=== PATIENT | female | born 1985 | race Two or more races ===

== ENCOUNTER 2020-07-23 14:40 | Outpatient (REF) | payer OTHER, SELFPAY ==
[2020-07-23 15:43] LABS: MANUAL DIFF FLAG NO
[2020-07-23 15:49] LABS: Basophils Percent Auto 0.5 % (0-2); Eosinophils Absolute Auto 0.2 X10*3/uL (0.0-0.4); Eosinophils Percent Auto 2.1 % (0-4); Hematocrit 41.9 % (37-47); Hemoglobin 13.3 g/dl (12.0-16.0); Imm Gran Abs Auto 0.04 X10*3/uL (0.00-0.03); Imm Gran Pct Auto 0.5 % (0.0-0.4); Lymphocytes Absolute Auto 2.3 X10*3/uL (1.2-4.9); Lymphocytes Percent Auto 30.3 % (20-40); Mean Corpuscular HGB Conc 31.7 g/dl (31.0-35.0); Mean Corpuscular Hemoglobin 27.3 pg (27.0-33.0); Mean Corpuscular Volume 85.9 fL (80-98); Mean Platelet Volume 11.5 fL (9.4-12.3); Monocytes Absolute Auto 0.5 X10*3/uL (0.1-1.2); Monocytes Percent Auto 6.8 % (2-11); Neutrophils Absolute Auto 4.5 X10*3/uL (2.0-8.3); Neutrophils Percent Auto 59.8 % (45-73); Platelet Count 270 X10*3/uL (160-400); Red Blood Count 4.88 X10*6/uL (4.20-5.50); Red Cell Distribution Width 12.9 % (11.0-16.0); White Blood Count 7.5 X10*3/uL (4.8-10.8)
[2020-07-23 16:12] LABS: Anion Gap 11 (12-20); Blood Urea Nitrogen 10 mg/dL (9-16); Calcium 9.2 mg/dL (8.4-10.2); Carbon Dioxide 26 mmol/L (22-29); Chloride 106 mmol/L (96-108); Estimated Glomerular Filt Rate > 60; Glucose Random 110 mg/dL (60-115); Potassium 4.1 mmol/l (3.3-5.1); Rheumatoid Factor < 15.0 IU/mL (<15.0); Sodium 139 mmol/L (135-145)
[2020-07-23 16:33] LABS: Vitamin D 25-OH Total 19.6 ng/mL (>30)
[2020-07-23 16:38] LABS: Vitamin B12 237 pg/mL (200-900)
[2020-07-23 17:34] LABS: Erythrocyte Sedimentation Rate 4 MM/HR (0-20)
[2020-07-24 15:41] LABS: Anti Nuclear Antibody Screen NEGATIVE (NEGATIVE)
== END 2020-07-23 14:41 | disposition home or self-care (01) ==
LOC: HO.LAB 14:40
PROVIDERS: PCP Internal Medicine; Visit Provider Internal Medicine
DX: K21.9 Gastro-esophageal reflux disease without esophagitis (principal); M25.519 Pain in unspecified shoulder; E28.2 Polycystic ovarian syndrome; E55.9 Vitamin D deficiency, unspecified
CPT/HCPCS: 36415; 80048; 82306; 82607; 85025; 85652; 86038; 86039; 86431

== ENCOUNTER → 2020-08-18 14:51 | Outpatient (BNVA) | payer OTHER, SELFPAY | PROVIDERS: PCP Internal Medicine; Visit Provider Obstetrics & Gynecology | DX: Z76.89 Persons encountering health services in other specified circumstances (principal) ==

== ENCOUNTER 2020-08-24 18:03 | Emergency (ER) | payer OTHER, SELFPAY ==
[2020-08-24 19:00] VITALS: BP 115/69; PULSE 70; RESP 16; TEMP 36.7; O2SAT 99; BMI 27.1
--- NOTE | 2020-08-24 19:50 | CT_ITS ---
EXAMINATION: CT ABDOMEN AND PELVIS WITH CONTRAST CLINICAL INFORMATION: Epigastric pain in right lower quadrant pain. Right flank pain. COMPARISON: CT abdomen pelvis 03/06/2018, 09/03/2017. TECHNIQUE: Multidetector volumetric images were obtained from the superior aspect of the liver through the pubic symphysis following administration 85 mL of Omnipaque 350 intravenous contrast. Sagittal and coronal reformatted images were obtained on the technologist's workstation. Oral contrast: No This CT examination was performed using dose optimization techniques as appropriate, variously including the following: *Automated exposure control *Adjustment of mA and/or kV according to patient size (this includes techniques or standardized protocols for targeted exams where dose is matched to indication/reason for exam; i.e. extremities or head) *Use of iterative reconstruction technique DLP: 589 mGy-cm FINDINGS: LUNG BASES: The visualized lung bases are unremarkable. LIVER, GALLBLADDER, AND BILIARY TREE: The liver is normal in size, shape, and attenuation. No focal hepatic lesion or biliary ductal dilatation is present. Status post cholecystectomy PANCREAS: Unremarkable. SPLEEN: Unremarkable. ADRENAL GLANDS: Unremarkable. KIDNEYS AND URETERS: The kidneys are normal in size, shape, and attenuation. No hydronephrosis, hydroureter, or calculi seen. No perinephric stranding. BLADDER: Unremarkable. GASTROINTESTINAL TRACT: Status post gastric surgery. No acute abnormality of the bowel. No bowel obstruction. No bowel wall thickening or edema. Small volume of scattered stool in the colon. The appendix is normal. ABDOMINAL WALL: No significant hernia is appreciated. LYMPH NODES: Normal. VASCULAR: There are varices at the right and left side of the pelvic sidewall with prominence of the right and left gonadal veins. There is otherwise normal enhancement of the abdominal and pelvic vasculature. PELVIC VISCERA: Unremarkable. OSSEOUS STRUCTURES: Unremarkable. CT/CT abdomen pelvis w con IMPRESSION: 1. No acute abnormality. 2. 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 This is chronic unchanged since CAT scan 09/03/2017.
--- NOTE | 2020-08-24 19:52 | ED_ITS ---
HPI - Nausea/Vomiting/Diarrhea General Chief complaint: Nausea/Vomiting/Diarrhea Stated complaint: flank pain Time Seen by Provider: 08/24/20 19:29 Source: patient Mode of arrival: ambulatory Limitations: no limitations History of Present Illness HPI Narrative: patient comes to the emergency room complaining diarrhea for 2 days. Patient states 3 days ago she ate at [employer], that same night she ate dinner at her vovzph-in-ajd's house, the next day in the afternoon, patient had 2 sips of coffee and immediately started having diarrhea. Patient reports 1 episode of vomiting. Patient states anything that she will make her go immediately to the bathroom. Patient states she has had copious diarrhea all day today, patient complaining of back pain bilaterally, no abdominal pain MD elicited complaint: nausea, vomiting and diarrhea Related Data Home Medications Medication Instructions Recorded Confirmed estazolam 2 mg PO BEDTIME 07/23/20 08/18/20 gabapentin 100 mg PO TID 07/23/20 08/18/20 indomethacin 50 mg PO TID PRN 07/23/20 08/18/20 lithium carbonate 450 mg PO DAILY 07/23/20 08/18/20 Previous Rx's Medication Instructions Recorded loperamide 2 mg PO Q6H PRN #10 cap 08/24/20 ondansetron HCl [Zofran] 4 mg PO Q8H PRN #10 tab 08/24/20 Allergies Allergy/AdvReac Type Severity Reaction Status Date / Time No Known Allergies Allergy Verified 08/18/20 15:01 Review of Systems Review of Systems: Constitutional : No Weight loss, No Fever, No Chills, No Night Sweats, No Fatigue, No Malaise ENT/Mouth : No Hearing loss, No Ear Pain, No Nasal Congestion, No Sinus Pain, No Hoarseness, No sore throat, No Rhinorrhea, No Swallowing Difficulty Eyes: No Eye Pain, No Swelling, No Redness, No Foreign Body, No Discharge, No Vision Changes Cardiovascular : No Chest Pain, No SOB, No Dyspnea on Exertion, No Orthopnea, No Edema, No Palpitations Respiratory : No Cough, No Sputum, No Wheezing, No Smoke Exposure, No Dyspnea Gastrointestinal : patient complaining of nausea, 1 episode of vomiting, cough his diarrhea, No abdominal Pain, No Hematochezia, No Melena Genitourinary : no irregular bleeding, No Dysuria, No Urinary Frequency, No Hematuria, No Urinary Incontinence, No Urgency, No Flank Pain, No Urinary Flow Changes, No Hesitancy Musculoskeletal : No joint pain, No Myalgias, No Joint Swelling Skin : No Skin Lesions, No rash Neuro : No Weakness, No Numbness, No Paresthesias, No Loss of Consciousness, No Dizziness, No Headache Psych : No Anxiety/Panic, No Depression, No SI/HI/AH/VH, No Social Issues, Heme/Lymph: No Bruising, No Bleeding,No Lymphadenopathy Endocrine : No Polyuria, No Polydipsia, No Temperature Intolerance [facility] Past Medical History Medical History Anxiety Depression GERD (gastroesophageal reflux disease) History of kidney stones Migraines Vitamin B 12 deficiency Surgical History History of bilateral tubal ligation S/P laparoscopic sleeve gastrectomy Social History Social History Alcohol intake: never Smoking Status: Never smoker Use of substances other than those prescribed or required for medical reasons: No Advance Directives: No Advance Directives Information Provided: Yes Sexual orientation: Straight/Heterosexual Gender identity: female Physical Exam Vital Signs: Vital Signs: Last Vital Signs Temp 98.1 F 08/24/20 19:00 Pulse 65 08/24/20 20:24 Resp 14 08/24/20 20:24 BP 109/70 08/24/20 20:24 Pulse Ox 100 08/24/20 20:24 Body Mass Index 27.1 Appearance: Alert. Oriented X3. No acute distress. Eyes: Pupils equal, round and reactive to light. ENT: Pharynx normal. Neck: Normal inspection. Neck supple. No lymph nodes noted. No crepitus CVS: Normal heart rate and rhythm. Pulses normal. Normal S1 and S2 Respiratory: No respiratory distress. Breath sounds normal. No Wheezing. No rales Abdomen: Soft and nontender. No rigidity. No distention. good BS x4 back: Exaggerated response to very mild touch to the back bilaterally Skin: Skin warm and dry. Normal skin color. Normal skin turgor. Extremities: No lower extremity edema. No lower extremity edema. No Lacerations. No Rash Neuro: Oriented X 3. No motor deficit. No sensory deficit. Moving all extermities. No slurred speech. Course Course Course Narrative: patient has not had any episodes of vomiting or diarrhea after she received Zofran and loperamide. I also discussed the patient with nurse practitioner on-call for bariatric surgery. Patient will be discharged home and instructed to call bariatric surgery office on Tuesday to schedule follow-up of appointments For this coming week MDM - Nausea/Vomiting/Diarrhea Lab Data Result diagrams: 08/24/20 20:18 08/24/20 20:18 Labs: Lab Results 08/24/20 08/24/20 08/24/20 Range/Units 20:18 20:18 22:40 WBC 6.8 (4.8-10.8) X10*3/uL RBC 4.67 (4.20-5.50) X10*6/uL Hgb 13.1 (12.0-16.0) g/dl Hct 40.7 (37-47) % MCV 87.2 (80-98) fL MCH 28.1 (27.0-33.0) pg MCHC 32.2 (31.0-35.0) g/dl RDW 13.0 (11.0-16.0) % Plt Count 272 (160-400) X10*3/uL MPV 10.9 (9.4-12.3) fL Immature Gran % (Auto) 0.1 (0.0-0.4) % Neut % (Auto) 54.0 (45-73) % Lymph % (Auto) 36.2 (20-40) % Green % (Auto) 8.6 (2-11) % Eos % (Auto) 0.7 (0-4) % Baso % (Auto) 0.4 (0-2) % Lymph # (Auto) 2.5 (1.2-4.9) X10*3/uL Green # (Auto) 0.6 (0.1-1.2) X10*3/uL Eos # (Auto) 0.1 (0.0-0.4) X10*3/uL Baso # (Auto) 0.0 (0.0-0.2) X10*3/uL Abs Immat Gran (auto) 0.01 (0.00-0.03) X10*3/uL Absolute Neuts (auto) 3.6 (2.0-8.3) X10*3/uL Absolute Nucleated RBC 0.000 (0.0-0.012) X10*3/uL Nucleated RBC % (auto) 0.0 (0.0-0.2) /100WBC Sodium 139 (135-145) mmol/L Potassium 3.7 (3.3-5.1) mmol/l Chloride 105 (96-108) mmol/L Carbon Dioxide 26 (22-29) mmol/L Anion Gap 12 (12-20) BUN 13 (9-16) mg/dL Creatinine 0.78 (0.5-1.4) mg/dL Estim Creat Clear Calc 105.9 Estimated GFR > 60 Random Glucose 87 (60-115) mg/dL Calcium 8.6 D (8.4-10.2) mg/dL Total Bilirubin 0.7 (0.0-1.0) mg/dL Direct Bilirubin 0.3 (0.0-0.5) mg/dL AST 17 (5-31) U/L ALT 15 (0-31) U/L Alkaline Phosphatase 45 (39-117) U/L Total Protein 6.8 (6.5-8.0) g/dL Albumin 3.9 (3.5-5.0) g/dL Lipase 22 (8-78) U/L Urine Color YELLOW Urine Appearance CLEAR Urine pH 5.5 (5.0-8.0) Ur Specific Graff 1.015 (1.005-1.025) Urine Protein NEG (NEG-TRACE) MG/DL Urine Glucose (UA) NEG (NEG) MG/DL Urine Ketones NEG (NEG) MG/DL Urine Blood TRACE (NEG) Urine Nitrite NEG (NEG) Ur Leukocyte Esterase NEG (NEG) Discharge Plan Discharge Clinical Impression: Acute flank pain Vomiting Qualifiers: Vomiting type: unspecified Vomiting Intractability: unspecified Nausea presence: unspecified Qualified Code(s): R11.10 - Vomiting, unspecified Diarrhea Qualifiers: Diarrhea type: unspecified type Qualified Code(s): R19.7 - Diarrhea, unspecified Patient Disposition: Home, Self-Care Instructions: Acute Nausea and Vomiting (ED), Acute Diarrhea (ED) Additional Instructions: please call the Bariatric surgery Office tomorrow to schedule a follow-up appointment. Please follow-up with your primary care physician tomorrow. If you have any worsening or new symptoms, please return to the emergency room or call 911 Prescriptions: New ondansetron HCl [Zofran] 4 mg tablet 4 mg PO Q8H PRN (Reason: nausea and vomiting) Qty: 10 RF: 0 loperamide 2 mg capsule 2 mg PO Q6H PRN (Reason: loose stool) Qty: 10 RF: 0 No Action estazolam 2 mg tablet 2 mg PO BEDTIME RF: 0 lithium carbonate 450 mg tablet extended release 450 mg PO DAILY RF: 0 indomethacin 50 mg capsule 50 mg PO TID PRN (Reason: Pain) RF: 0 gabapentin 100 mg Capsule 100 mg PO TID RF: 0
[2020-08-24] MEDS: 0.9 % Sodium Chloride 1,000 ML 999 ML IVCONT (20:19)
[2020-08-24] MEDS: ondansetron HCL 4 MG/2 ML VIAL IVPUSH (20:20)
[2020-08-24] MEDS: Loperamide HCl 2 MG CAPSULE PO (20:20)
[2020-08-24 20:23] LABS: MANUAL DIFF FLAG NO
[2020-08-24 20:24] VITALS: BP 109/70; PULSE 65; RESP 14; O2SAT 100
[2020-08-24 20:26] LABS: Basophils Percent Auto 0.4 % (0-2); Eosinophils Absolute Auto 0.1 X10*3/uL (0.0-0.4); Eosinophils Percent Auto 0.7 % (0-4); Hematocrit 40.7 % (37-47); Hemoglobin 13.1 g/dl (12.0-16.0); Imm Gran Abs Auto 0.01 X10*3/uL (0.00-0.03); Imm Gran Pct Auto 0.1 % (0.0-0.4); Lymphocytes Absolute Auto 2.5 X10*3/uL (1.2-4.9); Lymphocytes Percent Auto 36.2 % (20-40); Mean Corpuscular HGB Conc 32.2 g/dl (31.0-35.0); Mean Corpuscular Hemoglobin 28.1 pg (27.0-33.0); Mean Corpuscular Volume 87.2 fL (80-98); Mean Platelet Volume 10.9 fL (9.4-12.3); Monocytes Absolute Auto 0.6 X10*3/uL (0.1-1.2); Monocytes Percent Auto 8.6 % (2-11); Neutrophils Absolute Auto 3.6 X10*3/uL (2.0-8.3); Platelet Count 272 X10*3/uL (160-400); Red Blood Count 4.67 X10*6/uL (4.20-5.50); White Blood Count 6.8 X10*3/uL (4.8-10.8)
[2020-08-24 20:45] LABS: Alanine Aminotransferase 15 U/L (0-31); Albumin Level 3.9 g/dL (3.5-5.0); Alkaline Phosphatase 45 U/L (39-117); Anion Gap 12 (12-20); Aspartate Amino Transferase 17 U/L (5-31); Bilirubin Direct 0.3 mg/dL (0.0-0.5); Bilirubin Total 0.7 mg/dL (0.0-1.0); Blood Urea Nitrogen 13 mg/dL (9-16); Calcium 8.6 mg/dL (8.4-10.2); Carbon Dioxide 26 mmol/L (22-29); Chloride 105 mmol/L (96-108); Creatinine Clr Calc Pharmacy 105.9; Estimated Glomerular Filt Rate > 60; Glucose Random 87 mg/dL (60-115); Lipase 22 U/L (8-78); Potassium 3.7 mmol/l (3.3-5.1); Sodium 139 mmol/L (135-145); Total Protein 6.8 g/dL (6.5-8.0)
[2020-08-24] MEDS: iohexoL 350 MG/ML 100 ML INFUS..BTL IV (21:45)
[2020-08-24 22:48] LABS: Glucose Urine UA NEG (NEG); Leukocyte Esterase Urine NEG (NEG); Nitrite Urine NEG (NEG); PH 5.5 (5.0-8.0); Specific Gravity - Urine 1.015 (1.005-1.025); Urine Blood TRACE (NEG); Urine Ketones NEG (NEG); Urine Protein NEG (NEG-TRACE)
[2020-08-24 22:49] LABS: Appearance Urine CLEAR; Color Urine YELLOW
[2020-08-24 22:50] LABS: UPreg QC Valid YES; Urine Pregnancy NEGATIVE (NEGATIVE)
[2020-08-24 22:54] LABS: Bacteria Urine 1+ /LPF; Mucus Urine 2+ /LPF; RBC Urine 0-2 /HPF (0); Squamous Epithelial Cell Urine 1+ /LPF; WBC Urine 0 /HPF (0-4)
== END 2020-08-24 23:05 | disposition home or self-care (01) ==
PROVIDERS: Emergency Provider Emergency Medicine; PCP Internal Medicine
DX: R19.7 Diarrhea, unspecified (principal); R11.10 Vomiting, unspecified; R10.9 Unspecified abdominal pain; Z79.899 Other long term (current) drug therapy
CPT/HCPCS: 36415; 74177; 80048; 80076; 81001; 81025; 83690; 85025; 96361; 96374; 99284; J2405; Q9967

== ENCOUNTER → 2020-09-30 11:51 | Outpatient (BNVA) | payer OTHER, SELFPAY | PROVIDERS: PCP Internal Medicine; Referring Provider Internal Medicine; Visit Provider Surgery | DX: Z76.89 Persons encountering health services in other specified circumstances (principal) ==

== ENCOUNTER 2020-10-05 15:35 | Emergency (ER) | payer OTHER, SELFPAY ==
[2020-10-05 15:41] VITALS: BP 104/69; PULSE 83; RESP 17; TEMP 37.9; O2SAT 97; BMI 26.8
--- NOTE | 2020-10-05 15:51 | ED_ITS ---
HPI - URI/Sore Throat General Chief Complaint: Upper Respiratory Symptoms Stated Complaint: covid symptoms Time Seen by Provider: 10/05/20 15:42 Source: patient Mode of arrival: ambulatory Limitations: no limitations History of Present Illness HPI Narrative: 35 y/o female with history of obesity s/p gastric sleeve, hx gastritis, anxiety, depression, kidney stones s/p lithotripsy in the past presents with 3 days of headache, generalized fatigue, body aches, mild ESTRADA, and intermittent nausea. She has been able to eat and drink normally but has lack of appetite. She denies cough, SOB, chest pain, abd pain, vomiting or diarrhea. No urinary symptoms. She did not get her flu shot this year. 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 Related Data Home Medications Medication Instructions Recorded Confirmed estazolam 2 mg PO BEDTIME 07/23/20 09/30/20 gabapentin 100 mg PO TID 07/23/20 09/30/20 indomethacin 50 mg PO TID PRN 07/23/20 09/30/20 lithium carbonate 450 mg PO DAILY 07/23/20 09/30/20 Previous Rx's Medication Instructions Recorded loperamide 2 mg PO Q6H PRN #10 cap 08/24/20 ondansetron HCl [Zofran] 4 mg PO Q8H PRN #10 tab 08/24/20 sucralfate 100 mg/mL oral 10 ml PO QID #420 ml 09/30/20 suspension ondansetron HCl [Zofran] 4 mg PO Q8H PRN #10 tab 10/05/20 Allergies Allergy/AdvReac Type Severity Reaction Status Date / Time No Known Allergies Allergy Verified 09/30/20 14:54 Review of Systems Review of Systems: Constitutional: No Fever, + Chills ENT/Mouth: No sore throat, No Rhinorrhea, No Swallowing Difficulty Eyes: No Eye Pain, No Swelling, No Redness Cardiovascular: No Chest Pain, No SOB, No Orthopnea, No Edema Respiratory: No Cough, No Sputum, No Wheezing, No dyspnea Gastrointestinal: + Nausea, No Vomiting, No Diarrhea, No abdominal Pain Genitourinary: No Dysuria, No Urinary Frequency, No Hematuria Musculoskeletal: + joint pain, + Myalgias Skin: No Skin Lesions, No rash Neuro: + Weakness, No Numbness, + Dizziness, + Headache Heme/Lymph: No Lymphadenopathy PMFSH Past Medical History Attestation statement: The following information was validated with the patient. Medical History Anxiety Depression History of kidney stones Migraines Panic attacks Vitamin B 12 deficiency Surgical History History of bilateral tubal ligation History of endoscopy Hx laparoscopic cholecystectomy Hx of lithotripsy S/P laparoscopic sleeve gastrectomy S/P panniculectomy Family History Family History Mother Alzheimer disease Dementia Father Diabetes mellitus Hypertension Sister Cancer Sister No problems noted. Brother No problems noted. Brother No problems noted. Son No problems noted. Daughter No problems noted. Social History Social History Alcohol intake: never Smoking Status: Never smoker Smoked in Last 30 Days: No Use of substances other than those prescribed or required for medical reasons: No Advance Directives: No Advance Directives Information Provided: Yes Sexual orientation: Straight/Heterosexual Gender identity: female Physical Exam Vital Signs: Vital Signs: Last Vital Signs Temp 100.2 F 10/05/20 15:41 Pulse 83 10/05/20 15:41 Resp 17 10/05/20 15:41 BP 104/69 10/05/20 15:41 Pulse Ox 97 10/05/20 15:41 Body Mass Index 26.8 Appearance: Alert. Oriented X3. No acute distress. HEENT: Normal inspection of external structures. Pharynx normal. Neck: Normal inspection. Neck supple. CVS: Normal heart rate and rhythm. Pulses normal. Respiratory: No respiratory distress. Breath sounds normal. Skin: Skin warm and dry. Normal skin color. Normal skin turgor. No rashes. Extremities: No lower extremity edema. Neuro: Oriented X 3. No motor deficit. No sensory deficit. Course Course Course Narrative: 35 y/o female presenting with body aches, chills, headaches, generalized weakness, nausea - concern for COVID-19 vs influenza. Low grade fe filiberto on arrival, Spo2 97% on room air and lungs are clear. She is non-toxic appearing. Will check respiratory panel. Reevaluation(s) Reevaluation #1: Resp panel negative. Stable for d/c. MDM - URI/Sore Throat Lab Data Labs: Lab Results 10/05/20 Range/Units 15:52 Coronavirus (PCR) NEGATIVE (Negative) Influenza Type A (PCR) NEGATIVE (Negative) Influenza Type B (PCR) NEGATIVE (Negative) RSV RNA Qual (PCR) NEGATIVE (Negative) Critical Care Time Critical Care Time Critical Care Time: No Discharge Plan Discharge Clinical Impression: Acute viral syndrome Patient Disposition: Home, Self-Care Additional Instructions: You were tested for COVID-19, Influenza and RSV today - ALL WERE NEGATIVE. It is likely you symptoms are from another viral illness. Rest. Stay hydrated. Do not go to work while you are feeling ill. Take over the counter cold/flu medications as needed for your symptoms. Take Tylenol as needed for fever and body aches. Do not exceed 4,000 mg in a 24 hour period. Follow up with your doctor this week. If you develop shortness of breath, difficulty breathing or chest pain call 911 or come back to the ER for further evaluation. Prescriptions: New ondansetron HCl [Zofran] 4 mg tablet 4 mg PO Q8H PRN (Reason: nausea and vomiting) Qty: 10 RF: 0 No Action estazolam 2 mg tablet 2 mg PO BEDTIME RF: 0 lithium carbonate 450 mg tablet extended release 450 mg PO DAILY RF: 0 indomethacin 50 mg capsule 50 mg PO TID PRN (Reason: Pain) RF: 0 gabapentin 100 mg Capsule 100 mg PO TID RF: 0 ondansetron HCl [Zofran] 4 mg tablet 4 mg PO Q8H PRN (Reason: nausea and vomiting) Qty: 10 RF: 0 loperamide 2 mg capsule 2 mg PO Q6H PRN (Reason: loose stool) Qty: 10 RF: 0 sucralfate [Carafate] 100 mg/mL suspension 10 ml PO QID Qty: 420 RF: 3 Stand Alone Forms: Work/School Release
[2020-10-05 16:38] LABS: Influenza A PCR NEGATIVE (Negative); Influenza B PCR NEGATIVE (Negative); Resp Syncy Virus RNA Qual PCR NEGATIVE (Negative); SARS COV2 PCR INHOUSE NEGATIVE (Negative)
== END 2020-10-05 17:17 | disposition home or self-care (01) ==
PROVIDERS: Physician Assistant; Emergency Provider Emergency Medicine; PCP Internal Medicine
DX: B34.9 Viral infection, unspecified (principal); Z20.828 Contact with and (suspected) exposure to other viral communicable diseases; R50.9 Fever, unspecified
CPT/HCPCS: 0241U; 99283

== ENCOUNTER → 2020-10-27 16:00 | Outpatient (BNV) | payer OTHER, SELFPAY | PROVIDERS: PCP Internal Medicine; Visit Provider Internal Medicine | DX: D51.9 Vitamin B12 deficiency anemia, unspecified (principal); D50.9 Iron deficiency anemia, unspecified; Z98.84 Bariatric surgery status | CPT/HCPCS: 99212; 99213; 99214 ==

== ENCOUNTER → 2020-11-11 14:35 | Outpatient (BNVA) | payer OTHER, SELFPAY | PROVIDERS: PCP Internal Medicine; Visit Provider Dietitian, Registered ==

== ENCOUNTER → 2020-11-25 07:58 | Outpatient (BNVA) | payer OTHER, SELFPAY | PROVIDERS: PCP Internal Medicine; Visit Provider Dietitian, Registered ==

== ENCOUNTER → 2021-01-06 08:18 | Outpatient (BNVA) | payer OTHER, SELFPAY | PROVIDERS: PCP Internal Medicine; Visit Provider Dietitian, Registered ==

== ENCOUNTER 2021-02-17 15:11 | Outpatient (REF) | payer OTHER, SELFPAY ==
--- NOTE | ~2021-02-17 | XR_ITS ---
EXAMINATION: KNEE X-RAY CLINICAL INFORMATION: Left knee pain COMPARISON: Previous x-ray most recent January 2020 TECHNIQUE: Standing AP view of both knees and lateral and sunrise view of the right knee FINDINGS: Right knee: Bone alignment is normal. No fracture is a accessory is seen. There is mild medial femoral tibial joint space narrowing. Joint spaces are otherwise normal. There is a small osteophyte at the quadriceps tendon insertion to the patella. There is no joint effusion. Standing AP view of the left knee demonstrates mild medial femoral tibial joint space narrowing. XR/XR knee RT 2V IMPRESSION: Mild medial femoral tibial joint space narrowing. Small right patellar osteophyte at the quadriceps tendon insertion.
--- NOTE | ~2021-02-17 | XR_ITS ---
EXAMINATION: KNEE X-RAY CLINICAL INFORMATION: Left knee pain COMPARISON: Previous x-ray most recent January 2020 TECHNIQUE: Standing AP view of both knees and lateral and sunrise view of the right knee FINDINGS: Right knee: Bone alignment is normal. No fracture is a accessory is seen. There is mild medial femoral tibial joint space narrowing. Joint spaces are otherwise normal. There is a small osteophyte at the quadriceps tendon insertion to the patella. There is no joint effusion. Standing AP view of the left knee demonstrates mild medial femoral tibial joint space narrowing. XR/XR knee standing BI IMPRESSION: Mild medial femoral tibial joint space narrowing. Small right patellar osteophyte at the quadriceps tendon insertion.
== END 2021-02-17 15:12 | disposition home or self-care (01) ==
LOC: HO.HOSX 15:11
PROVIDERS: Visit Provider Orthopaedic Surgery
DX: M25.561 Pain in right knee (principal); M25.562 Pain in left knee
CPT/HCPCS: 73560; 73565

== ENCOUNTER → 2021-02-18 08:16 | Outpatient (BNVA) | payer OTHER, SELFPAY | PROVIDERS: Visit Provider Orthopaedic Surgery | DX: M25.562 Pain in left knee (principal); M25.561 Pain in right knee | CPT/HCPCS: 99202; J1040 ==

== ENCOUNTER → 2021-03-10 08:10 | Outpatient (BNVA) | payer OTHER, SELFPAY | PROVIDERS: Visit Provider Dietitian, Registered | DX: E66.3 Overweight (principal) | CPT/HCPCS: 97803 ==

== ENCOUNTER → 2021-03-12 08:46 | Outpatient (BNVA) | payer OTHER, SELFPAY | PROVIDERS: Visit Provider Physician Assistant ==

== ENCOUNTER 2021-03-19 08:19 | Outpatient (REF) | payer OTHER, SELFPAY ==
[2021-03-19 10:12] LABS: MANUAL DIFF FLAG NO
[2021-03-19 10:23] LABS: Basophils Percent Auto 0.4 % (0-2); Eosinophils Absolute Auto 0.1 X10*3/uL (0.0-0.4); Eosinophils Percent Auto 0.7 % (0-4); Hematocrit 45.1 % (37-47); Hemoglobin 14.4 g/dl (12.0-16.0); Imm Gran Abs Auto 0.04 X10*3/uL (0.00-0.03); Imm Gran Pct Auto 0.5 % (0.0-0.4); Lymphocytes Absolute Auto 1.6 X10*3/uL (1.2-4.9); Lymphocytes Percent Auto 20.4 % (20-40); Mean Corpuscular HGB Conc 31.9 g/dl (31.0-35.0); Mean Corpuscular Hemoglobin 27.4 pg (27.0-33.0); Mean Corpuscular Volume 85.9 fL (80-98); Mean Platelet Volume 10.7 fL (9.4-12.3); Monocytes Absolute Auto 0.5 X10*3/uL (0.1-1.2); Monocytes Percent Auto 6.7 % (2-11); Neutrophils Absolute Auto 5.7 X10*3/uL (2.0-8.3); Neutrophils Percent Auto 71.3 % (45-73); Platelet Count 270 X10*3/uL (160-400); Red Blood Count 5.25 X10*6/uL (4.20-5.50); Red Cell Distribution Width 13.3 % (11.0-16.0)
[2021-03-19 10:42] LABS: Alanine Aminotransferase 20 U/L (0-31); Albumin Level 4.1 g/dL (3.5-5.0); Alkaline Phosphatase 55 U/L (39-117); Anion Gap 12 (12-20); Aspartate Amino Transferase 15 U/L (5-31); Bilirubin Total 0.5 mg/dL (0.0-1.0); Blood Urea Nitrogen 9 mg/dL (9-16); C Reactive Protein 0.05 mg/dL (< or = 0.50); Calcium 9.9 mg/dL (8.4-10.2); Carbon Dioxide 27 mmol/L (22-29); Chloride 106 mmol/L (96-108); Cholesterol 185 mg/dL; Estimated Glomerular Filt Rate > 60; Glucose Fasting 114 mg/dL (60-99); HDL Cholesterol 59 mg/dL; Iron 37 mcg/dL (30-160); LDL Cholesterol Calculated 115 mg/dl; Percent Iron Saturation 8 % (15-50); Potassium 4.9 mmol/L (3.3-5.1); Sodium 140 mmol/L (135-145); Total Iron Binding Capacity 454 mcg/dL (228-428); Total Protein 7.4 g/dL (6.5-8.0); Triglycerides 56 mg/dL; Unsaturated Iron Binding 417 ug/dL
[2021-03-19 11:03] LABS: Thyroid Stimulating Hormone 1.03 uIU/mL (0.32-4.0); Vitamin D 25-OH Total 23.8 ng/mL (>30)
[2021-03-19 11:27] LABS: Vitamin B12 262 pg/mL (200-900)
[2021-03-20 08:22] LABS: Follicle Stimulating Hormone 5.8 mIU/mL
[2021-03-22 00:17] LABS: Zinc 107 mcg/dL (60-130)
[2021-03-23 06:11] LABS: Vitamin B1 12 nmol/L (8-30)
[2021-03-24 21:36] LABS: Vitamin A 38 mcg/dL (38-98)
== END 2021-03-19 08:20 | disposition home or self-care (01) ==
LOC: HO.LAB 08:19
PROVIDERS: Absent Provider Surgery; PCP Internal Medicine; Visit Provider Advanced Practice Midwife
DX: Z01.818 Encounter for other preprocedural examination (principal); N90.89 Other specified noninflammatory disorders of vulva and perineum; R32 Unspecified urinary incontinence; N89.8 Other specified noninflammatory disorders of vagina; R23.2 Flushing; K90.9 Intestinal malabsorption, unspecified; F41.8 Other specified anxiety disorders; E53.8 Deficiency of other specified B group vitamins; Z90.3 Acquired absence of stomach [part of]; Z98.51 Tubal ligation status
CPT/HCPCS: 36415; 80053; 80061; 82306; 82607; 83001; 83540; 84425; 84443; 84590; 84630; 85025; 86140; 99212

== ENCOUNTER 2021-03-28 22:02 | Emergency (ER) | payer OTHER, SELFPAY ==
[2021-03-28 23:15] VITALS: BP 128/67; PULSE 77; RESP 18; TEMP 36.4; O2SAT 100; BMI 29.0
--- NOTE | 2021-03-29 00:46 | ED_ITS ---
HPI - Skin/Abscess/Foreign Bdy General Chief complaint: Skin/Abscess/Foreign Body Stated complaint: Breast pain Time Seen by Provider: 03/29/21 00:46 History of Present Illness HPI narrative: 35-year-old female presents today with having bilateral breast pain. Has been ongoing for the last 2 days. Patient feels like she can feel a lump there. No fever no chills. No redness. No discharge. Patient is from home. No cough no congestion upper respiratory symptoms. No chest pain. No shortness of breath. No abdominal pain. Patient from home. Does not think she is . Patient claims she had an ablation in the past. Related Data Home Medications Medication Instructions Recorded Confirmed estazolam 2 mg PO BEDTIME 07/23/20 09/30/20 gabapentin 100 mg PO TID 07/23/20 09/30/20 indomethacin 50 mg PO TID PRN 07/23/20 09/30/20 lithium carbonate 450 mg PO DAILY 07/23/20 09/30/20 Previous Rx's Medication Instructions Recorded loperamide 2 mg PO Q6H PRN #10 cap 08/24/20 ondansetron HCl [Zofran] 4 mg PO Q8H PRN #10 tab 08/24/20 sucralfate 100 mg/mL oral 10 ml PO QID #420 ml 09/30/20 suspension acetaminophen [Tylenol Arthritis 650 mg PO Q8H PRN #30 tab 10/05/20 Pain] ondansetron HCl [Zofran] 4 mg PO Q8H PRN #10 tab 10/05/20 calcium citrate 315 mg-vitamin D3 2 tab PO BID #120 tab 12/02/20 5 mcg (200 unit) tablet Allergies Allergy/AdvReac Type Severity Reaction Status Date / Time No Known Allergies Allergy Verified 03/19/21 08:23 Review of Systems Review of Systems: Constitutional: No Weight loss, No Fever, No Chills, No Night Sweats, No Fatigue, No Malaise ENT/Mouth: No Hearing loss, No Ear Pain, No Nasal Congestion, No Sinus Pain, No Hoarseness, No sore throat, No Rhinorrhea, No Swallowing Difficulty Eyes: No Eye Pain, No Swelling, No Redness, No Foreign Body, No Discharge, No Vision Changes Cardiovascular: No Chest Pain, No SOB, No Dyspnea on Exertion, No Orthopnea, No Edema, No Palpitations Respiratory: No Cough, No Sputum, No Wheezing, No Smoke Exposure, No Dyspnea Gastrointestinal: No Nausea, No Vomiting, No Diarrhea, No Constipation, No abdominal Pain, No Hematochezia, No Melena Genitourinary: no irregular bleeding, No Dysuria, No Urinary Frequency, No Hematuria, No Urinary Incontinence, No Urgency, No Flank Pain, No Urinary Flow Changes, No Hesitancy Musculoskeletal: No joint pain, No Myalgias, No Joint Swelling Skin: Positive mass palpable by patient to the breast. Positive tightness in the breast. Neuro: No Weakness, No Numbness, No Paresthesias, No Loss of Consciousness, No Dizziness, No Headache Psych: No Anxiety/Panic, No Depression, No SI/HI/AH/VH, No Social Issues, Heme/Lymph: No Bruising, No Bleeding,No Lymphadenopathy Endocrine: No Polyuria, No Polydipsia, No Temperature Intolerance PMFSH Past Medical History Medical History Anxiety Depression History of kidney stones Migraines Panic attacks Vitamin B 12 deficiency Vulvar mass Surgical History History of bilateral tubal ligation History of endoscopy Hx laparoscopic cholecystectomy Hx of lithotripsy S/P laparoscopic sleeve gastrectomy S/P panniculectomy Family History Family History Mother Alzheimer disease Dementia Father Diabetes mellitus Hypertension Sister Cancer Sister No problems noted. Brother No problems noted. Brother No problems noted. Son No problems noted. Daughter No problems noted. 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 Appearance: Alert. Oriented X3. No acute distress. Eyes: Pupils equal, round and reactive to light. ENT: Pharynx normal. Neck: Normal inspection. Neck supple. No lymph nodes noted. No crepitus CVS: Normal heart rate and rhythm. Pulses normal. Normal S1 and S2 Examination of bilateral breasts showed no redness. Normal contours. Skin intact. There is bilateral nodularity is noted. Respiratory: No respiratory distress. Breath sounds normal. No Wheezing. No rales Abdomen: Soft and nontender. No rigidity. No distention. good BS x4 Skin: Skin warm and dry. Normal skin color. Normal skin turgor. Extremities: No lower extremity edema. Neurovascular intact to all extremities. No Lacerations. No Rash Neuro: Oriented X 3. No motor deficit. No sensory deficit. Moving all extermities. No slurred speech MDM - Skin/Abscess/Foreign Bdy MDM Narrative Medical decision making narrative: Well-appearing no acute distress. No evidence for mastitis. No abscess. Positive pain to the breast with multiple nodules palpable. Will have patient follow-up on an outpatient basis with PMD. Possible ultrasound versus mammogram on an outpatient basis. Discussed with patient risk of cancer exists. Needs follow-up. In stable condition. Medical Records Attestation: I reviewed the patient's medical records. Lab Data Attestation: I reviewed the patient's lab results. Discharge Plan Discharge Clinical Impression: Acute breast pain Patient Disposition: Home, Self-Care Instructions: Breast Mass (ED) Prescriptions: No Action calcium citrate-vitamin D3 315 mg-5 mcg (200 unit) tablet 2 tab PO BID Qty: 120 RF: 0 estazolam 2 mg tablet 2 mg PO BEDTIME RF: 0 lithium carbonate 450 mg tablet extended release 450 mg PO DAILY RF: 0 indomethacin 50 mg capsule 50 mg PO TID PRN (Reason: Pain) RF: 0 gabapentin 100 mg Capsule 100 mg PO TID RF: 0 ondansetron HCl [Zofran] 4 mg tablet 4 mg PO Q8H PRN (Reason: nausea and vomiting) Qty: 10 RF: 0 loperamide 2 mg capsule 2 mg PO Q6H PRN (Reason: loose stool) Qty: 10 RF: 0 ondansetron HCl [Zofran] 4 mg tablet 4 mg PO Q8H PRN (Reason: nausea and vomiting) Qty: 10 RF: 0 acetaminophen [Tylenol Arthritis Pain] 650 mg tablet extended release 650 mg PO Q8H PRN (Reason: fever or pain) Qty: 30 RF: 0 sucralfate [Carafate] 100 mg/mL suspension 10 ml PO QID Qty: 420 RF: 3 Referrals: Hardeep Hurd MD [Primary Care Provider] - 2 days Sergio Giang MD [Physician] - 2 days
== END 2021-03-29 00:57 | disposition home or self-care (01) ==
PROVIDERS: Emergency Provider Emergency Medicine Emergency Medical Services; PCP Internal Medicine
DX: N64.4 Mastodynia (principal); N63.0 Unspecified lump in unspecified breast
CPT/HCPCS: 99284

== ENCOUNTER 2021-03-31 11:54 | Outpatient (REF) | payer OTHER, SELFPAY ==
--- NOTE | ~2021-03-31 | XR_ITS ---
EXAMINATION: XR WRIST, RIGHT CLINICAL INFORMATION: Recent injury COMPARISON: None TECHNIQUE: 3 views of the right wrist of the right wrist. FINDINGS: The bones and soft tissues are normal. No fracture. Alignment is anatomic with normal joint spaces. No erosions or abnormal soft tissue calcifications. XR/XR wrist RT min 3V IMPRESSION: Normal right wrist.
== END 2021-03-31 11:55 | disposition home or self-care (01) ==
LOC: HO.XRAY 11:54
PROVIDERS: PCP Internal Medicine; Visit Provider Internal Medicine
DX: S69.91XA Unspecified injury of right wrist, hand and finger(s), initial encounter (principal)
CPT/HCPCS: 73110

== ENCOUNTER → 2021-04-17 09:22 | Outpatient (BNVA) | payer OTHER, SELFPAY | PROVIDERS: PCP Internal Medicine; Visit Provider Obstetrics & Gynecology | DX: N64.4 Mastodynia (principal) | CPT/HCPCS: 99212 ==

== ENCOUNTER 2021-04-28 13:49 | Outpatient (REF) | payer OTHER, SELFPAY ==
--- NOTE | ~2021-04-28 | MM_ITS ---
EXAMINATION: MM DIAGNOSTIC DIGITAL BREAST TOMOSYNTHESIS, BILATERAL CLINICAL INFORMATION: 35-year-old with scattered bilateral areas of palpable concern and mastodynia. No prior breast imaging. Family history breast cancer, maternal aunt. The lifetime risk of breast cancer based on the Tyrer-Cuzick Model is 17%. COMPARISON: None (current study represents initial baseline exam). TECHNIQUE: Digital breast tomosynthesis is performed in both the craniocaudal and mediolateral oblique views along with computer-aided detection (CAD). Synthesized 2D images are generated from the tomosynthesis. Additional bilateral exaggerated CC views are provided. FINDINGS: There are scattered areas of fibroglandular density (ACR BI-RADS breast composition Category b). The right exaggerated CC view shows. Oval parenchymal asymmetry posterior outer aspect 12 cm from nipple without correlate on the standard CC or MLO views. The left breast is unremarkable. Neither breast shows architectural abnormality or abnormal calcifications. The axilla and skin contours are unremarkable. There is no skin thickening or coarsening of the Don's ligaments. Patient was unable to stay today for bilateral breast ultrasound which has been rescheduled for later this month. MM/MM tomosynthesis diagnostic BI IMPRESSION: 1. Right: Parenchymal asymmetry posterior outer breast on exaggerated CC view. 2. Left: No mammographic evidence of malignancy. ASSESSMENT: BI-RADS 0: Incomplete - Need Additional Imaging Evaluation RECOMMENDATION: Bilateral breast ultrasound (rescheduled for later this month). This patient's information was entered into a reminder system with a target due date for their next mammogram.
== END 2021-04-28 13:50 | disposition home or self-care (01) ==
LOC: HO.MAMMO 13:49
PROVIDERS: Visit Provider Internal Medicine
DX: N63.25 Unspecified lump in the left breast, overlapping quadrants (principal)
CPT/HCPCS: 77062; 77066

== ENCOUNTER → 2021-04-29 14:10 | Outpatient (BNVA) | payer OTHER, SELFPAY | PROVIDERS: PCP Internal Medicine; Referring Provider Internal Medicine; Visit Provider Surgery | DX: R19.09 Other intra-abdominal and pelvic swelling, mass and lump (principal) | CPT/HCPCS: 99202 ==

== ENCOUNTER 2021-05-04 06:59 | Outpatient (REF) | payer OTHER, SELFPAY ==
--- NOTE | ~2021-05-04 | CT_ITS ---
EXAMINATION: CT ABDOMEN AND PELVIS WITHOUT CONTRAST CLINICAL INFORMATION: Intra-abdominal pelvic swelling. COMPARISON: None TECHNIQUE: Multidetector volumetric imaging was performed from the superior aspect of the liver through the pubic symphysis. Sagittal and coronal reformatted images were obtained on the technologist's workstation. This CT examination was performed using dose optimization techniques as appropriate, variously including the following: *Automated exposure control *Adjustment of mA and/or kV according to patient size (this includes techniques or standardized protocols for targeted exams where dose is matched to indication/reason for exam; i.e. extremities or head) *Use of iterative reconstruction technique DLP: 823 mGy-cm FINDINGS: LUNG BASES: The visualized lung bases are unremarkable. The heart size is normal. LIVER, GALLBLADDER, AND BILIARY TREE: The liver is normal in size, shape, and attenuation. No focal hepatic lesion or biliary ductal dilatation is present. The gallbladder has been surgically removed.. PANCREAS: Unremarkable. SPLEEN: Unremarkable. ADRENAL GLANDS: Unremarkable. KIDNEYS AND URETERS: The kidneys are normal in size, shape, and attenuation. No hydronephrosis, hydroureter, or calculi seen. No perinephric stranding. BLADDER: Unremarkable. GASTROINTESTINAL TRACT: There is moderate scattered stool seen in the colon without any significant distention. There are a few scattered diverticuli as well. No diverticulitis. The small bowel loops are normal caliber. Appendix is normal caliber. No free fluid or inflammatory changes seen. There are gastric bypass or sleeve changes ABDOMINAL WALL: No significant hernia is appreciated. LYMPH NODES: Normal. VASCULAR: Unremarkable. PELVIC VISCERA: The uterus is anteverted and appears unremarkable. There is no free fluid or free air. OSSEOUS STRUCTURES: No lytic or sclerotic process seen. CT/CT abdomen pelvis wo con IMPRESSION: 1. No acute intra-abdominal process seen. 2. Mild constipation with evidence of previous gastric bypass/sleeve surgery. 3. Evidence of previous cholecystectomy.
== END 2021-05-04 07:00 | disposition home or self-care (01) ==
LOC: HO.CT 06:59
PROVIDERS: PCP Internal Medicine; Visit Provider Surgery
DX: R19.09 Other intra-abdominal and pelvic swelling, mass and lump (principal)
CPT/HCPCS: 74176

== ENCOUNTER 2021-05-11 15:01 | Outpatient (REF) | payer OTHER, SELFPAY ==
--- NOTE | ~2021-05-11 | US_ITS ---
EXAMINATION: US DIAGNOSTIC ULTRASOUND BREAST, RIGHT US DIAGNOSTIC ULTRASOUND BREAST, LEFT CLINICAL INFORMATION: 35-year-old with scattered bilateral areas of palpable concern and mastoid dyspnea. Probable benign parenchymal asymmetry posterior outer right breast on recent mammography. COMPARISON: Diagnostic bilateral digital breast tomosynthesis 04/28/2021. TECHNIQUE: Bilateral breast ultrasound is targeted to all 4 quadrants of each side. Additional imaging also performed and region of parenchymal asymmetry posterior outer right breast. Grayscale imaging and color Doppler are performed without and with harmonics. FINDINGS: Right: There is no focal suspicious finding. There is no cystic or solid mass, architectural abnormality, duct ectasia, or edema in the soft tissue planes. Left: There is an oval complicated cyst 5:00 position 6 cm from nipple measuring 1.1 x 0.4 cm. This has some fine branching avascular peripheral internal septations. No peripheral or internal color flow. There is increased through-transmission of sound. Small adjacent simple satellite cyst is also noted in this area just under 0.4 cm. There is no solid mass or architectural abnormality. No focal duct ectasia. No skin thickening or edema tracking in soft tissue planes. Results are discussed with the patient at time of visit. US/US breast LT limited IMPRESSION: Right: Normal ultrasound. Left: Probable benign mildly complicated cyst 1.1 cm at 5:00 position with fine internal septation. No color flow. ASSESSMENT: BI-RADS 3: Probably Benign RECOMMENDATION: 1. Patient's bilateral breast symptoms should be managed based on the clinical impression. 2. Short interval six-month follow-up left targeted breast ultrasound for the probable benign complicated cyst 5:00 position.
--- NOTE | ~2021-05-11 | US_ITS ---
EXAMINATION: US DIAGNOSTIC ULTRASOUND BREAST, RIGHT US DIAGNOSTIC ULTRASOUND BREAST, LEFT CLINICAL INFORMATION: 35-year-old with scattered bilateral areas of palpable concern and mastoid dyspnea. Probable benign parenchymal asymmetry posterior outer right breast on recent mammography. COMPARISON: Diagnostic bilateral digital breast tomosynthesis 04/28/2021. TECHNIQUE: Bilateral breast ultrasound is targeted to all 4 quadrants of each side. Additional imaging also performed and region of parenchymal asymmetry posterior outer right breast. Grayscale imaging and color Doppler are performed without and with harmonics. FINDINGS: Right: There is no focal suspicious finding. There is no cystic or solid mass, architectural abnormality, duct ectasia, or edema in the soft tissue planes. Left: There is an oval complicated cyst 5:00 position 6 cm from nipple measuring 1.1 x 0.4 cm. This has some fine branching avascular peripheral internal septations. No peripheral or internal color flow. There is increased through-transmission of sound. Small adjacent simple satellite cyst is also noted in this area just under 0.4 cm. There is no solid mass or architectural abnormality. No focal duct ectasia. No skin thickening or edema tracking in soft tissue planes. Results are discussed with the patient at time of visit. US/US breast RT limited IMPRESSION: Right: Normal ultrasound. Left: Probable benign mildly complicated cyst 1.1 cm at 5:00 position with fine internal septation. No color flow. ASSESSMENT: BI-RADS 3: Probably Benign RECOMMENDATION: 1. Patient's bilateral breast symptoms should be managed based on the clinical impression. 2. Short interval six-month follow-up left targeted breast ultrasound for the probable benign complicated cyst 5:00 position.
== END 2021-05-11 15:02 | disposition home or self-care (01) ==
LOC: HO.MAMMO 15:01
PROVIDERS: Visit Provider Internal Medicine
DX: N64.4 Mastodynia (principal)
CPT/HCPCS: 76642

== ENCOUNTER → 2021-05-14 15:21 | Outpatient (BNVA) | payer OTHER, SELFPAY | PROVIDERS: PCP Internal Medicine; Referring Provider Internal Medicine; Visit Provider Surgery | DX: R19.09 Other intra-abdominal and pelvic swelling, mass and lump (principal) | CPT/HCPCS: 99212 ==

== ENCOUNTER → 2021-05-26 09:38 | Outpatient (BNVA) | payer OTHER, SELFPAY | PROVIDERS: Visit Provider Orthopaedic Surgery | DX: M22.2X1 Patellofemoral disorders, right knee (principal); M22.2X2 Patellofemoral disorders, left knee | CPT/HCPCS: 20610; 99212; J1040 ==

== ENCOUNTER 2021-06-29 16:12 | Outpatient (REF) | payer OTHER, SELFPAY ==
[2021-06-29 17:11] LABS: Influenza A PCR NEGATIVE (Negative); Influenza B PCR NEGATIVE (Negative); Resp Syncy Virus RNA Qual PCR NEGATIVE (Negative); SARS COV2 PCR INHOUSE NEGATIVE (Negative)
== END 2021-06-29 16:13 | disposition home or self-care (01) ==
LOC: HO.LNP 16:12
PROVIDERS: Visit Provider Internal Medicine
DX: Z20.822 Contact with and (suspected) exposure to COVID-19 (principal)
CPT/HCPCS: 0241U

== ENCOUNTER 2021-07-09 16:04 | Emergency (ER) | payer OTHER, SELFPAY ==
--- NOTE | ~2021-07-09 | CT_ITS ---
EXAMINATION: CT HEAD WITHOUT CONTRAST CLINICAL INFORMATION: Dizziness. Fall. Headaches. COMPARISON: CT of the head August 29, 2018 TECHNIQUE: Contiguous axial imaging was performed from the skull base to vertex without intravenous administration of contrast. Coronal and sagittal reformatted images are performed at CT scanner This CT examination was performed using dose optimization techniques as appropriate, variously including the following: *Automated exposure control *Adjustment of mA and/or kV according to patient size (this includes techniques or standardized protocols for targeted exams where dose is matched to indication/reason for exam; i.e. extremities or head) *Use of iterative reconstruction technique DLP: 675.31+5.12 mGy-cm FINDINGS: There is no evidence of acute intracranial hemorrhage or territorial infarction. No abnormal mass effect or midline shift is seen. Hickman to white matter differentiation is well preserved. No extra-axial fluid collections are identified. The ventricles are normal in size. There is no abnormal attenuation within the brain parenchyma. The osseous structures and soft tissues are normal. The mastoid air cells and visualized portions of the paranasal sinuses are well aerated. CT/CT head/brain wo con IMPRESSION: No acute intracranial pathology.
--- NOTE | ~2021-07-09 | CT_ITS ---
EXAMINATION: CT ABDOMEN AND PELVIS WITHOUT CONTRAST CLINICAL INFORMATION: Epigastric pain COMPARISON: 05/04/2021 TECHNIQUE: Multidetector volumetric imaging was performed from the superior aspect of the liver through the pubic symphysis. Sagittal and coronal reformatted images were obtained on the technologist's workstation. This CT examination was performed using dose optimization techniques as appropriate, variously including the following: *Automated exposure control *Adjustment of mA and/or kV according to patient size (this includes techniques or standardized protocols for targeted exams where dose is matched to indication/reason for exam; i.e. extremities or head) *Use of iterative reconstruction technique DLP: 1295 mGy-cm FINDINGS: LUNG BASES: The visualized lung bases are unremarkable. LIVER, GALLBLADDER, AND BILIARY TREE: The liver is normal in size, shape, and attenuation. No focal hepatic lesion or biliary ductal dilatation is present. Patient is status post cholecystectomy. PANCREAS: Unremarkable. SPLEEN: Unremarkable. ADRENAL GLANDS: Unremarkable. KIDNEYS AND URETERS: The kidneys are normal in size, shape, and attenuation. No hydronephrosis, hydroureter, or obstructing calculi seen. No perinephric stranding. BLADDER: Nearly empty and not well evaluated. GASTROINTESTINAL TRACT: Postoperative changes along the stomach. No evidence of bowel obstruction or wall thickening. The appendix is unremarkable. No free fluid or free air is seen. ABDOMINAL WALL: No significant hernia is appreciated. LYMPH NODES: Normal. VASCULAR: Unremarkable. PELVIC VISCERA: Unremarkable. OSSEOUS STRUCTURES: Unremarkable. CT/CT abdomen pelvis wo con IMPRESSION: No acute findings identified in the abdomen/pelvis.
[2021-07-09 16:42] VITALS: BP 115/72; PULSE 81; RESP 18; TEMP 36.7; O2SAT 100; BMI 29.7
[2021-07-09 18:58] LABS: MANUAL DIFF FLAG NO
[2021-07-09 19:04] LABS: Basophils Absolute Auto 0.1 X10*3/uL (0.0-0.2); Basophils Percent Auto 0.6 % (0-2); Eosinophils Absolute Auto 0.1 X10*3/uL (0.0-0.4); Hematocrit 41.2 % (37-47); Hemoglobin 13.3 g/dl (12.0-16.0); Imm Gran Abs Auto 0.06 X10*3/uL (0.00-0.03); Imm Gran Pct Auto 0.7 % (0.0-0.4); Lymphocytes Absolute Auto 2.7 X10*3/uL (1.2-4.9); Lymphocytes Percent Auto 32.6 % (20-40); Mean Corpuscular HGB Conc 32.3 g/dl (31.0-35.0); Mean Corpuscular Hemoglobin 27.6 pg (27.0-33.0); Mean Corpuscular Volume 85.5 fL (80-98); Mean Platelet Volume 10.6 fL (9.4-12.3); Monocytes Absolute Auto 0.7 X10*3/uL (0.1-1.2); Monocytes Percent Auto 8.1 % (2-11); Neutrophils Absolute Auto 4.7 X10*3/uL (2.0-8.3); Platelet Count 268 X10*3/uL (160-400); Red Blood Count 4.82 X10*6/uL (4.20-5.50); White Blood Count 8.2 X10*3/uL (4.8-10.8)
[2021-07-09 19:13] LABS: Alanine Aminotransferase 13 U/L (0-31); Albumin Level 3.8 g/dL (3.5-5.0); Alkaline Phosphatase 53 U/L (39-117); Anion Gap 11 (12-20); Aspartate Amino Transferase 12 U/L (5-31); Bilirubin Total 0.2 mg/dL (0.0-1.0); Blood Urea Nitrogen 11 mg/dL (9-16); Calcium 9.3 mg/dL (8.4-10.2); Carbon Dioxide 27 mmol/L (22-29); Chloride 106 mmol/L (96-108); Creatinine Clr Calc Pharmacy 109.2; Estimated Glomerular Filt Rate > 60; Glucose Random 97 mg/dL (60-115); Potassium 4.5 mmol/L (3.3-5.1); Sodium 139 mmol/L (135-145)
[2021-07-09 19:18] LABS: COVID-19 Test Negative (Negative)
--- NOTE | 2021-07-09 19:44 | ED_ITS ---
HPI - URI/Sore Throat General Chief Complaint: General Medical <OBDULIO Rojo Last Filed: 07/09/21 21:13> Stated Complaint: Covid symptoms <OBDULIO Rojo Last Filed: 07/09/21 21:13> Time Seen by Provider: 07/09/21 19:44 <OBDULIO Rojo Last Filed: 07/09/21 21:13> Source: patient <OBDULIO Rojo Last Filed: 07/09/21 21:13> Mode of arrival: ambulatory <OBDULIO Rojo Last Filed: 07/09/21 21:13> Limitations: no limitations <OBDULIO Rojo Last Filed: 07/09/21 21:13> History of Present Illness HPI Narrative: This is a 35-year-old female with a past medical history of migranes,anemia, anxiety, depression, bipolar disorder presenting to the emergency department with fevers, chills, headache, vomiting and dizziness for 5 days progressively worsening. She states that she is having 10/10 headaches to the front of her head, that radiate to the back of her head to her neck, she states that this feels like a typical migraine headache. She also reports nausea and vomiting for 5 days. She states she has vomited 4 times today, and is unable to keep down food or drinks. She states she has been dizzy for the past 5 days to the point that she is falling over to the ground. She has never hit her head when she has fallen. She reports subjective fevers at home, however she does not know how high her temperature has been. She denies chest pain, abdominal pain, weakness. <OBDULIO Rojo Last Filed: 07/09/21 21:13> MD elicited complaint: fever and other (Chills, headache, vomiting, dizziness) <OBDULIO Rojo Last Filed: 07/09/21 21:13> Onset (ago): day(s) (5) <OBDULIO Rojo Last Filed: 07/09/21 21:13> Consistency: constant <OBDULIO Rojo Last Filed: 07/09/21 21:13> Severity: severe <OBDULIO Rojo Last Filed: 07/09/21 21:13> Pain scale (0-10): 10 <OBDULIO Rojo Last Filed: 07/09/21 21:13> Able to tolerate fluids by mouth: No (Patient states she vomits) <OBDULIO Rojo Last Filed: 07/09/21 21:13> Exacerbating factors: nothing <OBDULIO Rojo Last Filed: 07/09/21 21:13> Relieving factors: nothing <OBDULIO Rojo Last Filed: 07/09/21 21:13> Associated symptoms: fever (Subjective), chills, headache (Located in the front of her head, radiate to her neck), nausea and vomiting <OBDULIO Rojo Last Filed: 07/09/21 21:13> Treatments prior to arrival: none <OBDULIO Rojo Last Filed: 07/09/21 21:13> Related Data Home Medications: Home Medications Medication Instructions Recorded Confirmed estazolam 2 mg tablet 2 mg PO BEDTIME 07/23/20 05/20/21 indomethacin 50 mg capsule 50 mg PO TID PRN 07/23/20 05/20/21 lithium carbonate 450 mg 450 mg PO DAILY 07/23/20 05/20/21 tablet,extended release Previous Rx's Medication Instructions Recorded acetaminophen 650 mg 650 mg PO Q8H PRN #30 tab 10/05/20 tablet,extended release (Tylenol Arthritis Pain) acetaminophen 650 mg 650 mg PO Q8H #60 tab 04/17/21 tablet,extended release ibuprofen 800 mg tablet 800 mg PO Q8H #60 tab 04/17/21 vitamin B12 0.5 mg-folic acid 1 mg 1 tab PO DAILY #90 tab 05/20/21 tablet (Foltrate) owhcbaaepb-lyucdufenuabk-qyyyqeny 1 cap PO Q8H PRN #10 cap 07/09/21 50 mg-300 mg-40 mg capsule (Fioricet) ketorolac 10 mg tablet 10 mg PO Q8H #10 tab 07/09/21 ondansetron HCl 4 mg tablet 4 mg PO Q8H PRN #14 tab 07/09/21 (Zofran) <OBDULIO Rojo Last Filed: 07/09/21 21:13> Allergies/Adverse Reactions: Allergies Allergy/AdvReac Type Severity Reaction Status Date / Time No Known Allergies Allergy Verified 07/09/21 16:42 <OBDULIO Rojo - Last Filed: 07/09/21 21:13> Review of Systems Review of Systems: Constitutional : No Weight loss, + Fever, + Chills, No Night Sweats, No Fatigue, No Malaise Eyes: No Eye Pain, No Swelling, No Redness, No Foreign Body, No Discharge, No Vision Changes Cardiovascular : No Chest Pain, No SOB, No Dyspnea on Exertion, No Orthopnea, No Edema, No Palpitations Respiratory : No Cough, No Sputum, No Wheezing, No Smoke Exposure, No Dyspnea Gastrointestinal : Positive Nausea, Positive Vomiting, positive Diarrhea, positive abdominal Pain, No Hematochezia, No Melena Musculoskeletal : No joint pain, No Myalgias, No Joint Swelling Skin : No Skin Lesions, No rash Neuro : No Weakness, No Numbness, No Paresthesias, No Loss of Consciousness, + Dizziness, + Headache Psych : No Anxiety/Panic, No Depression, No SI/HI/AH/VH, No Social Issues, Heme/Lymph: No Bruising, No Bleeding,No Lymphadenopathy Endocrine : No Polyuria, No Polydipsia, No Temperature Intolerance <OBDULIO Rojo - Last Filed: 07/09/21 21:13> Yes all other systems are reviewed and are negative <OBDULIO Rojo - Last Filed: 07/09/21 21:13> [facility] Past Medical History Attestation statement: The following information was validated with the patient. <OBDULIO Rojo - Last Filed: 07/09/21 21:13> Source: old records reviewed <OBDULIO Rojo - Last Filed: 07/09/21 21:13> Medical History: Medical History Anxiety Depression History of kidney stones Left groin mass Migraines Panic attacks Vitamin B 12 deficiency Vulvar mass <OBDULIO Rojo - Last Filed: 07/09/21 21:13> Surgical History: Surgical History History of bilateral tubal ligation History of endoscopy Hx laparoscopic cholecystectomy Hx of lithotripsy S/P laparoscopic sleeve gastrectomy S/P panniculectomy <OBDULIO Rojo - Last Filed: 07/09/21 21:13> Family History Family History: Family History Mother Alzheimer disease Dementia Father Diabetes mellitus Hypertension Sister Cancer Sister No problems noted. Brother No problems noted. Brother No problems noted. Son No problems noted. Daughter No problems noted. <OBDULIO Rojo - Last Filed: 07/09/21 21:13> Social History Social History: Social History Alcohol intake: never Patient Tobacco Use Status: Never used Tobacco Advance Directives: No Advance Directives Information Provided: No Patient : No Current occupational status: unemployed Sexual orientation: Straight/Heterosexual Gender identity: Female <OBDULIO Rojo - Last Filed: 07/09/21 21:13> Physical Exam Vital Signs: Vital Signs: Last Vital Signs Temp 98.1 F 07/09/21 16:42 Pulse 81 07/09/21 16:42 Resp 18 07/09/21 16:42 BP 115/72 07/09/21 16:42 Pulse Ox 100 07/09/21 16:42 Body Mass Index 29.7 vital signs have been reviewed as normal and appeared to be correct. Blood pressure normal. Heart rate normal. Respiration rate normal. Temperature normal. Oxygen saturation normal. <OBDULIO Rojo - Last Filed: 07/09/21 21:13> Vital Signs: Last Vital Signs Temp 98.1 F 07/09/21 16:42 Pulse 81 07/09/21 16:42 Resp 18 07/09/21 16:42 BP 115/72 07/09/21 16:42 Pulse Ox 100 07/09/21 16:42 Body Mass Index 29.7 <Myke Jacobson MD - Last Filed: 07/10/21 00:30> Appearance: Alert. Oriented X3. No acute distress. Head: Normal external exam. Normocephalic. Atraumatic. Able to rotate head b ilaterally. Eyes: PERRLA. EOMI. No nystagmus noted. Conjunctiva and sclera normal. Eyelids normal. Corneal reflex normal. ENT: EAC normal. TM's Normal. Hearing normal. Pharynx normal. Uvula midline. tongue midline. Moist mucous membranes. No trismus noted. No drooling noted. No muffled voice noted. No nystagmus noted. Neck: Normal inspection. Neck supple. FROM. No adenopathy. Trachea midline. Thyroid Normal. No meningeal signs. No neck mass noted. CVS: Normal heart rate and rhythm. Heart sound normal. No murmurs noted. Pulses normal throughout. Respiratory: No respiratory distress. Painless inspiration. Breath sounds normal. No wheezes/rales/rhonchi noted. Chest nontender. No accessory muscle usage noted or decreased air movement noted. Abdomen: Soft and + tenderness to palpation over epigastric region . Bowel sounds normal in all 4 quadrants. No distention noted. No organomegaly noted. No visible injury noted. Back: No CVA tenderness. Full range of motion noted. Skin: Skin warm and dry. Normal skin color. Normal skin turgor. No rashes/lesions/lacerations noted. Extremities: No lower extremity edema. Extremities exhibit normal range of motion. Extremities nontender. Able to shrug shoulders bilaterally and keep up against resistance. Neuro: Oriented X 3. No motor deficit. No sensory deficit. Reflexes normal. Moving all extremities. No focal motor deficits. Cranial nerves II-XI intact bilaterally. Facial strength normal. Normal cognition. Speech normal. Gait normal. Strength 5/5 throughout. No pronator drift. No tremor noted. No fasciculations noted. No rigidity noted. Muscle tone normal throughout. No asterixis noted. Gnblhm-og-zawq test normal. Heel to duggan test normal. Tandem gait normal. Does not sway with eyes open. Romberg test negative. Rapid alternating movement upper extremity normal. Rapid alternating movement lower extremity normal. Hand drop from overhead Misses face. NIHSS score 0. Vascular: + radial pulses/+ 2 distal pedal pulses/+2 dorsalis pedis b/l. Normal cap refill. No cyanosis noted to upper extremity nails and lower extremity toes nails. <OBDULIO Rojo - Last Filed: 07/09/21 21:13> Course Course Course Narrative: 1928- - 35 old female a past medical history of anemia, migraine headaches, anxiety, depression, bipolar disorder presenting to the emergency department with 5 days of progressively worsening subjective fevers, chills, headaches, vomiting. She states that she is having 10/10 aches to the front of her head that radiate to the back of her head and her neck. She describes it as a typical migraine. She also reports that she has vomited 4 times today, and is unable to hold down any food or liquids. She reports dizziness, like the room is spinning around her, that caused her to fall. She is not hand her head when she has fallen. Labs were ordered in triage, and he showed no signs of infection. Due to the patient's symptoms of dizziness orthostatic vital signs will be ordered as well as an EKG to rule out cardiac etiology. Based off her her symptoms this is likely a migraine she will be given Fioricet, and Zofran for the nausea. She will likely be discharged home with Toradol for the headaches and Zofran for nausea. She is advised to follow-up with her PCP within the next few days. She should return to the emergency department if new or worsening symptoms <OBDULIO Rojo - Last Filed: 07/09/21 21:13> Reevaluation(s) Reevaluation #1: 2008- Upon re-evaluation she states she has abdominal pain when she vomits. But the abdominal pain is only present when she is renting, and vomiting. Given this history and physical exam findings which showed was soft nontender abdomen I do not feel it is necessary to scan her abdomen at this time. Updated patient about plan, however she states she insists her stomach be scanned because she remembers that sometimes she pukes up blood. For this reason a CT noncontrast of the abdomen and pelvis has been ordered. She also wants her head scan, a noncontrast CT has been ordered of her head. <OBDULIO Rojo - Last Filed: 07/09/21 21:13> MDM - URI/Sore Throat Medical Records Attestation: I reviewed the patient's medical records. <OBDULIO Rojo - Last Filed: 07/09/21 21:13> Lab Data Attestation: I reviewed the patient's lab results. <OBDULIO Rojo Last Filed: 07/09/21 21:13> Result diagrams: : 07/09/21 18:50 07/09/21 18:50 <OBDULIO Rojo - Last Filed: 09/23/21 21:13> Labs: Lab Results 07/09/21 07/09/21 07/09/21 Range/Units 18:46 18:50 18:50 WBC 8.2 (4.8-10.8) X10*3/uL RBC 4.82 (4.20-5.50) X10*6/uL Hgb 13.3 (12.0-16.0) g/dl Hct 41.2 (37-47) % MCV 85.5 (80-98) fL MCH 27.6 (27.0-33.0) pg MCHC 32.3 (31.0-35.0) g/dl RDW 13.0 (11.0-16.0) % Plt Count 268 (160-400) X10*3/uL MPV 10.6 (9.4-12.3) fL Immature Gran % (Auto) 0.7 H (0.0-0.4) % Neut % (Auto) 57.0 (45-73) % Lymph % (Auto) 32.6 (20-40) % Rutherford % (Auto) 8.1 (2-11) % Eos % (Auto) 1.0 (0-4) % Baso % (Auto) 0.6 (0-2) % Lymph # (Auto) 2.7 (1.2-4.9) X10*3/uL Rutherford # (Auto) 0.7 (0.1-1.2) X10*3/uL Eos # (Auto) 0.1 (0.0-0.4) X10*3/uL Baso # (Auto) 0.1 (0.0-0.2) X10*3/uL Abs Immat Gran (auto) 0.06 H (0.00-0.03) X10*3/uL Absolute Neuts (auto) 4.7 (2.0-8.3) X10*3/uL Absolute Nucleated RBC 0.000 (0.0-0.012) X10*3/uL Nucleated RBC % (auto) 0.0 (0.0-0.2) /100WBC Sodium 139 (135-145) mmol/L Potassium 4.5 (3.3-5.1) mmol/L Chloride 106 (96-108) mmol/L Carbon Dioxide 27 (22-29) mmol/L Anion Gap 11 L (12-20) BUN 11 (9-16) mg/dL Creatinine 0.79 (0.5-1.4) mg/dL Estim Creat Clear Calc 109.2 Estimated GFR > 60 Random Glucose 97 (60-115) mg/dL Calcium 9.3 D (8.4-10.2) mg/dL Total Bilirubin 0.2 (0.0-1.0) mg/dL AST 12 (5-31) U/L ALT 13 (0-31) U/L Alkaline Phosphatase 53 (39-117) U/L Total Protein 7.0 (6.5-8.0) g/dL Albumin 3.8 (3.5-5.0) g/dL COVID-19 ([facility]) Negative (Negative) COVID-19 Clin Com See Note <OBDULIO Rojo - Last Filed: 07/09/21 21:13> Lab Results 07/09/21 07/09/21 07/09/21 Range/Units 18:46 18:50 18:50 WBC 8.2 (4.8-10.8) X10*3/uL RBC 4.82 (4.20-5.50) X10*6/uL Hgb 13.3 (12.0-16.0) g/dl Hct 41.2 (37-47) % MCV 85.5 (80-98) fL MCH 27.6 (27.0-33.0) pg MCHC 32.3 (31.0-35.0) g/dl RDW 13.0 (11.0-16.0) % Plt Count 268 (160-400) X10*3/uL MPV 10.6 (9.4-12.3) fL Immature Gran % (Auto) 0.7 H (0.0-0.4) % Neut % (Auto) 57.0 (45-73) % Lymph % (Auto) 32.6 (20-40) % Rutherford % (Auto) 8.1 (2-11) % Eos % (Auto) 1.0 (0-4) % Baso % (Auto) 0.6 (0-2) % Lymph # (Auto) 2.7 (1.2-4.9) X10*3/uL Rutherford # (Auto) 0.7 (0.1-1.2) X10*3/uL Eos # (Auto) 0.1 (0.0-0.4) X10*3/uL Baso # (Auto) 0.1 (0.0-0.2) X10*3/uL Abs Immat Gran (auto) 0.06 H (0.00-0.03) X10*3/uL Absolute Neuts (auto) 4.7 (2.0-8.3) X10*3/uL Absolute Nucleated RBC 0.000 (0.0-0.012) X10*3/uL Nucleated RBC % (auto) 0.0 (0.0-0.2) /100WBC Sodium 139 (135-145) mmol/L Potassium 4.5 (3.3-5.1) mmol/L Chloride 106 (96-108) mmol/L Carbon Dioxide 27 (22-29) mmol/L Anion Gap 11 L (12-20) BUN 11 (9-16) mg/dL Creatinine 0.79 (0.5-1.4) mg/dL Estim Creat Clear Calc 109.2 Estimated GFR > 60 Random Glucose 97 (60-115) mg/dL Calcium 9.3 D (8.4-10.2) mg/dL Total Bilirubin 0.2 (0.0-1.0) mg/dL AST 12 (5-31) U/L ALT 13 (0-31) U/L Alkaline Phosphatase 53 (39-117) U/L Total Protein 7.0 (6.5-8.0) g/dL Albumin 3.8 (3.5-5.0) g/dL COVID-19 ([facility]) Negative (Negative) COVID-19 Clin Com See Note <Myke Jacobson MD - Last Filed: 07/10/21 00:30> Imaging Data CT scan - head: Radiologist's impression: IMPRESSION: No acute intracranial pathology. <Myke Jacobson MD - Last Filed: 07/10/21 00:30> CT scan - abdomen: Radiologist's impression: IMPRESSION: No acute findings identified in the abdomen/pelvis. <Myke Jacobson MD - Last Filed: 07/10/21 00:30> ECG Data Attestation: I personally reviewed and interpreted this ECG as follows: <OBDULIO Rojo Last Filed: 07/09/21 21:13> ECG interpretation date: 07/09/21 <OBDULIO Rojo - Last Filed: 07/09/21 21:13> ECG interpretation time: 20:31 <OBDULIO Rojo Last Filed: 07/09/21 21:13> Prior ECG tracings: available for review <OBDULIO Rojo Last Filed: 07/09/21 21:13> Interpretation: Ventricular rate 66 MO interval normal QRS normal QT/QTC normal normal sinus rhythm. No ST elevations, read T-wave inversions. No acute ischemia When compared to EKG from 05/12/2019 no significant changes. <OBDULIO Rojo Last Filed: 07/09/21 21:13> Critical Care Time Critical Care Time Critical Care Time: Yes <OBDULIO Rojo Last Filed: 07/09/21 21:13> Total Critical Care Time: 60 <OBDULIO Rojo - Last Filed: 07/09/21 21:13> Attestation: I personally attest to this time spent taking care of the patient <OBDULIO Rojo - Last Filed: 07/09/21 21:13> Discharge Plan Discharge Clinical Impression: Migraine Qualifiers: Migraine type: unspecified <OBDULIO Rojo Last Filed: 07/09/21 21:13> Patient Disposition: Home, Self-Care <OBDULIO Rojo - Last Filed: 07/09/21 21:13> Instructions: Migraine Headache (ED) <OBDULIO Rojo Last Filed: 07/09/21 21:13> Additional Instructions: You will be sent home on a medication called Fioricet that should help with her headaches. You will also be given Zofran to help with the nausea. Laboratory studies in the emergency department showed no signs of infection, and your COVID-19 test was negative Follow-up with your PCP within the next few days Return with new or worsening symptoms <OBDULIO Rojo Last Filed: 07/09/21 21:13> Prescriptions: New zcowaduwey-smdunwnuscwwc-ybrq [Fioricet] 50-300-40 mg capsule 1 cap PO Q8H PRN (Reason: pain) Qty: 10 RF: 0 ondansetron HCl [Zofran] 4 mg tablet 4 mg PO Q8H PRN (Reason: nausea and vomiting) Qty: 14 RF: 0 ketorolac 10 mg tablet 10 mg PO Q8H Qty: 10 RF: 0 No Action estazolam 2 mg tablet 2 mg PO BEDTIME RF: 0 lithium carbonate 450 mg tablet extended release 450 mg PO DAILY RF: 0 indomethacin 50 mg capsule 50 mg PO TID PRN (Reason: Pain) RF: 0 Foltrate 0.5-1 mg Tablet 1 tab PO DAILY Qty: 90 RF: 3 acetaminophen [Tylenol Arthritis Pain] 650 mg tablet extended release 650 mg PO Q8H PRN (Reason: fever or pain) Qty: 30 RF: 0 ibuprofen 800 mg tablet 800 mg PO Q8H Qty: 60 RF: 1 acetaminophen 650 mg tablet extended release 650 mg PO Q8H Qty: 60 RF: 1 <OBDULIO Rojo - Last Filed: 07/09/21 21:13> Referrals: Hardeep Hurd MD [Primary Care Provider] - 1 week <OBDULIO Rojo - Last Filed: 07/09/21 21:13>
--- NOTE | 2021-07-09 19:55 | ECG_ITS ---
Test Reason : DIZZINESS Blood Pressure : / mmHG Vent. Rate : 066 BPM Atrial Rate : 066 BPM P-R Int : 146 ms QRS Dur : 082 ms QT Int : 382 ms P-R-T Axes : 022 043 041 degrees QTc Int : 400 ms Normal sinus rhythm Normal ECG When compared with ECG of 12-MAY-2019 03:14, QT has shortened Referred By: Missy Burch Electronically Signed By:TREY DIEGO
[2021-07-09] MEDS: dexAMETHasone 2 MG TABLET 10 MG PO (20:38)
[2021-07-09] MEDS: diphenhydrAMINE HCL 25 MG TABLET PO (20:39)
[2021-07-09] MEDS: Ondansetron ODT 4 MG TAB.RAPDIS TRANSLINGU (20:39)
[2021-07-09] MEDS: Ketorolac Tromethamine 15 MG/ML VIAL IM (20:39)
== END 2021-07-10 01:29 | disposition home or self-care (01) ==
PROVIDERS: Emergency Provider Emergency Medicine; PCP Internal Medicine
DX: G43.909 Migraine, unspecified, not intractable, without status migrainosus (principal); R50.9 Fever, unspecified; R11.2 Nausea with vomiting, unspecified; R10.9 Unspecified abdominal pain; Z20.822 Contact with and (suspected) exposure to COVID-19; Z79.899 Other long term (current) drug therapy
CPT/HCPCS: 36415; 70450; 74176; 80053; 85025; 87635; 93005; 96372; 99283; 99284; J1885; J8540; Q0163

== ENCOUNTER 2021-08-11 10:42 | Emergency (ER) | payer OTHER, SELFPAY ==
[2021-08-11 11:57] VITALS: BP 133/67; PULSE 74; RESP 18; TEMP 37.2; O2SAT 100; BMI 29.0
--- NOTE | 2021-08-11 12:15 | ED_ITS ---
HPI - Headache General Chief Complaint: Headache Stated Complaint: migraine, nose bleed, dizziness Time Seen by Provider: 08/11/21 11:59 Source: patient Mode of arrival: ambulatory Limitations: no limitations History of Present Illness HPI Narrative: 35-year-old female with a past medical history of migranes,anemia, anxiety, depression, bipolar disorder?presents today with generalized headache, photophobia, nausea, vomiting since Tuesday. Patient has history of migraines and states this feels similar. She describes the headache as generalized and typical for her. She has tried to take home ibuprofen but vomited this up yesterday and today. No fevers, chills, neck pain or stiffness. Also complaining of a nosebleed from the right near intermittent over the last few days. Denies injury or trauma. Related Data Home Medications Medication Instructions Recorded Confirmed estazolam 2 mg tablet 2 mg PO BEDTIME 07/23/20 05/20/21 indomethacin 50 mg capsule 50 mg PO TID PRN 07/23/20 05/20/21 lithium carbonate 450 mg 450 mg PO DAILY 07/23/20 05/20/21 tablet,extended release Previous Rx's Medication Instructions Recorded acetaminophen 650 mg 650 mg PO Q8H PRN #30 tab 10/05/20 tablet,extended release (Tylenol Arthritis Pain) acetaminophen 650 mg 650 mg PO Q8H #60 tab 04/17/21 tablet,extended release ibuprofen 800 mg tablet 800 mg PO Q8H #60 tab 04/17/21 vitamin B12 0.5 mg-folic acid 1 mg 1 tab PO DAILY #90 tab 05/20/21 tablet (Foltrate) vcomgrmpue-ldfraclfuouyn-vybrjlzg 1 cap PO Q8H PRN #10 cap 07/09/21 50 mg-300 mg-40 mg capsule (Fioricet) ketorolac 10 mg tablet 10 mg PO Q8H #10 tab 07/09/21 ondansetron HCl 4 mg tablet 4 mg PO Q8H PRN #14 tab 07/09/21 (Zofran) Allergies Allergy/AdvReac Type Severity Reaction Status Date / Time No Known Allergies Allergy Verified 07/09/21 16:42 Review of Systems Review of Systems: Yes all other systems are reviewed and are negative Constitutional: Constitutional: Reports no additional constitutional complaints, Denies body ache(s), Denies chills, Denies fever(s), Reports headache(s) and Denies weakness Eyes: Eyes: Reports no additional eye complaints, Denies change in vision and Reports photophobia ENT: Reports system reviewed and no additional complaints, except as documented, Denies dizziness, Reports headache(s), Denies nasal congestion, Denies nasal discharge and Denies neck pain Cardiovascular: Cardiovascular: Reports no additional cardiovascular complaints, Denies chest pain, Denies leg edema and Denies dyspnea Respiratory: Respiratory: Reports no additional respiratory complaints, Denies cough and Denies dyspnea Gastrointestinal: Gastrointestinal: Reports no additional gastrointestinal complaints, Denies abdominal pain, Denies diarrhea, Reports nausea and Reports vomiting Genitourinary: Genitourinary: Reports no additional female genitourinary complaints and Denies urinary incontinence Musculoskeletal: Musculoskeletal: Reports no additional musculoskeletal complaints, Denies back pain, Denies arthralgias, Denies joint swelling, Denies neck pain, Denies numbness and Denies tingling Integumentary/Breasts: Skin/Breast: Reports system reviewed and no additional complaints, except as docu and Denies rash Neurologic: Reports system reviewed and no additional complaints, except as do cumented, Denies Abnormal speech present, Denies dizziness, Reports headache(s), Denies numbness, Denies tingling and Denies weakness PMFSH Past Medical History Attestation statement: The following information was validated with the patient. Source: old records reviewed and nursing notes reviewed Medical History Anxiety Depression History of kidney stones Left groin mass Migraines Panic attacks Vitamin B 12 deficiency Vulvar mass Surgical History History of bilateral tubal ligation History of endoscopy Hx laparoscopic cholecystectomy Hx of lithotripsy S/P laparoscopic sleeve gastrectomy S/P panniculectomy Family History Family History Mother Alzheimer disease Dementia Father Diabetes mellitus Hypertension Sister Cancer Sister No problems noted. Brother No problems noted. Brother No problems noted. Son No problems noted. Daughter No problems noted. Social History Social History Alcohol intake: never Patient Tobacco Use Status: Never used Tobacco Advance Directives: No Patient : No Current occupational status: unemployed Sexual orientation: Straight/Heterosexual Gender identity: Female Physical Exam Vital Signs: Vital Signs: Last Vital Signs Temp 98.6 F 08/11/21 13:52 Pulse 78 08/11/21 14:18 Resp 14 08/11/21 13:52 BP 124/78 08/11/21 14:18 Pulse Ox 100 08/11/21 13:52 Body Mass Index 29.0 Const: General: cooperative, healthy appearing, comfortable and no acute distress Orientation/consciousness: patient oriented x3 Limitations: no limitations HENMT: Head: Yes normal to inspection Ears: hearing grossly normal bilaterally and TM's normal bilaterally General nose exam: Normal external nose present and Abnormal mucous membranes and turbinates present (Dried Palmer right side. Bilateral erythema and swelling) Face and sinus: Yes normal facial exam Mouth: Normal oral and palatal mucosa present Throat: Yes posterior oropharynx normal, Yes tonsils normal and Yes uvula midline Eyes: General: appearance normal, both eyes and all related structures Pupils: Equal, round and reactive pupils present Direct Ophthalmoscopy: photophobia Neck: Neck: Yes normal visual inspection, Yes full ROM, Yes no lymphadenopathy and Yes no meningeal signs Chest: Chest palpation & inspection: normal inspection of the chest Resp: Effort & Inspection: normal respiratory effort Auscultation: clear to auscultation bilaterally Cardio: Rate: regular rate Rhythm: regular rhythm Peripheral pulses: Peripheral pulses 2+ throughout GI: Inspection: Yes normal to inspection Palpation (GI): Soft to palpation and nontender Auscultation: normal bowel sounds Back/Spine/Pelvis: Thoracic/Lumbar Spine: thoracic and lumbar spine normal to inspection Skin: General skin exam: no rashes or lesions noted Neuro: General: patient oriented x3, no meningeal signs, no focal motor deficits and normal sensation to monofilament Cranial nerves: Yes CN's II-XII intact bilaterally, Yes Equal, round and reactive pupils present, Yes Bilaterally intact EOM present, Yes Nystagmus not present, Yes Normal facial strength present and Yes Midline tongue present Cognition (Neuro): normal cognition Speech: No Abnormal speech present Gait exam (Neuro): Normal gait present Motor exam (neuro): 5/5 motor strength present throughout Sensory Exam: Normal double simultaneous stimulation for sensation Coordination: rrkdpn-xv-fdkl test normal, vosr-cu-ukrm test normal and tandem gait normal Extrem: General: Yes normal to inspection Course Course Course Narrative: 36-year-old female here with complaints of generalized headache with photophobia and nausea vomiting for 3 days despite trying to take home medications. Patient tells me this feels similar to her previous migraines. Typically IV medications help when she has a headache for this long.. Normal neuro exam. Will place IV and give IV Toradol, Reglan and Benadryl. Of note, patient was seen here July 09 for similar complaints and had a CT scan of the brain which was normal. Also complaining of intermittent right-sided nose bleeding. On exam no active nose bleed. There is bilateral mild nasal turbinate erythema and swelling. Neto check CBC. 1430-labs are unremarkable. Pain is resolved. Patient was mildly hypotensive which she tells me she has a history of and improved on discharge to 129/65. Reviewed follow-up with her primary care doctor reviewed worrisome signs and symptoms of when to return to the emergency department. Comfortable discharge home. MDM - Headache Differential Diagnosis Differential diagnosis: Likely migraine Medical Records Attestation: I reviewed the patient's medical records. Lab Data Attestation: I reviewed the patient's lab results. Result diagrams: 08/11/21 13:27 08/11/21 13:27 Labs: Lab Results 08/11/21 08/11/21 Range/Units 13:27 13:27 WBC 7.0 (4.8-10.8) X10*3/uL RBC 4.41 (4.20-5.50) X10*6/uL Hgb 11.8 L (12.0-16.0) g/dl Hct 37.7 (37-47) % MCV 85.5 (80-98) fL MCH 26.8 L (27.0-33.0) pg MCHC 31.3 (31.0-35.0) g/dl RDW 13.2 (11.0-16.0) % Plt Count 233 (160-400) X10*3/uL MPV 11.0 (9.4-12.3) fL Immature Gran % (Auto) 0.3 (0.0-0.4) % Neut % (Auto) 58.4 (45-73) % Lymph % (Auto) 34.1 (20-40) % [facility] % (Auto) 5.9 (2-11) % Eos % (Auto) 0.9 (0-4) % Baso % (Auto) 0.4 (0-2) % Lymph # (Auto) 2.4 (1.2-4.9) X10*3/uL [facility] # (Auto) 0.4 (0.1-1.2) X10*3/uL Eos # (Auto) 0.1 (0.0-0.4) X10*3/uL Baso # (Auto) 0.0 (0.0-0.2) X10*3/uL Abs Immat Gran (auto) 0.02 (0.00-0.03) X10*3/uL Absolute Neuts (auto) 4.1 (2.0-8.3) X10*3/uL Absolute Nucleated RBC 0.000 (0.0-0.012) X10*3/uL Nucleated RBC % (auto) 0.0 (0.0-0.2) /100WBC Sodium 139 (135-145) mmol/L Potassium 4.2 (3.3-5.1) mmol/L Chloride 109 H (96-108) mmol/L Carbon Dioxide 24 (22-29) mmol/L Anion Gap 10 L (12-20) BUN 8 L (9-16) mg/dL Creatinine 0.69 (0.5-1.4) mg/dL Estim Creat Clear Calc 122.6 Estimated GFR > 60 Random Glucose 90 (60-115) mg/dL Calcium 8.1 L D (8.4-10.2) mg/dL Discharge Plan Discharge Clinical Impression: Migraine, Bleeding nose Patient Disposition: Home, Self-Care Instructions: Nosebleed (ED), Migraine Headache (ED) Additional Instructions: Increase fluids, rest Motrin Tylenol as needed Avoid migraine triggers Follow-up with primary care doctor Get a humidifier for the bedroom. Vaseline to the nose as needed Prescriptions: No Action estazolam 2 mg tablet 2 mg PO BEDTIME RF: 0 lithium carbonate 450 mg tablet extended release 450 mg PO DAILY RF: 0 indomethacin 50 mg capsule 50 mg PO TID PRN (Reason: Pain) RF: 0 Foltrate 0.5-1 mg Tablet 1 tab PO DAILY Qty: 90 RF: 3 acetaminophen [Tylenol Arthritis Pain] 650 mg tablet extended release 650 mg PO Q8H PRN (Reason: fever or pain) Qty: 30 RF: 0 hqchplyalp-qvfakeyspyyjn-uktt [Fioricet] 50-300-40 mg capsule 1 cap PO Q8H PRN (Reason: pain) Qty: 10 RF: 0 ondansetron HCl [Zofran] 4 mg tablet 4 mg PO Q8H PRN (Reason: nausea and vomiting) Qty: 14 RF: 0 ketorolac 10 mg tablet 10 mg PO Q8H Qty: 10 RF: 0 ibuprofen 800 mg tablet 800 mg PO Q8H Qty: 60 RF: 1 acetaminophen 650 mg tablet extended release 650 mg PO Q8H Qty: 60 RF: 1 Interventions: ED Discharge Assessment Last Done: 08/11/21 14:18 Discharge Date/Time: 08/11/21 14:19
[2021-08-11] MEDS: Ketorolac Tromethamine 15 MG/ML VIAL 30 MG IVPUSH (12:59)
[2021-08-11] MEDS: Metoclopramide HCl 10 MG/2 ML VIAL IVPUSH (12:59)
[2021-08-11] MEDS: diphenhydrAMINE HCL 50 MG/ML VIAL 25 MG IVPUSH (12:59)
[2021-08-11] MEDS: 0.9 % Sodium Chloride 1,000 ML 999 ML IV (13:11)
[2021-08-11 13:38] LABS: Basophils Percent Auto 0.4 % (0-2); Eosinophils Absolute Auto 0.1 X10*3/uL (0.0-0.4); Eosinophils Percent Auto 0.9 % (0-4); Hematocrit 37.7 % (37-47); Hemoglobin 11.8 g/dl (12.0-16.0); Imm Gran Abs Auto 0.02 X10*3/uL (0.00-0.03); Imm Gran Pct Auto 0.3 % (0.0-0.4); Lymphocytes Absolute Auto 2.4 X10*3/uL (1.2-4.9); Lymphocytes Percent Auto 34.1 % (20-40); MANUAL DIFF FLAG NO; Mean Corpuscular HGB Conc 31.3 g/dl (31.0-35.0); Mean Corpuscular Hemoglobin 26.8 pg (27.0-33.0); Mean Corpuscular Volume 85.5 fL (80-98); Monocytes Absolute Auto 0.4 X10*3/uL (0.1-1.2); Monocytes Percent Auto 5.9 % (2-11); Neutrophils Absolute Auto 4.1 X10*3/uL (2.0-8.3); Neutrophils Percent Auto 58.4 % (45-73); Platelet Count 233 X10*3/uL (160-400); Red Blood Count 4.41 X10*6/uL (4.20-5.50); Red Cell Distribution Width 13.2 % (11.0-16.0)
[2021-08-11 13:52] VITALS: BP 79/50; PULSE 58; RESP 14; TEMP 37; O2SAT 100
[2021-08-11 13:57] LABS: Anion Gap 10 (12-20); Blood Urea Nitrogen 8 mg/dL (9-16); Calcium 8.1 mg/dL (8.4-10.2); Carbon Dioxide 24 mmol/L (22-29); Chloride 109 mmol/L (96-108); Creatinine Clr Calc Pharmacy 122.6; Estimated Glomerular Filt Rate > 60; Glucose Random 90 mg/dL (60-115); Potassium 4.2 mmol/L (3.3-5.1); Sodium 139 mmol/L (135-145)
[2021-08-11 14:18] VITALS: BP 124/78; PULSE 78
--- NOTE | 2021-08-11 14:19 | PC.NURSE ---
nad, no complaints, wanted to leave [facility] as her ride was here,
== END 2021-08-11 14:19 | disposition home or self-care (01) ==
PROVIDERS: Nurse Practitioner Family; Emergency Provider Emergency Medicine; PCP Internal Medicine
DX: G43.909 Migraine, unspecified, not intractable, without status migrainosus (principal); R04.0 Epistaxis
CPT/HCPCS: 36415; 80048; 85025; 96361; 96374; 96375; 99284; J1200; J1885; J2765

== ENCOUNTER → 2021-09-17 09:35 | Outpatient (BNVA) | payer OTHER, SELFPAY | PROVIDERS: Visit Provider Physician Assistant | DX: M22.2X1 Patellofemoral disorders, right knee (principal); M22.2X2 Patellofemoral disorders, left knee | CPT/HCPCS: 20610; 99212; J1040 ==

== ENCOUNTER 2021-09-29 11:04 | Outpatient (REF) | payer OTHER, SELFPAY ==
[2021-09-29 15:08] LABS: CT PCR NOT DETECTED (Not Detect.); NG PCR NOT DETECTED (Not Detect.)
[2021-09-30 11:17] LABS: BV Int Neg Control Negative (Negative); BV Int Pos Control Positive (Positive)
[2021-10-02 20:07] LABS: HPV mRNA E6/E7 rflx Not Detected (Not Detected)
== END 2021-09-29 11:05 | disposition home or self-care (01) ==
LOC: HO.LAB 11:04
PROVIDERS: Visit Provider Advanced Practice Midwife
DX: Z01.411 Encounter for gynecological examination (general) (routine) with abnormal findings (principal); Z11.51 Encounter for screening for human papillomavirus (HPV); N76.0 Acute vaginitis; B96.89 Other specified bacterial agents as the cause of diseases classified elsewhere; Z90.3 Acquired absence of stomach [part of]; Z98.51 Tubal ligation status; Z98.890 Other specified postprocedural states
CPT/HCPCS: 87480; 87491; 87510; 87591; 87624; 87660; 88142

== ENCOUNTER 2021-10-28 09:06 | Outpatient (REF) | payer OTHER, SELFPAY ==
[2021-10-28 10:46] LABS: Appearance Urine HAZY; Color Urine YELLOW; Glucose Urine UA NEG (NEG); Leukocyte Esterase Urine NEG (NEG); Nitrite Urine NEG (NEG); Specific Gravity - Urine 1.025 (1.005-1.025); UACC Culture Trigger NO; Urine Blood TRACE (NEG); Urine Ketones NEG (NEG); Urine Protein TRACE MG/DL (NEG-TRACE)
[2021-10-28 11:19] LABS: Bacteria Urine 1+ /LPF; Mucus Urine 1+ /LPF; RBC Urine 0-2 /HPF (0); Squamous Epithelial Cell Urine 2+ /LPF; WBC Urine 0-2 /HPF (0-4)
== END 2021-10-28 09:07 | disposition home or self-care (01) ==
LOC: HO.LAB 09:06
PROVIDERS: PCP Internal Medicine; Visit Provider Internal Medicine
DX: R31.9 Hematuria, unspecified (principal)
CPT/HCPCS: 81001; 87086

== ENCOUNTER 2021-11-11 13:12 | Outpatient (REF) | payer OTHER, SELFPAY ==
--- NOTE | ~2021-11-11 | US_ITS ---
EXAMINATION: US DIAGNOSTIC ULTRASOUND BREAST, LEFT CLINICAL INFORMATION: 36-year-old for short interval follow-up mildly complicated cyst 5:00 position. Family history breast cancer maternal aunt. TC score 17%. COMPARISON: Mammography 04/28/2021, targeted left breast ultrasound 05/11/2021. TECHNIQUE: Ultrasound left breast is targeted to the lower outer quadrant. Grayscale imaging and color Doppler are performed without and with harmonics. FINDINGS: There is a complicated cyst again noted 5:00 position 5 cm from nipple measuring approximately 1.2 x 0.6 cm. There are avascular internal septations. Margins are circumscribed. There is increased through-transmission of sound. No associated peripheral or internal color flow. No solid mass or focal duct ectasia. There are no significant changes. Finding will be reassessed again in 6 months with targeted ultrasound. Preliminary results are provided to the patient at time of visit by the technologist. US/US breast LT limited IMPRESSION: Probable benign complicated cyst with avascular internal septations. ASSESSMENT: BI-RADS 3: Probably Benign RECOMMENDATION: Targeted left breast ultrasound in 6 months. This patient's information was entered into a reminder system with a target due date for their next breast imaging.
== END 2021-11-11 13:13 | disposition home or self-care (01) ==
LOC: HO.MAMMO 13:12
PROVIDERS: Visit Provider Internal Medicine
DX: R92.1 Mammographic calcification found on diagnostic imaging of breast (principal)
CPT/HCPCS: 76642

== ENCOUNTER 2021-12-01 06:34 | Outpatient (REF) | payer OTHER, SELFPAY ==
[2021-12-01 06:48] LABS: MANUAL DIFF FLAG NO
[2021-12-01 07:30] LABS: Basophils Percent Auto 0.5 % (0-2); Eosinophils Absolute Auto 0.1 X10*3/uL (0.0-0.4); Eosinophils Percent Auto 1.3 % (0-4); Hematocrit 41.8 % (37.0-47.0); Hemoglobin 13.3 g/dl (12.0-16.0); Imm Gran Abs Auto 0.03 X10*3/uL (0.00-0.03); Imm Gran Pct Auto 0.5 % (0.0-0.4); Lymphocytes Absolute Auto 2.2 X10*3/uL (1.2-4.9); Lymphocytes Percent Auto 36.2 % (20-40); Mean Corpuscular HGB Conc 31.8 g/dl (31.0-35.0); Mean Corpuscular Hemoglobin 27.3 pg (27.0-33.0); Mean Corpuscular Volume 85.7 fL (80.0-98.0); Mean Platelet Volume 11.5 fL (9.4-12.3); Monocytes Absolute Auto 0.6 X10*3/uL (0.1-1.2); Monocytes Percent Auto 10.2 % (2-11); Neutrophils Absolute Auto 3.1 x10*3/uL (2.0-8.3); Neutrophils Percent Auto 51.3 % (45-73); Platelet Count 248 X10*3/uL (160-400); Red Blood Count 4.88 X10*6/uL (4.20-5.50); Red Cell Distribution Width 13.6 % (11.0-16.0)
[2021-12-01 08:10] LABS: Alanine Aminotransferase 12 U/L (0-31); Albumin Level 3.8 g/dL (3.5-5.0); Alkaline Phosphatase 48 U/L (39-117); Anion Gap 10 (12-20); Aspartate Amino Transferase 13 U/L (5-31); Bilirubin Total 0.5 mg/dL (0.0-1.0); Blood Urea Nitrogen 10 mg/dL (9-16); C Reactive Protein 0.11 mg/dL (< or = 0.50); Calcium 9.5 mg/dL (8.4-10.2); Carbon Dioxide 28 mmol/L (22-29); Chloride 106 mmol/L (96-108); Estimated Glomerular Filt Rate > 60; Glucose Random 87 mg/dL (60-115); Potassium 4.1 mmol/L (3.3-5.1); Sodium 140 mmol/L (135-145); Total Protein 6.9 g/dL (6.5-8.0)
== END 2021-12-01 06:35 | disposition home or self-care (01) ==
LOC: HO.LAB 06:34
PROVIDERS: PCP Internal Medicine; Visit Provider Internal Medicine
DX: R21 Rash and other nonspecific skin eruption (principal)
CPT/HCPCS: 36415; 80053; 85025; 86140

== ENCOUNTER 2021-12-09 12:09 | Emergency (ER) | payer OTHER, SELFPAY ==
--- NOTE | ~2021-12-09 | CT_ITS ---
EXAMINATION: CT ABDOMEN AND PELVIS WITH CONTRAST CLINICAL INFORMATION: History of gastric sleeve surgery. Nausea/vomiting/diarrhea with diffuse abdominal pain. COMPARISON: None TECHNIQUE: Multidetector volumetric images were obtained from the superior aspect of the liver through the pubic symphysis following administration 85 mL of Omnipaque 350 intravenous contrast. Sagittal and coronal reformatted images were obtained on the technologist's workstation. Oral contrast: No This CT examination was performed using dose optimization techniques as appropriate, variously including the following: *Automated exposure control *Adjustment of mA and/or kV according to patient size (this includes techniques or standardized protocols for targeted exams where dose is matched to indication/reason for exam; i.e. extremities or head) *Use of iterative reconstruction technique DLP: 636 mGy-cm FINDINGS: LUNG BASES: The lung bases are unremarkable. The heart size is normal. LIVER, GALLBLADDER, AND BILIARY TREE: The liver is normal in size, shape, and attenuation. No focal hepatic lesion or biliary ductal dilatation is present. The gallbladder has been surgically removed. PANCREAS: Unremarkable. SPLEEN: Unremarkable. ADRENAL GLANDS: Unremarkable. KIDNEYS AND URETERS: The kidneys are normal in size, shape, and attenuation. No hydronephrosis, hydroureter, or calculi seen. No perinephric stranding. BLADDER: Unremarkable. GASTROINTESTINAL TRACT: There is a small hiatal hernia suspected. Gastric sleeve surgical changes are noted. There is scattered stool and gas seen in colon without distention. The small bowel loops are normal caliber. Appendix is normal caliber. No free air or free fluid seen. ABDOMINAL WALL: No significant hernia is appreciated. LYMPH NODES: Normal. VASCULAR: Unremarkable. PELVIC VISCERA: There is no free air or free fluid seen. There are tubal sterilization clips noted in the adnexa. The uterus is anteverted with mild thickening of the cervix. OSSEOUS STRUCTURES: Unremarkable. CT/CT abdomen pelvis w con IMPRESSION: No acute intra-abdominal process seen. Evidence of previous gastric sleeve surgery. Suspect small hiatal hernia. Normal appendix. Mild thickening of the cervix. Uterus unremarkable. Fleischner guidelines were followed.
--- NOTE | 2021-12-09 13:38 | ED.ABDPAIN ---
HPI - Abdominal Pain General Chief Complaint: Abdominal Pain Stated Complaint: N/V/D/ back pain Time Seen by Provider: 12/09/21 13:28 Source: patient Mode of arrival: ambulatory Limitations: no limitations History of Present Illness HPI narrative: 36-year-old female with a past medical history of gastric bypass and anemia presenting to the ED with complaints of nausea/vomiting/diarrhea with diffuse abdominal pain radiating to her kidneys for the past 2 days worse today. She reports associated intermittent episodes of hematuria. She reports that the vomit has had streaks of blood in it. She is not vomiting up any clots. She reports that she had COVID October 2021. She is vaccinated to COVID with 2 vaccines. She does not have the booster for the COVID vaccine. She denies recent travel or sick contacts. She denies any fevers, chills, dizziness, headache, neck pain/stiffness, trouble swallowing or breathing, sore throat, loss of taste or smell, cough, chest pain, shortness of breath, dyspnea exertion, orthopnea, palpitations, paresthesias, black or bloody stools, dysuria, abnormal vaginal discharge, weakness, recent antibiotic usage, recent hospitalization procedure or surgery, recent bad food exposure or foreign travel or any other symptoms complaints or concerns at this time. MD elicited complaint: abdominal pain Pertinent past history: other (See above) Onset (ago): day(s) Pain Consistency: constant Location: diffuse Severity: moderate Quality: cramping Radiation: back Exacerbating factors: vomiting Relieving factors: nothing Associated symptoms: nausea, vomiting, diarrhea and hematuria Related Data Home Medications Medication Instructions Recorded Confirmed estazolam 2 mg tablet 2 mg PO BEDTIME 07/23/20 09/29/21 indomethacin 50 mg capsule 50 mg PO TID PRN 07/23/20 09/29/21 lithium carbonate 450 mg 450 mg PO DAILY 07/23/20 09/29/21 tablet,extended release lorazepam 1 mg tablet 1 mg PO BID 09/17/21 09/29/21 nortriptyline 50 mg capsule 50 mg PO BEDTIME 09/17/21 09/29/21 topiramate 50 mg tablet 50 mg PO BID 09/17/21 09/29/21 Previous Rx's Medication Instructions Recorded acetaminophen 650 mg 650 mg PO Q8H PRN #30 tab 10/05/20 tablet,extended release (Tylenol Arthritis Pain) acetaminophen 650 mg 650 mg PO Q8H #60 tab 04/17/21 tablet,extended release ibuprofen 800 mg tablet 800 mg PO Q8H #60 tab 04/17/21 vitamin B12 0.5 mg-folic acid 1 mg 1 tab PO DAILY #90 tab 05/20/21 tablet (Foltrate) [id number]-bqpzslxfqwhzn-ynbtvrcu 1 cap PO Q8H PRN #10 cap 07/09/21 50 mg-300 mg-40 mg capsule (Fioricet) ketorolac 10 mg tablet 10 mg PO Q8H #10 tab 07/09/21 ondansetron HCl 4 mg tablet 4 mg PO Q8H PRN #14 tab 07/09/21 (Zofran) metronidazole 0.75 % vaginal gel 1 appful VAGINAL BID 5 Days #70 g 09/29/21 (Metrogel Vaginal) acetaminophen 500 mg tablet 1,000 mg PO QID PRN #14 tab 12/09/21 (Tylenol Extra Strength) dicyclomine 20 mg tablet 20 mg PO BID #14 tab 12/09/21 nitrofurantoin 100 mg PO BID 7 Days #14 cap 12/09/21 monohydrate/macrocrystals 100 mg capsule (Macrobid) ondansetron 4 mg disintegrating 4 mg PO Q6H #14 tab 12/09/21 tablet Allergies Allergy/AdvReac Type Severity Reaction Status Date / Time No Known Allergies Allergy Verified 09/29/21 11:23 Review of Systems Review of Systems Constitutional : No Fever, No Chills, No Night Sweats, No Fatigue, No Malaise Cardiovascular : No Chest Pain, No SOB Respiratory : No Cough, No Sputum, No Wheezing, No Dyspnea Gastrointestinal : + Nausea, + Vomiting, + Diarrhea, + abdominal Pain, No Hematochezia, No Melena Genitourinary : + Hematuria, No irregular bleeding, No Dysuria, No Urinary Frequency, No Urinary Incontinence, No Urgency, No Flank Pain Musculoskeletal : No joint pain, No Myalgias, No Joint Swelling Skin : No Skin Lesions, No rash Neuro : No Weakness, No Numbness, No Paresthesias, No Loss of Consciousness, No Dizziness, No Headache Heme/Lymph: No Lymphadenopathy Endocrine : No Temperature Intolerance Yes all other systems are reviewed and are negative PMFSH Past Medical History Attestation statement: The following information was validated with the patient. Medical History Anxiety Depression History of kidney stones Left groin mass Migraines Panic attacks Vitamin B 12 deficiency Vulvar mass Surgical History History of bilateral tubal ligation History of endoscopy Hx laparoscopic cholecystectomy Hx of lithotripsy S/P laparoscopic sleeve gastrectomy S/P panniculectomy Family History Family History Mother Alzheimer disease Dementia Father Diabetes mellitus Hypertension Sister Cancer Sister No problems noted. Brother No problems noted. Brother No problems noted. Son No problems noted. Daughter No problems noted. Social History Social History Alcohol intake: never Patient Tobacco Use Status: Never used Tobacco Advance Directives: No Advance Directives Information Provided: No Patient : No Current occupational status: unemployed Sexual orientation: Straight/Heterosexual Gender identity: Female Physical Exam ED Vital Signs: Vital Signs - 24 hr 12/09/21 13:58 12/09/21 16:11 Temperature 98.7 F 96.8 F Pulse Rate 78 60 Respiratory Rate 16 18 Blood Pressure 112/68 115/64 Pulse Oximetry 99 100 BMI result Body Mass Index 28.5 Vital signs have been reviewed and all within normal limits Appearance: Alert. Oriented X3. No acute distress. Head: Normal external exam. Normocephalic. Eyes: PERRLA. EOMI. Conjunctiva and sclera normal. Eyelids normal. ENT: Pharynx normal. Uvula midline. Moist mucous membranes. Neck: Normal inspection. Neck supple. FROM. No adenopathy. No meningeal signs. CVS: Normal heart rate and rhythm. Heart sound normal. No murmurs noted. Pulses normal throughout. Respiratory: No respiratory distress. Painless inspiration. Breath sounds normal. No wheezes/rales/rhonchi noted. Chest nontender. No accessory muscle usage noted or decreased air movement noted. Abdomen: Soft and moderate tenderness to palpation diffusely no specific point tenderness is noted. Although patient guarding on exam. Nondistended. No rigidity. Bowel sounds normal in all 4 quadrants. No distention noted. No organomegaly noted. No visible injury noted. No rebound tenderness. Negative Rovsing sign. Negative obturator's sign. Negative psoas sign. Negative Jung sign. Back: + bilateral CVA tendernessnoted. Full range of motion noted. Skin: Skin warm and dry. Normal skin color. Normal skin turgor. No rashes/lesions/lacerations noted. Extremities: Extremities exhibit normal range of motion. Extremities nontender. Neuro: Oriented X 3. No motor deficit. No sensory deficit. Reflexes normal. Normal steady gait. CN's II-XII intact bilaterally? Course Course Course Narrative: 13:35pm - 36-year-old female with a past medical history of gastric bypass and anemia presenting to the ED with complaints of nausea/vomiting/diarrhea with diffuse abdominal pain radiating to her kidneys for the past 2 days worse today. She reports associated intermittent episodes of hematuria. She reports that the vomit has had streaks of blood in it. She is not vomiting up any clots. She reports that she had COVID October 2021. Plan: Labs, UA, UHCG, covid swab, CT scan abdomen pelvis with IV contrast. Provide a L of IV fluids with 4 mg of Zofran and 30 mg of IV Toradol then re-evaluate. Reevaluation(s) Reevaluation #1: - labs returned and all within normal limits. - UA with +1 leukocytes and 5-9 white blood cells possibly a UTI therefore was started on antibiotics. - patient negative for COVID. - CT scan abdomen pelvis with IV contrast negative for any acute processes. Therefore at this time patient is tolerating p.o. fluids will DC home with antibiotics for UTI and symptomatic treatment instructions return if any new or worsening symptoms and to follow up with primary care provider. Patient understands agrees with this plan. Time: 17:10 [facility] - Abdominal Pain Medical Records Attestation: I reviewed the patient's medical records. Lab Data Attestation: I reviewed the patient's lab results. Result diagrams: 12/09/21 14:01 12/09/21 14:01 Labs: Lab Results 12/09/21 12/09/21 12/09/21 Range/Units 14:01 14:01 14:01 WBC 5.4 (4.8-10.8) X10*3/uL RBC 4.78 (4.20-5.50) X10*6/uL Hgb 13.0 (12.0-16.0) g/dl Hct 40.7 (37.0-47.0) % MCV 85.1 (80.0-98.0) fL MCH 27.2 (27.0-33.0) pg MCHC 31.9 (31.0-35.0) g/dl RDW 13.6 (11.0-16.0) % Plt Count 266 (160-400) X10*3/uL MPV 11.1 (9.4-12.3) fL Immature Gran % (Auto) 0.4 (0.0-0.4) % Neut % (Auto) 65.9 (45-73) % Lymph % (Auto) 23.1 (20-40) % Sab[place] % (Auto) 9.1 (2-11) % Eos % (Auto) 1.1 (0-4) % Baso % (Auto) 0.4 (0-2) % Lymph # (Auto) 1.2 (1.2-4.9) X10*3/uL Sabine # (Auto) 0.5 (0.1-1.2) X10*3/uL Eos # (Auto) 0.1 (0.0-0.4) X10*3/uL Baso # (Auto) 0.0 (0.0-0.2) X10*3/uL Abs Immat Gran (auto) 0.02 (0.00-0.03) X10*3/uL Absolute Neuts (auto) 3.5 (2.0-8.3) x10*3/uL Absolute Nucleated RBC 0.000 (0.0-0.012) X10*3/uL Nucleated RBC % (auto) 0.0 (0.0-0.2) /100WBC PT 12.7 (9.9-13.0) SEC INR 1.1 (0.9-1.1) Sodium 140 (135-145) mmol/L Potassium 4.1 (3.3-5.1) mmol/L Chloride 107 (96-108) mmol/L Carbon Dioxide 27 (22-29) mmol/L Anion Gap 10 L (12-20) BUN 6 L (9-16) mg/dL Creatinine 0.73 (0.5-1.4) mg/dL Estim Creat Clear Calc 114.9 Estimated GFR > 60 Random Glucose 91 (60-115) mg/dL Calcium 9.0 (8.4-10.2) mg/dL Magnesium 2.0 (1.6-2.6) mg/dL Total Bilirubin 0.4 (0.0-1.0) mg/dL AST 19 D (5-31) U/L ALT 14 (0-31) U/L Alkaline Phosphatase 50 (39-117) U/L Total Protein 6.6 (6.5-8.0) g/dL Albumin 3.7 (3.5-5.0) g/dL Lipase 18 (8-78) U/L Urine Color Urine Appearance Urine pH (5.0-8.0) Ur Specific [place] (1.005-1.025) Urine Protein (NEG-TRACE) MG/DL Urine Glucose (UA) (NEG) MG/DL Urine Ketones (NEG) MG/DL Urine Blood (NEG) Urine Nitrite (NEG) Ur Leukocyte Esterase (NEG) Urine RBC (0) /HPF Urine WBC (0-4) /HPF Ur Squamous Epith Cells /LPF Urine Bacteria /LPF Urine Test (NEGATIVE) COVID-19 ([facility]) (Negative) COVID-19 Clin Com 12/09/21 12/09/21 12/09/21 Range/Units 14:01 14:01 14:01 WBC (4.8-10.8) X10*3/uL RBC (4.20-5.50) X10*6/uL Hgb (12.0-16.0) g/dl Hct (37.0-47.0) % MCV (80.0-98.0) fL MCH (27.0-33.0) pg MCHC (31.0-35.0) g/dl RDW (11.0-16.0) % Plt Count (160-400) X10*3/uL MPV (9.4-12.3) fL Immature Gran % (Auto) (0.0-0.4) % Neut % (Auto) (45-73) % Lymph % (Auto) (20-40) % Sabine % (Auto) (2-11) % Eos % (Auto) (0-4) % Baso % (Auto) (0-2) % Lymph # (Auto) (1.2-4.9) X10*3/uL Sabine # (Auto) (0.1-1.2) X10*3/uL Eos # (Auto) (0.0-0.4) X10*3/uL Baso # (Auto) (0.0-0.2) X10*3/uL Abs Immat Gran (auto) (0.00-0.03) X10*3/uL Absolute Neuts (auto) (2.0-8.3) x10*3/uL Absolute Nucleated RBC (0.0-0.012) X10*3/uL Nucleated RBC % (auto) (0.0-0.2) /100WBC PT (9.9-13.0) SEC INR (0.9-1.1) Sodium (135-145) mmol/L Potassium (3.3-5.1) mmol/L Chloride (96-108) mmol/L Carbon Dioxide (22-29) mmol/L Anion Gap (12-20) BUN (9-16) mg/dL Creatinine (0.5-1.4) mg/dL Estim Creat Clear Calc Estimated GFR Random Glucose (60-115) mg/dL Calcium (8.4-10.2) mg/dL Magnesium (1.6-2.6) mg/dL Total Bilirubin (0.0-1.0) mg/dL AST (5-31) U/L ALT (0-31) U/L Alkaline Phosphatase (39-117) U/L Total Protein (6.5-8.0) g/dL Albumin (3.5-5.0) g/dL Lipase (8-78) U/L Urine Color YELLOW Urine Appearance HAZY Urine pH 8.0 (5.0-8.0) Ur Specific [place] 1.010 (1.005-1.025) Urine Protein NEG (NEG-TRACE) MG/DL Urine Glucose (UA) NEG (NEG) MG/DL Urine Ketones NEG (NEG) MG/DL Urine Blood NEG (NEG) Urine Nitrite NEG (NEG) Ur Leukocyte Esterase 1+ H (NEG) Urine RBC 0 (0) /HPF Urine WBC 5-9 H (0-4) /HPF Ur Squamous Epith Cells 2+ /LPF Urine Bacteria TRACE /LPF Urine Test NEGATIVE (NEGATIVE) COVID-19 ([facility]GRITA) Negative (Negative) COVID-19 Clin Com See Note Imaging Data CT scan abdomen pelvis with IV contrast: Attestation: I personally reviewed and interpreted this imaging study as follows: Radiologist's impression: FINDINGS: LUNG BASES: The lung bases are unremarkable. The heart size is normal. LIVER, GALLBLADDER, AND BILIARY TREE: The liver is normal in size, shape, and attenuation. No focal hepatic lesion or biliary ductal dilatation is present. The gallbladder has been surgically removed.? PANCREAS: Unremarkable.? SPLEEN: Unremarkable.? ADRENAL GLANDS: Unremarkable.? KIDNEYS AND URETERS: The kidneys are normal in size, shape, and attenuation. No hydronephrosis, hydroureter, or calculi seen. No perinephric stranding. ? BLADDER: Unremarkable.? GASTROINTESTINAL TRACT: There is a small hiatal hernia suspected. Gastric sleeve surgical changes are noted. There is scattered stool and gas seen in colon without distention. The small bowel loops are normal caliber. Appendix is normal caliber. No free air or free fluid seen.? ABDOMINAL WALL: No significant hernia is appreciated.? LYMPH NODES: Normal. VASCULAR: Unremarkable. PELVIC VISCERA: There is no free air or free fluid seen. There are tubal sterilization clips noted in the adnexa. The uterus is anteverted with mild thickening of the cervix.? OSSEOUS STRUCTURES: Unremarkable.? CT/CT abdomen pelvis w con IMPRESSION: No acute intra-abdominal process seen. ? Evidence of previous gastric sleeve surgery. Suspect small hiatal hernia. ? Normal appendix. ? Mild thickening of the cervix. Uterus unremarkable.? ? Fleischner guidelines were followed. Discharge Plan Discharge Clinical Impression: Gastroenteritis, Abdominal pain, Nausea & vomiting, UTI (urinary tract infection), Diarrhea Patient Disposition: Home, Self-Care Instructions: Urinary Tract Infection in Women (DC), Acute Nausea and Vomiting (ED), Acute Diarrhea (ED), Acute Abdominal Pain (ED) Prescriptions: New ondansetron 4 mg tablet,disintegrating 4 mg PO Q6H Qty: 14 0RF dicyclomine 20 mg tablet 20 mg PO BID Qty: 14 0RF acetaminophen [Tylenol Extra Strength] 500 mg tablet 1,000 mg PO QID PRN (Reason: fever or pain) Qty: 14 0RF nitrofurantoin monohyd/m-cryst [Macrobid] 100 mg capsule 100 mg PO BID 7 Days Qty: 14 0RF Rx Instructions: must administer with a meal/food No Action estazolam 2 mg tablet 2 mg PO BEDTIME 0RF lithium carbonate 450 mg tablet extended release 450 mg PO DAILY 0RF indomethacin 50 mg capsule 50 mg PO TID PRN (Reason: Pain) 0RF Foltrate 0.5-1 mg Tablet 1 tab PO DAILY Qty: 90 3RF acetaminophen [Tylenol Arthritis Pain] 650 mg tablet extended release 650 mg PO Q8H PRN (Reason: fever or pain) Qty: 30 0RF [id number]-[id number] [Fioricet] 50-300-40 mg capsule 1 cap PO Q8H PRN (Reason: pain) Qty: 10 0RF ondansetron HCl [Zofran] 4 mg tablet 4 mg PO Q8H PRN (Reason: nausea and vomiting) Qty: 14 0RF ketorolac 10 mg tablet 10 mg PO Q8H Qty: 10 0RF Rx Instructions: Tolerated IM while in the emergency department ibuprofen 800 mg tablet 800 mg PO Q8H Qty: 60 1RF acetaminophen 650 mg tablet extended release 650 mg PO Q8H Qty: 60 1RF metronidazole [Metrogel Vaginal] 0.75 % gel 1 appful vaginal BID 5 Days Qty: 70 3RF topiramate 50 mg tablet 50 mg PO BID 0RF nortriptyline 50 mg capsule 50 mg PO BEDTIME 0RF lorazepam 1 mg tablet 1 mg PO BID 0RF Referrals: Hardeep Hurd MD [Primary Care Provider] - 2 days Stand Alone Forms: Work/School Release Print Language: Ecuadorean
[2021-12-09 13:58] VITALS: BP 112/68; PULSE 78; RESP 16; TEMP 37.1; O2SAT 99; BMI 28.5
[2021-12-09] MEDS: 0.9 % Sodium Chloride 1,000 ML 999 ML IVCONT (14:03)
[2021-12-09 14:09] LABS: MANUAL DIFF FLAG NO
[2021-12-09 14:14] LABS: Basophils Percent Auto 0.4 % (0-2); Eosinophils Absolute Auto 0.1 X10*3/uL (0.0-0.4); Eosinophils Percent Auto 1.1 % (0-4); Hematocrit 40.7 % (37.0-47.0); Imm Gran Abs Auto 0.02 X10*3/uL (0.00-0.03); Imm Gran Pct Auto 0.4 % (0.0-0.4); Lymphocytes Absolute Auto 1.2 X10*3/uL (1.2-4.9); Lymphocytes Percent Auto 23.1 % (20-40); Mean Corpuscular HGB Conc 31.9 g/dl (31.0-35.0); Mean Corpuscular Hemoglobin 27.2 pg (27.0-33.0); Mean Corpuscular Volume 85.1 fL (80.0-98.0); Mean Platelet Volume 11.1 fL (9.4-12.3); Monocytes Absolute Auto 0.5 X10*3/uL (0.1-1.2); Monocytes Percent Auto 9.1 % (2-11); Neutrophils Absolute Auto 3.5 x10*3/uL (2.0-8.3); Neutrophils Percent Auto 65.9 % (45-73); Platelet Count 266 X10*3/uL (160-400); Red Blood Count 4.78 X10*6/uL (4.20-5.50); Red Cell Distribution Width 13.6 % (11.0-16.0); White Blood Count 5.4 X10*3/uL (4.8-10.8)
[2021-12-09 14:16] LABS: INTERNATIONAL NORM RATIO 1.1 (0.9-1.1); Prothrombin Time 12.7 SEC (9.9-13.0)
[2021-12-09 14:21] LABS: Appearance Urine HAZY; Color Urine YELLOW; Glucose Urine UA NEG (NEG); Leukocyte Esterase Urine 1+ (NEG); Nitrite Urine NEG (NEG); UACC Culture Trigger YES; Urine Blood NEG (NEG); Urine Ketones NEG (NEG); Urine Protein NEG (NEG-TRACE)
[2021-12-09 14:22] LABS: UPreg QC Valid YES; Urine Pregnancy NEGATIVE (NEGATIVE)
[2021-12-09] MEDS: ondansetron HCL 4 MG/2 ML VIAL IVPUSH (14:24)
[2021-12-09] MEDS: Ketorolac Tromethamine 30 MG/ML VIAL IVPUSH (14:24)
[2021-12-09 14:29] LABS: Alanine Aminotransferase 14 U/L (0-31); Albumin Level 3.7 g/dL (3.5-5.0); Alkaline Phosphatase 50 U/L (39-117); Anion Gap 10 (12-20); Aspartate Amino Transferase 19 U/L (5-31); Bilirubin Total 0.4 mg/dL (0.0-1.0); Blood Urea Nitrogen 6 mg/dL (9-16); COVID-19 Test Negative (Negative); Carbon Dioxide 27 mmol/L (22-29); Chloride 107 mmol/L (96-108); Creatinine Clr Calc Pharmacy 114.9; Estimated Glomerular Filt Rate > 60; Glucose Random 91 mg/dL (60-115); Lipase 18 U/L (8-78); Potassium 4.1 mmol/L (3.3-5.1); Sodium 140 mmol/L (135-145); Total Protein 6.6 g/dL (6.5-8.0)
[2021-12-09 14:32] LABS: RBC Urine 0 /HPF (0); Squamous Epithelial Cell Urine 2+ /LPF
[2021-12-09 14:33] LABS: Bacteria Urine TRACE /LPF
[2021-12-09] MEDS: iohexoL 350 MG/ML 100 ML INFUS..BTL 85 ML IV (14:47)
[2021-12-09] MEDS: Morphine Sulfate 4 MG/ML CARTRIDGE IVPUSH (15:47)
[2021-12-09 16:11] VITALS: BP 115/64; PULSE 60; RESP 18; TEMP 36; O2SAT 100
== END 2021-12-09 18:03 | disposition home or self-care (01) ==
PROVIDERS: Physician Assistant Medical; Emergency Provider Emergency Medicine; PCP Internal Medicine
DX: K52.9 Noninfective gastroenteritis and colitis, unspecified (principal); N39.0 Urinary tract infection, site not specified; R10.9 Unspecified abdominal pain; R11.2 Nausea with vomiting, unspecified; Z20.822 Contact with and (suspected) exposure to COVID-19; Z87.442 Personal history of urinary calculi
CPT/HCPCS: 36415; 74177; 80053; 81001; 81025; 83690; 83735; 85025; 85610; 87086; 87635; 96361; 96374; 96375; 99284; J1885; J2270; J2405; Q9967

== ENCOUNTER 2021-12-11 15:38 | Inpatient (IN) | payer OTHER, SELFPAY ==
--- NOTE | 2021-12-11 15:44 | ED.PSYCH ---
HPI - Psych General Chief Complaint: Psychiatric Symptoms Stated Complaint: Crisis Time Seen by Provider: 12/11/21 15:44 Source: patient Mode of arrival: ambulatory Limitations: no limitations History of Present Illness HPI Narrative: Patient is a 36 year old female presenting to the emergency department today with suicidal ideation. Patient states that she is feeling much more depressed and has thoughts of hurting herself but not others. Patient denies any dizziness, lightheadedness, abdominal pain, nausea, vomiting, fever, chills, blurry vision, double vision, loss of vision, chest pain, difficulty breathing, shortness of breath, back pain, night sweats, pain with urination, increased urinary frequency, increased urinary urgency, blood in her urine or stool, syncope or a near syncopal episode, recent trauma or falls, bowel incontinence, bladder incontinence, bowel retention, bladder retention, or any other complaints at this time. MD complaint: suicidal ideation and feels depressed Related Data Home Medications Medication Instructions Recorded Confirmed estazolam 2 mg tablet 2 mg PO BEDTIME 07/23/20 12/11/21 lithium carbonate 450 mg 450 mg PO DAILY 07/23/20 12/11/21 tablet,extended release lorazepam 1 mg tablet 1 mg PO BID 09/17/21 12/11/21 nortriptyline 50 mg capsule 50 mg PO BEDTIME 09/17/21 12/11/21 Previous Rx's Medication Instructions Recorded ibuprofen 800 mg tablet 800 mg PO Q8H #60 tab 04/17/21 metronidazole 0.75 % vaginal gel 1 appful VAGINAL BID 5 Days #70 g 09/29/21 (Metrogel Vaginal) acetaminophen 500 mg tablet 1,000 mg PO QID PRN #14 tab 12/09/21 (Tylenol Extra Strength) dicyclomine 20 mg tablet 20 mg PO BID #14 tab 12/09/21 nitrofurantoin 100 mg PO BID 7 Days #14 cap 12/09/21 monohydrate/macrocrystals 100 mg capsule (Macrobid) ondansetron 4 mg disintegrating 4 mg PO Q6H #14 tab 12/09/21 tablet Allergies Allergy/AdvReac Type Severity Reaction Status Date / Time No Known Allergies Allergy Verified 12/11/21 14:29 Review of Systems Constitutional: Constitutional: Reports no additional constitutional complaints, Denies chills, Denies fever(s) and Denies night sweats Eyes: Eyes: Reports no additional eye complaints, Denies blurry vision, Denies change in vision, Denies diplopia, Denies eye discharge, Denies loss of vision and Denies eye pain ENT: Denies dizziness Cardiovascular: Cardiovascular: Reports no additional cardiovascular complaints, Denies chest pain, Denies lightheadedness, Denies Loss of Consciousness and Denies dyspnea Respiratory: Respiratory: Reports no additional respiratory complaints and Denies dyspnea Gastrointestinal: Gastrointestinal: Reports no additional gastrointestinal complaints, Denies abdominal pain, Denies melena, Denies hematochezia, Denies change in bowel habits and Denies change in stool character Genitourinary: Genitourinary: Denies hematuria, Denies urinary frequency, Denies dysuria, Denies urinary incontinence, Denies urinary hesitancy and Denies urinary urgency Musculoskeletal: Musculoskeletal: Reports no additional musculoskeletal complaints, Denies numbness and Denies tingling Neurologic: Denies dizziness, Denies loss of vision, Denies numbness and Denies tingling Psychiatric: Psychiatric: Reports depression, Denies homicidal ideation and Reports suicidal ideation Endocrine: Endocrine: Reports no additional endocrine complaints Hematologic/Lymphatic: Hematologic/Lymphatic: Reports no additional hematologic/lymphatic complaints Allergic/Immunologic: Allergic/Immunologic: Reports no additional allergic/immunologic complaints PMFSH Past Medical History Attestation statement: The following information was validated with the patient. Source: old records reviewed Medical History Anxiety Depression History of kidney stones Left groin mass Migraines Panic attacks Vitamin B 12 deficiency Vulvar mass Surgical History History of bilateral tubal ligation History of endoscopy Hx laparoscopic cholecystectomy Hx of lithotripsy S/P laparoscopic sleeve gastrectomy S/P panniculectomy Family History Family History Mother Alzheimer disease Dementia Father Diabetes mellitus Hypertension Sister Cancer Sister No problems noted. Brother No problems noted. Brother No problems noted. Son No problems noted. Daughter No problems noted. Social History Social History Alcohol intake: never Patient Tobacco Use Status: Never used Tobacco Advance Directives: No Advance Directives Information Provided: No Patient : No Current occupational status: unemployed Sexual orientation: Straight/Heterosexual Gender identity: Female Physical Exam Vital Signs: Vital Signs: Last Vital Signs Temp 99.1 F 12/11/21 15:57 Pulse 97 12/11/21 15:57 Resp 18 12/11/21 15:57 BP 131/82 12/11/21 15:57 Pulse Ox 97 12/11/21 15:57 BMI result Body Mass Index 27.7 Const: General: cooperative, no acute distress, alert and awake Nutritional Appearance: well nourished Orientation/consciousness: patient oriented x3 Limitations: no limitations HENMT: Head: Yes normal to inspection and Yes atraumatic Ears: hearing grossly normal bilaterally and external ears normal General nose exam: Normal external nose present, no nasal discharge noted and no epistaxis Face and sinus: Yes normal facial exam, No abrasion and No laceration Mouth: Normal oral and palatal mucosa present, no drooling and no muffled voice Eyes: General: appearance normal, both eyes and all related structures Periorbital: periorbital findings normal Eyelids: Yes eyelids normal Conjunctivae: conjunctivae normal Pupils: Equal, round and reactive pupils present EOM: EOMs intact bilaterally Neck: Neck: Yes normal visual inspection, Yes full ROM and Yes no lymphadenopathy Chest: Chest palpation & inspection: normal inspection of the chest Resp: Effort & Inspection: normal respiratory effort and able to speak in complete sentences Auscultation: clear to auscultation bilaterally Cardio: Rate: regular rate Rhythm: regular rhythm GI: Inspection: Yes normal to inspection Neuro: General: patient oriented x3 and moves all extremities Cranial nerves: Yes Equal, round and reactive pupils present Cognition (Neuro): normal cognition Motor exam (neuro): 5/5 motor strength present throughout Sensory Exam: Normal double simultaneous stimulation for sensation Coordination: [id number] test normal Extrem: General: Yes normal to inspection, Yes full ROM and Yes capillary refill normal Psych: Appearance: grossly normal Mental Status: mental status grossly normal Affect: normal affect Attitude: cooperative Thought process: Normal thought process present Thought content: Normal thought content present Insight: Good insight present (Psych) MDM - Psych MDM Narrative Medical decision making narrative: Patient is a 36 year old female presenting to the emergency department today with suicidal ideation and increasing depression. Patient's physical exam was unremarkable. Patient's blood work was still pending. Patient's urine showed no acute process. I explained my physical exam findings as well as all test results to the patient. I answered all questions asked by the patient. Patient is still awaiting lab work results to placed on physician observation and be assessed by N. Differential Diagnosis Differential diagnosis: Likely suicidal ideation Medical Records Attestation: I reviewed the patient's medical records. Lab Data Attestation: I reviewed the patient's lab results. Labs: Lab Results 12/11/21 12/11/21 12/11/21 Range/Units 16:44 16:49 16:50 Urine Color YELLOW Urine Appearance CLEAR Urine pH 7.5 (5.0-8.0) Ur Specific [place] 1.015 (1.005-1.025) Urine Protein TRACE (NEG-TRACE) MG/DL Urine Glucose (UA) NEG (NEG) MG/DL Urine Ketones NEG (NEG) MG/DL Urine Blood NEG (NEG) Urine Nitrite NEG (NEG) Ur Leukocyte Esterase NEG (NEG) Urine RBC 0-2 (0) /HPF Urine WBC 1-4 (0-4) /HPF Ur Squamous Epith Cells 1+ /LPF Urine Bacteria 1+ /LPF Urine Test (NEGATIVE) Urine Opiates Screen Not Detected (Not Detect) Urine Fentanyl Screen Not Detected (Not Detect) Ur Barbiturates Screen Not Detected (Not Detect) Ur Phencyclidine Scrn Not Detected (Not Detect) Ur Amphetamines Screen Not Detected (Not Detect) U Benzodiazepines Scrn POSITIVE H (Not Detect) Urine Cocaine Screen Not Detected (Not Detect) U Marijuana (THC) Screen Not Detected (Not Detect) COVID-19 ([facility]) Negative (Negative) COVID-19 Clin Com See Note 12/11/21 Range/Units 16:50 Urine Color Urine Appearance Urine pH (5.0-8.0) Ur Specific [place] (1.005-1.025) Urine Protein (NEG-TRACE) MG/DL Urine Glucose (UA) (NEG) MG/DL Urine Ketones (NEG) MG/DL Urine Blood (NEG) Urine Nitrite (NEG) Ur Leukocyte Esterase (NEG) Urine RBC (0) /HPF Urine WBC (0-4) /HPF Ur Squamous Epith Cells /LPF Urine Bacteria /LPF Urine Test NEGATIVE (NEGATIVE) Urine Opiates Screen (Not Detect) Urine Fentanyl Screen (Not Detect) Ur Barbiturates Screen (Not Detect) Ur Phencyclidine Scrn (Not Detect) Ur Amphetamines Screen (Not Detect) U Benzodiazepines Scrn (Not Detect) Urine Cocaine Screen (Not Detect) U Marijuana (THC) Screen (Not Detect) COVID-19 ([facility]) (Negative) COVID-19 Clin Com Discharge Plan Discharge Clinical Impression: Feeling suicidal Patient Disposition: Still a Patient Prescriptions: No Action estazolam 2 mg tablet 2 mg PO BEDTIME 0RF lithium carbonate 450 mg tablet extended release 450 mg PO DAILY 0RF ondansetron 4 mg tablet,disintegrating 4 mg PO Q6H Qty: 14 0RF dicyclomine 20 mg tablet 20 mg PO BID Qty: 14 0RF acetaminophen [Tylenol Extra Strength] 500 mg tablet 1,000 mg PO QID PRN (Reason: fever or pain) Qty: 14 0RF nitrofurantoin monohyd/m-cryst [Macrobid] 100 mg capsule 100 mg PO BID 7 Days Qty: 14 0RF Rx Instructions: must administer with a meal/food ibuprofen 800 mg tablet 800 mg PO Q8H Qty: 60 1RF metronidazole [Metrogel Vaginal] 0.75 % gel 1 appful vaginal BID 5 Days Qty: 70 3RF nortriptyline 50 mg capsule 50 mg PO BEDTIME 0RF lorazepam 1 mg tablet 1 mg PO BID 0RF Print Language: Cameroonian
--- NOTE | 2021-12-11 15:55 | MHC.CARE ---
Outpatient hematology called with concerns about pt who disclosed attempting suicide via overdose on her prescription medications yesterday. CARE Team met with pt to complete a risk assessment. Pt endorses suicidal ideation and reports two suicide attempts recently. Pt does have outpatient providers, however, she states I'm just so tired of this and my meds aren't working anymore. Pt reports that she contacted [facility] crisis several weeks ago and they never followed up with her. CARE Team recommends that pt come to the ED and be given a full crisis evaluation. Pt is agreeable with this.
[2021-12-11 15:57] VITALS: BP 131/82; PULSE 97; RESP 18; TEMP 37.3; O2SAT 97; BMI 27.7
[2021-12-11 16:57] LABS: Appearance Urine CLEAR; Color Urine YELLOW; Glucose Urine UA NEG (NEG); Leukocyte Esterase Urine NEG (NEG); Nitrite Urine NEG (NEG); PH 7.5 (5.0-8.0); Specific Gravity - Urine 1.015 (1.005-1.025); Urine Blood NEG (NEG); Urine Ketones NEG (NEG); Urine Protein TRACE MG/DL (NEG-TRACE)
[2021-12-11 17:04] LABS: Bacteria Urine 1+ /LPF; RBC Urine 0-2 /HPF (0); Squamous Epithelial Cell Urine 1+ /LPF
[2021-12-11 17:05] LABS: UPreg QC Valid YES; Urine Pregnancy NEGATIVE (NEGATIVE)
[2021-12-11 17:11] LABS: COVID-19 Test Negative (Negative); IDNOW Serial# 55D5AD1C
[2021-12-11 17:21] LABS: Amphetamine Screen Urine Not Detected (Not Detect); Barbiturates, Urine Not Detected (Not Detect); Benzodiazepines Screen Urine POSITIVE (Not Detect); Cannabinoid Screen Urine Not Detected (Not Detect); Cocaine Screen Urine Not Detected (Not Detect); Fentanyl, urine Not Detected (Not Detect); Opiate Screen Urine Not Detected (Not Detect); Phencyclidine Screen Urine Not Detected (Not Detect)
--- NOTE | 2021-12-11 18:06 | PC.NURSE ---
PATIENT RESTING COMFORTABLY IN BED, MEDICALLY CLEARED WAS REFERRED TO [facility].
--- NOTE | 2021-12-11 18:38 | PC.NURSE ---
pATIENT BEING SEEN BY CRISIS AT THIS TIME
[2021-12-11 19:59] LABS: Alanine Aminotransferase 17 U/L (0-31); Albumin Level 4.3 g/dL (3.5-5.0); Alkaline Phosphatase 52 U/L (39-117); Anion Gap 16 (12-20); Aspartate Amino Transferase 20 U/L (5-31); Bilirubin Total 0.5 mg/dL (0.0-1.0); Blood Urea Nitrogen 8 mg/dL (9-16); Calcium 9.9 mg/dL (8.4-10.2); Carbon Dioxide 22 mmol/L (22-29); Chloride 108 mmol/L (96-108); Creatinine Clr Calc Pharmacy 107.4; Estimated Glomerular Filt Rate > 60; Glucose Random 75 mg/dL (60-115); Potassium 4.2 mmol/L (3.3-5.1); Sodium 142 mmol/L (135-145); Total Protein 7.8 g/dL (6.5-8.0)
[2021-12-12 01:20] LABS: Basophils Percent Auto 0.4 % (0-2); Eosinophils Absolute Auto 0.1 X10*3/uL (0.0-0.4); Hematocrit 43.4 % (37.0-47.0); Hemoglobin 13.9 g/dl (12.0-16.0); Imm Gran Abs Auto 0.03 X10*3/uL (0.00-0.03); Imm Gran Pct Auto 0.4 % (0.0-0.4); Lymphocytes Absolute Auto 2.4 X10*3/uL (1.2-4.9); Lymphocytes Percent Auto 34.2 % (20-40); MANUAL DIFF FLAG SCAN; Mean Corpuscular Hemoglobin 27.1 pg (27.0-33.0); Mean Corpuscular Volume 84.6 fL (80.0-98.0); Mean Platelet Volume 11.5 fL (9.4-12.3); Monocytes Absolute Auto 0.6 X10*3/uL (0.1-1.2); Monocytes Percent Auto 8.3 % (2-11); Neutrophils Absolute Auto 3.8 x10*3/uL (2.0-8.3); Neutrophils Percent Auto 54.7 % (45-73); PLT CLUMP 1; Red Blood Count 5.13 X10*6/uL (4.20-5.50); Red Cell Distribution Width 13.6 % (11.0-16.0); SCAN SMEAR FLAG 1
[2021-12-12 01:22] LABS: White Blood Count 6.9 X10*3/uL (4.8-10.8)
[2021-12-12 01:27] LABS: Ethanol < 10 mg/dL
[2021-12-12 01:38] LABS: SLIDE REVIEW VERIFIED
[2021-12-12 02:30] LABS: Lithium 0.64 mmol/L (0.60-1.20)
--- NOTE | 2021-12-12 06:10 | PC.NURSE ---
Patient slept through the night, no distress observed/reported, behavior appropriate and cooperative, med rec completed/pending provider's approval, disposition per care team is section 12 inpatient bed search, VSS, will continue to monitor.
[2021-12-12 06:14] VITALS: BP 94/62; PULSE 84; RESP 16; TEMP 36.7; O2SAT 97
--- NOTE | 2021-12-12 07:15 | PC.NURSE ---
patient appears to remain asleep at present respirations are even and unlabored, patient appears in no distress
--- NOTE | 2021-12-12 14:19 | PC.NURSE ---
client had three visitors, last one now is a niece
[2021-12-12 15:47] VITALS: BP 117/75; PULSE 99; RESP 18; TEMP 36.1; O2SAT 97
--- NOTE | 2021-12-12 17:52 | MHC.CARE ---
Inpt psych bedsearch for pt is exhausted, CARE Team will try again tomorrow.
[2021-12-12] MEDS: busPIRone HCl 5 MG TABLET 15 MG PO (20:54)
[2021-12-12] MEDS: Temazepam 15 MG CAPSULE PO (20:55)
[2021-12-12] MEDS: Lithium Carbonate ER 450 MG TABLET.ER 900 MG PO (20:55)
[2021-12-12] MEDS: Topiramate 25 MG TABLET 50 MG PO (20:55)
[2021-12-12] MEDS: Nortriptyline HCl 25 MG CAPSULE 100 MG PO (21:19)
--- NOTE | 2021-12-13 06:30 | PC.NURSE ---
Patient slept through the night, no distress observed/reported, behavior appropriate and cooperative, medication compliant, disposition per care team is section 12 inpatient bed search, no update on bed search, VSS, will continue to monitor.
[2021-12-13 06:36] VITALS: BP 96/53; PULSE 78; RESP 16; TEMP 36.4; O2SAT 99
--- NOTE | 2021-12-13 07:22 | PC.NURSE ---
patient appears ot remain asleep at present respirations are even and unlabored, patient appears in no distress
[2021-12-13 17:03] VITALS: BP 112/71; PULSE 98; RESP 16; TEMP 36.5; O2SAT 100
[2021-12-13] MEDS: Temazepam 15 MG CAPSULE PO (20:17)
[2021-12-13] MEDS: Lithium Carbonate ER 450 MG TABLET.ER 900 MG PO (20:17)
[2021-12-13] MEDS: busPIRone HCl 5 MG TABLET 15 MG PO (20:17)
--- NOTE | 2021-12-14 | ECG_ITS ---
Test Reason : medical clearance Blood Pressure : / mmHG Vent. Rate : 079 BPM Atrial Rate : 079 BPM P-R Int : 142 ms QRS Dur : 078 ms QT Int : 374 ms P-R-T Axes : 018 032 022 degrees QTc Int : 428 ms Sinus rhythm with sinus arrhythmia Otherwise normal ECG When compared with ECG of 09-JUL-2021 20:27, No significant changes seen Referred By: Noemi Carter Electronically Signed By:Juan Manuel Santos
--- NOTE | 2021-12-14 06:16 | PC.NURSE ---
Patient slept through the night, no distress observed/reported, behavior appropriate and cooperative, medication compliant selectively refused her HS Pamelor and Topamax due to prolonged sedation,, disposition per care team is section 12 inpatient bed search, no update on bed search, VSS, will continue to monitor.
[2021-12-14 06:24] VITALS: BP 104/69; PULSE 75; RESP 16; TEMP 36.3; O2SAT 100
--- NOTE | 2021-12-14 07:09 | PC.NURSE ---
patient appears in no distress awake and using phone periodically had breakfast and spontaneously interacting with staff.
[2021-12-14 11:58] LABS: COVID-19 Test Negative (Negative)
[2021-12-14 15:57] VITALS: BP 110/72; PULSE 91; RESP 15; TEMP 36.5; O2SAT 99
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
--- NOTE | 2021-12-14 18:12 | PC.NURSE ---
nurse to nurse given to m5
--- NOTE | 2021-12-14 18:39 | PC.NURSE ---
PATIENT VERBALIZED UNDERSTANDING OF ADMISSION TO M5 ROOM 511-1 ESCORTED TO M[facility] VIA WHEELCHAIR AND STAFF WITH BELONGINGS AND PAPERWORK
[2021-12-14 19:50] VITALS: BP 121/65; PULSE 104; TEMP 36.4
[2021-12-14] MEDS: Temazepam 15 MG CAPSULE PO (22:35)
[2021-12-14] MEDS: busPIRone HCl 5 MG TABLET 15 MG PO (22:36)
[2021-12-14] MEDS: Lithium Carbonate ER 450 MG TABLET.ER PO (22:37)
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
[2021-12-15 01:51] VITALS: BMI 28.0
[2021-12-15 06:00] VITALS: BP 115/74; PULSE 94; RESP 18; TEMP 36.6; O2SAT 99
--- NOTE | 2021-12-15 10:59 | PC.NURSE ---
Pt signed 3-day notice; up Monday 12/18
[2021-12-15 16:20] VITALS: BP 114/69; PULSE 88; TEMP 36.4
[2021-12-15] MEDS: busPIRone HCl 5 MG TABLET 15 MG PO (21:38)
[2021-12-15] MEDS: Temazepam 15 MG CAPSULE PO (21:39)
[2021-12-15] MEDS: Lithium Carbonate ER 450 MG TABLET.ER PO (21:39)
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
[2021-12-16 06:00] VITALS: BP 118/76; PULSE 89; RESP 18; TEMP 36.3; O2SAT 99
--- NOTE | 2021-12-16 17:15 | PC.NURSE ---
Patient was aware and ready for discharge. Paperwork reviewed with patient . Follow up appointment and next dose medications explained to patient. Patient verbalized understanding. Patient was pleasant and cooperative with the discharge process. Patient was accompanied with belongings to the front of the building per hospital policy
--- NOTE | 2021-12-16 20:00 | P.DS_ITS ---
DS: Providers Provider Date of Service: 12/16/21 Date of admission: 12/14/21 16:19 Date of discharge: 12/16/21 Primary care physician: Hardeep Hurd MD Admitting clinician: Tami Barbour Attending physician on admission: Tami Barbour Attending physician on discharge: Dottie Vazquez Discharging clinician: Dottie Vazquez DS: Diagnosis Discharge Diagnosis (1) Bipolar II disorder: Status: Acute (2) Post traumatic stress disorder (PTSD): Status: Acute DS: Medications Discharge Medications Home Medications: Home Medications Medication Instructions Recorded Confirmed buspirone 15 mg tablet 1 tab PO BEDTIME 12/11/21 12/11/21 hydroxyzine HCl 10 mg tablet 1 tab PO BID PRN 12/11/21 12/11/21 lithium carbonate 450 mg 2 tab PO BEDTIME 12/11/21 12/11/21 tablet,extended release nortriptyline 50 mg capsule 2 cap PO BEDTIME 12/11/21 12/11/21 topiramate 50 mg tablet 50 mg PO BEDTIME 12/11/21 12/11/21 zaleplon 10 mg capsule 1 cap PO BEDTIME 12/11/21 12/11/21 Mental Status Exam Mental Status Exam Patient Appearance: Appropriate Patient Orientation: Person, Place, Time and Situation Level of Consciousness: Alert Patient Behavior: Appropriate, Talkative, Cooperative and Good Eye Contact Mood Description: Calm and Relaxed Affect Description: Calm Patient Cognition Impaired: No Ability to Follow Directions: Good Speech Pattern: Spontaneous Speech Memory Description: Intact Hallucinations: None Delusions: Not Present Thought Process: Intact and Goal Oriented Thought Content: positive for Intact and positive for Goal Oriented Depressive Symptoms: Increased Anxiety Judgement: Good Data Data Completed and Pending Completed studies during hospitalization [Text1]: 12/11/21 12/11/21 12/11/21 16:44 16:49 16:50 WBC RBC Hgb Hct MCV MCH MCHC RDW Plt Count MPV Immature Gran % (Auto) Neut % (Auto) Lymph % (Auto) [place] % (Auto) Eos % (Auto) Baso % (Auto) Lymph # (Auto) [place] # (Auto) Eos # (Auto) Baso # (Auto) Abs Immat Gran (auto) Absolute Neuts (auto) Absolute Nucleated RBC Nucleated RBC % (auto) Smear Tech's Comments Sodium Potassium Chloride Carbon Dioxide Anion Gap BUN Creatinine Estim Creat Clear Calc Estimated GFR Random Glucose Calcium Total Bilirubin AST ALT Alkaline Phosphatase Total Protein Albumin Urine Color YELLOW Urine Appearance CLEAR Urine pH 7.5 Ur Specific [place] 1.015 Urine Protein TRACE Urine Glucose (UA) NEG Urine Ketones NEG Urine Blood NEG Urine Nitrite NEG Ur Leukocyte Esterase NEG Urine RBC 0-2 Urine WBC 1-4 Ur Squamous Epith Cells 1+ Urine Bacteria 1+ Urine Test Urine Opiates Screen Not Detected Urine Fentanyl Screen Not Detected Ur Barbiturates Screen Not Detected Ur Phencyclidine Scrn Not Detected Ur Amphetamines Screen Not Detected U Benzodiazepines Scrn POSITIVE H [place] Urine Cocaine Screen Not Detected U Marijuana (THC) Screen Not Detected Ethyl Alcohol COVID-19 ([facility]) Negative COVID-19 Clin Com See Note 12/11/21 12/11/21 12/12/21 16:50 19:30 01:03 WBC 6.9 RBC 5.13 Hgb 13.9 Hct 43.4 MCV 84.6 MCH 27.1 MCHC 32.0 RDW 13.6 Plt Count TNP MPV 11.5 Immature Gran % (Auto) 0.4 Neut % (Auto) 54.7 Lymph % (Auto) 34.2 [place] % (Auto) 8.3 Eos % (Auto) 2.0 Baso % (Auto) 0.4 Lymph # (Auto) 2.4 [place] # (Auto) 0.6 Eos # (Auto) 0.1 Baso # (Auto) 0.0 Abs Immat Gran (auto) 0.03 Absolute Neuts (auto) 3.8 Absolute Nucleated RBC 0.000 Nucleated RBC % (auto) 0.0 Smear Tech's Comments VERIFIED Sodium 142 Potassium 4.2 Chloride 108 Carbon Dioxide 22 Anion Gap 16 BUN 8 L Creatinine 0.77 Estim Creat Clear Calc 107.4 Estimated GFR > 60 Random Glucose 75 Calcium 9.9 D Total Bilirubin 0.5 AST 20 ALT 17 Alkaline Phosphatase 52 Total Protein 7.8 Albumin 4.3 Urine Color Urine Appearance Urine pH Ur Specific [place] Urine Protein Urine Glucose (UA) Urine Ketones Urine Blood Urine Nitrite Ur Leukocyte Esterase Urine RBC Urine WBC Ur Squamous Epith Cells Urine Bacteria Urine Test NEGATIVE Urine Opiates Screen Urine Fentanyl Screen Ur Barbiturates Screen Ur Phencyclidine Scrn Ur Amphetamines Screen U Benzodiazepines Scrn [place] Urine Cocaine Screen U Marijuana (THC) Screen Ethyl Alcohol COVID-19 ([facility]) COVID-19 Clin Com 12/12/21 12/12/21 12/14/21 01:03 01:03 11:25 WBC RBC Hgb Hct MCV MCH MCHC RDW Plt Count MPV Immature Gran % (Auto) Neut % (Auto) Lymph % (Auto) [place] % (Auto) Eos % (Auto) Baso % (Auto) Lymph # (Auto) [place] # (Auto) Eos # (Auto) Baso # (Auto) Abs Immat Gran (auto) Absolute Neuts (auto) Absolute Nucleated RBC Nucleated RBC % (auto) Smear Tech's Comments Sodium Potassium Chloride Carbon Dioxide Anion Gap BUN Creatinine Estim Creat Clear Calc Estimated GFR Random Glucose Calcium Total Bilirubin AST ALT Alkaline Phosphatase Total Protein Albumin Urine Color Urine Appearance Urine pH Ur Specific [place] Urine Protein Urine Glucose (UA) Urine Ketones Urine Blood Urine Nitrite Ur Leukocyte Esterase Urine RBC Urine WBC Ur Squamous Epith Cells Urine Bacteria Urine Test Urine Opiates Screen Urine Fentanyl Screen Ur Barbiturates Screen Ur Phencyclidine Scrn Ur Amphetamines Screen U Benzodiazepines Scrn [place] 0.64 Urine Cocaine Screen U Marijuana (THC) Screen Ethyl Alcohol < 10 COVID-19 ([facility]) Negative COVID-19 Clin Com See Note DS: Summary Hospital Course Hospital Course: Admission to adult psychiatry to address symptoms of PTSD, Bipolar II Disorder and situational crisis. Care plan, medication regime and out patient plan of c are prior to admission were reviewed. Upon admission, Christa signed a three day notice of intent. Education was provided regarding management of symptoms, medications and side effects. Nursing and social service worked with Christa on care planning, education and discharge planning. No medication changes were made during this admission. Christa was satisfied with her out patient regime with her team, denied side effects and reported efficacy. Christa was able to sort out issues with her partner and shifted her focus to her five year old daughter who was unable to tolerate being away from her while hospitalized, with medical and behavioral regression as a result. Christa was able to contract for her safety and returned to her children with plans to move forward with co- parenting with her partner. Time spent discussing smoking cessation with patient: 3 to 10 minutes Status at Discharge Functional status at discharge: independent ambulation Overall status at discharge: patient is back to baseline Time Spent with Patient Time attestation: Total time spent providing and/or coordinating discharge services:35 Time spent: Greater than 30 minutes Discharge Plan Discharge Patient Disposition: Home, Self-Care Discharge Diagnosis: PTSD Bipolar II Disorder Referrals: [facility] [Other] - 12/16/21 5:00 pm (Outpatient Therapy appointment) [facility] [Other] - 01/07/22 (Outpatient Psychiatry Appointment) Hardeep Hurd MD [Primary Care Provider] - 12/24/21 2:30 pm (in office) Discharge Medications: Continued lithium carbonate 450 mg tablet extended release 2 tab PO BEDTIME 0RF zaleplon 10 mg capsule 1 cap PO BEDTIME 0RF hydroxyzine HCl 10 mg tablet 1 tab PO BID PRN (Reason: Anxiety) 0RF nortriptyline 50 mg capsule 2 cap PO BEDTIME 0RF topiramate 50 mg tablet 50 mg PO BEDTIME 0RF buspirone 15 mg tablet 1 tab PO BEDTIME 0RF No Action tramadol 50 mg tablet 50 mg PO Q6H PRN (Reason: pain) Qty: 20 0RF Discharge Orders: Discharge Order (Routine); Ordered 12/16/21 Ordered By: Dottie Vazquez Diet: advance to usual diet Activity on Discharge: As tolerated Stand Alone Forms: Patient Portal Discharge page, Community Support Print Language: Slovak Care Plan Goals: Mood Stabilization Health Concerns: PTSD Bipolar Disorder II Plan of Treatment: Attend scheduled appointments Take medications as directed by your out patient team Crisis Services [phone] if needed Call/Return if needed Assessment: non-psychotic, non suicidal Discharge Date/Time: 12/16/21 17:00
== END 2021-12-16 17:00 | disposition home or self-care (01) | DRG 753 ==
LOC: HO.ED 12-12 13:49 → HO.PM5 12-14 16:28
PROVIDERS: Emergency Medicine; Nurse Practitioner Family; Physician Assistant Medical; Admitting Provider Clinical Nurse Specialist Psychiatric/Mental Health, Adult; Emergency Provider Internal Medicine; PCP Internal Medicine; Visit Provider Clinical Nurse Specialist Psychiatric/Mental Health, Adult
DX: F31.81 Bipolar II disorder (principal); R45.851 Suicidal ideations; F43.10 Post-traumatic stress disorder, unspecified; Z20.822 Contact with and (suspected) exposure to COVID-19; Z23 Encounter for immunization; Z87.442 Personal history of urinary calculi; Z91.51 Personal history of suicidal behavior; Z98.84 Bariatric surgery status; Z79.899 Other long term (current) drug therapy
CPT/HCPCS: 36415; 80053; 80178; 80307; 81001; 81025; 82077; 85025; 87635; 90686; 93005; 99284; 99285

== ENCOUNTER 2021-12-29 22:40 | Emergency (ER) | payer OTHER, SELFPAY ==
[2021-12-29 22:49] VITALS: BP 113/70; PULSE 86; RESP 18; TEMP 36.8; O2SAT 98; BMI 28.5
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
[2021-12-30] MEDS: Ketorolac Tromethamine 60 MG/2 ML VIAL IM (01:25)
== END 2021-12-30 01:31 | disposition home or self-care (01) ==
PROVIDERS: Emergency Provider Internal Medicine; PCP Internal Medicine
DX: S09.90XA Unspecified injury of head, initial encounter (principal); S70.11XA Contusion of right thigh, initial encounter; W17.89XA Other fall from one level to another, initial encounter; Y93.89 Activity, other specified; Y92.014 Private driveway to single-family (private) house as the place of occurrence of the external cause; Y99.9 Unspecified external cause status
CPT/HCPCS: 96372; 99283; 99284; J1885

== ENCOUNTER 2022-02-19 07:08 | Outpatient (REF) | payer OTHER, SELFPAY ==
--- NOTE | ~2022-02-19 | XR_ITS ---
EXAMINATION: XR KNEE, RIGHT XR KNEE, LEFT XR KNEE STANDING, RIGHT AND LEFT CLINICAL INFORMATION: Pain. COMPARISON: None TECHNIQUE: AP bilateral knee standing. 2 views each knee. FINDINGS: BILATERAL KNEE: There is mild loss of medial compartment joint space both knees. No abnormal joint effusion seen. RIGHT KNEE: There is mild suprapatellar joint effusion. No bony erosive changes. There is spurring along the anterior superior patellar enthesophyte. There are no loose bodies. LEFT KNEE: There is no suprapatellar joint effusion seen. No visible acute fracture, dislocation. There is anterior superior patellar enthesophytes. XR/XR knee LT 2V IMPRESSION: Mild reduction in the medial compartment right knee. There is mild reduction in the patellofemoral compartment joint space both knees with anterior superior patellar enthesophytes. No lytic process.
--- NOTE | ~2022-02-19 | XR_ITS ---
EXAMINATION: XR KNEE, RIGHT XR KNEE, LEFT XR KNEE STANDING, RIGHT AND LEFT CLINICAL INFORMATION: Pain. COMPARISON: None TECHNIQUE: AP bilateral knee standing. 2 views each knee. FINDINGS: BILATERAL KNEE: There is mild loss of medial compartment joint space both knees. No abnormal joint effusion seen. RIGHT KNEE: There is mild suprapatellar joint effusion. No bony erosive changes. There is spurring along the anterior superior patellar enthesophyte. There are no loose bodies. LEFT KNEE: There is no suprapatellar joint effusion seen. No visible acute fracture, dislocation. There is anterior superior patellar enthesophytes. XR/XR knee RT 2V IMPRESSION: Mild reduction in the medial compartment right knee. There is mild reduction in the patellofemoral compartment joint space both knees with anterior superior patellar enthesophytes. No lytic process.
--- NOTE | ~2022-02-19 | XR_ITS ---
EXAMINATION: XR KNEE, RIGHT XR KNEE, LEFT XR KNEE STANDING, RIGHT AND LEFT CLINICAL INFORMATION: Pain. COMPARISON: None TECHNIQUE: AP bilateral knee standing. 2 views each knee. FINDINGS: BILATERAL KNEE: There is mild loss of medial compartment joint space both knees. No abnormal joint effusion seen. RIGHT KNEE: There is mild suprapatellar joint effusion. No bony erosive changes. There is spurring along the anterior superior patellar enthesophyte. There are no loose bodies. LEFT KNEE: There is no suprapatellar joint effusion seen. No visible acute fracture, dislocation. There is anterior superior patellar enthesophytes. XR/XR knee standing BI IMPRESSION: Mild reduction in the medial compartment right knee. There is mild reduction in the patellofemoral compartment joint space both knees with anterior superior patellar enthesophytes. No lytic process.
== END 2022-02-19 07:09 | disposition home or self-care (01) ==
LOC: HO.HOSX 07:08
PROVIDERS: Visit Provider Physician Assistant
DX: M22.2X1 Patellofemoral disorders, right knee (principal); M22.2X2 Patellofemoral disorders, left knee
CPT/HCPCS: 20610; 73560; 73565; 99212; J1040

== ENCOUNTER → 2022-04-07 14:05 | Outpatient (BNVA) | payer OTHER, SELFPAY | PROVIDERS: PCP Internal Medicine; Visit Provider Physician Assistant Surgical | DX: E66.3 Overweight (principal); K21.9 Gastro-esophageal reflux disease without esophagitis; Z90.3 Acquired absence of stomach [part of]; Z68.28 Body mass index [BMI] 28.0-28.9, adult | CPT/HCPCS: 99212 ==

== ENCOUNTER 2022-05-06 15:20 | Outpatient (REF) | payer OTHER, SELFPAY ==
[2022-05-06 15:51] LABS: MANUAL DIFF FLAG NO
[2022-05-06 15:59] LABS: Basophils Percent Auto 0.5 % (0-2); Eosinophils Absolute Auto 0.1 X10*3/uL (0.0-0.4); Eosinophils Percent Auto 1.5 % (0-4); Hemoglobin 13.5 g/dl (12.0-16.0); Imm Gran Abs Auto 0.02 X10*3/uL (0.00-0.03); Imm Gran Pct Auto 0.3 % (0.0-0.4); Lymphocytes Absolute Auto 2.2 X10*3/uL (1.2-4.9); Lymphocytes Percent Auto 37.9 % (20-40); Mean Corpuscular HGB Conc 32.1 g/dl (31.0-35.0); Mean Corpuscular Hemoglobin 26.9 pg (27.0-33.0); Mean Corpuscular Volume 83.8 fL (80.0-98.0); Mean Platelet Volume 10.9 fL (9.4-12.3); Monocytes Absolute Auto 0.6 X10*3/uL (0.1-1.2); Monocytes Percent Auto 9.9 % (2-11); Neutrophils Absolute Auto 2.9 x10*3/uL (2.0-8.3); Neutrophils Percent Auto 49.9 % (45-73); Platelet Count 274 X10*3/uL (160-400); Red Blood Count 5.01 X10*6/uL (4.20-5.50); Red Cell Distribution Width 13.1 % (11.0-16.0); White Blood Count 5.9 X10*3/uL (4.8-10.8)
[2022-05-06 16:18] LABS: Lithium < 0.04 mmol/L (0.60-1.20)
[2022-05-06 16:24] LABS: Lipase 19 U/L (8-78)
[2022-05-06 16:32] LABS: Alanine Aminotransferase 12 U/L (0-31); Alkaline Phosphatase 45 U/L (39-117); Anion Gap 9 (12-20); Aspartate Amino Transferase 14 U/L (5-31); Bilirubin Total 0.4 mg/dL (0.0-1.0); Blood Urea Nitrogen 10 mg/dL (9-16); C Reactive Protein 0.05 mg/dL (< or = 0.50); Calcium 9.4 mg/dL (8.4-10.2); Carbon Dioxide 30 mmol/L (22-29); Chloride 105 mmol/L (96-108); Estimated Glomerular Filt Rate > 60; Glucose Random 94 mg/dL (60-115); Iron 52 mcg/dL (30-160); Percent Iron Saturation 12 % (15-50); Potassium 4.1 mmol/L (3.3-5.1); Sodium 140 mmol/L (135-145); Total Iron Binding Capacity 428 mcg/dL (228-428); Total Protein 7.1 g/dL (6.5-8.0); Unsaturated Iron Binding 376 ug/dL
[2022-05-06 16:46] LABS: Ferritin 10 ng/mL (10-122); Insulin 12 uU/mL (2-29); TSH reflex Free T4 2.93 uIU/mL (0.32-4.0); Vitamin D 25-OH Total 22.1 ng/mL (>30)
[2022-05-06 18:06] LABS: Estimated Average Glucose 105 mg/dL; Hemoglobin A1c % 5.3 %
[2022-05-06 18:39] LABS: Vitamin B12 216 pg/mL (200-900)
[2022-05-07 10:48] LABS: Folate 3.9 ng/mL (> or = 4.0)
[2022-05-07 11:17] LABS: Calcium (PTHI) 9.4 mg/dL (8.6-10.2); PTHI 30 pg/mL (16-77)
[2022-05-11 12:36] LABS: Zinc 57 mcg/dL (60-130)
[2022-05-13 10:07] LABS: Vitamin A 36 mcg/dL (38-98)
[2022-05-14 10:46] LABS: Vitamin B1 18 nmol/L (8-30)
== END 2022-05-06 15:21 | disposition home or self-care (01) ==
LOC: HO.LAB 15:20
PROVIDERS: Absent Provider Physician Assistant Surgical; PCP Internal Medicine; Visit Provider Internal Medicine
DX: K21.9 Gastro-esophageal reflux disease without esophagitis (principal); R11.2 Nausea with vomiting, unspecified; Z90.3 Acquired absence of stomach [part of]; Z79.899 Other long term (current) drug therapy
CPT/HCPCS: 36415; 80053; 80178; 82306; 82607; 82728; 82746; 83036; 83525; 83540; 83690; 83970; 84425; 84443; 84590; 84630; 85025; 86140

== ENCOUNTER 2022-05-07 07:46 | Emergency (ER) | payer OTHER, SELFPAY ==
--- NOTE | ~2022-05-07 | CT_ITS ---
EXAMINATION: CT ABDOMEN AND PELVIS WITH CONTRAST CLINICAL INFORMATION: Pain and vomiting. History of gastric sleeve COMPARISON: 12/09/2021 TECHNIQUE: Multidetector volumetric images were obtained from the superior aspect of the liver through the pubic symphysis following administration 85 mL of Omnipaque 350 intravenous contrast. Sagittal and coronal reformatted images were obtained on the technologist's workstation. Oral contrast: No This CT examination was performed using dose optimization techniques as appropriate, variously including the following: *Automated exposure control *Adjustment of mA and/or kV according to patient size (this includes techniques or standardized protocols for targeted exams where dose is matched to indication/reason for exam; i.e. extremities or head) *Use of iterative reconstruction technique DLP: 647 mGy-cm FINDINGS: LUNG BASES: The visualized lung bases are unremarkable. LIVER, GALLBLADDER, AND BILIARY TREE: The liver is normal in size, shape, and attenuation. No focal hepatic lesion or biliary ductal dilatation is present. Status post cholecystectomy with mild biliary ductal prominence not uncommon following remote prior cholecystectomy. The appearance is similar to the prior study. PANCREAS: Unremarkable. SPLEEN: Unremarkable. ADRENAL GLANDS: Unremarkable. KIDNEYS AND URETERS: The kidneys are normal in size, shape, and attenuation. No hydronephrosis, hydroureter, or calculi seen. No perinephric stranding. BLADDER: Unremarkable. GASTROINTESTINAL TRACT: Prior gastric sleeve. Small bowel nondilated. Normal appendix. Scattered colonic diverticulosis. No evidence of colitis or diverticulitis. ABDOMINAL WALL: Healed midline laparotomy changes. Small fat-containing umbilical hernia. Likely prior Pfannenstiel incision. LYMPH NODES: Normal. VASCULAR: Normal caliber aorta. Pelvic varices with reflux of contrast into the ovarian veins bilaterally. PELVIC VISCERA: The uterus and adnexa are unremarkable. OSSEOUS STRUCTURES: Unremarkable. CT/CT abdomen pelvis w con IMPRESSION: No acute CT findings. Fleischner guidelines were followed.
--- NOTE | ~2022-05-07 | CT_ITS ---
EXAMINATION: CT LUMBAR SPINE CLINICAL INFORMATION: Rule out cauda equina COMPARISON: None TECHNIQUE: Helical axial tomographic images through the lumbar spine are obtained with coronal and sagittal reformatted images. 85 mL contrast was administered. This CT examination was performed using dose optimization techniques as appropriate, variously including the following: *Automated exposure control *Adjustment of mA and/or kV according to patient size (this includes techniques or standardized protocols for targeted exams where dose is matched to indication/reason for exam; i.e. extremities or head) *Use of iterative reconstruction technique DLP: 647 mGy-cm FINDINGS: See separately dictated CT of the abdomen and pelvis for findings in the retroperitoneum and pelvis. Normal sagittal alignment. Vertebral body and disc heights are maintained. Posterior elements intact. Mild multilevel facet arthropathy. No lumbar compression fracture. Evaluation of the central canal is limited. No gross mass seen. No osseous neuroforaminal narrowing. 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 CT/CT lumbar spine w con IMPRESSION: No acute osseous abnormality of the lumbar spine. Consider further evaluation with MRI lumbar spine which has higher higher sensitivity for evaluating for cauda equina syndrome.
--- NOTE | ~2022-05-07 | MR_ITS ---
EXAMINATION: MR LUMBAR SPINE WITHOUT CONTRAST CLINICAL INFORMATION: Incontinence. New-onset bilateral paresthesia. COMPARISON: CT lumbar spine from 05/07/2022. TECHNIQUE: MRI of the lumbar spine was obtained using routine sequences without contrast. FINDINGS: Normal anatomic alignment. Normal, homogeneous marrow signal throughout. The vertebral body heights are maintained. The intervertebral discs are of normal height and signal. The conus medullaris terminates at the level of L2. The distal spinal cord is normal in appearance. Moderate subcutaneous edema within the soft tissues of the back from T10-S2. No additional significant abnormalities of the paraspinal musculature. Limited evaluation of the intra-abdominal structures without significant abnormalities. The abdominal aorta is of normal contour and caliber. AXIAL SPINAL LEVELS: L1-L2: Normal annular contour. There is mild bilateral facet joint arthropathy. There is no neural foraminal stenosis. There is no spinal canal stenosis. L2-L3: Normal annular contour. There is mild bilateral facet joint arthropathy. There is no neural foraminal stenosis. There is no spinal canal stenosis. L3-L4: Shallow diffuse disc bulge. There is moderate left and mild right facet joint arthropathy. There is no neural foraminal stenosis. There is mild narrowing of the subarticular zones with no overt spinal canal stenosis centrally. L4-L5: Mild diffuse disc bulge with superimposed shallow central disc protrusion. There is moderate left and mild right facet joint arthropathy. There is moderate bilateral neural foraminal stenosis. There is stenosis of the subarticular zones with no overt spinal canal stenosis centrally. L5-S1: Mild diffuse disc bulge with superimposed shallow central disc protrusion. There is mild to moderate bilateral facet joint arthropathy. There is mild right worse than left neural foraminal stenosis. There is no spinal canal stenosis. MR/MR lumbar spine wo con IMPRESSION: Mild multilevel degenerative spondyloarthropathy of the lumbar spine as described in detail above. Most notably, there are moderate neural foraminal stenoses at L4-L5. Narrowing/stenoses of the subarticular zones at L3-L4 and L4-L5. No overt spinal canal stenosis centrally.
[2022-05-07 07:52] VITALS: BP 105/67; PULSE 75; RESP 20; TEMP 36.7; O2SAT 99; BMI 28.7
[2022-05-07 08:19] LABS: Appearance Urine HAZY; Color Urine YELLOW; Glucose Urine UA NEG (NEG); Leukocyte Esterase Urine NEG (NEG); Nitrite Urine NEG (NEG); Specific Gravity - Urine >= 1.030 (1.005-1.025); Urine Blood NEG (NEG); Urine Ketones NEG (NEG); Urine Protein NEG (NEG-TRACE)
[2022-05-07 11:34] LABS: MANUAL DIFF FLAG NO
[2022-05-07 11:35] LABS: Basophils Percent Auto 0.7 % (0-2); Eosinophils Absolute Auto 0.1 X10*3/uL (0.0-0.4); Eosinophils Percent Auto 1.4 % (0-4); Hematocrit 41.5 % (37.0-47.0); Hemoglobin 13.2 g/dl (12.0-16.0); Imm Gran Abs Auto 0.02 X10*3/uL (0.00-0.03); Imm Gran Pct Auto 0.4 % (0.0-0.4); Lymphocytes Absolute Auto 2.3 X10*3/uL (1.2-4.9); Lymphocytes Percent Auto 41.7 % (20-40); Mean Corpuscular HGB Conc 31.8 g/dl (31.0-35.0); Mean Platelet Volume 10.5 fL (9.4-12.3); Monocytes Absolute Auto 0.4 X10*3/uL (0.1-1.2); Monocytes Percent Auto 6.8 % (2-11); Neutrophils Absolute Auto 2.7 x10*3/uL (2.0-8.3); Platelet Count 266 X10*3/uL (160-400); Red Blood Count 4.88 X10*6/uL (4.20-5.50); Red Cell Distribution Width 13.1 % (11.0-16.0); White Blood Count 5.6 X10*3/uL (4.8-10.8)
[2022-05-07 11:48] LABS: Anion Gap 10 (12-20); Blood Urea Nitrogen 11 mg/dL (9-16); Calcium 9.3 mg/dL (8.4-10.2); Carbon Dioxide 30 mmol/L (22-29); Chloride 102 mmol/L (96-108); Creatinine Clr Calc Pharmacy 113.6; Estimated Glomerular Filt Rate > 60; Glucose Random 96 mg/dL (60-115); Potassium 4.2 mmol/L (3.3-5.1); Sodium 138 mmol/L (135-145)
[2022-05-07 11:52] LABS: COVID-19 Test Negative (Negative); IDNOW Serial# 55D5AD1C
--- NOTE | 2022-05-07 13:16 | ED.GENADULT ---
HPI - General Adult General Chief complaint: Back Pain/Injury Stated complaint: lower back pain Time Seen by Provider: 05/07/22 12:59 History of Present Illness HPI narrative: Patient with 2 complaints 1st complaint is low back pain radiating to both feet with tingling and paresthesias for 2 weeks, as well as some episodes of urinary incontinence over the last 2 weeks, but they are infrequent and not associated with any loss of sensation in perineum, no bowel incontinence, no weakness in the legs no loss of sensation She is also complaining of some abdominal pain and intermittent nausea and vomiting. She associates this with when the pain in her back is severe it seems to radiate to her stomach and the pain is severe and makes her nauseous and she has vomited several times today she is tolerating p.o. and not nauseous or vomiting now When the pain is severe she has had some episodes of feeling short of breath, but no chest pain., there were no accompany symptoms she never felt faint she never felt chest pain she never passed out or felt like she would pass out she never had palpitations Related Data Home Medications Medication Instructions Recorded Confirmed buspirone 15 mg tablet 1 tab PO BEDTIME 12/11/21 05/05/22 lithium carbonate 450 mg 2 tab PO BEDTIME 12/11/21 05/05/22 tablet,extended release zaleplon 10 mg capsule 1 cap PO BEDTIME 12/11/21 05/05/22 Previous Rx's Medication Instructions Recorded tramadol 50 mg tablet 50 mg PO Q6H PRN pain #20 tabs 12/30/21 cyanocobalamin (vitamin B-12) 1,000 mcg PO DAILY #90 tabs 05/05/22 1,000 mcg tablet (Vitamin B-12) folic acid 1 mg tablet 1 mg PO DAILY #90 tabs 05/05/22 acetaminophen 500 mg tablet 1,000 mg PO QID PRN pain #30 tabs 05/07/22 famotidine 20 mg tablet (Pepcid) 20 mg PO BID PRN acid reflux #14 05/07/22 tabs oxycodone 5 mg tablet 5 mg PO Q6H PRN pain #10 tabs 05/07/22 prednisone 20 mg tablet 40 mg PO DAILY 3 days #6 tabs 05/07/22 Allergies Allergy/AdvReac Type Severity Reaction Status Date / Time No Known Allergies Allergy Verified 04/07/22 14:43 Review of Systems Review of Systems: Positive for back pain, abdominal pain, some episodes of vomiting, some shortness of breath and some episodes of incontinence Negatives are no fever no chills no dizziness no weakness no fainting no feeling faint no headache no neck pain no chest pain no palpitations no exertional symptoms no nausea or vomiting now today, no anorexia no dysuria no frequency of urination no muscle weakness no difficulty ambulating no loss of sensation no skin rash Yes all other systems are reviewed and are negative [facility] Past Medical History Source: nursing notes reviewed Medical History Anxiety Depression History of kidney stones Migraines Panic attacks Vitamin B 12 deficiency Surgical History History of bilateral tubal ligation History of endoscopy Hx laparoscopic cholecystectomy Hx of lithotripsy S/P laparoscopic sleeve gastrectomy S/P panniculectomy Family History Family History Mother Alzheimer disease Dementia Father Diabetes mellitus Hypertension Sister Cancer Sister No problems noted. Brother No problems noted. Brother No problems noted. Son No problems noted. Daughter No problems noted. 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 Sexual orientation: Straight/Heterosexual Gender identity: Female Physical Exam ED Vital Signs: Vital Signs - 24 hr 05/07/22 07:52 05/07/22 16:00 05/07/22 18:00 Temperature 98.0 F 98.0 F 98.1 F Pulse Rate 75 66 65 Respiratory Rate 20 16 16 Blood Pressure 105/67 100/45 L 98/52 L Pulse Oximetry 99 98 98 Oxygen Delivery Method Room Air Room Air Room Air 05/07/22 20:00 Temperature 98.7 F Pulse Rate 74 Respiratory Rate 16 Blood Pressure 102/61 Pulse Oximetry 98 Oxygen Delivery Method Room Air BMI result Body Mass Index 28.7 General appearance is no acute distress Head is normocephalic atraumatic Pupils equal round reactive to light The neck is supple and nontender The chest is clear with full symmetric equal breath sounds, chest wall nontender Heart no murmur Abdomen had some mild epigastric tenderness no rebound no guarding, no lower abdominal tenderness The back had bilateral lower lumbar tenderness, no focal bony tenderness no CVA tenderness, skin was normal in the back and pain was reproduced with movement The extremities full range of motion x4 Skin no rash Neuro motor was 5/5 x4, gait was normal, patient could stand on toes and walk on heels, and do a squat Course Course Course Narrative: Patient had 3 complaints main complaint was lower back pain bilateral worse with movement associated with pain radiating to the feet with tingling and paresthesias to her toes for 2 weeks along with several isolated episodes of urinary incontinence. She has had urinary incontinence before not associated with back pain. CT scan of spine was done with no evidence of mass or bony abnormality. MRI of the lumbar spine was done which showed multi level degenerative spondyloarthropathy of the lumbar spine, as well as neural foraminal stenoses at L4 level 5, L3-L4 and L4-L5, no over central spinal canal stenosis, no cauda equina. The patient was placed on steroids and pain medicine for this and will follow with her doctor and if needed be referred to international trade specialist. Postvoid residual was done and results was normal with no evidence of urinary retention Patient also complained of abdominal pain and nausea and vomiting when her back pain was at its worst. She had a history of a gastric sleeve surgery in the past. She is not nauseous or vomitin now. Labs were checked including liver function lipase chemistry and CBC which had no acute abnormalities. A CT abdomen and pelvis with contrast was done which again did not reveal any urgent or dangerous pathologies Because of her shortness of breath an EKG was done EKG was a sinus bradycardia with a rate of 57, intervals were normal, no acute ST elevations no acute ischemic changes. Troponin was checked, 1 troponin was normal and her last episode of shortness of breath was 5 or 6 hours ago Patient's pain was relieved with Percocet and Tylenol, as she describes her abdominal pain is sometimes burning she will be placed on Pepcid for possible reflux, and analgesics muscle relaxer and prednisone for her sciatica Medical Decision Making Lab Data Lab results reviewed: Yes I reviewed the patient's lab results. Result diagrams: 05/07/22 11:27 05/07/22 11:27 Labs: Lab Results 05/07/22 05/07/22 05/07/22 Range/Units 08:02 11:27 11:27 WBC 5.6 (4.8-10.8) X10*3/uL RBC 4.88 (4.20-5.50) X10*6/uL Hgb 13.2 (12.0-16.0) g/dl Hct 41.5 (37.0-47.0) % MCV 85.0 (80.0-98.0) fL MCH 27.0 (27.0-33.0) pg MCHC 31.8 (31.0-35.0) g/dl RDW 13.1 (11.0-16.0) % Plt Count 266 (160-400) X10*3/uL MPV 10.5 (9.4-12.3) fL Immature Gran % (Auto) 0.4 (0.0-0.4) % Neut % (Auto) 49.0 (45-73) % Lymph % (Auto) 41.7 H (20-40) % Bollinger % (Auto) 6.8 (2-11) % Eos % (Auto) 1.4 (0-4) % Baso % (Auto) 0.7 (0-2) % Lymph # (Auto) 2.3 (1.2-4.9) X10*3/uL Bollinger # (Auto) 0.4 (0.1-1.2) X10*3/uL Eos # (Auto) 0.1 (0.0-0.4) X10*3/uL Baso # (Auto) 0.0 (0.0-0.2) X10*3/uL Abs Immat Gran (auto) 0.02 (0.00-0.03) X10*3/uL Absolute Neuts (auto) 2.7 (2.0-8.3) x10*3/uL Absolute Nucleated RBC 0.000 (0.0-0.012) X10*3/uL Nucleated RBC % (auto) 0.0 (0.0-0.2) /100WBC Sodium 138 (135-145) mmol/L Potassium 4.2 (3.3-5.1) mmol/L Chloride 102 (96-108) mmol/L Carbon Dioxide 30 H (22-29) mmol/L Anion Gap 10 L (12-20) BUN 11 (9-16) mg/dL Creatinine 0.74 (0.5-1.4) mg/dL Estim Creat Clear Calc 113.6 Estimated GFR > 60 Random Glucose 96 (60-115) mg/dL Calcium 9.3 (8.4-10.2) mg/dL Total Bilirubin 0.5 (0.0-1.0) mg/dL Direct Bilirubin 0.2 (0.0-0.5) mg/dL AST 15 (5-31) U/L ALT 14 (0-31) U/L Alkaline Phosphatase 45 (39-117) U/L Troponin I High Sens (<3.5-17.0) ng/L Total Protein 6.9 (6.5-8.0) g/dL Albumin 3.9 (3.5-5.0) g/dL Lipase 14 (8-78) U/L Urine Color YELLOW Urine Appearance HAZY Urine pH 6.0 (5.0-8.0) Ur Specific Harshaw >= 1.030 H (1.005-1.025) Urine Protein NEG (NEG-TRACE) MG/DL Urine Glucose (UA) NEG (NEG) MG/DL Urine Ketones NEG (NEG) MG/DL Urine Blood NEG (NEG) Urine Nitrite NEG (NEG) Ur Leukocyte Esterase NEG (NEG) COVID-19 (NEGRITA) (Negative) COVID-19 Clin Com 05/07/22 05/07/22 Range/Units 11:27 14:40 WBC (4.8-10.8) X10*3/uL RBC (4.20-5.50) X10*6/uL Hgb (12.0-16.0) g/dl Hct (37.0-47.0) % MCV (80.0-98.0) fL MCH (27.0-33.0) pg MCHC (31.0-35.0) g/dl RDW (11.0-16.0) % Plt Count (160-400) X10*3/uL MPV (9.4-12.3) fL Immature Gran % (Auto) (0.0-0.4) % Neut % (Auto) (45-73) % Lymph % (Auto) (20-40) % Bollinger % (Auto) (2-11) % Eos % (Auto) (0-4) % Baso % (Auto) (0-2) % Lymph # (Auto) (1.2-4.9) X10*3/uL Bollinger # (Auto) (0.1-1.2) X10*3/uL Eos # (Auto) (0.0-0.4) X10*3/uL Baso # (Auto) (0.0-0.2) X10*3/uL Abs Immat Gran (auto) (0.00-0.03) X10*3/uL Absolute Neuts (auto) (2.0-8.3) x10*3/uL Absolute Nucleated RBC (0.0-0.012) X10*3/uL Nucleated RBC % (auto) (0.0-0.2) /100WBC Sodium (135-145) mmol/L Potassium (3.3-5.1) mmol/L Chloride (96-108) mmol/L Carbon Dioxide (22-29) mmol/L Anion Gap (12-20) BUN (9-16) mg/dL Creatinine (0.5-1.4) mg/dL Estim Creat Clear Calc Estimated GFR Random Glucose (60-115) mg/dL Calcium (8.4-10.2) mg/dL Total Bilirubin (0.0-1.0) mg/dL Direct Bilirubin (0.0-0.5) mg/dL AST (5-31) U/L ALT (0-31) U/L Alkaline Phosphatase (39-117) U/L Troponin I High Sens < 3.5 (<3.5-17.0) ng/L Total Protein (6.5-8.0) g/dL Albumin (3.5-5.0) g/dL Lipase (8-78) U/L Urine Color Urine Appearance Urine pH (5.0-8.0) Ur Specific Harshaw (1.005-1.025) Urine Protein (NEG-TRACE) MG/DL Urine Glucose (UA) (NEG) MG/DL Urine Ketones (NEG) MG/DL Urine Blood (NEG) Urine Nitrite (NEG) Ur Leukocyte Esterase (NEG) COVID-19 (NEGRITA) Negative (Negative) COVID-19 Clin Com See Note Discharge Plan Discharge Clinical Impression: Sciatica, Abdominal pain Patient Disposition: Home, Self-Care Additional Instructions: MRI and CT scan evaluation of her back showed some arthritis that could be pinching nerves, but no sign of any dangerous nerve compression now We are trying prednisone which may reduce inflammation around the nerve in help with your symptoms, as well as pain medicine and muscle relaxer For the burning abdominal pain we will try Pepcid which is an acid fur dresser and see if it is helpful Follow with primary doctor for further evaluation and possible referral to a back specialist if symptoms continue Return to the ER any time any worse condition or any concerns Prescriptions: New acetaminophen 500 mg tablet 1,000 mg PO QID PRN (Reason: pain) Qty: 30 0RF oxycodone 5 mg tablet 5 mg PO Q6H PRN (Reason: pain) Qty: 10 0RF Rx Instructions: Partial Fill upon patient request. famotidine [Pepcid] 20 mg tablet 20 mg PO BID PRN (Reason: acid reflux) Qty: 14 0RF prednisone 20 mg tablet 40 mg PO DAILY 3 Days Qty: 6 0RF No Action cyanocobalamin (vitamin B-12) [Vitamin B-12] 1,000 mcg Tablet 1,000 mcg PO DAILY Qty: 90 3RF folic acid 1 mg Tablet 1 mg PO DAILY Qty: 90 3RF tramadol 50 mg tablet 50 mg PO Q6H PRN (Reason: pain) Qty: 20 0RF lithium carbonate 450 mg tablet extended release 2 tab PO BEDTIME zaleplon 10 mg capsule 1 cap PO BEDTIME buspirone 15 mg tablet 1 tab PO BEDTIME
--- NOTE | 2022-05-07 13:20 | ECG_ITS ---
Test Reason : LEFT ARM PAIN Blood Pressure : / mmHG Vent. Rate : 057 BPM Atrial Rate : 057 BPM P-R Int : 160 ms QRS Dur : 084 ms QT Int : 382 ms P-R-T Axes : 012 031 032 degrees QTc Int : 371 ms Sinus bradycardia with sinus arrhythmia Otherwise normal ECG When compared with ECG of 14-DEC-2021 09:31, QT has shortened Referred By: Luis Enrique Bass Electronically Signed By:Juan Manuel Santos
[2022-05-07 13:47] LABS: Alanine Aminotransferase 14 U/L (0-31); Albumin Level 3.9 g/dL (3.5-5.0); Alkaline Phosphatase 45 U/L (39-117); Aspartate Amino Transferase 15 U/L (5-31); Bilirubin Direct 0.2 mg/dL (0.0-0.5); Bilirubin Total 0.5 mg/dL (0.0-1.0); Lipase 14 U/L (8-78); Total Protein 6.9 g/dL (6.5-8.0)
[2022-05-07] MEDS: iohexoL 350 MG/ML 100 ML INFUS..BTL IV (14:40)
[2022-05-07 15:07] LABS: Troponin-I High Sensitivity < 3.5 ng/L (<3.5-17.0)
[2022-05-07] MEDS: oxyCODONE HCl Immed Release 5 MG TABLET PO ×2 (15:58→21:07)
[2022-05-07] MEDS: 0.9 % Sodium Chloride 1,000 ML 999 ML IVCONT (15:59)
[2022-05-07 16:00] VITALS: BP 100/45; PULSE 66; RESP 16; TEMP 36.7; O2SAT 98
--- NOTE | 2022-05-07 17:39 | PC.NURSE ---
Pt to MRI at this time.
[2022-05-07 18:00] VITALS: BP 98/52; PULSE 65; RESP 16; TEMP 36.7; O2SAT 98
[2022-05-07 20:00] VITALS: BP 102/61; PULSE 74; RESP 16; TEMP 37.1; O2SAT 98
[2022-05-07] MEDS: dexAMETHasone 2 MG TABLET 10 MG PO (21:07)
== END 2022-05-07 21:17 | disposition home or self-care (01) ==
PROVIDERS: Physician Assistant Medical; Emergency Provider Internal Medicine; PCP Internal Medicine
DX: M54.42 Lumbago with sciatica, left side (principal); M54.41 Lumbago with sciatica, right side; R10.13 Epigastric pain; R32 Unspecified urinary incontinence; R00.1 Bradycardia, unspecified; R06.02 Shortness of breath; Z20.822 Contact with and (suspected) exposure to COVID-19; F12.90 Cannabis use, unspecified, uncomplicated; E53.8 Deficiency of other specified B group vitamins; E66.3 Overweight; Z68.28 Body mass index [BMI] 28.0-28.9, adult; Z90.3 Acquired absence of stomach [part of]; Z98.84 Bariatric surgery status; Z98.51 Tubal ligation status; Z90.49 Acquired absence of other specified parts of digestive tract; Z79.899 Other long term (current) drug therapy
CPT/HCPCS: 36415; 51798; 72132; 72148; 74177; 80048; 80076; 81003; 83690; 84484; 85025; 87635; 93005; 96360; 99285; J8540; Q9967

== ENCOUNTER 2022-05-11 12:47 | Outpatient (REF) | payer OTHER, SELFPAY ==
--- NOTE | ~2022-05-11 | US_ITS ---
EXAMINATION: US DIAGNOSTIC ULTRASOUND BREAST, LEFT CLINICAL INFORMATION: Small complicated cyst 5:00 left breast for follow-up. COMPARISON: Ultrasound left breast 11/11/2021, [phone], baseline mammography 04/28/2021. TECHNIQUE: Ultrasound of the breast is performed with real-time lyons scale imaging and color Doppler. FINDINGS: The complicated cyst 5:00 position is decreased in size, currently measuring 0.6 x 0.3 x 0.6 cm. Largest prior measurement 1.2 x 0.5 x 1.0 cm. There are fine avascular internal septations. No interval thickening septations or interval solid component. Margins are circumscribed. Increased through-transmission of sound. Results are discussed with the patient at time of visit. US/US breast LT limited IMPRESSION: Benign-appearing complicated cyst decreased in size. No interval suspicious findings. ASSESSMENT: BI-RADS 2: Benign RECOMMENDATION: Routine annual mammography screening, beginning age 40, or earlier as clinical risk factors warrant. This patient's information was entered into a reminder system with a target due date for their next mammogram.
== END 2022-05-11 12:48 | disposition home or self-care (01) ==
LOC: HO.MAMMO 12:47
PROVIDERS: PCP Internal Medicine; Visit Provider Internal Medicine
DX: N60.02 Solitary cyst of left breast (principal)
CPT/HCPCS: 76642

== ENCOUNTER → 2022-05-21 14:27 | Outpatient (BNVA) | payer OTHER, SELFPAY | PROVIDERS: PCP Internal Medicine; Visit Provider Physician Assistant Surgical | DX: E66.3 Overweight (principal); K21.9 Gastro-esophageal reflux disease without esophagitis; Z90.3 Acquired absence of stomach [part of]; Z68.29 Body mass index [BMI] 29.0-29.9, adult | CPT/HCPCS: 99212 ==

== ENCOUNTER → 2022-05-24 14:44 | Outpatient (BNVA) | payer OTHER, SELFPAY | PROVIDERS: PCP Internal Medicine; Visit Provider Physician Assistant | DX: M22.2X2 Patellofemoral disorders, left knee (principal); M22.2X1 Patellofemoral disorders, right knee | CPT/HCPCS: 20610; 99212; J1040 ==

== ENCOUNTER 2022-06-03 16:14 | Emergency (ER) | payer OTHER, SELFPAY ==
--- NOTE | ~2022-06-03 | US_ITS ---
EXAMINATION: US RETROPERITONEAL LIMITED (RENAL ONLY) CLINICAL INFORMATION: Flank pain. COMPARISON: CT 05/07/2022 TECHNIQUE: Sonographic evaluation of both kidneys. FINDINGS: RIGHT KIDNEY: 10.2 x 5.9 x 5.1 cm (SAG x AP x TRV). The kidney is normal in size, contour, and echogenicity. Renal cortical thickness is normal. No calculi or focal parenchymal lesions. No hydronephrosis. LEFT KIDNEY: 11.4 x 5.4 x 5.6 cm (SAG x AP x TRV). The kidney is normal in size, contour, and echogenicity. Renal cortical thickness is normal. No calculi or focal parenchymal lesions. No hydronephrosis. US/US renal BI IMPRESSION: Normal appearance of both kidneys. No hydronephrosis..
[2022-06-03 16:19] VITALS: BP 110/72; PULSE 66; RESP 18; TEMP 36.8; O2SAT 96; BMI 27.7
[2022-06-03 16:36] LABS: MANUAL DIFF FLAG NO
[2022-06-03 16:38] LABS: Appearance Urine Clear; Basophils Absolute Auto 0.1 X10*3/uL (0.0-0.2); Basophils Percent Auto 0.6 % (0-2); Color Urine Yellow; Eosinophils Absolute Auto 0.1 X10*3/uL (0.0-0.4); Eosinophils Percent Auto 0.6 % (0-4); Glucose Urine UA Negative (Negative); Hematocrit 43.7 % (37.0-47.0); Hemoglobin 13.9 g/dl (12.0-16.0); Imm Gran Abs Auto 0.05 X10*3/uL (0.00-0.03); Imm Gran Pct Auto 0.6 % (0.0-0.4); Leukocyte Esterase Urine Negative (Negative); Lymphocytes Absolute Auto 2.4 X10*3/uL (1.2-4.9); Mean Corpuscular HGB Conc 31.8 g/dl (31.0-35.0); Mean Corpuscular Volume 84.9 fL (80.0-98.0); Mean Platelet Volume 10.5 fL (9.4-12.3); Monocytes Absolute Auto 0.7 X10*3/uL (0.1-1.2); Monocytes Percent Auto 8.4 % (2-11); Neutrophils Absolute Auto 5.3 x10*3/uL (2.0-8.3); Neutrophils Percent Auto 61.8 % (45-73); Nitrite Urine Negative (Negative); Platelet Count 313 X10*3/uL (160-400); Red Blood Count 5.15 X10*6/uL (4.20-5.50); Urine Blood Negative (Negative); Urine Ketones Negative (Negative); Urine Protein Negative (Neg-Trace); White Blood Count 8.6 X10*3/uL (4.8-10.8)
[2022-06-03 16:53] LABS: Alanine Aminotransferase 11 U/L (0-31); Alkaline Phosphatase 54 U/L (39-117); Anion Gap 14 (12-20); Aspartate Amino Transferase 12 U/L (5-31); Bilirubin Total 0.4 mg/dL (0.0-1.0); Blood Urea Nitrogen 18 mg/dL (9-16); Calcium 9.4 mg/dL (8.4-10.2); Carbon Dioxide 29 mmol/L (22-29); Chloride 101 mmol/L (96-108); Creatinine Clr Calc Pharmacy 113.4; Estimated Glomerular Filt Rate > 60; Glucose Random 99 mg/dL (60-115); Potassium 3.9 mmol/L (3.3-5.1); Sodium 140 mmol/L (135-145); Total Protein 7.3 g/dL (6.5-8.0)
--- NOTE | 2022-06-03 21:20 | ED.ABDPAIN ---
HPI - Abdominal Pain General Chief Complaint: Abdominal Pain Stated Complaint: abd pain vomiting back pain Time Seen by Provider: 06/03/22 21:14 Source: patient Limitations: no limitations History of Present Illness HPI narrative: This is a 36-year-old female with history of PTSD, bipolar disorder, gastric sleeve surgery in 2014, who complains of bilateral flank pain for a few days. The patient has had the pain for some time but has been worse the last few days. Patient was seen by her primary care physician today and told she should come in for ?imaging?. Patient has had vomiting yesterday and this morning. She also notes that she has had some loose stools and that she she feels like her stools sometimes come out without even pushing. She denies any fever. She denies any chest pain or shortness of breath cough. She denies any dysuria or urinary frequency or urgency. Related Data Home Medications Medication Instructions Recorded Confirmed buspirone 15 mg tablet 1 tab PO BEDTIME 12/11/21 05/21/22 lithium carbonate 450 mg 2 tab PO BEDTIME 12/11/21 05/21/22 tablet,extended release zaleplon 10 mg capsule 1 cap PO BEDTIME 12/11/21 05/21/22 Previous Rx's Medication Instructions Recorded tramadol 50 mg tablet 50 mg PO Q6H PRN pain #20 tabs 12/30/21 cyanocobalamin (vitamin B-12) 1,000 mcg PO DAILY #90 tabs 05/05/22 1,000 mcg tablet (Vitamin B-12) folic acid 1 mg tablet 1 mg PO DAILY #90 tabs 05/05/22 acetaminophen 500 mg tablet 1,000 mg PO QID PRN pain #30 tabs 05/07/22 famotidine 20 mg tablet (Pepcid) 20 mg PO BID PRN acid reflux #14 05/07/22 tabs oxycodone 5 mg tablet 5 mg PO Q6H PRN pain #10 tabs 05/07/22 prednisone 20 mg tablet 40 mg PO DAILY 3 days #6 tabs 05/07/22 cholecalciferol (vitamin D3) 25 25 mcg PO DAILY #90 caps 05/21/22 mcg (1,000 unit) capsule docusate sodium 100 mg capsule 100 mg PO BID #60 caps 05/21/22 omeprazole 40 mg capsule,delayed 40 mg PO DAILY #30 caps 05/21/22 release vitamin A palmitate 10,000 unit 10,000 unit PO DAILY #30 caps 05/21/22 capsule zinc gluconate 10 mg lozenges 10 mg PO DAILY #100 ea 05/21/22 ondansetron 4 mg disintegrating 4 mg PO Q6H PRN nausea and 06/03/22 tablet vomiting #10 tabs tramadol 50 mg tablet 50 - 100 mg PO Q6H PRN pain #20 06/03/22 tabs Allergies Allergy/AdvReac Type Severity Reaction Status Date / Time No Known Allergies Allergy Verified 06/03/22 16:19 Review of Systems Review of Systems Yes all other systems are reviewed and are negative Constitutional: Reports as per HPI and Denies fever(s) Eyes: Reports as per HPI and Reports no additional eye complaints Reports system reviewed and no additional complaints, except as documented, Reports as per HPI, Denies nasal congestion, Denies nasal discharge and Denies sore throat Cardiovascular: Reports as per HPI, Denies chest pain and Denies dyspnea Respiratory: Reports as per HPI, Denies cough and Denies dyspnea Gastrointestinal: Reports as per HPI, Reports abdominal pain, Reports loose stools, Reports nausea and Reports vomiting Genitourinary: Reports as per HPI, Denies hematuria, Denies urinary frequency and Denies dysuria Musculoskeletal: Reports no additional musculoskeletal complaints and Denies numbness Skin/Breast: Reports as per HPI and Denies rash Reports as per HPI, Denies focal weakness and Denies numbness Psychiatric: Reports no additional psychiatric complaints and Reports as per HPI Endocrine: Reports no additional endocrine complaints and Reports as per HPI Hematologic/Lymphatic: Reports no additional hematologic/lymphatic complaints, Reports as per HPI and Reports other (No peripheral edema) [facility] Past Medical History Medical History Anxiety Depression History of kidney stones Left groin mass Migraines Panic attacks Vitamin B 12 deficiency Vulvar mass Surgical History History of bilateral tubal ligation History of endoscopy Hx laparoscopic cholecystectomy Hx of lithotripsy S/P laparoscopic sleeve gastrectomy S/P panniculectomy Family History Family History Mother Alzheimer disease Dementia Father Diabetes mellitus Hypertension Sister Cancer Sister No problems noted. Brother No problems noted. Brother No problems noted. Son No problems noted. Daughter No problems noted. 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 Sexual orientation: Straight/Heterosexual Gender identity: Female Physical Exam ED Vital Signs: Vital Signs - 24 hr 06/03/22 16:19 06/03/22 22:03 Temperature 98.3 F 98.1 F Pulse Rate 66 63 Respiratory Rate 18 18 Blood Pressure 110/72 109/78 Pulse Oximetry 96 98 Oxygen Delivery Method Room Air Room Air BMI result Body Mass Index 27.7 Const Other: Not ill-appearing, somewhat obese General: no acute distress Orientation/consciousness: patient oriented x3 HENMT Head: Yes normal to inspection General nose exam: Normal external nose present Mouth: moist mucous membranes Throat: Yes posterior oropharynx normal, Yes tonsils normal and Yes uvula midline Eyes Eyelids: Yes eyelids normal Conjunctivae: conjunctivae normal Pupils: Equal, round and reactive pupils present Neck Neck: Yes supple Resp Effort & Inspection: normal respiratory effort Auscultation: clear to auscultation bilaterally Cardio Rate: regular rate Rhythm: regular rhythm Heart sounds: S1 normal heart sound present, S2 normal heart sound present, no gallops, no murmurs and no rubs GI Inspection: No distended Palpation (GI): Soft to palpation and Tenderness to palpation present (GI) (Oonq-vm-qhxrvsah diffuse) Auscultation: normal bowel sounds Skin General skin exam: other (Warm and dry) Neuro General: patient oriented x3 and CN's II-XI intact bilaterally Cranial nerves: Yes Equal, round and reactive pupils present Extrem General: Yes no pedal edema Psych Affect: normal affect Attitude: cooperative MDM - Abdominal Pain MDM Narrative Medical decision making narrative: Patient with a history of bipolar disorder, PTSD, multiple medical problems complains of abdominal pain, flank pain, and loose stool. Patient has a history of incontinence. Review of records reveals the patient has had numerous CT scans of her abdomen and pelvis the last few years. The patient's labs were normal. Patient seemed convince she was having pain coming from her kidneys. Renal ultrasound was done and was negative. No evidence of UTI. Patient does have history of gastric sleeve surgery however do not believe that her current presentation is related to complication of her gastric sleeve, which was done in 2014. Will treat with ondansetron, tramadol, and the patient can follow-up with her primary care physician Lab Data Attestation: I reviewed the patient's lab results. Result diagrams: 06/03/22 16:30 06/03/22 16:30 Labs: Lab Results 06/03/22 06/03/22 06/03/22 Range/Units 16:30 16:30 16:30 WBC 8.6 (4.8-10.8) X10*3/uL RBC 5.15 (4.20-5.50) X10*6/uL Hgb 13.9 (12.0-16.0) g/dl Hct 43.7 (37.0-47.0) % MCV 84.9 (80.0-98.0) fL MCH 27.0 (27.0-33.0) pg MCHC 31.8 (31.0-35.0) g/dl RDW 13.0 (11.0-16.0) % Plt Count 313 (160-400) X10*3/uL MPV 10.5 (9.4-12.3) fL Immature Gran % (Auto) 0.6 H (0.0-0.4) % Neut % (Auto) 61.8 (45-73) % Lymph % (Auto) 28.0 (20-40) % Divide % (Auto) 8.4 (2-11) % Eos % (Auto) 0.6 (0-4) % Baso % (Auto) 0.6 (0-2) % Lymph # (Auto) 2.4 (1.2-4.9) X10*3/uL Divide # (Auto) 0.7 (0.1-1.2) X10*3/uL Eos # (Auto) 0.1 (0.0-0.4) X10*3/uL Baso # (Auto) 0.1 (0.0-0.2) X10*3/uL Abs Immat Gran (auto) 0.05 H (0.00-0.03) X10*3/uL Absolute Neuts (auto) 5.3 (2.0-8.3) x10*3/uL Absolute Nucleated RBC 0.000 (0.0-0.012) X10*3/uL Nucleated RBC % (auto) 0.0 (0.0-0.2) /100WBC Sodium 140 (135-145) mmol/L Potassium 3.9 (3.3-5.1) mmol/L Chloride 101 (96-108) mmol/L Carbon Dioxide 29 (22-29) mmol/L Anion Gap 14 (12-20) BUN 18 H D (9-16) mg/dL Creatinine 0.73 (0.5-1.4) mg/dL Estim Creat Clear Calc 113.4 Estimated GFR > 60 Random Glucose 99 (60-115) mg/dL Calcium 9.4 (8.4-10.2) mg/dL Total Bilirubin 0.4 (0.0-1.0) mg/dL AST 12 (5-31) U/L ALT 11 (0-31) U/L Alkaline Phosphatase 54 (39-117) U/L Total Protein 7.3 (6.5-8.0) g/dL Albumin 4.0 (3.5-5.0) g/dL Urine Color Yellow Urine Appearance Clear Urine pH 6.0 (5.0-8.0) Ur Specific [place] 1.020 (1.005-1.025) Urine Protein Negative (Neg-Trace) mg/dL Urine Glucose (UA) Negative (Negative) mg/dL Urine Ketones Negative (Negative) mg/dL Urine Blood Negative (Negative) Urine Nitrite Negative (Negative) Ur Leukocyte Esterase Negative (Negative) Imaging Data Renal ultrasound bilateral: Radiologist's impression: IMPRESSION: Normal appearance of both kidneys. No hydronephrosis.. Discharge Plan Discharge Clinical Impression: Abdominal pain, Acute flank pain Patient Disposition: Home, Self-Care Instructions: Abdominal Pain (ED) Additional Instructions: Follow-up with your primary care physician. Use ondansetron as needed for nausea. Take tramadol for pain. Prescriptions: New ondansetron 4 mg tablet,disintegrating 4 mg PO Q6H PRN (Reason: nausea and vomiting) Qty: 10 0RF tramadol 50 mg tablet 50 - 100 mg PO Q6H PRN (Reason: pain) Qty: 20 0RF No Action cyanocobalamin (vitamin B-12) [Vitamin B-12] 1,000 mcg Tablet 1,000 mcg PO DAILY Qty: 90 3RF folic acid 1 mg Tablet 1 mg PO DAILY Qty: 90 3RF tramadol 50 mg tablet 50 mg PO Q6H PRN (Reason: pain) Qty: 20 0RF acetaminophen 500 mg tablet 1,000 mg PO QID PRN (Reason: pain) Qty: 30 0RF oxycodone 5 mg tablet 5 mg PO Q6H PRN (Reason: pain) Qty: 10 0RF Rx Instructions: Partial Fill upon patient request. famotidine [Pepcid] 20 mg tablet 20 mg PO BID PRN (Reason: acid reflux) Qty: 14 0RF prednisone 20 mg tablet 40 mg PO DAILY 3 Days Qty: 6 0RF lithium carbonate 450 mg tablet extended release 2 tab PO BEDTIME zaleplon 10 mg capsule 1 cap PO BEDTIME buspirone 15 mg tablet 1 tab PO BEDTIME omeprazole 40 mg capsule,delayed release(DR/EC) 40 mg PO DAILY Qty: 30 5RF docusate sodium 100 mg capsule 100 mg PO BID Qty: 60 5RF vitamin A palmitate 10,000 unit capsule 10,000 unit PO DAILY Qty: 30 5RF cholecalciferol (vitamin D3) 25 mcg (1,000 unit) capsule 25 mcg PO DAILY Qty: 90 3RF zinc gluconate 10 mg lozenge 10 mg PO DAILY Qty: 100 3RF
[2022-06-03] MEDS: LORazepam 1 MG TABLET PO (21:44)
[2022-06-03 22:03] VITALS: BP 109/78; PULSE 63; RESP 18; TEMP 36.7; O2SAT 98
[2022-06-03 23:56] VITALS: BP 110/69; PULSE 76; RESP 26; O2SAT 98
== END 2022-06-03 23:58 | disposition home or self-care (01) ==
PROVIDERS: Emergency Provider Emergency Medicine; PCP Internal Medicine
DX: R10.9 Unspecified abdominal pain (principal); Z98.51 Tubal ligation status; Z90.3 Acquired absence of stomach [part of]; Z87.442 Personal history of urinary calculi
CPT/HCPCS: 36415; 76775; 80053; 81003; 85025; 99283; 99284

== ENCOUNTER 2022-06-29 12:29 | Outpatient (REF) | payer OTHER, SELFPAY ==
[2022-06-30 05:17] LABS: CT PCR NOT DETECTED (Not Detect.); NG PCR NOT DETECTED (Not Detect.)
[2022-06-30 15:52] LABS: BV Int Neg Control Negative (Negative); BV Int Pos Control Positive (Positive)
== END 2022-06-29 12:30 | disposition home or self-care (01) ==
LOC: HO.LNP 12:29
PROVIDERS: Visit Provider Advanced Practice Midwife
DX: Z11.3 Encounter for screening for infections with a predominantly sexual mode of transmission (principal); N89.8 Other specified noninflammatory disorders of vagina; Z98.890 Other specified postprocedural states
CPT/HCPCS: 87480; 87491; 87510; 87591; 87660; 99212

== ENCOUNTER → 2022-07-22 10:09 | Outpatient (BNVA) | payer OTHER, SELFPAY | PROVIDERS: PCP Internal Medicine; Visit Provider Nurse Practitioner Family | DX: M22.2X1 Patellofemoral disorders, right knee (principal); M22.2X2 Patellofemoral disorders, left knee; M25.561 Pain in right knee; M25.562 Pain in left knee | CPT/HCPCS: 99202 ==

== ENCOUNTER 2022-09-10 15:05 | Outpatient (REF) | payer OTHER, SELFPAY ==
[2022-09-13 09:49] LABS: HIV AB/AG Nonreactive (Nonreactive); HIV Num 1 0.07 S/CO (0.00-0.99)
== END 2022-09-10 15:06 | disposition home or self-care (01) ==
LOC: HO.LAB 15:05
PROVIDERS: PCP Internal Medicine; Visit Provider Advanced Practice Midwife
DX: Z11.4 Encounter for screening for human immunodeficiency virus [HIV] (principal)
CPT/HCPCS: 36415; 87389

== ENCOUNTER 2022-09-22 06:11 | Outpatient (REF) | payer OTHER, SELFPAY | END 2022-09-22 06:12 | disposition home or self-care (01) | LOC: CF 06:11 | PROVIDERS: Visit Provider Internal Medicine | DX: M25.561 Pain in right knee (principal); M25.562 Pain in left knee | CPT/HCPCS: 64447; J2795; Q9967 ==

== ENCOUNTER 2022-11-11 17:58 | Emergency (ER) | payer OTHER, SELFPAY ==
--- NOTE | 2022-11-11 18:09 | ED.HA ---
HPI - Headache General Chief Complaint: Headache <Kasia Hernandes NP - Last Filed: 11/11/22 18:11> Stated Complaint: migraine- 3 days <Kasia Hernandes NP - Last Filed: 11/11/22 18:11> Time Seen by Provider: 11/11/22 19:56 <Kasia Hernandes NP - Last Filed: 11/11/22 18:11> Source: patient <Anna Goode MD - Last Filed: 11/11/22 23:05> Mode of arrival: ambulatory <Anna Goode MD - Last Filed: 11/11/22 23:05> Limitations: no limitations <Anna Goode MD - Last Filed: 11/11/22 23:05> History of Present Illness HPI Narrative: Patient comes to the emergency room complaining of a migraine headache that started 28+ hours ago. Patient states that before the migraine started, she started seeing flashes and she knew she was going to get a migraine. This is usually how her migraines usually start. Patient took tramadol, gabapentin, Tylenol prior to arrival in the last couple of days without any significant relief. Patient complaining of nausea , vomiting and photophobia <Anna Goode MD - Last Filed: 11/11/22 23:05> Related Data Home Medications: Home Medications Medication Instructions Recorded Confirmed buspirone 15 mg tablet 1 tab PO BEDTIME 12/11/21 06/29/22 lithium carbonate 450 mg 2 tab PO BEDTIME 12/11/21 06/29/22 tablet,extended release zaleplon 10 mg capsule 1 cap PO BEDTIME 12/11/21 06/29/22 acetaminophen 650 mg mg PO 09/23/22 tablet,extended release lithium carbonate 300 mg capsule 300 mg PO BID 09/23/22 Previous Rx's Medication Instructions Recorded tramadol 50 mg tablet 50 mg PO Q6H PRN pain #20 tabs 12/30/21 famotidine 20 mg tablet (Pepcid) 20 mg PO BID PRN acid reflux #14 05/07/22 tabs docusate sodium 100 mg capsule 100 mg PO BID #60 caps 05/21/22 omeprazole 40 mg capsule,delayed 40 mg PO DAILY #30 caps 05/21/22 release ondansetron 4 mg disintegrating 4 mg PO Q6H PRN nausea and 06/03/22 tablet vomiting #10 tabs tramadol 50 mg tablet 50 - 100 mg PO Q6H PRN pain #20 06/03/22 tabs acetaminophen 500 mg tablet 1,000 mg PO QID PRN pain #30 tabs 09/23/22 gabapentin 100 mg capsule 100 mg PO TID PRN pain 30 days #90 10/29/22 caps diclofenac sodium 1 % topical gel 4 g topical QID pain 30 days #100 11/01/22 (Arthritis Pain (diclofenac)) grams [id number]-[id number] 1 cap PO TID PRN pain #10 caps 11/11/22 50 mg-300 mg-40 mg capsule (Fioricet) metoclopramide HCl 5 mg tablet 5 mg PO TID PRN nausea and 11/11/22 (Reglan) vomiting #10 tabs <Kasia Hernandes NP - Last Filed: 11/11/22 18:11> Allergies/Adverse Reactions: Allergies Allergy/AdvReac Type Severity Reaction Status Date / Time No Known Allergies Allergy Verified 09/23/22 08:22 <Kasia Hernandes NP - Last Filed: 11/11/22 18:11> Review of Systems Review of Systems: Constitutional : No Weight loss, No Fever, No Chills, No Night Sweats, No Fatigue, No Malaise ENT/Mouth : No Hearing loss, No Ear Pain, No Nasal Congestion, No Sinus Pain, No Hoarseness, No sore throat, No Rhinorrhea, No Swallowing Difficulty Eyes: Complaining of photophobia, No Swelling, No Redness, No Foreign Body, No Discharge, No Vision Changes Cardiovascular : No Chest Pain, No SOB, No Dyspnea on Exertion, No Orthopnea, No Edema, No Palpitations Respiratory : No Cough, No Sputum, No Wheezing, No Smoke Exposure, No Dyspnea Gastrointestinal : No Nausea, No Vomiting, No Diarrhea, No Constipation, No abdominal Pain, No Hematochezia, No Melena Genitourinary : no irregular bleeding, No Dysuria, No Urinary Frequency, No Hematuria, No Urinary Incontinence, No Urgency, No Flank Pain, No Urinary Flow Changes, No Hesitancy Musculoskeletal : No joint pain, No Myalgias, No Joint Swelling Skin : No Skin Lesions, No rash Neuro : No Weakness, No Numbness, No Paresthesias, No Loss of Consciousness, No Dizziness, complaining of a migraine headache Psych : No Anxiety/Panic, No Depression, No SI/HI/AH/VH, No Social Issues, Heme/Lymph: No Bruising, No Bleeding,No Lymphadenopathy Endocrine : No Polyuria, No Polydipsia, No Temperature Intolerance <Anna Goode MD - Last Filed: 11/11/22 23:05> REPLACED BY [facility] Past Medical History Medical History: Medical History Anxiety Depression History of kidney stones Left groin mass Migraines Panic attacks Vitamin B 12 deficiency Vulvar mass <Kasia Hernandes NP - Last Filed: 11/11/22 18:11> Surgical History: Surgical History History of bilateral tubal ligation History of endometrial ablation History of endoscopy Hx laparoscopic cholecystectomy Hx of lithotripsy S/P laparoscopic sleeve gastrectomy S/P panniculectomy <Kasia Hernandes NP - Last Filed: 11/11/22 18:11> Family History Family History: Family History Mother Alzheimer disease Dementia Father Diabetes mellitus Hypertension Sister Cancer Sister No problems noted. Brother No problems noted. Brother No problems noted. Son No problems noted. Daughter No problems noted. 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 Sexual orientation: Straight/Heterosexual Gender identity: Female <Kasia Hernandes NP - Last Filed: 11/11/22 18:11> Physical Exam Vital Signs: Vital Signs: Last Vital Signs Temp 98.0 F 11/11/22 20:46 Pulse 85 11/11/22 20:46 Resp 12 11/11/22 20:46 BP 105/53 L 11/11/22 20:46 Pulse Ox 100 11/11/22 20:46 O2 Del Method 11/11/22 20:46 BMI result Body Mass Index 29.3 <Kasia Hernandes NP - Last Filed: 11/11/22 18:11> Vital Signs: Last Vital Signs Temp 98.0 F 11/11/22 20:46 Pulse 85 11/11/22 20:46 Resp 12 11/11/22 20:46 BP 105/53 L 11/11/22 20:46 Pulse Ox 100 11/11/22 20:46 O2 Del Method 11/11/22 20:46 BMI result Body Mass Index 29.3 <Anna Goode MD - Last Filed: 11/11/22 23:05> Const: Other: Appearance: Alert. Oriented X3. No acute distress. Eyes: Pupils equal, round and reactive to light. Patient has photophobia ENT: Pharynx normal. Neck: Normal inspection. Neck supple. No lymph nodes noted. No crepitus CVS: Normal heart rate and rhythm. Pulses normal. Normal S1 and S2 Respiratory: No respiratory distress. Breath sounds normal. No Wheezing. No rales Abdomen: Soft and nontender. No rigidity. No distention. Skin: Skin warm and dry. Normal skin color. Normal skin turgor. Extremities: No lower extremity edema. No Lacerations. No Rash Neuro: Oriented X 3. No motor deficit. No sensory deficit. Moving all extremities. No slurred speech. CN 2 through 12 grossly intact Psych: calm, cooperative, normal affect <Anna Goode MD - Last Filed: 11/11/22 23:05> Course Course Course Narrative: This is rapid medical exam. Deferred additional HPI, ROS, PE to primary provider. 37 yo female with history of migraines, anemia, bipolar disorder, PTSD, anxiety, depression here with headache, vomiting x 2 days despite taking tramadol at home. Feels similar to previous migraines. VSS <Kasia Hernandes NP - Last Filed: 11/11/22 18:11> Medications Administered Discontinued Medications Generic Name Dose Route Start Last Admin Trade Name Freq PRN Reason Stop Dose Admin Diphenhydramine HCl 25 mg 11/11/22 20:02 11/11/22 20:38 Diphenhydramine Hcl 50 Mg/Ml Vial IVPUSH 11/11/22 20:03 25 mg ONCE ONE Administration Sodium Chloride 1,000 mls @ 999 mls/hr 11/11/22 20:02 11/11/22 21:56 Ns IVCONT 11/11/22 21:02 Infused .Q1H1M ONE Infusion Metoclopramide HCl 10 mg 11/11/22 20:02 11/11/22 20:39 Metoclopramide Hcl 10 Mg/2 Ml Vial IVPUSH 11/11/22 20:03 10 mg ONCE ONE Administration Morphine Sulfate 4 mg 11/11/22 20:02 11/11/22 20:38 Morphine Sulfate 4 Mg/Ml Cartridge IVPUSH 11/11/22 20:03 4 mg ONCE ONE Administration Protocol <Kasia Hernandes NP - Last Filed: 11/11/22 18:11> Medications Administered Discontinued Medications Generic Name Dose Route Start Last Admin Trade Name Freq PRN Reason Stop Dose Admin Diphenhydramine HCl 25 mg 11/11/22 20:02 11/11/22 20:38 Diphenhydramine Hcl 50 Mg/Ml Vial IVPUSH 11/11/22 20:03 25 mg ONCE ONE Administration Sodium Chloride 1,000 mls @ 999 mls/hr 11/11/22 20:02 11/11/22 21:56 Ns IVCONT 11/11/22 21:02 Infused .Q1H1M ONE Infusion Metoclopramide HCl 10 mg 11/11/22 20:02 11/11/22 20:39 Metoclopramide Hcl 10 Mg/2 Ml Vial IVPUSH 11/11/22 20:03 10 mg ONCE ONE Administration Morphine Sulfate 4 mg 11/11/22 20:02 11/11/22 20:38 Morphine Sulfate 4 Mg/Ml Cartridge IVPUSH 11/11/22 20:03 4 mg ONCE ONE Administration Protocol <Anna Goode MD - Last Filed: 11/11/22 23:05> Medical Decision Making Medical Decision Making MDM Narrative: -patient receiving IV fluids, IV Reglan, morphine and Benadryl. Patient has history of a gastric sleep, therefore we will avoid NSAIDs -patient states that she feels much better after the above-mentioned treatment. Patient ready for discharge, headache resolved <Anna Goode MD - Last Filed: 11/11/22 23:05> Discharge Plan Discharge Clinical Impression: Migraine <Kasia Hernandes NP - Last Filed: 11/11/22 18:11> Patient Disposition: Home, Self-Care <Kasia Hernandes NP - Last Filed: 11/11/22 18:11> Instructions: Migraine Headache (ED) <Kasia Hernandes NP - Last Filed: 11/11/22 18:11> Additional Instructions: Please follow-up with your primary care physician tomorrow. If you have any worsening or new symptoms, please return to the emergency room or call 911 <Kasia Hernandes NP - Last Filed: 11/11/22 18:11> Prescriptions: New [id number]-[id number] [Fioricet] 50-300-40 mg capsule 1 cap PO TID PRN (Reason: pain) Qty: 10 0RF metoclopramide HCl [Reglan] 5 mg tablet 5 mg PO TID PRN (Reason: nausea and vomiting) Qty: 10 0RF No Action gabapentin 100 mg capsule 100 mg PO TID PRN (Reason: pain) 30 Days Qty: 90 1RF diclofenac sodium [Arthritis Pain (diclofenac)] 1 % gel 4 g topical QID 30 Days Qty: 100 0RF Rx Instructions: apply to single knee, ankle, foot; for foot includes sole/toes/top of foot tramadol 50 mg tablet 50 mg PO Q6H PRN (Reason: pain) Qty: 20 0RF famotidine [Pepcid] 20 mg tablet 20 mg PO BID PRN (Reason: acid reflux) Qty: 14 0RF ondansetron 4 mg tablet,disintegrating 4 mg PO Q6H PRN (Reason: nausea and vomiting) Qty: 10 0RF tramadol 50 mg tablet 50 - 100 mg PO Q6H PRN (Reason: pain) Qty: 20 0RF lithium carbonate 450 mg tablet extended release 2 tab PO BEDTIME zaleplon 10 mg capsule 1 cap PO BEDTIME buspirone 15 mg tablet 1 tab PO BEDTIME omeprazole 40 mg capsule,delayed release(DR/EC) 40 mg PO DAILY Qty: 30 5RF docusate sodium 100 mg capsule 100 mg PO BID Qty: 60 5RF acetaminophen 500 mg tablet 1,000 mg PO QID PRN (Reason: pain) Qty: 30 0RF lithium carbonate 300 mg capsule 300 mg PO BID acetaminophen 650 mg tablet extended release PO <Kasia Hernandes NP - Last Filed: 11/11/22 18:11>
[2022-11-11 18:10] VITALS: BP 131/73; PULSE 87; RESP 18; TEMP 36.2; O2SAT 99; BMI 29.3
[2022-11-11] MEDS: Morphine Sulfate 4 MG/ML CARTRIDGE IVPUSH (20:38)
[2022-11-11] MEDS: diphenhydrAMINE HCL 50 MG/ML VIAL 25 MG IVPUSH (20:38)
[2022-11-11] MEDS: Metoclopramide HCl 10 MG/2 ML VIAL IVPUSH (20:39)
[2022-11-11] MEDS: 0.9 % Sodium Chloride 1,000 ML 999 ML IVCONT (20:39)
[2022-11-11 20:46] VITALS: BP 105/53; PULSE 85; RESP 12; TEMP 36.7; O2SAT 100
--- NOTE | 2022-11-11 20:47 | PC.NURSE ---
IV line established with 20G on left hand. Medicated as ordered. Tolerated well.
--- NOTE | 2022-11-11 21:37 | PC.NURSE ---
Pt aox4. Resting at the bedside in no apparent distress. Reports decrease in pain, 3/10 and feeling much better.
--- NOTE | 2022-11-11 23:30 | PC.NURSE ---
Pt aox4 in not apparent distress. IV line removed with no difficulty. Pt tolerated well. Discharge instructions reviewed with pt. Pt verbalizes understanding. Pt ambulated with steady gait.
== END 2022-11-11 23:31 | disposition home or self-care (01) ==
PROVIDERS: Emergency Provider Emergency Medicine; PCP Internal Medicine
DX: G43.909 Migraine, unspecified, not intractable, without status migrainosus (principal); Z79.899 Other long term (current) drug therapy
CPT/HCPCS: 96361; 96374; 96375; 99284; J1200; J2270; J2765

== ENCOUNTER → 2022-12-01 11:45 | Day surgery (SDC) | payer OTHER, SELFPAY | PROVIDERS: PCP Internal Medicine; Visit Provider Internal Medicine | DX: M22.2X1 Patellofemoral disorders, right knee (principal); M22.2X2 Patellofemoral disorders, left knee | CPT/HCPCS: 20611; 99212 ==

== ENCOUNTER → 2022-12-03 10:22 | Outpatient (BNVA) | payer OTHER, SELFPAY | PROVIDERS: PCP Internal Medicine; Visit Provider Internal Medicine | DX: Z13.89 Encounter for screening for other disorder (principal) ==

== ENCOUNTER 2022-12-13 11:54 | Emergency (ER) | payer OTHER, SELFPAY ==
[2022-12-13 12:00] VITALS: BP 114/79; PULSE 85; RESP 18; TEMP 36.6; O2SAT 98; BMI 29.5
--- NOTE | 2022-12-13 12:00 | ED.HA ---
HPI - Headache General Chief Complaint: Headache <OBDULIO Melendez Last Filed: 12/13/22 12:03> Stated Complaint: Migraine X 3Days <OBDULIO Melendez Last Filed: 12/13/22 12:03> Time Seen by Provider: 12/13/22 12:24 <OBDULIO Melendez Last Filed: 12/13/22 12:03> Source: patient <OBDULIO Rojo Last Filed: 12/13/22 14:02> Mode of arrival: ambulatory <OBDULIO Rojo Last Filed: 12/13/22 14:02> Limitations: no limitations <OBDULIO Rojo Last Filed: 12/13/22 14:02> History of Present Illness HPI Narrative: 37-year-old female with a past medical history of anxiety, depression, panic attacks, kidney stones and migraine headaches who is presenting to the ER with complaints of a migraine headache for the past 3 days worse today with associated nausea and diarrhea. Reports that she has taken multiple medications in the past for migraine headaches which include Excedrin, Motrin, Tylenol, tramadol and multiple other migraine medications although they never work for her per the patient. She reports she ran out of all her migraine medication at home. She reports in the past she has responded well to Toradol. Otherwise she denies any fevers, change in vision, neck pain/stiffness, chest pain or shortness of breath, abdominal pain, dysuria, recent travel, sick contacts, recent CO2 exposure, tick bites, others with similar symptoms, recent spinal procedure or any other symptoms complaints or concerns at this time. <OBDULIO Rojo Last Filed: 12/13/22 14:02> MD elicited complaint: migraine <OBDULIO Rojo Last Filed: 12/13/22 14:02> Onset (ago): day(s) (3) <OBDULIO Rojo Last Filed: 12/13/22 14:02> Onset description: gradually <OBDULIO Rojo Last Filed: 12/13/22 14:02> Location: diffuse <OBDULIO Rojo Last Filed: 12/13/22 14:02> Severity: moderate <OBDULIO Rojo Last Filed: 12/13/22 14:02> Quality & Timing: aching, throbbing, constant and similar to previous headaches <OBDULIO Rojo - Last Filed: 12/13/22 14:02> Exacerbating factors: none <OBDULIO Rojo - Last Filed: 12/13/22 14:02> Context: other (Cannot recall) <OBDULIO Rojo - Last Filed: 12/13/22 14:02> Associated symptoms: nausea and other (Diarrhea) <OBDULIO Rojo Last Filed: 12/13/22 14:02> Treatments prior to arrival: acetaminophen, ibuprofen and migraine medication <OBDULIO Rojo Last Filed: 12/13/22 14:02> Related Data Home Medications: Home Medications Medication Instructions Recorded Confirmed buspirone 15 mg tablet 1 tab PO BEDTIME 12/11/21 06/29/22 lithium carbonate 450 mg 2 tab PO BEDTIME 12/11/21 06/29/22 tablet,extended release zaleplon 10 mg capsule 1 cap PO BEDTIME 12/11/21 06/29/22 acetaminophen 650 mg mg PO 09/23/22 tablet,extended release lithium carbonate 300 mg capsule 300 mg PO BID 09/23/22 Previous Rx's Medication Instructions Recorded tramadol 50 mg tablet 50 mg PO Q6H PRN pain #20 tabs 12/30/21 famotidine 20 mg tablet (Pepcid) 20 mg PO BID PRN acid reflux #14 05/07/22 tabs docusate sodium 100 mg capsule 100 mg PO BID #60 caps 05/21/22 omeprazole 40 mg capsule,delayed 40 mg PO DAILY #30 caps 05/21/22 release ondansetron 4 mg disintegrating 4 mg PO Q6H PRN nausea and 06/03/22 tablet vomiting #10 tabs tramadol 50 mg tablet 50 - 100 mg PO Q6H PRN pain #20 06/03/22 tabs acetaminophen 500 mg tablet 1,000 mg PO QID PRN pain #30 tabs 09/23/22 [id number]-qhiglplnlgkau-[id number] 1 cap PO TID PRN pain #10 caps 11/11/22 50 mg-300 mg-40 mg capsule (Fioricet) metoclopramide HCl 5 mg tablet 5 mg PO TID PRN nausea and 11/11/22 (Reglan) vomiting #10 tabs diclofenac sodium 1 % topical gel 4 g topical QID for pain #100 grams 11/29/22 gabapentin 300 mg capsule 300 mg PO TID #90 caps 12/03/22 diphenhydramine HCl 25 mg capsule 50 mg PO TID PRN sleep #14 caps 12/13/22 (Benadryl) ketorolac 10 mg tablet 10 mg PO Q8H #14 tabs 12/13/22 metoclopramide HCl 10 mg tablet 10 mg PO Q6H PRN nausea and 12/13/22 (Reglan) vomiting #14 tabs <OBDULIO Melendez - Last Filed: 12/13/22 12:03> Allergies/Adverse Reactions: Allergies Allergy/AdvReac Type Severity Reaction Status Date / Time No Known Allergies Allergy Verified 12/01/22 15:41 <OBDULIO Melendez - Last Filed: 12/13/22 12:03> Review of Systems Review of Systems: Constitutional : No changes in activity, No lethargy, No recent prior head injury, No agitation, No increased fussiness ENT/Mouth : No Ear Pain, No Nasal discharge/drainage Eyes: No Eye Pain, No Swelling, No Redness, No Foreign Body, No Vision Changes Cardiovascular : No Chest Pain, No SOB Respiratory : No Cough Gastrointestinal : No Nausea, No Vomiting, No abdominal Pain Genitourinary : No Dysuria, No Urinary Frequency, No Urinary Incontinence, No Urgency, No Flank Pain Musculoskeletal : No joint pain, No neck stiffness, No back pain/injury Skin : No lacerations Neuro : No unsteady gait, No Paresthesias, No Loss of Consciousness, No altered mental status, No dizziness, + Headache Denies past medical history of HIV, recent trauma, coagulopathy, recent spinal/ epidural procedure, new medication, URI symptoms, close contacts with similar symptoms, tick bite, or known CO2 exposure. <OBDULIO Rojo - Last Filed: 12/13/22 14:02> Yes all other systems are reviewed and are negative <OBDULIO Rojo - Last Filed: 12/13/22 14:02> PMFSH Past Medical History Attestation statement: The following information was validated with the patient. <OBDULIO Rojo Last Filed: 12/13/22 14:02> Source: old records reviewed and nursing notes reviewed <OBDULIO Rojo - Last Filed: 12/13/22 14:02> Medical History: Medical History Anxiety Depression History of kidney stones Left groin mass Migraines Panic attacks Vitamin B 12 deficiency Vulvar mass <OBDULIO Melendez - Last Filed: 12/13/22 12:03> Surgical History: Surgical History History of bilateral tubal ligation History of endometrial ablation History of endoscopy Hx laparoscopic cholecystectomy Hx of lithotripsy S/P laparoscopic sleeve gastrectomy S/P panniculectomy <OBDULIO Melendez - Last Filed: 12/13/22 12:03> Family History Family History: Family History Mother Alzheimer disease Dementia Father Diabetes mellitus Hypertension Sister Cancer Sister No problems noted. Brother No problems noted. Brother No problems noted. Son No problems noted. Daughter No problems noted. 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 Sexual orientation: Straight/Heterosexual Gender identity: Female <OBDULIO Melendez - Last Filed: 12/13/22 12:03> Physical Exam Vital Signs: Vital Signs: Last Vital Signs Temp 98 F 12/13/22 12:00 Pulse 85 12/13/22 12:00 Resp 18 12/13/22 12:00 BP 114/79 12/13/22 12:00 Pulse Ox 98 12/13/22 12:00 O2 Del Method 12/13/22 12:00 BMI result Body Mass Index 29.5 <OBDULIO Melendez - Last Filed: 12/13/22 12:03> Vital Signs: Last Vital Signs Temp 98 F 12/13/22 12:00 Pulse 85 12/13/22 12:00 Resp 18 12/13/22 12:00 BP 114/79 12/13/22 12:00 Pulse Ox 98 12/13/22 12:00 O2 Del Method 12/13/22 12:00 BMI result Body Mass Index 29.5 Vital signs have been reviewed as normal and appeared to be correct. Blood pressure normal. Heart rate normal. Respiration rate normal. Temperature normal. Oxygen saturation normal. <OBDULIO Rojo - Last Filed: 12/13/22 14:02> Appearance: Alert. Oriented X3. No acute distress. Head: Normal external exam. Normocephalic. Atraumatic. Able to rotate head bilaterally. Eyes: PERRLA. EOMI. No nystagmus noted. Conjunctiva and sclera normal. Eyelids normal. Corneal reflex normal. ENT: EAC normal. TM's Normal. Hearing normal. Pharynx normal. Uvula midline. tongue midline. Moist mucous membranes. No trismus noted. No drooling noted. No muffled voice noted. Neck: Normal inspection. Neck supple. FROM. No adenopathy. Thyroid Normal. No meningeal signs. No neck mass noted. CVS: Normal heart rate and rhythm. Heart sound normal. No murmurs noted. Pulses normal throughout. Respiratory: No respiratory distress. Painless inspiration. Breath sounds normal. No wheezes/rales/rhonchi noted. Chest nontender. No accessory muscle usage noted or decreased air movement noted. Back: Full range of motion noted. Skin: Skin warm and dry. Normal skin color. Normal skin turgor. No rashes/lesions/lacerations noted. Extremities: Extremities exhibit normal range of motion. Extremities nontender. Able to shrug shoulders bilaterally and keep up against resistance. Neuro: Oriented X 3. No motor deficit. No sensory deficit. Reflexes normal. Moving all extremities. No focal motor deficits. Cranial nerves II-XI intact bilaterally. Facial strength normal. Normal cognition. Speech normal. Gait normal. Strength 5/5 throughout. No pronator drift. No tremor noted. No fasciculations noted. Muscle tone normal throughout. No asterixis noted. Hwnibj-rs-gzim test normal. Heel to duggan test normal. Tandem gait normal. Does not sway with eyes open. Romberg test negative. Rapid alternating movement upper extremity normal. Rapid alternating movement lower extremity normal. Hand drop from overhead-Mrs. face. No rigidity noted. NIHSS score 0. <OBDULIO Rojo - Last Filed: 12/13/22 14:02> Course Course Course Narrative: RME - 37 yo F, with a hx of migraines, presenting today with complaints of headache, diarrhea, nausea x 3 days. Hx of migraines, symptoms are consistent with her migraines. States her migraines respond well to toradol. VSS in triage. Pt stable to return to waiting room until room becomes available. Plan: Migraine cocktail ordered. <OBDULIO Melendez - Last Filed: 12/13/22 12:03> RME - 37 yo F, with a hx of migraines, presenting today with complaints of headache, diarrhea, nausea x 3 days. Hx of migraines, symptoms are consistent with her migraines. States her migraines respond well to toradol. VSS in triage. Pt stable to return to waiting room until room becomes available. Plan: Migraine cocktail ordered. <OBDULIO Rojo - Last Filed: 12/13/22 14:02> Reevaluation(s) Reevaluation #1: Patient afebrile, resting comfortably in no distress. Non-toxic appearing. Patient denies any recent trauma/injury to head. Neurological exam shows no deficits. BP WNL. Denies any changes in vision. Patient ambulates without difficulty. Given the history, and physical - most likely diagnosis: Migraine MAY. No imaging indicated. Will treat pain, and nausea. Will d/c with migraine medicaiton and advised to follow - up with PCP. Patient demonstrated good understanding of signs and symptoms to return to ED for further testing should sx worsen. gradual onset MAY with nausea. Pt states classic of previous migraine HAs. SAH: unlikely given gradual onset and similar to previous episodes Intracranial bleed: unlikely given neg trauma, neg anticoagulation Meningitis: unlikely given pt afebrile, neg stiff neck, no immune compromise. Exam without signs of meningismus Temporal arteritis: Unlikely given Neg jaw claudication, no temporal tenderness or nodularity on exam. Cerebral venous thrombosis: unlikely given no h/o hypercoaguable state, no chronic head/neck infection. <OBDULIO Rojo - Last Filed: 12/13/22 14:02> Medications Administered Discontinued Medications Generic Name Dose Route Start Last Admin Trade Name Freq PRN Reason Stop Dose Admin Diphenhydramine HCl 50 mg 12/13/22 12:01 12/13/22 12:41 Diphenhydramine Hcl 50 Mg/Ml Vial IVPUSH 12/13/22 12:02 50 mg ONCE ONE Administration Ketorolac Tromethamine 30 mg 12/13/22 12:01 12/13/22 12:41 Ketorolac Tromethamine 30 Mg/Ml Vial IVPUSH 12/13/22 12:02 30 mg ONCE ONE Administration Metoclopramide HCl 10 mg 12/13/22 12:01 12/13/22 12:41 Metoclopramide Hcl 10 Mg/2 Ml Vial IVPUSH 12/13/22 12:02 10 mg ONCE ONE Administration <OBDULIO Melendez - Last Filed: 12/13/22 12:03> Medications Administered Discontinued Medications Generic Name Dose Route Start Last Admin Trade Name Freq PRN Reason Stop Dose Admin Diphenhydramine HCl 50 mg 12/13/22 12:01 12/13/22 12:41 Diphenhydramine Hcl 50 Mg/Ml Vial IVPUSH 12/13/22 12:02 50 mg ONCE ONE Administration Ketorolac Tromethamine 30 mg 12/13/22 12:01 12/13/22 12:41 Ketorolac Tromethamine 30 Mg/Ml Vial IVPUSH 12/13/22 12:02 30 mg ONCE ONE Administration Metoclopramide HCl 10 mg 12/13/22 12:01 12/13/22 12:41 Metoclopramide Hcl 10 Mg/2 Ml Vial IVPUSH 12/13/22 12:02 10 mg ONCE ONE Administration <OBDULIO Rojo - Last Filed: 12/13/22 14:02> Discharge Plan Discharge Clinical Impression: Headache, migraine <OBDULIO Melendez - Last Filed: 12/13/22 12:03> Patient Disposition: Home, Self-Care <OBDULIO Melendez - Last Filed: 12/13/22 12:03> Instructions: Migraine Headache (ED) <OBDULIO Melendez - Last Filed: 12/13/22 12:03> Prescriptions: New diphenhydramine HCl [Benadryl] 25 mg capsule 50 mg PO TID PRN (Reason: sleep) Qty: 14 0RF metoclopramide HCl [Reglan] 10 mg tablet 10 mg PO Q6H PRN (Reason: nausea and vomiting) Qty: 14 0RF ketorolac 10 mg tablet 10 mg PO Q8H Qty: 14 0RF Rx Instructions: First dose given in the ER by IV and patient tolerated well No Action diclofenac sodium 1 % gel 4 g topical QID Qty: 100 3RF tramadol 50 mg tablet 50 mg PO Q6H PRN (Reason: pain) Qty: 20 0RF famotidine [Pepcid] 20 mg tablet 20 mg PO BID PRN (Reason: acid reflux) Qty: 14 0RF ondansetron 4 mg tablet,disintegrating 4 mg PO Q6H PRN (Reason: nausea and vomiting) Qty: 10 0RF tramadol 50 mg tablet 50 - 100 mg PO Q6H PRN (Reason: pain) Qty: 20 0RF [id number] [Fioricet] 50-300-40 mg capsule 1 cap PO TID PRN (Reason: pain) Qty: 10 0RF metoclopramide HCl [Reglan] 5 mg tablet 5 mg PO TID PRN (Reason: nausea and vomiting) Qty: 10 0RF lithium carbonate 450 mg tablet extended release 2 tab PO BEDTIME zaleplon 10 mg capsule 1 cap PO BEDTIME buspirone 15 mg tablet 1 tab PO BEDTIME gabapentin 300 mg capsule 300 mg PO TID Qty: 90 0RF omeprazole 40 mg capsule,delayed release(DR/EC) 40 mg PO DAILY Qty: 30 5RF docusate sodium 100 mg capsule 100 mg PO BID Qty: 60 5RF acetaminophen 500 mg tablet 1,000 mg PO QID PRN (Reason: pain) Qty: 30 0RF lithium carbonate 300 mg capsule 300 mg PO BID acetaminophen 650 mg tablet extended release PO <OBDULIO Melendez - Last Filed: 12/13/22 12:03> Referrals: Hardeep Hurd MD [Primary Care Provider] - 2 days <OBDULIO Melendez - Last Filed: 12/13/22 12:03> Stand Alone Forms: Work/School Release <OBDULIO Melendez - Last Filed: 12/13/22 12:03> Interventions: ED Discharge Assessment Last Done: 12/13/22 13:47 <OBDULIO Melendez - Last Filed: 12/13/22 12:03> Discharge Date/Time: 12/13/22 13:52 <OBDULIO Melendez - Last Filed: 12/13/22 12:03>
[2022-12-13] MEDS: Metoclopramide HCl 10 MG/2 ML VIAL IVPUSH (12:41)
[2022-12-13] MEDS: Ketorolac Tromethamine 30 MG/ML VIAL IVPUSH (12:41)
[2022-12-13] MEDS: diphenhydrAMINE HCL 50 MG/ML VIAL IVPUSH (12:41)
== END 2022-12-13 13:52 | disposition home or self-care (01) ==
PROVIDERS: Emergency Provider Emergency Medicine; PCP Internal Medicine
DX: G43.909 Migraine, unspecified, not intractable, without status migrainosus (principal)
CPT/HCPCS: 96374; 96375; 99283; 99284; J1200; J1885; J2765

== ENCOUNTER 2022-12-17 14:24 | Outpatient (REF) | payer OTHER, SELFPAY ==
[2022-12-17 15:02] LABS: MANUAL DIFF FLAG NO
[2022-12-17 15:37] LABS: Basophils Percent Auto 0.4 % (0-2); Eosinophils Absolute Auto 0.1 X10*3/uL (0.0-0.4); Eosinophils Percent Auto 1.3 % (0-4); Hematocrit 42.4 % (37.0-47.0); Hemoglobin 13.8 g/dl (12.0-16.0); Imm Gran Abs Auto 0.03 X10*3/uL (0.00-0.03); Imm Gran Pct Auto 0.4 % (0.0-0.4); Lymphocytes Percent Auto 29.1 % (20-40); Mean Corpuscular HGB Conc 32.5 g/dl (31.0-35.0); Mean Corpuscular Hemoglobin 27.5 pg (27.0-33.0); Mean Corpuscular Volume 84.6 fL (80.0-98.0); Mean Platelet Volume 11.2 fL (9.4-12.3); Monocytes Absolute Auto 0.5 X10*3/uL (0.1-1.2); Monocytes Percent Auto 7.3 % (2-11); Neutrophils Absolute Auto 4.1 x10*3/uL (2.0-8.3); Neutrophils Percent Auto 61.5 % (45-73); Platelet Count 306 X10*3/uL (160-400); Red Blood Count 5.01 X10*6/uL (4.20-5.50); Red Cell Distribution Width 13.3 % (11.0-16.0); White Blood Count 6.7 X10*3/uL (4.8-10.8)
[2022-12-17 16:05] LABS: Alanine Aminotransferase 20 U/L (0-31); Albumin Level 3.9 g/dL (3.5-5.0); Alkaline Phosphatase 56 U/L (39-117); Anion Gap 14 (12-20); Aspartate Amino Transferase 23 U/L (5-31); Bilirubin Total 0.4 mg/dL (0.0-1.0); Blood Urea Nitrogen 15 mg/dL (9-16); Calcium 9.7 mg/dL (8.4-10.2); Carbon Dioxide 24 mmol/L (22-29); Chloride 106 mmol/L (96-108); Estimated Glomerular Filt Rate > 60; Glucose Random 99 mg/dL (60-115); Potassium 4.9 mmol/L (3.3-5.1); Sodium 139 mmol/L (135-145); Total Protein 7.3 g/dL (6.5-8.0)
[2022-12-17 16:07] LABS: Appearance Urine Cloudy; Color Urine Yellow; Glucose Urine UA Negative (Negative); Leukocyte Esterase Urine Large (3+) (Negative); Nitrite Urine Negative (Negative); PH 6.5 (5.0-9.0); UMIC TRIGGER UACC YES; Urine Blood Negative (Negative); Urine Ketones Negative (Negative); Urine Protein Negative (Neg-Trace)
[2022-12-17 16:09] LABS: Bacteria Urine 4+ (None Seen); Hyaline Casts Urine 0-2 /LPF (0-2); UACC Culture Trigger YES; WBC Urine >50 /HPF (0-5)
[2022-12-17 16:23] LABS: Erythrocyte Sedimentation Rate 8 MM/HR (0-20)
== END 2022-12-17 14:25 | disposition home or self-care (01) ==
LOC: HO.LAB 14:24
PROVIDERS: PCP Internal Medicine; Visit Provider Internal Medicine
DX: G43.909 Migraine, unspecified, not intractable, without status migrainosus (principal)
CPT/HCPCS: 36415; 80053; 81001; 81003; 82550; 85025; 85652; 86140; 87086; 87088; 87186

== ENCOUNTER 2022-12-21 19:30 | Emergency (ER) | payer OTHER, SELFPAY ==
--- NOTE | ~2022-12-21 | CT_ITS ---
EXAMINATION: CT HEAD WITHOUT CONTRAST CLINICAL INFORMATION: Severe headache. COMPARISON: 07/09/[address] scan. TECHNIQUE: Contiguous axial imaging was performed from the skull base to vertex without intravenous administration of contrast. Coronal and sagittal reformatted images were obtained. This CT examination was performed using dose optimization techniques as appropriate, variously including the following: *Automated exposure control *Adjustment of mA and/or kV according to patient size (this includes techniques or standardized protocols for targeted exams where dose is matched to indication/reason for exam; i.e. extremities or head) *Use of iterative reconstruction technique DLP: 639 mGy-cm FINDINGS: The cortical sulci are normal. The lateral ventricles are symmetrical. The third and fourth ventricles are in their normal midline position. The basilar and prepontine cisterns are unremarkable. There is no acute intra or extracerebral abnormality. There is no mass effect or midline shift. Sections through the bony calvarium are unremarkable. The paranasal sinuses are clear. The bony orbits and orbital contents are unremarkable. Mild anterior nasal septal deviation, apex the left. Right mid nasal spur. CT/CT head/brain wo IV con IMPRESSION: No acute intracranial pathology.
[2022-12-21 19:32] VITALS: BP 106/73; PULSE 79; RESP 18; TEMP 36.5; O2SAT 98; BMI 29.7
--- NOTE | 2022-12-21 19:32 | ED_ITS ---
HPI - Headache General Chief Complaint: Headache <Estefany Mcginnis CNP - Last Filed: 12/21/22 19:37> Stated Complaint: Headache <Estefany Mcginnis CNP - Last Filed: 12/21/22 19:37> Time Seen by Provider: 12/21/22 20:31 <Estefany Mcginnis CNP - Last Filed: 12/21/22 19:37> Source: patient <OBDULIO Moreno - Last Filed: 12/21/22 23:06> Mode of arrival: ambulatory <OBDULIO Moreno - Last Filed: 12/21/22 23:06> Limitations: no limitations <OBDULIO Moreno Last Filed: 12/21/22 23:06> History of Present Illness HPI Narrative: 37-year-old female history of migraines, bipolar disorder,, anemia, intestinal malabsorption, history of sleeve gastrectomy presents to the emergency department complaints of migraine headache for a week and 3 days, patient tells me it is a diffuse headache with photophobia, associated nausea, patient tells me that this feels like her typical headache, patient tells me she did have Toradol before however she ran out. Patient tells me this headaches not going away. Patient reports fatigue, malaise and diarrhea. Denies chest pain, shortness of breath, fevers, chills, vision changes, dizziness, weakness. <OBDULIO Moreno Last Filed: 12/21/22 23:06> Related Data Home Medications: Home Medications Medication Instructions Recorded Confirmed buspirone 15 mg tablet 1 tab PO BEDTIME 12/11/21 06/29/22 lithium carbonate 450 mg 2 tab PO BEDTIME 12/11/21 06/29/22 tablet,extended release zaleplon 10 mg capsule 1 cap PO BEDTIME 12/11/21 06/29/22 acetaminophen 650 mg mg PO 09/23/22 tablet,extended release lithium carbonate 300 mg capsule 300 mg PO BID 09/23/22 Previous Rx's Medication Instructions Recorded tramadol 50 mg tablet 50 mg PO Q6H PRN pain #20 tabs 12/30/21 famotidine 20 mg tablet (Pepcid) 20 mg PO BID PRN acid reflux #14 05/07/22 tabs docusate sodium 100 mg capsule 100 mg PO BID #60 caps 05/21/22 omeprazole 40 mg capsule,delayed 40 mg PO DAILY #30 caps 05/21/22 release ondansetron 4 mg disintegrating 4 mg PO Q6H PRN nausea and 06/03/22 tablet vomiting #10 tabs tramadol 50 mg tablet 50 - 100 mg PO Q6H PRN pain #20 06/03/22 tabs acetaminophen 500 mg tablet 1,000 mg PO QID PRN pain #30 tabs 09/23/22 fozwdkkexe-riqfdyghwoepu-epgotpvr 1 cap PO TID PRN pain #10 caps 11/11/22 50 mg-300 mg-40 mg capsule (Fioricet) metoclopramide HCl 5 mg tablet 5 mg PO TID PRN nausea and 11/11/22 (Reglan) vomiting #10 tabs diclofenac sodium 1 % topical gel 4 g topical QID for pain #100 grams 11/29/22 gabapentin 300 mg capsule 300 mg PO TID #90 caps 12/03/22 diphenhydramine HCl 25 mg capsule 50 mg PO TID PRN sleep #14 caps 12/13/22 (Benadryl) ketorolac 10 mg tablet 10 mg PO Q8H #14 tabs 12/13/22 metoclopramide HCl 10 mg tablet 10 mg PO Q6H PRN nausea and 12/13/22 (Reglan) vomiting #14 tabs diphenhydramine HCl 25 mg capsule 25 mg PO TID PRN allergic reaction 12/21/22 (Benadryl) #20 caps metoclopramide HCl 10 mg tablet 10 mg PO Q6H PRN headache #20 tabs 12/21/22 (Reglan) <Estefany Mcginnis CNP - Last Filed: 12/21/22 19:37> Allergies/Adverse Reactions: Allergies Allergy/AdvReac Type Severity Reaction Status Date / Time No Known Allergies Allergy Verified 12/01/22 15:41 <Estefany Mcginnis CNP - Last Filed: 12/21/22 19:37> Review of Systems Review of Systems: Constitutional : No Weight loss, No Fever, No Chills, + Fatigue, + Malaise ENT/Mouth : No sore throat, No Rhinorrhea Eyes: No Eye Pain, No Swelling, No Redness Cardiovascular : No Chest Pain, No SOB, No Dyspnea on Exertion, No Orthopnea, No Edema, No Palpitations Respiratory : No Cough, No Sputum, No Wheezing Gastrointestinal : + Nausea, No Vomiting, + Diarrhea, No Constipation, No abdominal Pain, No Hematochezia, No Melena Genitourinary : No Dysuria, No Urinary Frequency, No Hematuria, Musculoskeletal : No joint pain, No Myalgias, No Joint Swelling Skin : No Skin Lesions, No rash Neuro : No Weakness, No Numbness, No Dizziness, + Headache Psych : No Anxiety/Panic, No Depression All other systems reviewed and are negative <OBDULIO Moreno - Last Filed: 12/21/22 23:06> Yes all other systems are reviewed and are negative <OBDULIO Moreno - Last Filed: 12/21/22 23:06> [facility] Past Medical History Attestation statement: The following information was validated with the patient. <OBDULIO Moreno - Last Filed: 12/21/22 23:06> Source: old records reviewed and nursing notes reviewed <OBDULIO Moreno - Last Filed: 12/21/22 23:06> Medical History: Medical History Anxiety Depression History of kidney stones Left groin mass Migraines Panic attacks Vitamin B 12 deficiency Vulvar mass <Estefany Mcginnis CNP - Last Filed: 12/21/22 19:37> Surgical History: Surgical History History of bilateral tubal ligation History of endometrial ablation History of endoscopy Hx laparoscopic cholecystectomy Hx of lithotripsy S/P laparoscopic sleeve gastrectomy S/P panniculectomy <Estefany Mcginnis CNP - Last Filed: 12/21/22 19:37> Family History Family History: Family History Mother Alzheimer disease Dementia Father Diabetes mellitus Hypertension Sister Cancer Sister No problems noted. Brother No problems noted. Brother No problems noted. Son No problems noted. Daughter No problems noted. 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 Sexual orientation: Straight/Heterosexual Gender identity: Female <Estefany McginnisYVONNE - Last Filed: 12/21/22 19:37> Physical Exam Vital Signs: Vital Signs: Last Vital Signs Temp 97.8 F 12/21/22 22:05 Pulse 69 12/21/22 22:05 Resp 14 12/21/22 22:05 BP 103/60 12/21/22 22:05 Pulse Ox 100 12/21/22 22:05 O2 Del Method 12/21/22 22:05 BMI result Body Mass Index 29.7 <Estefany McginnisYVONNE - Last Filed: 12/21/22 19:37> Vital Signs: Last Vital Signs Temp 97.8 F 12/21/22 22:05 Pulse 69 12/21/22 22:05 Resp 14 12/21/22 22:05 BP 103/60 12/21/22 22:05 Pulse Ox 100 12/21/22 22:05 O2 Del Method 12/21/22 22:05 BMI result Body Mass Index 29.7 vss <OBDULIO Moreno - Last Filed: 12/21/22 23:06> Appearance: Alert.? Oriented X3.? No acute distress.? Head: Normocephalic, atraumatic, no step-offs or deformities Eyes: Pupils equal, round and reactive to light.? Extraocular movements intact pain-free. ENT: Pharynx normal.? Neck: Normal inspection.? Neck supple.? Negative Kernig and Brudzinski CVS: Normal heart rate and rhythm.? Pulses normal.? Respiratory: No respiratory distress.? Breath sounds normal.? Abdomen: Soft and nontender.? Skin: Skin warm and dry.? Normal skin color.? Normal skin turgor.? Extremities: No lower extremity edema.? No calf ttp. 5/5 strength to bilateral upper and lower extremities Neuro: Oriented X 3.? No motor deficit.? No sensory deficit. CN 2-12 intact . Normal vvhvai-yo-fyek. Negative Romberg and pronator drift. Ambulatory into the department with steady gait normal coordination. <OBDULIO Moreno - Last Filed: 12/21/22 23:06> Course Course Course Narrative: This is an RME: Additional HPI, ROS, PE not included below will be deferred to primary provider. Patient is a 37-year-old female presents to the emergency department for evaluation of headache; diffuse frontal. States she was seen here last week for the same. Headache has persisted. Saw PCP Tuesday, 4 days ago, was referred to Neurology, PCP declined to RX Toradol, due to concerns for GI upset. Took toradol yesterday without complete resolution. Today began with nausea, vomiting, and diarrhea. Reports pain to be intolerable at this time, feels consistent with prior migraine however. <Estefany Mcginnis CNP - Last Filed: 12/21/22 19:37> Reevaluation(s) Reevaluation #1: Patient reports some improvement after medication. Head CT with no acute intracranial pathology. Likely typical migraine. Viral testing pending. Patient is still in pain will give sumatriptan. <OBDULIO Moreno - Last Filed: 12/21/22 23:06> Time: 22:07 <OBDULIO Moreno - Last Filed: 12/21/22 23:06> Reevaluation #2: Patient reports significant improvement in symptoms and would like to go home. Will give her Neurology follow-up. Educated patient on diagnosis and treatment plan, answered all question, patient verbalizes understanding. At this time patient will be discharged home, advised to return with new or worsening symptoms. Educated on worrisome signs and symptoms and when to return. At this time I feel comfortable discharge home. <OBDUILO Moreno - Last Filed: 12/21/22 23:06> Time: 22:54 <OBDULIO Moreno - Last Filed: 12/21/22 23:06> Medications Administered Discontinued Medications Generic Name Dose Route Start Last Admin Trade Name Freq PRN Reason Stop Dose Admin Diphenhydramine HCl 25 mg 12/21/22 20:45 12/21/22 21:22 Diphenhydramine Hcl 50 Mg/Ml Vial IVPUSH 12/21/22 20:46 25 mg ONCE ONE Administration Sodium Chloride 1,000 mls @ 999 mls/hr 12/21/22 21:30 12/21/22 22:47 Ns IV 12/21/22 22:30 Infused .Q1H1M JAMES Infusion Ketorolac Tromethamine 30 mg 12/21/22 20:45 12/21/22 21:22 Ketorolac Tromethamine 15 Mg/Ml Vial IVPUSH 12/21/22 20:46 30 mg ONCE ONE Administration Metoclopramide HCl 10 mg 12/21/22 20:45 12/21/22 21:22 Metoclopramide Hcl 10 Mg/2 Ml Vial IVPUSH 12/21/22 20:46 10 mg ONCE ONE Administration Sumatriptan Succinate 6 mg 12/21/22 22:06 12/21/22 22:40 Sumatriptan Succinate 6 Mg/0.5 Ml Vial SUBCUT 12/21/22 22:07 6 mg ONCE ONE Administration <Estefany Mcginnis, SITE SUPERVISOR - Last Filed: 12/21/22 19:37> Medications Administered Discontinued Medications Generic Name Dose Route Start Last Admin Trade Name Phani PRN Reason Stop Dose Admin Diphenhydramine HCl 25 mg 12/21/22 20:45 12/21/22 21:22 Diphenhydramine Hcl 50 Mg/Ml Vial IVPUSH 12/21/22 20:46 25 mg ONCE ONE Administration Sodium Chloride 1,000 mls @ 999 mls/hr 12/21/22 21:30 12/21/22 22:47 Ns IV 12/21/22 22:30 Infused .Q1H1M JAMES Infusion Ketorolac Tromethamine 30 mg 12/21/22 20:45 12/21/22 21:22 Ketorolac Tromethamine 15 Mg/Ml Vial IVPUSH 12/21/22 20:46 30 mg ONCE ONE Administration Metoclopramide HCl 10 mg 12/21/22 20:45 12/21/22 21:22 Metoclopramide Hcl 10 Mg/2 Ml Vial IVPUSH 12/21/22 20:46 10 mg ONCE ONE Administration Sumatriptan Succinate 6 mg 12/21/22 22:06 12/21/22 22:40 Sumatriptan Succinate 6 Mg/0.5 Ml Vial SUBCUT 12/21/22 22:07 6 mg ONCE ONE Administration <OBDULIO Moreno - Last Filed: 12/21/22 23:06> Medical Decision Making Medical Decision Making [facility] Narrative: 2200 37-year-old female presents for evaluation of migraine headache for a week and 3 days, not improving. Feels like her typical. NIH stroke scale 0. Physical exam benign. Likely typical migraine. Unlikely stroke, posterior stroke, intracranial hemorrhage. No signs of encephalitis, meningitis. Other differentials include viral illness. Plan at this time viral testing, head CT. To medicate <OBDULIO Moreno - Last Filed: 12/21/22 23:06> Differential Diagnosis Differential Diagnoses: The differential diagnosis associated with the presentation includes <OBDULIO Moreno - Last Filed: 12/21/22 23:06> Likely typical migraine. Unlikely stroke, posterior stroke, intracranial hemorrhage. No signs of encephalitis, meningitis. Other differentials include viral illness. <OBDULIO Moreno - Last Filed: 12/21/22 23:06> Admission/Observation Consideration of admission/observation: Escalation of care including admission/observation considered <OBDULIO Moreno - Last Filed: 12/21/22 23:06> Lab Data [facility] Lab Attestation statement: I reviewed the patient's lab results. <OBDULIO Moreno - Last Filed: 12/21/22 23:06> Independent Interpretation I performed an independent interpretation of an: CT Scan (No acute intracranial pathology) <OBDULIO Moreno - Last Filed: 12/21/22 23:06> Radiology Impression Discussion of test interpretation with radiology: I have reviewed the radiologist's reading. <OBDULIO Moreno - Last Filed: 12/21/22 23:06> Core Measures AMI core measures followed: Yes <OBDULIO Moreno - Last Filed: 12/21/22 23:06> Measure exclusions: not indicated <OBDULIO Moreno - Last Filed: 12/21/22 23:06> Discharge Plan Discharge Clinical Impression: Migraine <Estefany Sims YVONNE Mcginnis - Last Filed: 12/21/22 19:37> Patient Disposition: Home, Self-Care <Estefany Sims YVONNE Mcginnis - Last Filed: 12/21/22 19:37> Instructions: Migraine Headache (ED) <Estefany Bethany YVONNE Mcginnis - Last Filed: 12/21/22 19:37> Additional Instructions: Take your medications as prescribed. If you were prescribed antibiotics today, it is important that you take your medication to their entirety, do not skip any doses, do not finish them early. Follow-up with your primary care provider this week. Follow up with neurology Return to the emergency department with new or worsening symptoms. Such as fevers, chills, chest pain, shortness of breath, nausea, vomiting, dizziness, headache, vision changes, lethargy In case of emergency call 911 Reglan and Benadryl have been sent to your pharmacy. Please take these together. Do not take Reglan alone as it can cause involuntary muscle spasms. CT/CT head/brain wo IV con IMPRESSION: No acute intracranial pathology. <Estefanyally Johnsone YVONNE Mcginnis - Last Filed: 12/21/22 19:37> Prescriptions: New diphenhydramine HCl [Benadryl] 25 mg capsule 25 mg PO TID PRN (Reason: allergic reaction) Qty: 20 0RF metoclopramide HCl [Reglan] 10 mg tablet 10 mg PO Q6H PRN (Reason: headache) Qty: 20 0RF No Action diclofenac sodium 1 % gel 4 g topical QID Qty: 100 3RF tramadol 50 mg tablet 50 mg PO Q6H PRN (Reason: pain) Qty: 20 0RF famotidine [Pepcid] 20 mg tablet 20 mg PO BID PRN (Reason: acid reflux) Qty: 14 0RF ondansetron 4 mg tablet,disintegrating 4 mg PO Q6H PRN (Reason: nausea and vomiting) Qty: 10 0RF tramadol 50 mg tablet 50 - 100 mg PO Q6H PRN (Reason: pain) Qty: 20 0RF ryvobhzgsw-xtrqvvnvdvrsf-jzic [Fioricet] 50-300-40 mg capsule 1 cap PO TID PRN (Reason: pain) Qty: 10 0RF metoclopramide HCl [Reglan] 5 mg tablet 5 mg PO TID PRN (Reason: nausea and vomiting) Qty: 10 0RF lithium carbonate 450 mg tablet extended release 2 tab PO BEDTIME zaleplon 10 mg capsule 1 cap PO BEDTIME buspirone 15 mg tablet 1 tab PO BEDTIME diphenhydramine HCl [Benadryl] 25 mg capsule 50 mg PO TID PRN (Reason: sleep) Qty: 14 0RF metoclopramide HCl [Reglan] 10 mg tablet 10 mg PO Q6H PRN (Reason: nausea and vomiting) Qty: 14 0RF ketorolac 10 mg tablet 10 mg PO Q8H Qty: 14 0RF Rx Instructions: First dose given in the ER by IV and patient tolerated well gabapentin 300 mg capsule 300 mg PO TID Qty: 90 0RF omeprazole 40 mg capsule,delayed release(DR/EC) 40 mg PO DAILY Qty: 30 5RF docusate sodium 100 mg capsule 100 mg PO BID Qty: 60 5RF acetaminophen 500 mg tablet 1,000 mg PO QID PRN (Reason: pain) Qty: 30 0RF lithium carbonate 300 mg capsule 300 mg PO BID acetaminophen 650 mg tablet extended release PO <Estefany Mcginnis CNP - Last Filed: 12/21/22 19:37> Referrals: [facility] [place] Neuro/Sleep [Provider Group] - 1 week Hardeep Hurd MD [Primary Care Provider] - 2 days <Estefany Mcginnis CNP - Last Filed: 12/21/22 19:37> Stand Alone Forms: Work/School Release <Estefany Mcginnis CNP - Last Filed: 12/21/22 19:37> Interventions: ED Discharge Assessment Last Done: 12/21/22 23:04 <Estefany Mcginnis CNP - Last Filed: 12/21/22 19:37>
[2022-12-21] MEDS: Ketorolac Tromethamine 15 MG/ML VIAL 30 MG IVPUSH (21:22)
[2022-12-21] MEDS: Metoclopramide HCl 10 MG/2 ML VIAL IVPUSH (21:22)
[2022-12-21] MEDS: diphenhydrAMINE HCL 50 MG/ML VIAL 25 MG IVPUSH (21:22)
[2022-12-21] MEDS: 0.9 % Sodium Chloride 1,000 ML 999 ML IV (21:42)
[2022-12-21 22:05] VITALS: BP 103/60; PULSE 69; RESP 14; TEMP 36.6; O2SAT 100
[2022-12-21] MEDS: SUMAtriptan succinate 6 MG/0.5 ML VIAL SUBCUT (22:40)
--- NOTE | 2022-12-21 23:06 | PC.NURSE ---
Assumed care at 11:00pm, no sob or chest pain, Reviewed discharge instructions with pt. pt verbalized understanding.
[2022-12-21 23:14] LABS: COVID-19 Test Negative (Negative); IDNOW Serial# 08D9AD1C; Influenza A Negative (Negative); Influenza B2 Negative (Negative)
== END 2022-12-21 23:10 | disposition home or self-care (01) ==
PROVIDERS: Physician Assistant; Emergency Provider Emergency Medicine; PCP Internal Medicine
DX: G43.909 Migraine, unspecified, not intractable, without status migrainosus (principal); Z20.822 Contact with and (suspected) exposure to COVID-19; Z20.828 Contact with and (suspected) exposure to other viral communicable diseases; Z79.899 Other long term (current) drug therapy; Z98.84 Bariatric surgery status
CPT/HCPCS: 70450; 87502; 87635; 96361; 96372; 96374; 96375; 99284; J1200; J1885; J2765; J3030

== ENCOUNTER 2022-12-29 10:19 | Outpatient (REF) | payer OTHER, SELFPAY ==
--- NOTE | ~2022-12-29 | MR_ITS ---
EXAMINATION: MR KNEE WITHOUT CONTRAST, LEFT CLINICAL INFORMATION: Chronic left knee pain. COMPARISON: Multiple priors, most recent left knee radiographs dated 02/19/2022 and left knee MRI dated 07/16/2014. TECHNIQUE: MRI of the knee without contrast was performed using routine sequences on a high-field scanner. FINDINGS: MENISCI: Medial Meniscus: Intact. Lateral Meniscus: Discoid lateral meniscus without associated tearing. LIGAMENTS: Cruciate: Increased T2 signal within the anterior cruciate ligament which could represent normal variation versus a grade 1 sprain. No measurable tear. Intact posterior cruciate ligament. Collateral: Intact. EXTENSOR MECHANISM: Small superior and inferior patellar enthesophytes. Normal patellofemoral alignment. ARTICULAR CARTILAGE/BONE: Patellofemoral Compartment: Normal. Medial Compartment: Normal. Lateral Compartment: Normal. JOINT FLUID AND BURSAE: Trace joint effusion and trace Swain's cyst. Fluid/edema superior to the Swain's cyst which could indicate leak or rupture. MR/MR knee LT wo con IMPRESSION: 1. 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 Intact medial meniscus. 2. Increased T2 signal within the anterior cruciate ligament which could represent normal variation versus a grade 1 sprain. No measurable tear. 3. Trace joint effusion and trace Swain's cyst. Fluid/edema superior to the Swain's cyst which could indicate leak or rupture.
== END 2022-12-29 10:20 | disposition home or self-care (01) ==
LOC: HO.MRI 10:19
PROVIDERS: PCP Internal Medicine; Visit Provider Internal Medicine
DX: M25.561 Pain in right knee (principal); M25.562 Pain in left knee
CPT/HCPCS: 73721

== ENCOUNTER → 2022-12-31 09:04 | Outpatient (BNVA) | payer OTHER, SELFPAY | PROVIDERS: PCP Internal Medicine; Visit Provider Internal Medicine | DX: M25.561 Pain in right knee (principal); M25.562 Pain in left knee | CPT/HCPCS: 20610 ==

== ENCOUNTER 2023-02-08 10:55 | Outpatient (REF) | payer OTHER, SELFPAY ==
[2023-02-09 05:17] LABS: CT PCR NOT DETECTED (Not Detect.); NG PCR NOT DETECTED (Not Detect.)
[2023-02-09 09:56] LABS: BV Int Neg Control Negative (Negative); BV Int Pos Control Positive (Positive)
[2023-02-12 09:13] LABS: HPV 16 RNA NOT DETECTED (NOT DETECTED); HPV mRNA E6/E7 rflx Detected (Not Detected)
== END 2023-02-08 10:56 | disposition home or self-care (01) ==
LOC: HO.LNP 10:55
PROVIDERS: PCP Internal Medicine; Visit Provider Advanced Practice Midwife
DX: Z01.419 Encounter for gynecological examination (general) (routine) without abnormal findings (principal); Z11.51 Encounter for screening for human papillomavirus (HPV)
CPT/HCPCS: 0353U; 87480; 87510; 87624; 87625; 87660; 88142

== ENCOUNTER 2023-03-05 20:21 | Emergency (ER) | payer OTHER, SELFPAY ==
--- NOTE | ~2023-03-05 | CT_ITS ---
EXAMINATION: CT ABDOMEN AND PELVIS WITHOUT CONTRAST CLINICAL INFORMATION: Flank pain. COMPARISON: CT abdomen and pelvis from 05/07/2022. Renal ultrasound from 06/03/2022. TECHNIQUE: Multidetector volumetric imaging was performed from the lung bases to the pubic without contrast. Sagittal and coronal reformatted images were obtained on the technologist workstation. This CT examination was performed using dose optimization techniques as appropriate, variously including the following: *Automated exposure control. *Adjustment of mA and/or kV according to patient size (this includes techniques or standardized protocols for targeted exams where dose is matched to indication/reason for exam; i.e. extremities or head). *Use of iterative reconstruction technique. DLP: 594 mGy-cm FINDINGS: LUNG BASES: Mild bilateral dependent atelectasis. Otherwise, no abnormalities of the visualized lung bases. No demonstrated abnormalities of the visualized cardiac structures. ABDOMEN/PELVIS: Liver, Biliary Ducts, and Gallbladder: The unenhanced liver is normal in size and attenuation without focal hepatic lesions or biliary ductal dilatation. Changes of prior cholecystectomy. Pancreas: The pancreas is normal in appearance. Adrenal Glands: The adrenal glands are normal in appearance. Spleen: The spleen is normal in appearance. Kidneys and Ureters: The unenhanced kidneys are normal in size without evidence of hydronephrosis. There is a punctate nonobstructive stone in the interpolar region of the left kidney. No ureterolithiasis or hydroureter. Urinary Bladder: The urinary bladder is partially distended without focal wall thickening. No bladder calculi are demonstrated. Gastrointestinal System: Changes of prior sleeve gastrectomy. The small bowel is of normal caliber. The colon is normal in appearance without focal wall thickening or pericolonic inflammatory change. Normal appendix. Genitourinary: No demonstrated adnexal soft tissue masses. Intra-abdominal and Retroperitoneal Spaces: No intra-abdominal free fluid collections or gas. No mesenteric, retroperitoneal, or inguinal lymphadenopathy. VASCULATURE: The abdominal aorta is of normal contour and caliber. MUSCULOSKELETAL: Mild multilevel degenerative changes of the spine. Changes of prior healed midline anterior abdominal wall incision. Small fat-containing periumbilical hernia. No lytic or sclerotic osseous lesions demonstrated. No soft tissue masses demonstrated. CT/CT abdomen pelvis wo IV con IMPRESSION: 1. Punctate nonobstructive stone in the interpolar region of the left kidney. 2. No additional CT abnormalities to explain the patient's symptoms.
[2023-03-05 20:22] VITALS: BP 119/75; PULSE 110; RESP 18; TEMP 37.1; O2SAT 99; BMI 27.9
[2023-03-05 20:43] LABS: MANUAL DIFF FLAG NO
[2023-03-05 20:50] LABS: Basophils Percent Auto 0.2 % (0-2); Eosinophils Percent Auto 0.6 % (0-4); Hematocrit 41.9 % (37.0-47.0); Hemoglobin 13.4 g/dl (12.0-16.0); Imm Gran Abs Auto 0.02 X10*3/uL (0.00-0.03); Imm Gran Pct Auto 0.4 % (0.0-0.4); Lymphocytes Absolute Auto 0.4 X10*3/uL (1.2-4.9); Lymphocytes Percent Auto 8.2 % (20-40); Mean Corpuscular Hemoglobin 26.9 pg (27.0-33.0); Mean Corpuscular Volume 84.1 fL (80.0-98.0); Mean Platelet Volume 10.5 fL (9.4-12.3); Monocytes Absolute Auto 0.4 X10*3/uL (0.1-1.2); Monocytes Percent Auto 7.2 % (2-11); Neutrophils Absolute Auto 4.5 x10*3/uL (2.0-8.3); Neutrophils Percent Auto 83.4 % (45-73); Platelet Count 250 X10*3/uL (160-400); Red Blood Count 4.98 X10*6/uL (4.20-5.50); Red Cell Distribution Width 13.1 % (11.0-16.0); White Blood Count 5.4 X10*3/uL (4.8-10.8)
[2023-03-05 21:06] LABS: Alanine Aminotransferase 20 U/L (0-31); Albumin Level 3.8 g/dL (3.5-5.0); Alkaline Phosphatase 52 U/L (39-117); Anion Gap 10 (12-20); Aspartate Amino Transferase 19 U/L (5-31); Bilirubin Total 0.4 mg/dL (0.0-1.0); Blood Urea Nitrogen 11 mg/dL (9-16); Calcium 8.7 mg/dL (8.4-10.2); Carbon Dioxide 27 mmol/L (22-29); Chloride 106 mmol/L (96-108); Estimated Glomerular Filt Rate > 60; Glucose Random 104 mg/dL (60-115); Potassium 3.9 mmol/L (3.3-5.1); Sodium 139 mmol/L (135-145); Total Protein 6.8 g/dL (6.5-8.0)
--- NOTE | 2023-03-05 22:21 | ED_ITS ---
HPI - Abdominal Pain General Chief Complaint: Abdominal Pain Stated Complaint: Abdominal/Back Pain Time Seen by Provider: 03/05/23 22:21 Source: patient Mode of arrival: ambulatory Limitations: no limitations History of Present Illness HPI narrative: Patient history of kidney stone about 6 years ago comes here with bilateral flank pain since 10:00 o'clock in the a.m. today rated to the lower abdomen no urinary complaints no fever no chills vomited 1 time and had a loose bowel 1 time Related Data Home Medications Medication Instructions Recorded Confirmed buspirone 15 mg tablet 1 tab PO BEDTIME 12/11/21 02/24/23 lithium carbonate 450 mg 2 tab PO BEDTIME 12/11/21 02/24/23 tablet,extended release bupropion HCl 300 mg 24 hr tablet, 300 mg PO DAILY 02/08/23 02/24/23 extended release Previous Rx's Medication Instructions Recorded docusate sodium 100 mg capsule 100 mg PO BID #60 caps 05/21/22 acetaminophen 500 mg tablet 1,000 mg PO QID PRN pain #30 tabs 09/23/22 diclofenac sodium 1 % topical gel 4 g topical QID for pain #100 grams 11/29/22 dicyclomine 20 mg tablet 20 mg PO QID PRN abdominal pain 03/06/23 #20 tabs ondansetron 4 mg disintegrating 4 mg PO Q6-8H PRN nausea and 03/06/23 tablet vomiting #10 tabs Allergies Allergy/AdvReac Type Severity Reaction Status Date / Time No Known Allergies Allergy Verified 03/05/23 20:22 Review of Systems Review of Systems Yes all other systems are reviewed and are negative PMFSH Past Medical History Medical History Anxiety Depression History of kidney stones Left groin mass Migraines Panic attacks Vitamin B 12 deficiency Vulvar mass Surgical History History of bilateral tubal ligation History of endometrial ablation History of endoscopy Hx laparoscopic cholecystectomy Hx of lithotripsy S/P laparoscopic sleeve gastrectomy S/P panniculectomy Family History Family History Mother Alzheimer disease Dementia Father Diabetes mellitus Hypertension Sister Cancer Sister No problems noted. Brother No problems noted. Brother No problems noted. Son No problems noted. Daughter No problems noted. 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 Oriented X3. No acute distress. Eyes: No pallor ENT: Pharynx normal. Oral Mucosa moist Neck: Normal inspection. Neck supple. CVS: Normal heart rate and rhythm. Pulses normal. Respiratory: No respiratory distress. Equal air entry bilateral, no wheezing/rales/rhonchi Abdomen: Soft, diffuse abdominal tenderness no rebound tenderness or guarding. Bowel sounds are present, no mass palpable, bilateral CVA tenderness Skin: Skin warm and dry. Normal skin color. Normal skin turgor. Extremities: No lower extremity edema. No calf tenderness Neuro: Oriented X 3. No motor deficit. No sensory deficit.No cerebellar signs , cranial nerves II-XII intact Medical Decision Making Medical Decision Making [facility] Narrative: Patient with gastroenteritis CT scan negative for acute pathology Lab Data [facility] Lab Attestation statement: I reviewed the patient's lab results. 03/05/23 20:40 03/05/23 20:40 Labs: Lab Results 03/05/23 03/05/23 03/05/23 Range/Units 20:40 20:40 23:16 WBC 5.4 (4.8-10.8) X10*3/uL RBC 4.98 (4.20-5.50) X10*6/uL Hgb 13.4 (12.0-16.0) g/dl Hct 41.9 (37.0-47.0) % MCV 84.1 (80.0-98.0) fL MCH 26.9 L (27.0-33.0) pg MCHC 32.0 (31.0-35.0) g/dl RDW 13.1 (11.0-16.0) % Plt Count 250 (160-400) X10*3/uL MPV 10.5 (9.4-12.3) fL Immature Gran % (Auto) 0.4 (0.0-0.4) % Neut % (Auto) 83.4 H (45-73) % Lymph % (Auto) 8.2 L (20-40) % [place] % (Auto) 7.2 (2-11) % Eos % (Auto) 0.6 (0-4) % Baso % (Auto) 0.2 (0-2) % Lymph # (Auto) 0.4 L (1.2-4.9) X10*3/uL [place] # (Auto) 0.4 (0.1-1.2) X10*3/uL Eos # (Auto) 0.0 (0.0-0.4) X10*3/uL Baso # (Auto) 0.0 (0.0-0.2) X10*3/uL Abs Immat Gran (auto) 0.02 (0.00-0.03) X10*3/uL Absolute Neuts (auto) 4.5 (2.0-8.3) x10*3/uL Absolute Nucleated RBC 0.000 (0.0-0.012) X10*3/uL Nucleated RBC % (auto) 0.0 (0.0-0.2) /100WBC Sodium 139 (135-145) mmol/L Potassium 3.9 D (3.3-5.1) mmol/L Chloride 106 (96-108) mmol/L Carbon Dioxide 27 (22-29) mmol/L Anion Gap 10 L (12-20) BUN 11 (9-16) mg/dL Creatinine 0.83 (0.5-1.4) mg/dL Estim Creat Clear Calc 99.0 Estimated GFR > 60 Random Glucose 104 (60-115) mg/dL Calcium 8.7 D (8.4-10.2) mg/dL Total Bilirubin 0.4 (0.0-1.0) mg/dL AST 19 (5-31) U/L ALT 20 (0-31) U/L Alkaline Phosphatase 52 (39-117) U/L Total Protein 6.8 (6.5-8.0) g/dL Albumin 3.8 (3.5-5.0) g/dL Urine Color Yellow Urine Appearance Clear Urine pH 6.0 (5.0-9.0) Ur Specific [place] >= 1.030 H (1.005-1.025) Urine Protein Trace (Neg-Trace) mg/dL Urine Glucose (UA) Negative (Negative) mg/dL Urine Ketones Trace (Negative) mg/dL Urine Blood Trace H (Negative) Urine Nitrite Negative (Negative) Ur Leukocyte Esterase Negative (Negative) Urine RBC 6-10 H (0-2) /HPF Urine WBC 0-5 (0-5) /HPF Ur Squamous Epith Cells 6-10 (0-2) /HPF Urine Bacteria 1+ (None Seen) Hyaline Casts 0-2 (0-2) /LPF Medications Administered Discontinued Medications Generic Name Dose Route Start Last Admin Trade Name Freq PRN Reason Stop Dose Admin Sodium Chloride 1,000 mls @ 999 mls/hr 03/05/23 23:15 03/06/23 00:30 Ns IV 03/06/23 00:15 Infused .Q1H1M JAMES Infusion Ketorolac Tromethamine 30 mg 03/05/23 23:41 03/05/23 23:52 Ketorolac Tromethamine 30 Mg/Ml Vial IVPUSH 03/05/23 23:42 30 mg ONCE ONE Administration Ondansetron HCl 4 mg 03/05/23 23:43 03/05/23 23:52 Ondansetron Hcl 4 Mg/2 Ml Vial IVPUSH 03/05/23 23:44 4 mg ONCE ONE Administration Discharge Plan Discharge Clinical Impression: Gastroenteritis Patient Disposition: Home, Self-Care Instructions: Gastroenteritis (ED) Additional Instructions: Drink plenty of fluids Meds for nausea and abdominal cramps as prescribed Follow with PCP if not better Prescriptions: New dicyclomine 20 mg tablet 20 mg PO QID PRN (Reason: abdominal pain) Qty: 20 0RF ondansetron 4 mg tablet,disintegrating 4 mg PO Q6-8H PRN (Reason: nausea and vomiting) Qty: 10 0RF No Action diclofenac sodium 1 % gel 4 g topical QID Qty: 100 3RF lithium carbonate 450 mg tablet extended release 2 tab PO BEDTIME buspirone 15 mg tablet 1 tab PO BEDTIME docusate sodium 100 mg capsule 100 mg PO BID Qty: 60 5RF acetaminophen 500 mg tablet 1,000 mg PO QID PRN (Reason: pain) Qty: 30 0RF bupropion HCl 300 mg tablet extended release 24 hr 300 mg PO DAILY
[2023-03-05 22:56] VITALS: BP 113/59; PULSE 103; RESP 16; O2SAT 98
[2023-03-05] MEDS: 0.9 % Sodium Chloride 1,000 ML 999 ML IV (23:13)
[2023-03-05 23:21] LABS: Appearance Urine Clear; Color Urine Yellow; Glucose Urine UA Negative (Negative); Leukocyte Esterase Urine Negative (Negative); Nitrite Urine Negative (Negative); Specific Gravity - Urine >= 1.030 (1.005-1.025); UMIC TRIGGER UACC YES; Urine Blood Trace (Negative); Urine Ketones Trace mg/dL (Negative); Urine Protein Trace mg/dL (Neg-Trace)
[2023-03-05 23:26] LABS: Bacteria Urine 1+ (None Seen); Hyaline Casts Urine 0-2 /LPF (0-2); WBC Urine 0-5 /HPF (0-5)
--- NOTE | 2023-03-05 23:30 | PC.NURSE ---
RN to bedside for primary evaluation and to answer call huizar. pt found awake and alert wrapped in hospital blanket without acute distress noted. She requests medication to assist with diarrhea as she reports now having 3 episodes of loose stools. Pt continues to endorse 10/10 bilateral flank pain radiating to the front of her abdomen with associated nausea and states she has not yet received anything for pain. Pts IVF continue to infuse without s/s of complications noted to insertion site. MD to be made aware for new med orders.
[2023-03-05] MEDS: ondansetron HCL 4 MG/2 ML VIAL IVPUSH (23:52)
[2023-03-05] MEDS: Ketorolac Tromethamine 30 MG/ML VIAL IVPUSH (23:52)
[2023-03-06 02:00] VITALS: BP 124/76; PULSE 76; RESP 16; O2SAT 99
== END 2023-03-06 02:00 | disposition home or self-care (01) ==
PROVIDERS: Emergency Provider Internal Medicine; PCP Internal Medicine
DX: K52.9 Noninfective gastroenteritis and colitis, unspecified (principal); Z79.899 Other long term (current) drug therapy
CPT/HCPCS: 36415; 74176; 80053; 81001; 85025; 96361; 96374; 96375; 99284; 99285; J1885; J2405

== ENCOUNTER 2023-03-07 14:28 | Outpatient (REF) | payer OTHER, SELFPAY | END 2023-03-07 14:29 | disposition home or self-care (01) | LOC: HO.LNP 14:28 | PROVIDERS: PCP Internal Medicine; Visit Provider Obstetrics & Gynecology | DX: R87.610 Atypical squamous cells of undetermined significance on cytologic smear of cervix (ASC-US) (principal); R87.810 Cervical high risk human papillomavirus (HPV) DNA test positive; Z32.02 Encounter for pregnancy test, result negative | CPT/HCPCS: 57454; 81025; 88305 ==

== ENCOUNTER 2023-03-08 18:09 | Emergency (ER) | payer OTHER, SELFPAY ==
[2023-03-08 18:12] VITALS: BP 98/69; PULSE 90; RESP 18; TEMP 36.8; O2SAT 99; BMI 27.6
--- NOTE | 2023-03-08 18:14 | ED_ITS ---
HPI - Abdominal Pain General Chief Complaint: Nausea/Vomiting/Diarrhea Stated Complaint: vomiting/diarrhea Time Seen by Provider: 03/09/23 00:16 Related Data Home Medications Medication Instructions Recorded Confirmed buspirone 15 mg tablet 1 tab PO BEDTIME 12/11/21 02/24/23 lithium carbonate 450 mg 2 tab PO BEDTIME 12/11/21 02/24/23 tablet,extended release bupropion HCl 300 mg 24 hr tablet, 300 mg PO DAILY 02/08/23 02/24/23 extended release Previous Rx's Medication Instructions Recorded docusate sodium 100 mg capsule 100 mg PO BID #60 caps 05/21/22 acetaminophen 500 mg tablet 1,000 mg PO QID PRN pain #30 tabs 09/23/22 diclofenac sodium 1 % topical gel 4 g topical QID for pain #100 grams 11/29/22 dicyclomine 20 mg tablet 20 mg PO QID PRN abdominal pain 03/06/23 #20 tabs ondansetron 4 mg disintegrating 4 mg PO Q6-8H PRN nausea and 03/06/23 tablet vomiting #10 tabs Allergies Allergy/AdvReac Type Severity Reaction Status Date / Time No Known Allergies Allergy Verified 03/07/23 14:44 PMFSH Past Medical History Medical History Anxiety Depression History of kidney stones Left groin mass Migraines Panic attacks Vitamin B 12 deficiency Vulvar mass Surgical History History of bilateral tubal ligation History of endometrial ablation History of endoscopy Hx laparoscopic cholecystectomy Hx of lithotripsy S/P laparoscopic sleeve gastrectomy S/P panniculectomy Family History Family History Mother Alzheimer disease Dementia Father Diabetes mellitus Hypertension Sister Cancer Sister No problems noted. Brother No problems noted. Brother No problems noted. Son No problems noted. Daughter No problems noted. 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 Also reports nausea & fever. denies vomiting, urinary sx. patient was seen and tx in the ED on 03/05 for similar symptoms had unremarkable labs and CT. Denies suspicious food intake/antibiotic use Labs, UA, stool studies ordered Full HPI, ROS and PE to be performed by primary ED provider. Medical Decision Making Lab Data 03/08/23 18:36 03/08/23 18:36 Labs: Lab Results 03/08/23 03/08/23 03/08/23 Range/Units 18:36 18:36 20:56 WBC 4.1 L (4.8-10.8) X10*3/uL RBC 4.87 (4.20-5.50) X10*6/uL Hgb 13.2 (12.0-16.0) g/dl Hct 41.5 (37.0-47.0) % MCV 85.2 (80.0-98.0) fL MCH 27.1 (27.0-33.0) pg MCHC 31.8 (31.0-35.0) g/dl RDW 13.0 (11.0-16.0) % Plt Count 234 (160-400) X10*3/uL MPV 10.9 (9.4-12.3) fL Immature Gran % (Auto) 0.5 H (0.0-0.4) % Neut % (Auto) 53.8 (45-73) % Lymph % (Auto) 32.9 (20-40) % [place] % (Auto) 11.6 H (2-11) % Eos % (Auto) 0.7 (0-4) % Baso % (Auto) 0.5 (0-2) % Lymph # (Auto) 1.4 (1.2-4.9) X10*3/uL [place] # (Auto) 0.5 (0.1-1.2) X10*3/uL Eos # (Auto) 0.0 (0.0-0.4) X10*3/uL Baso # (Auto) 0.0 (0.0-0.2) X10*3/uL Abs Immat Gran (auto) 0.02 (0.00-0.03) X10*3/uL Absolute Neuts (auto) 2.2 (2.0-8.3) x10*3/uL Absolute Nucleated RBC 0.000 (0.0-0.012) X10*3/uL Nucleated RBC % (auto) 0.0 (0.0-0.2) /100WBC Sodium 139 (135-145) mmol/L Potassium 3.9 (3.3-5.1) mmol/L Chloride 106 (96-108) mmol/L Carbon Dioxide 27 (22-29) mmol/L Anion Gap 10 L (12-20) BUN 7 L (9-16) mg/dL Creatinine 0.83 (0.5-1.4) mg/dL Estim Creat Clear Calc 98.5 Estimated GFR > 60 Random Glucose 90 (60-115) mg/dL Calcium 8.5 (8.4-10.2) mg/dL Magnesium 1.9 (1.6-2.6) mg/dL Total Bilirubin 0.4 (0.0-1.0) mg/dL Direct Bilirubin 0.1 (0.0-0.5) mg/dL AST 23 (5-31) U/L ALT 18 (0-31) U/L Alkaline Phosphatase 47 (39-117) U/L Total Protein 6.6 (6.5-8.0) g/dL Albumin 3.6 (3.5-5.0) g/dL Lipase 11 (8-78) U/L Urine Color Dark Yellow Urine Appearance Clear Urine pH 5.5 (5.0-9.0) Ur Specific [place] >= 1.030 H (1.005-1.025) Urine Protein Trace (Neg-Trace) mg/dL Urine Glucose (UA) Negative (Negative) mg/dL Urine Ketones Trace (Negative) mg/dL Urine Blood Negative (Negative) Urine Nitrite Negative (Negative) Ur Leukocyte Esterase Negative (Negative) Stl C. cayetanensis PCR (Not Detect.) Stool Rotavirus A PCR (Not Detect.) Stl Adenov F 40/41 PCR (Not Detect.) Stool Astrovirus (PCR) (Not Detect.) Stool Campylobacter PCR (Not Detect.) Stool Cryptosporidium PCR (Not Detect.) Stl Sh Tox Pr E STEC PCR (Not Detect.) Stool E coli O157 PCR (Not Detect.) Stl Enterotoxigenic E PCR (Not Detect.) Stool EPEC (PCR) (Not Detect.) Stool EAEC (PCR) (Not Detect.) Stl E. histolytica PCR (Not Detect.) Stool Giardia Lamblia PCR (Not Detect.) Stl P. shigelloides PCR (Not Detect.) Stool Salmonella PCR (Not Detect.) Stool Sapovirus (PCR) (Not Detect.) Stl Shigella/EIEC PCR (Not Detect.) St Y.enterocolitica PCR (Not Detect.) Stool Vibrio (PCR) (Not Detect.) Stl Vibrio cholerae PCR (Not Detect.) Stl Norovirus GI/GII PCR (Not Detect.) 03/08/23 Range/Units 20:58 WBC (4.8-10.8) X10*3/uL RBC (4.20-5.50) X10*6/uL Hgb (12.0-16.0) g/dl Hct (37.0-47.0) % MCV (80.0-98.0) fL MCH (27.0-33.0) pg MCHC (31.0-35.0) g/dl RDW (11.0-16.0) % Plt Count (160-400) X10*3/uL MPV (9.4-12.3) fL Immature Gran % (Auto) (0.0-0.4) % Neut % (Auto) (45-73) % Lymph % (Auto) (20-40) % [place] % (Auto) (2-11) % Eos % (Auto) (0-4) % Baso % (Auto) (0-2) % Lymph # (Auto) (1.2-4.9) X10*3/uL [place] # (Auto) (0.1-1.2) X10*3/uL Eos # (Auto) (0.0-0.4) X10*3/uL Baso # (Auto) (0.0-0.2) X10*3/uL Abs Immat Gran (auto) (0.00-0.03) X10*3/uL Absolute Neuts (auto) (2.0-8.3) x10*3/uL Absolute Nucleated RBC (0.0-0.012) X10*3/uL Nucleated RBC % (auto) (0.0-0.2) /100WBC Sodium (135-145) mmol/L Potassium (3.3-5.1) mmol/L Chloride (96-108) mmol/L Carbon Dioxide (22-29) mmol/L Anion Gap (12-20) BUN (9-16) mg/dL Creatinine (0.5-1.4) mg/dL Estim Creat Clear Calc Estimated GFR Random Glucose (60-115) mg/dL Calcium (8.4-10.2) mg/dL Magnesium (1.6-2.6) mg/dL Total Bilirubin (0.0-1.0) mg/dL Direct Bilirubin (0.0-0.5) mg/dL AST (5-31) U/L ALT (0-31) U/L Alkaline Phosphatase (39-117) U/L Total Protein (6.5-8.0) g/dL Albumin (3.5-5.0) g/dL Lipase (8-78) U/L Urine Color Urine Appearance Urine pH (5.0-9.0) Ur Specific [place] (1.005-1.025) Urine Protein (Neg-Trace) mg/dL Urine Glucose (UA) (Negative) mg/dL Urine Ketones (Negative) mg/dL Urine Blood (Negative) Urine Nitrite (Negative) Ur Leukocyte Esterase (Negative) Stl C. cayetanensis PCR Not Detected (Not Detect.) Stool Rotavirus A PCR Detected A (Not Detect.) Stl Adenov F 40/41 PCR Not Detected (Not Detect.) Stool Astrovirus (PCR) Not Detected (Not Detect.) Stool Campylobacter PCR Not Detected (Not Detect.) Stool Cryptosporidium PCR Not Detected (Not Detect.) Stl Sh Tox Pr E STEC PCR Not Detected (Not Detect.) Stool E coli O157 PCR Not applicable (Not Detect.) Stl Enterotoxigenic E PCR Not Detected (Not Detect.) Stool EPEC (PCR) Not Detected (Not Detect.) Stool EAEC (PCR) Not Detected (Not Detect.) Stl E. histolytica PCR Not Detected (Not Detect.) Stool Giardia [place]lia PCR Not Detected (Not Detect.) Stl P. shigelloides PCR Not Detected (Not Detect.) Stool Salmonella PCR Not Detected (Not Detect.) Stool Sapovirus (PCR) Not Detected (Not Detect.) Stl Shigella/EIEC PCR Not Detected (Not Detect.) St Y.enterocolitica PCR Not Detected (Not Detect.) Stool Vibrio (PCR) Not Detected (Not Detect.) Stl Vibrio cholerae PCR Not Detected (Not Detect.) Stl Norovirus GI/GII PCR Not Detected (Not Detect.) Medications Administered Discontinued Medications Generic Name Dose Route Start Last Admin Trade Name Freq PRN Reason Stop Dose Admin Al Hydroxide/Mg Hydroxide 30 ml 03/09/23 00:21 03/09/23 01:03 Magnesium Hydrox/Alum Hydrox 30 Ml Oral.Susp PO 03/09/23 00:22 30 ml ONCE ONE Administration Famotidine 20 mg 03/09/23 00:21 03/09/23 01:03 Famotidine/Pf 20 Mg/2 Ml Vial IVPUSH 03/09/23 00:22 20 mg ONCE ONE Administration Sodium Chloride 1,000 mls @ 999 mls/hr 03/09/23 00:21 03/09/23 01:40 Ns IV 03/09/23 01:21 Infused .Q1H1M ONE Infusion Metoclopramide HCl 10 mg 03/09/23 00:21 03/09/23 01:03 Metoclopramide Hcl 10 Mg/2 Ml Vial IVPUSH 03/09/23 00:22 10 mg ONCE ONE Administration Discharge Plan Discharge Clinical Impression: Gastroenteritis Patient Disposition: Home, Self-Care Instructions: Gastroenteritis (ED) Prescriptions: No Action diclofenac sodium 1 % gel 4 g topical QID Qty: 100 3RF lithium carbonate 450 mg tablet extended release 2 tab PO BEDTIME buspirone 15 mg tablet 1 tab PO BEDTIME dicyclomine 20 mg tablet 20 mg PO QID PRN (Reason: abdominal pain) Qty: 20 0RF ondansetron 4 mg tablet,disintegrating 4 mg PO Q6-8H PRN (Reason: nausea and vomiting) Qty: 10 0RF docusate sodium 100 mg capsule 100 mg PO BID Qty: 60 5RF acetaminophen 500 mg tablet 1,000 mg PO QID PRN (Reason: pain) Qty: 30 0RF bupropion HCl 300 mg tablet extended release 24 hr 300 mg PO DAILY Referrals: Hardeep Hurd MD [Primary Care Provider] - Stand Alone Forms: Work/School Release Interventions: ED Discharge Assessment Last Done: 03/09/23 05:57 Discharge Date/Time: 03/09/23 06:04
[2023-03-08 18:44] LABS: MANUAL DIFF FLAG NO
[2023-03-08 18:50] LABS: Basophils Percent Auto 0.5 % (0-2); Eosinophils Percent Auto 0.7 % (0-4); Hematocrit 41.5 % (37.0-47.0); Hemoglobin 13.2 g/dl (12.0-16.0); Imm Gran Abs Auto 0.02 X10*3/uL (0.00-0.03); Imm Gran Pct Auto 0.5 % (0.0-0.4); Lymphocytes Absolute Auto 1.4 X10*3/uL (1.2-4.9); Lymphocytes Percent Auto 32.9 % (20-40); Mean Corpuscular HGB Conc 31.8 g/dl (31.0-35.0); Mean Corpuscular Hemoglobin 27.1 pg (27.0-33.0); Mean Corpuscular Volume 85.2 fL (80.0-98.0); Mean Platelet Volume 10.9 fL (9.4-12.3); Monocytes Absolute Auto 0.5 X10*3/uL (0.1-1.2); Monocytes Percent Auto 11.6 % (2-11); Neutrophils Absolute Auto 2.2 x10*3/uL (2.0-8.3); Neutrophils Percent Auto 53.8 % (45-73); Platelet Count 234 X10*3/uL (160-400); Red Blood Count 4.87 X10*6/uL (4.20-5.50); White Blood Count 4.1 X10*3/uL (4.8-10.8)
[2023-03-08 19:06] LABS: Alanine Aminotransferase 18 U/L (0-31); Albumin Level 3.6 g/dL (3.5-5.0); Alkaline Phosphatase 47 U/L (39-117); Anion Gap 10 (12-20); Aspartate Amino Transferase 23 U/L (5-31); Bilirubin Direct 0.1 mg/dL (0.0-0.5); Bilirubin Total 0.4 mg/dL (0.0-1.0); Blood Urea Nitrogen 7 mg/dL (9-16); Calcium 8.5 mg/dL (8.4-10.2); Carbon Dioxide 27 mmol/L (22-29); Chloride 106 mmol/L (96-108); Creatinine Clr Calc Pharmacy 98.5; Estimated Glomerular Filt Rate > 60; Glucose Random 90 mg/dL (60-115); Lipase 11 U/L (8-78); Magnesium 1.9 mg/dL (1.6-2.6); Potassium 3.9 mmol/L (3.3-5.1); Sodium 139 mmol/L (135-145); Total Protein 6.6 g/dL (6.5-8.0)
[2023-03-08 21:10] LABS: Appearance Urine Clear; Color Urine Dark Yellow; Glucose Urine UA Negative (Negative); Leukocyte Esterase Urine Negative (Negative); Nitrite Urine Negative (Negative); PH 5.5 (5.0-9.0); Specific Gravity - Urine >= 1.030 (1.005-1.025); Urine Blood Negative (Negative); Urine Ketones Trace mg/dL (Negative); Urine Protein Trace mg/dL (Neg-Trace)
--- NOTE | 2023-03-09 00:22 | ED_ITS ---
HPI - Nausea/Vomiting/Diarrhea General Chief complaint: Nausea/Vomiting/Diarrhea Stated complaint: vomiting/diarrhea Time Seen by Provider: 03/09/23 00:16 Source: patient Mode of arrival: ambulatory Limitations: no limitations History of Present Illness HPI Narrative: 37-year-old female return to the emergency department for evaluation of abdominal pain, nausea, vomiting, nonbloody watery diarrhea. Patient was seen 3 days ago for similar symptoms had a CT of the abdomen pelvis which shows no acute intra-abdominal pathology patient was diagnosed with gastroenteritis sent home with Naomy, patient returned today for persistent of diarrhea and nausea and vomiting unable to tolerate p.o. intake. Past medical history significant for GERD, PTSD, bipolar, gastritis, sleeve gastrectomy in 2014. Patient declined dysuria, frequency urination, Blood in the urine. No fever, no chills. Related Data Home Medications Medication Instructions Recorded Confirmed buspirone 15 mg tablet 1 tab PO BEDTIME 12/11/21 02/24/23 lithium carbonate 450 mg 2 tab PO BEDTIME 12/11/21 02/24/23 tablet,extended release bupropion HCl 300 mg 24 hr tablet, 300 mg PO DAILY 02/08/23 02/24/23 extended release Previous Rx's Medication Instructions Recorded docusate sodium 100 mg capsule 100 mg PO BID #60 caps 05/21/22 acetaminophen 500 mg tablet 1,000 mg PO QID PRN pain #30 tabs 09/23/22 diclofenac sodium 1 % topical gel 4 g topical QID for pain #100 grams 11/29/22 dicyclomine 20 mg tablet 20 mg PO QID PRN abdominal pain 03/06/23 #20 tabs ondansetron 4 mg disintegrating 4 mg PO Q6-8H PRN nausea and 03/06/23 tablet vomiting #10 tabs Allergies Allergy/AdvReac Type Severity Reaction Status Date / Time No Known Allergies Allergy Verified 03/07/23 14:44 Review of Systems Review of Systems: All other systems are reviewed and are negative Constitutional: Reports as per HPI and Reports no additional constitutional complaints Eyes: Reports as per HPI and Reports no additional eye complaints Reports system reviewed and no additional complaints, except as documented Cardiovascular: Reports as per HPI and Reports no additional cardiovascular complaints Respiratory: Reports as per HPI and Reports no additional respiratory complaints Gastrointestinal: Reports as per HPI and Reports no additional gastrointestinal complaints Genitourinary: Reports no additional female genitourinary complaints Musculoskeletal: Reports no additional musculoskeletal complaints Skin/Breast: Reports system reviewed and no additional complaints, except as docu Psychiatric: Reports no additional psychiatric complaints Endocrine: Reports no additional endocrine complaints Hematologic/Lymphatic: Reports no additional hematologic/lymphatic complaints Allergic/Immunologic: Reports no additional allergic/immunologic complaints Reports system reviewed and no additional complaints, except as documented and Reports Abnormal speech present [facility] Past Medical History Medical History Anxiety Depression History of kidney stones Left groin mass Migraines Panic attacks Vitamin B 12 deficiency Vulvar mass Surgical History History of bilateral tubal ligation History of endometrial ablation History of endoscopy Hx laparoscopic cholecystectomy Hx of lithotripsy S/P laparoscopic sleeve gastrectomy S/P panniculectomy Family History Family History Mother Alzheimer disease Dementia Father Diabetes mellitus Hypertension Sister Cancer Sister No problems noted. Brother No problems noted. Brother No problems noted. Son No problems noted. Daughter No problems noted. 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 Blood pressure normal. Heart rate normal. Respiration rate normal. Temperature normal. Oxygen saturation normal. Appearance: Alert. Oriented X3. No acute distress. Head: Normal external exam. Normocephalic. Atraumatic. No Maloney signs noted. No raccoon eyes noted Eyes: PERRLA. EOMI. Conjunctiva and sclera normal. Eyelids normal. ENT: TM's Normal. Pharynx normal. Uvula midline. Moist mucous membranes. No t rismus noted. No drooling noted. No muffled voice noted. Neck: Normal inspection. Neck supple. FROM. No adenopathy. Thyroid Normal. No meningeal signs. No neck mass noted. CVS: Normal heart rate and rhythm. Heart sound normal. No murmurs noted. Pulses normal throughout. Respiratory: No respiratory distress. Painless inspiration. Breath sounds normal. No wheezes/rales/rhonchi noted. Chest nontender. No accessory muscle usage noted or decreased air movement noted. Abdomen: Soft and nontender. Bowel sounds normal in all 4 quadrants. No distention noted. No organomegaly noted. No visible injury noted. Back: No CVA tenderness. Full range of motion noted. Skin: Skin warm and dry. Normal skin color. Normal skin turgor. No rashes/lesions/lacerations noted. Extremities: No lower extremity edema. Extremities exhibit normal range of motion. Extremities nontender. Neuro: Oriented X 3. Cranial nerve exam: II-XII are grossly intact No motor deficit. No sensory deficit. Reflexes normal. Course Course Course Narrative: Gastroenteritis, intractable vomiting, intractable diarrhea, patient feels better after IV hydration in the emergency department, able to tolerate p.o. intake, no abdominal pain now. Medications Administered Discontinued Medications Generic Name Dose Route Start Last Admin Trade Name Freq PRN Reason Stop Dose Admin Al Hydroxide/Mg Hydroxide 30 ml 03/09/23 00:21 03/09/23 01:03 Magnesium Hydrox/Alum Hydrox 30 Ml Oral.Susp PO 03/09/23 00:22 30 ml ONCE ONE Administration Famotidine 20 mg 03/09/23 00:21 03/09/23 01:03 Famotidine/Pf 20 Mg/2 Ml Vial IVPUSH 03/09/23 00:22 20 mg ONCE ONE Administration Sodium Chloride 1,000 mls @ 999 mls/hr 03/09/23 00:21 03/09/23 01:40 Ns IV 03/09/23 01:21 Infused .Q1H1M ONE Infusion Metoclopramide HCl 10 mg 03/09/23 00:21 03/09/23 01:03 Metoclopramide Hcl 10 Mg/2 Ml Vial IVPUSH 03/09/23 00:22 10 mg ONCE ONE Administration Medical Decision Making Differential Diagnosis Differential Diagnoses: The differential diagnosis associated with the presentation includes (Gastroenteritis, dehydration, electrolyte abnormalities, severe anemia, gastritis.) Admission/Observation Consideration of admission/observation: Escalation of care including admission/observation considered Lab Data MDM Lab Attestation statement: I reviewed the patient's lab results. 03/08/23 18:36 03/08/23 18:36 Labs: Lab Results 03/08/23 03/08/23 03/08/23 Range/Units 18:36 18:36 20:56 WBC 4.1 L (4.8-10.8) X10*3/uL RBC 4.87 (4.20-5.50) X10*6/uL Hgb 13.2 (12.0-16.0) g/dl Hct 41.5 (37.0-47.0) % MCV 85.2 (80.0-98.0) fL MCH 27.1 (27.0-33.0) pg MCHC 31.8 (31.0-35.0) g/dl RDW 13.0 (11.0-16.0) % Plt Count 234 (160-400) X10*3/uL MPV 10.9 (9.4-12.3) fL Immature Gran % (Auto) 0.5 H (0.0-0.4) % Neut % (Auto) 53.8 (45-73) % Lymph % (Auto) 32.9 (20-40) % [place] % (Auto) 11.6 H (2-11) % Eos % (Auto) 0.7 (0-4) % Baso % (Auto) 0.5 (0-2) % Lymph # (Auto) 1.4 (1.2-4.9) X10*3/uL [place] # (Auto) 0.5 (0.1-1.2) X10*3/uL Eos # (Auto) 0.0 (0.0-0.4) X10*3/uL Baso # (Auto) 0.0 (0.0-0.2) X10*3/uL Abs Immat Gran (auto) 0.02 (0.00-0.03) X10*3/uL Absolute Neuts (auto) 2.2 (2.0-8.3) x10*3/uL Absolute Nucleated RBC 0.000 (0.0-0.012) X10*3/uL Nucleated RBC % (auto) 0.0 (0.0-0.2) /100WBC Sodium 139 (135-145) mmol/L Potassium 3.9 (3.3-5.1) mmol/L Chloride 106 (96-108) mmol/L Carbon Dioxide 27 (22-29) mmol/L Anion Gap 10 L (12-20) BUN 7 L (9-16) mg/dL Creatinine 0.83 (0.5-1.4) mg/dL Estim Creat Clear Calc 98.5 Estimated GFR > 60 Random Glucose 90 (60-115) mg/dL Calcium 8.5 (8.4-10.2) mg/dL Magnesium 1.9 (1.6-2.6) mg/dL Total Bilirubin 0.4 (0.0-1.0) mg/dL Direct Bilirubin 0.1 (0.0-0.5) mg/dL AST 23 (5-31) U/L ALT 18 (0-31) U/L Alkaline Phosphatase 47 (39-117) U/L Total Protein 6.6 (6.5-8.0) g/dL Albumin 3.6 (3.5-5.0) g/dL Lipase 11 (8-78) U/L Urine Color Dark Yellow Urine Appearance Clear Urine pH 5.5 (5.0-9.0) Ur Specific [place] >= 1.030 H (1.005-1.025) Urine Protein Trace (Neg-Trace) mg/dL Urine Glucose (UA) Negative (Negative) mg/dL Urine Ketones Trace (Negative) mg/dL Urine Blood Negative (Negative) Urine Nitrite Negative (Negative) Ur Leukocyte Esterase Negative (Negative) Discharge Plan Discharge Clinical Impression: Gastroenteritis Patient Disposition: Home, Self-Care Instructions: Gastroenteritis (ED) Prescriptions: No Action diclofenac sodium 1 % gel 4 g topical QID Qty: 100 3RF lithium carbonate 450 mg tablet extended release 2 tab PO BEDTIME buspirone 15 mg tablet 1 tab PO BEDTIME dicyclomine 20 mg tablet 20 mg PO QID PRN (Reason: abdominal pain) Qty: 20 0RF ondansetron 4 mg tablet,disintegrating 4 mg PO Q6-8H PRN (Reason: nausea and vomiting) Qty: 10 0RF docusate sodium 100 mg capsule 100 mg PO BID Qty: 60 5RF acetaminophen 500 mg tablet 1,000 mg PO QID PRN (Reason: pain) Qty: 30 0RF bupropion HCl 300 mg tablet extended release 24 hr 300 mg PO DAILY Referrals: Hardeep Hurd MD [Primary Care Provider] - Stand Alone Forms: Work/School Release
[2023-03-09] MEDS: Magnesium Hydrox/Alum Hydrox 30 ML ORAL.SUSP PO (01:03)
[2023-03-09] MEDS: Famotidine/PF 20 MG/2 ML VIAL IVPUSH (01:03)
[2023-03-09] MEDS: 0.9 % Sodium Chloride 1,000 ML 999 ML IV (01:03)
[2023-03-09] MEDS: Metoclopramide HCl 10 MG/2 ML VIAL IVPUSH (01:03)
[2023-03-09 01:33] VITALS: BP 118/66; PULSE 67; RESP 14; O2SAT 98
[2023-03-09 15:21] LABS: Campylobacter Not Detected (Not Detect.); E. coli EAEC Not Detected (Not Detect.); E. coli EPEC Not Detected (Not Detect.); E. coli ETEC Not Detected (Not Detect.); E. coli STEC Not Detected (Not Detect.); Plesiomonas shigelloides Not Detected (Not Detect.); Salmonella Not Detected (Not Detect.); Vibrio Not Detected (Not Detect.); Vibrio Cholerae Not Detected (Not Detect.); Yersinia enterocolitica Not Detected (Not Detect.)
[2023-03-09 15:22] LABS: Adenovirus F 40/41 Not Detected (Not Detect.); Astrovirus Not Detected (Not Detect.); Cryptosporidium Not Detected (Not Detect.); Cyclospora cayetanensis Not Detected (Not Detect.); Entamoeba histolytica Not Detected (Not Detect.); Giardia lamblia Not Detected (Not Detect.); Norovirus GI/GII Not Detected (Not Detect.); Rotavirus A Detected (Not Detect.); Sapovirus Not Detected (Not Detect.); Shigella sp./EIEC Not Detected (Not Detect.)
== END 2023-03-09 06:04 | disposition home or self-care (01) ==
PROVIDERS: Physician Assistant; Emergency Provider Emergency Medicine; PCP Internal Medicine
DX: K52.9 Noninfective gastroenteritis and colitis, unspecified (principal); Z87.442 Personal history of urinary calculi; K21.9 Gastro-esophageal reflux disease without esophagitis
CPT/HCPCS: 36415; 80048; 80076; 81003; 83690; 83735; 85025; 87507; 96361; 96374; 96375; 99284; J2765

== ENCOUNTER → 2023-03-21 13:11 | Outpatient (BNVA) | payer OTHER, SELFPAY | PROVIDERS: PCP Internal Medicine; Visit Provider Internal Medicine | DX: M22.2X1 Patellofemoral disorders, right knee (principal); M22.2X2 Patellofemoral disorders, left knee; M25.561 Pain in right knee; M25.562 Pain in left knee | CPT/HCPCS: 20610; 99212; J2795; J3301 ==

== ENCOUNTER 2023-03-28 16:22 | Emergency (ER) | payer OTHER, SELFPAY ==
--- NOTE | ~2023-03-28 | CT_ITS ---
EXAMINATION: CT ABDOMEN AND PELVIS WITH CONTRAST CLINICAL INFORMATION: Abdominal pain. Nausea and vomiting. COMPARISON: CT abdomen pelvis 03/06/2023 TECHNIQUE: Multidetector volumetric images were obtained from the superior aspect of the liver through the pubic symphysis following administration 85 mL of Omnipaque 350 intravenous contrast. Sagittal and coronal reformatted images were obtained on the technologist's workstation. Oral contrast: No This CT examination was performed using dose optimization techniques as appropriate, variously including the following: *Automated exposure control *Adjustment of mA and/or kV according to patient size (this includes techniques or standardized protocols for targeted exams where dose is matched to indication/reason for exam; i.e. extremities or head) *Use of iterative reconstruction technique DLP: 565 mGy-cm FINDINGS: LUNG BASES: The visualized lung bases are unremarkable. LIVER, GALLBLADDER, AND BILIARY TREE: Pneumobilia. Status post cholecystectomy. No focal liver lesion. PANCREAS: Unremarkable. SPLEEN: Unremarkable. ADRENAL GLANDS: Unremarkable. KIDNEYS AND URETERS: The kidneys are normal in size, shape, and attenuation. No hydronephrosis, hydroureter, or calculi seen. No perinephric stranding. BLADDER: Unremarkable. GASTROINTESTINAL TRACT: The small and large bowel are unremarkable. The appendix is unremarkable. ABDOMINAL WALL: No significant hernia is appreciated. LYMPH NODES: Normal. VASCULAR: Unremarkable. PELVIC VISCERA: Unremarkable. OSSEOUS STRUCTURES: Unremarkable. CT/CT abdomen pelvis w IV con IMPRESSION: No acute abnormality CT scan abdomen pelvis. Fleischner guidelines were followed.
[2023-03-28 16:42] VITALS: BP 112/71; PULSE 77; RESP 18; TEMP 36.3; O2SAT 98; BMI 28.3
--- NOTE | 2023-03-28 16:42 | ED.NAVMDI ---
HPI - Nausea/Vomiting/Diarrhea General Chief complaint: Abdominal Pain Stated complaint: vomitting, abd pain Time Seen by Provider: 03/28/23 18:40 Related Data Home Medications Medication Instructions Recorded Confirmed buspirone 15 mg tablet 1 tab PO BEDTIME 12/11/21 03/21/23 lithium carbonate 450 mg 2 tab PO BEDTIME 12/11/21 03/21/23 tablet,extended release bupropion HCl 300 mg 24 hr tablet, 300 mg PO DAILY 02/08/23 03/21/23 extended release Previous Rx's Medication Instructions Recorded acetaminophen 500 mg tablet 1,000 mg PO QID PRN pain #30 tabs 09/23/22 diclofenac sodium 1 % topical gel 4 g topical QID for pain #100 grams 11/29/22 ondansetron 4 mg disintegrating 4 mg PO TID PRN nausea and 03/28/23 tablet vomiting 5 days #10 tabs pantoprazole 40 mg tablet,delayed 40 mg PO DAILY #14 tabs 03/28/23 release (Protonix) Allergies Allergy/AdvReac Type Severity Reaction Status Date / Time No Known Allergies Allergy Verified 03/29/23 11:22 [facility] Past Medical History Medical History Anxiety Depression History of kidney stones Left groin mass Migraines Panic attacks Vitamin B 12 deficiency Vulvar mass Surgical History History of bilateral tubal ligation History of endometrial ablation History of endoscopy Hx laparoscopic cholecystectomy Hx of lithotripsy S/P laparoscopic sleeve gastrectomy S/P panniculectomy Family History Family History Mother Alzheimer disease Dementia Father Diabetes mellitus Hypertension Sister Cancer Sister No problems noted. Brother No problems noted. Brother No problems noted. Son No problems noted. Daughter No problems noted. 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 Abdomen soft with epigastric/RUQ tenderness Labs, UA, CT AP with PO contrast ordered Full HPI, ROS and PE to be performed by primary ED provider. Medications Administered Discontinued Medications Generic Name Dose Route Start Last Admin Trade Name Freq PRN Reason Stop Dose Admin Diatrizoate Meglum/Diatrizoate Sod 30 ml 03/28/23 20:06 03/28/23 20:07 Diatrizoate Meglumine, Sodium 30 Ml Solution PO 03/28/23 20:07 30 ml ONCE ONE Administration Iohexol 100 ml 03/28/23 20:07 03/28/23 20:08 Iohexol 350 Mg/Ml 100 Ml Infus..Btl IV 03/28/23 20:08 85 ml ONCE ONE Administration Medical Decision Making Lab Data 03/28/23 17:05 03/28/23 17:05 Labs: Lab Results 03/28/23 03/28/23 03/28/23 Range/Units 17:05 17:05 19:40 WBC 9.5 (4.8-10.8) X10*3/uL RBC 4.82 (4.20-5.50) X10*6/uL Hgb 12.9 (12.0-16.0) g/dl Hct 40.8 (37.0-47.0) % MCV 84.6 (80.0-98.0) fL MCH 26.8 L (27.0-33.0) pg MCHC 31.6 (31.0-35.0) g/dl RDW 13.1 (11.0-16.0) % Plt Count 308 D (160-400) X10*3/uL MPV 10.7 (9.4-12.3) fL Immature Gran % (Auto) 0.5 H (0.0-0.4) % Neut % (Auto) 64.5 (45-73) % Lymph % (Auto) 23.6 (20-40) % Garza % (Auto) 10.0 (2-11) % Eos % (Auto) 1.2 (0-4) % Baso % (Auto) 0.2 (0-2) % Lymph # (Auto) 2.3 (1.2-4.9) X10*3/uL [place]za # (Auto) 1.0 (0.1-1.2) X10*3/uL Eos # (Auto) 0.1 (0.0-0.4) X10*3/uL Baso # (Auto) 0.0 (0.0-0.2) X10*3/uL Abs Immat Gran (auto) 0.05 H (0.00-0.03) X10*3/uL Absolute Neuts (auto) 6.2 (2.0-8.3) x10*3/uL Absolute Nucleated RBC 0.000 (0.0-0.012) X10*3/uL Nucleated RBC % (auto) 0.0 (0.0-0.2) /100WBC Sodium 141 (135-145) mmol/L Potassium 4.3 (3.3-5.1) mmol/L Chloride 109 H (96-108) mmol/L Carbon Dioxide 24 (22-29) mmol/L Anion Gap 12 (12-20) BUN 12 (9-16) mg/dL Creatinine 0.74 (0.5-1.4) mg/dL Estim Creat Clear Calc 111.8 Estimated GFR > 60 Random Glucose 90 (60-115) mg/dL Calcium 9.1 D (8.4-10.2) mg/dL Magnesium 2.2 (1.6-2.6) mg/dL Total Bilirubin 0.5 (0.0-1.0) mg/dL Direct Bilirubin 0.1 (0.0-0.5) mg/dL AST 14 (5-31) U/L ALT 16 (0-31) U/L Alkaline Phosphatase 59 (39-117) U/L Total Protein 6.9 (6.5-8.0) g/dL Albumin 3.9 (3.5-5.0) g/dL Lipase 62 (8-78) U/L Urine Color Yellow Urine Appearance Clear Urine pH 7.5 (5.0-9.0) Ur Specific [place] 1.020 (1.005-1.025) Urine Protein Negative (Neg-Trace) mg/dL Urine Glucose (UA) Negative (Negative) mg/dL Urine Ketones Negative (Negative) mg/dL Urine Blood Negative (Negative) Urine Nitrite Negative (Negative) Ur Leukocyte Esterase Negative (Negative) Urine Test (NEGATIVE) 03/28/23 Range/Units 19:40 WBC (4.8-10.8) X10*3/uL RBC (4.20-5.50) X10*6/uL Hgb (12.0-16.0) g/dl Hct (37.0-47.0) % MCV (80.0-98.0) fL MCH (27.0-33.0) pg MCHC (31.0-35.0) g/dl RDW (11.0-16.0) % Plt Count (160-400) X10*3/uL MPV (9.4-12.3) fL Immature Gran % (Auto) (0.0-0.4) % Neut % (Auto) (45-73) % Lymph % (Auto) (20-40) % Garza % (Auto) (2-11) % Eos % (Auto) (0-4) % Baso % (Auto) (0-2) % Lymph # (Auto) (1.2-4.9) X10*3/uL [place] # (Auto) (0.1-1.2) X10*3/uL Eos # (Auto) (0.0-0.4) X10*3/uL Baso # (Auto) (0.0-0.2) X10*3/uL Abs Immat Gran (auto) (0.00-0.03) X10*3/uL Absolute Neuts (auto) (2.0-8.3) x10*3/uL Absolute Nucleated RBC (0.0-0.012) X10*3/uL Nucleated RBC % (auto) (0.0-0.2) /100WBC Sodium (135-145) mmol/L Potassium (3.3-5.1) mmol/L Chloride (96-108) mmol/L Carbon Dioxide (22-29) mmol/L Anion Gap (12-20) BUN (9-16) mg/dL Creatinine (0.5-1.4) mg/dL Estim Creat Clear Calc Estimated GFR Random Glucose (60-115) mg/dL Calcium (8.4-10.2) mg/dL Magnesium (1.6-2.6) mg/dL Total Bilirubin (0.0-1.0) mg/dL Direct Bilirubin (0.0-0.5) mg/dL AST (5-31) U/L ALT (0-31) U/L Alkaline Phosphatase (39-117) U/L Total Protein (6.5-8.0) g/dL Albumin (3.5-5.0) g/dL Lipase (8-78) U/L Urine Color Urine Appearance Urine pH (5.0-9.0) Ur Specific [place] (1.005-1.025) Urine Protein (Neg-Trace) mg/dL Urine Glucose (UA) (Negative) mg/dL Urine Ketones (Negative) mg/dL Urine Blood (Negative) Urine Nitrite (Negative) Ur Leukocyte Esterase (Negative) Urine Test NEGATIVE (NEGATIVE) Discharge Plan Discharge Clinical Impression: Gastritis Patient Disposition: Home, Self-Care Instructions: Gastritis (DC), Gastroesophageal Reflux Disease (DC) Prescriptions: New pantoprazole [Protonix] 40 mg tablet,delayed release (DR/EC) 40 mg PO DAILY Qty: 14 0RF ondansetron 4 mg tablet,disintegrating 4 mg PO TID PRN (Reason: nausea and vomiting) 5 Days Qty: 10 0RF No Action diclofenac sodium 1 % gel 4 g topical QID Qty: 100 3RF lithium carbonate 450 mg tablet extended release 2 tab PO BEDTIME buspirone 15 mg tablet 1 tab PO BEDTIME acetaminophen 500 mg tablet 1,000 mg PO QID PRN (Reason: pain) Qty: 30 0RF bupropion HCl 300 mg tablet extended release 24 hr 300 mg PO DAILY Referrals: Hardeep Hurd MD [Primary Care Provider] - 03/30/23 Stand Alone Forms: Work/School Release Interventions: ED Discharge Assessment Last Done: 03/28/23 21:44 Discharge Date/Time: 03/28/23 21:45
--- NOTE | 2023-03-28 16:45 | ECG_ITS ---
Test Reason : epigastric pain Blood Pressure : / mmHG Vent. Rate : 077 BPM Atrial Rate : 077 BPM P-R Int : 128 ms QRS Dur : 078 ms QT Int : 364 ms P-R-T Axes : 018 036 034 degrees QTc Int : 411 ms Normal sinus rhythm Normal ECG When compared to the previous EKG of No significant changes seen Referred By: Fannie Rodriguez Electronically Signed By:CHAPINCITO FULLER MD
[2023-03-28 17:09] LABS: MANUAL DIFF FLAG NO
[2023-03-28 17:10] LABS: Basophils Percent Auto 0.2 % (0-2); Eosinophils Absolute Auto 0.1 X10*3/uL (0.0-0.4); Eosinophils Percent Auto 1.2 % (0-4); Hematocrit 40.8 % (37.0-47.0); Hemoglobin 12.9 g/dl (12.0-16.0); Imm Gran Abs Auto 0.05 X10*3/uL (0.00-0.03); Imm Gran Pct Auto 0.5 % (0.0-0.4); Lymphocytes Absolute Auto 2.3 X10*3/uL (1.2-4.9); Lymphocytes Percent Auto 23.6 % (20-40); Mean Corpuscular HGB Conc 31.6 g/dl (31.0-35.0); Mean Corpuscular Hemoglobin 26.8 pg (27.0-33.0); Mean Corpuscular Volume 84.6 fL (80.0-98.0); Mean Platelet Volume 10.7 fL (9.4-12.3); Neutrophils Absolute Auto 6.2 x10*3/uL (2.0-8.3); Neutrophils Percent Auto 64.5 % (45-73); Platelet Count 308 X10*3/uL (160-400); Red Blood Count 4.82 X10*6/uL (4.20-5.50); Red Cell Distribution Width 13.1 % (11.0-16.0); White Blood Count 9.5 X10*3/uL (4.8-10.8)
[2023-03-28 17:34] LABS: Alanine Aminotransferase 16 U/L (0-31); Albumin Level 3.9 g/dL (3.5-5.0); Alkaline Phosphatase 59 U/L (39-117); Anion Gap 12 (12-20); Aspartate Amino Transferase 14 U/L (5-31); Bilirubin Direct 0.1 mg/dL (0.0-0.5); Bilirubin Total 0.5 mg/dL (0.0-1.0); Blood Urea Nitrogen 12 mg/dL (9-16); Calcium 9.1 mg/dL (8.4-10.2); Carbon Dioxide 24 mmol/L (22-29); Chloride 109 mmol/L (96-108); Creatinine Clr Calc Pharmacy 111.8; Estimated Glomerular Filt Rate > 60; Glucose Random 90 mg/dL (60-115); Lipase 62 U/L (8-78); Magnesium 2.2 mg/dL (1.6-2.6); Potassium 4.3 mmol/L (3.3-5.1); Sodium 141 mmol/L (135-145); Total Protein 6.9 g/dL (6.5-8.0)
--- NOTE | 2023-03-28 19:14 | ED.ABDPAIN ---
HPI - Abdominal Pain General Chief Complaint: Abdominal Pain Stated Complaint: vomitting, abd pain Time Seen by Provider: 03/28/23 18:40 History of Present Illness HPI narrative: Patient is a 37-year-old female presents today with having abdominal pain mainly over the epigastric area associated with nausea vomiting. Status post gastric sleeve surgery approximately 8 years ago. There is no chest pain or diaphoresis. There is no shortness of breath. There is no pain on urination. Patient from home. Symptoms are fairly similar to what she had 2 weeks ago. Patient claims she is not able to tolerate good amount of fluid hence presents to emergency department. Related Data Home Medications Medication Instructions Recorded Confirmed buspirone 15 mg tablet 1 tab PO BEDTIME 12/11/21 03/21/23 lithium carbonate 450 mg 2 tab PO BEDTIME 12/11/21 03/21/23 tablet,extended release bupropion HCl 300 mg 24 hr tablet, 300 mg PO DAILY 02/08/23 03/21/23 extended release Previous Rx's Medication Instructions Recorded acetaminophen 500 mg tablet 1,000 mg PO QID PRN pain #30 tabs 09/23/22 diclofenac sodium 1 % topical gel 4 g topical QID for pain #100 grams 11/29/22 dicyclomine 20 mg tablet 20 mg PO QID PRN abdominal pain 03/06/23 #20 tabs ondansetron 4 mg disintegrating 4 mg PO TID PRN nausea and 03/28/23 tablet vomiting 5 days #10 tabs pantoprazole 40 mg tablet,delayed 40 mg PO DAILY #14 tabs 03/28/23 release (Protonix) Allergies Allergy/AdvReac Type Severity Reaction Status Date / Time No Known Allergies Allergy Verified 03/28/23 16:42 Review of Systems Review of Systems Positive nausea positive decreased p.o. intake Yes all other systems are reviewed and are negative PMFSH Past Medical History Attestation statement: The following information was validated with the patient. Medical History Anxiety Depression History of kidney stones Left groin mass Migraines Panic attacks Vitamin B 12 deficiency Vulvar mass Surgical History History of bilateral tubal ligation History of endometrial ablation History of endoscopy Hx laparoscopic cholecystectomy Hx of lithotripsy S/P laparoscopic sleeve gastrectomy S/P panniculectomy Family History Family History Mother Alzheimer disease Dementia Father Diabetes mellitus Hypertension Sister Cancer Sister No problems noted. Brother No problems noted. Brother No problems noted. Son No problems noted. Daughter No problems noted. 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 Oriented X3. No acute distress. Eyes: Pupils equal, round and reactive to light. ENT: Pharynx normal. Neck: Normal inspection. Neck supple. No lymph nodes noted. No crepitus CVS: Normal heart rate and rhythm. Pulses normal. Normal S1 and S2 Respiratory: No respiratory distress. Breath sounds normal. No Wheezing. No rales Abdomen: Soft and nontender. No rigidity. No distention. good BS x4 Skin: Skin warm and dry. Normal skin color. Normal skin turgor. Extremities: No lower extremity edema. Neurovascular intact to all extremities. No Lacerations. No Rash Neuro: Oriented X 3. No motor deficit. No sensory deficit. Moving all extermities. No slurred speech Medical Decision Making Medical Decision Making MDM Narrative: Patient complaining of epigastric pain nausea. CT scan of the abdomen was done. There is no evidence of obstruction no abscess no perforation. No signs of fluid collection. No diverticulitis. Question reflux. Patient will require follow-up on an outpatient basis. Differential Diagnosis Differential Diagnoses: The differential diagnosis associated with the presentation includes Reflux, gastritis, pancreatitis, obstruction, abscess Lab Data MDM Lab Attestation statement: I reviewed the patient's lab results. 03/28/23 17:05 03/28/23 17:05 Labs: Lab Results 03/28/23 03/28/23 03/28/23 Range/Units 17:05 17:05 19:40 WBC 9.5 (4.8-10.8) X10*3/uL RBC 4.82 (4.20-5.50) X10*6/uL Hgb 12.9 (12.0-16.0) g/dl Hct 40.8 (37.0-47.0) % MCV 84.6 (80.0-98.0) fL MCH 26.8 L (27.0-33.0) pg MCHC 31.6 (31.0-35.0) g/dl RDW 13.1 (11.0-16.0) % Plt Count 308 D (160-400) X10*3/uL MPV 10.7 (9.4-12.3) fL Immature Gran % (Auto) 0.5 H (0.0-0.4) % Neut % (Auto) 64.5 (45-73) % Lymph % (Auto) 23.6 (20-40) % [place] % (Auto) 10.0 (2-11) % Eos % (Auto) 1.2 (0-4) % Baso % (Auto) 0.2 (0-2) % Lymph # (Auto) 2.3 (1.2-4.9) X10*3/uL [place] # (Auto) 1.0 (0.1-1.2) X10*3/uL Eos # (Auto) 0.1 (0.0-0.4) X10*3/uL Baso # (Auto) 0.0 (0.0-0.2) X10*3/uL Abs Immat Gran (auto) 0.05 H (0.00-0.03) X10*3/uL Absolute Neuts (auto) 6.2 (2.0-8.3) x10*3/uL Absolute Nucleated RBC 0.000 (0.0-0.012) X10*3/uL Nucleated RBC % (auto) 0.0 (0.0-0.2) /100WBC Sodium 141 (135-145) mmol/L Potassium 4.3 (3.3-5.1) mmol/L Chloride 109 H (96-108) mmol/L Carbon Dioxide 24 (22-29) mmol/L Anion Gap 12 (12-20) BUN 12 (9-16) mg/dL Creatinine 0.74 (0.5-1.4) mg/dL Estim Creat Clear Calc 111.8 Estimated GFR > 60 Random Glucose 90 (60-115) mg/dL Calcium 9.1 D (8.4-10.2) mg/dL Magnesium 2.2 (1.6-2.6) mg/dL Total Bilirubin 0.5 (0.0-1.0) mg/dL Direct Bilirubin 0.1 (0.0-0.5) mg/dL AST 14 (5-31) U/L ALT 16 (0-31) U/L Alkaline Phosphatase 59 (39-117) U/L Total Protein 6.9 (6.5-8.0) g/dL Albumin 3.9 (3.5-5.0) g/dL Lipase 62 (8-78) U/L Urine Color Yellow Urine Appearance Clear Urine pH 7.5 (5.0-9.0) Ur Specific [place] 1.020 (1.005-1.025) Urine Protein Negative (Neg-Trace) mg/dL Urine Glucose (UA) Negative (Negative) mg/dL Urine Ketones Negative (Negative) mg/dL Urine Blood Negative (Negative) Urine Nitrite Negative (Negative) Ur Leukocyte Esterase Negative (Negative) Urine Test (NEGATIVE) 03/28/23 Range/Units 19:40 WBC (4.8-10.8) X10*3/uL RBC (4.20-5.50) X10*6/uL Hgb (12.0-16.0) g/dl Hct (37.0-47.0) % MCV (80.0-98.0) fL MCH (27.0-33.0) pg MCHC (31.0-35.0) g/dl RDW (11.0-16.0) % Plt Count (160-400) X10*3/uL MPV (9.4-12.3) fL Immature Gran % (Auto) (0.0-0.4) % Neut % (Auto) (45-73) % Lymph % (Auto) (20-40) % [place] % (Auto) (2-11) % Eos % (Auto) (0-4) % Baso % (Auto) (0-2) % Lymph # (Auto) (1.2-4.9) X10*3/uL [place] # (Auto) (0.1-1.2) X10*3/uL Eos # (Auto) (0.0-0.4) X10*3/uL Baso # (Auto) (0.0-0.2) X10*3/uL Abs Immat Gran (auto) (0.00-0.03) X10*3/uL Absolute Neuts (auto) (2.0-8.3) x10*3/uL Absolute Nucleated RBC (0.0-0.012) X10*3/uL Nucleated RBC % (auto) (0.0-0.2) /100WBC Sodium (135-145) mmol/L Potassium (3.3-5.1) mmol/L Chloride (96-108) mmol/L Carbon Dioxide (22-29) mmol/L Anion Gap (12-20) BUN (9-16) mg/dL Creatinine (0.5-1.4) mg/dL Estim Creat Clear Calc Estimated GFR Random Glucose (60-115) mg/dL Calcium (8.4-10.2) mg/dL Magnesium (1.6-2.6) mg/dL Total Bilirubin (0.0-1.0) mg/dL Direct Bilirubin (0.0-0.5) mg/dL AST (5-31) U/L ALT (0-31) U/L Alkaline Phosphatase (39-117) U/L Total Protein (6.5-8.0) g/dL Albumin (3.5-5.0) g/dL Lipase (8-78) U/L Urine Color Urine Appearance Urine pH (5.0-9.0) Ur Specific [place] (1.005-1.025) Urine Protein (Neg-Trace) mg/dL Urine Glucose (UA) (Negative) mg/dL Urine Ketones (Negative) mg/dL Urine Blood (Negative) Urine Nitrite (Negative) Ur Leukocyte Esterase (Negative) Urine Test NEGATIVE (NEGATIVE) Independent Interpretation I performed an independent interpretation of an: CT Scan Radiology Impression Discussion of test interpretation with radiology: I have reviewed the radiologist's reading. Medications Administered Discontinued Medications Generic Name Dose Route Start Last Admin Trade Name Freq PRN Reason Stop Dose Admin Diatrizoate Meglum/Diatrizoate Sod 30 ml 03/28/23 20:06 03/28/23 20:07 Diatrizoate Meglumine, Sodium 30 Ml Solution PO 03/28/23 20:07 30 ml ONCE ONE Administration Iohexol 100 ml 03/28/23 20:07 03/28/23 20:08 Iohexol 350 Mg/Ml 100 Ml Infus..Btl IV 03/28/23 20:08 85 ml ONCE ONE Administration Discharge Plan Discharge Clinical Impression: Gastritis Patient Disposition: Home, Self-Care Instructions: Gastritis (DC), Gastroesophageal Reflux Disease (DC) Prescriptions: New pantoprazole [Protonix] 40 mg tablet,delayed release (DR/EC) 40 mg PO DAILY Qty: 14 0RF ondansetron 4 mg tablet,disintegrating 4 mg PO TID PRN (Reason: nausea and vomiting) 5 Days Qty: 10 0RF No Action diclofenac sodium 1 % gel 4 g topical QID Qty: 100 3RF lithium carbonate 450 mg tablet extended release 2 tab PO BEDTIME buspirone 15 mg tablet 1 tab PO BEDTIME dicyclomine 20 mg tablet 20 mg PO QID PRN (Reason: abdominal pain) Qty: 20 0RF acetaminophen 500 mg tablet 1,000 mg PO QID PRN (Reason: pain) Qty: 30 0RF bupropion HCl 300 mg tablet extended release 24 hr 300 mg PO DAILY Referrals: Hardeep Hurd MD [Primary Care Provider] - 03/30/23
[2023-03-28 19:36] VITALS: BP 127/74; PULSE 69; RESP 16; TEMP 36.6; O2SAT 95
--- NOTE | 2023-03-28 19:39 | PC.NURSE ---
pt continues to report pain and discomfort in abd and throat pain due to acid reflux
[2023-03-28 19:49] LABS: Appearance Urine Clear; Color Urine Yellow; Glucose Urine UA Negative (Negative); Leukocyte Esterase Urine Negative (Negative); Nitrite Urine Negative (Negative); PH 7.5 (5.0-9.0); Urine Blood Negative (Negative); Urine Ketones Negative (Negative); Urine Protein Negative (Neg-Trace)
[2023-03-28 19:52] LABS: UPreg QC Valid YES; Urine Pregnancy NEGATIVE (NEGATIVE)
--- NOTE | 2023-03-28 20:02 | PC.NURSE ---
pt to CT scan
[2023-03-28] MEDS: Diatrizoate Meglumine, Sodium 30 ML SOLUTION PO (20:07)
[2023-03-28] MEDS: iohexoL 350 MG/ML 100 ML INFUS..BTL IV (20:08)
[2023-03-28 21:35] VITALS: BP 111/79; PULSE 73; RESP 16; TEMP 36.8; O2SAT 98
--- NOTE | 2023-03-28 21:43 | PC.NURSE ---
this rn assumed care of pt at 2100. pt partner at bedside. pt calm and cooperative. iv removed at discharge. pt ambulatory at discharge. pt provided with work note and discharge packet. pt verbalized understanding of discharge packet
== END 2023-03-28 21:45 | disposition home or self-care (01) ==
PROVIDERS: Physician Assistant; Emergency Provider Emergency Medicine Emergency Medical Services; PCP Internal Medicine
DX: K29.70 Gastritis, unspecified, without bleeding (principal); R10.13 Epigastric pain; R11.2 Nausea with vomiting, unspecified
CPT/HCPCS: 36415; 74177; 80048; 80076; 81003; 81025; 83690; 83735; 85025; 93005; 99284; 99285; Q9967

== ENCOUNTER → 2023-03-29 10:52 | Outpatient (BNVA) | payer OTHER, SELFPAY | PROVIDERS: PCP Internal Medicine; Visit Provider Obstetrics & Gynecology | DX: N87.0 Mild cervical dysplasia (principal) | CPT/HCPCS: 99212 ==

== ENCOUNTER 2023-05-15 23:17 | Emergency (ER) | payer OTHER, SELFPAY ==
[2023-05-15 23:27] VITALS: BP 120/76; PULSE 79; RESP 17; TEMP 36.6; O2SAT 99; BMI 28.6
[2023-05-15 23:43] LABS: Basophils Percent Auto 0.5 % (0-2); Eosinophils Absolute Auto 0.1 X10*3/uL (0.0-0.4); Eosinophils Percent Auto 1.2 % (0-4); Hematocrit 41.6 % (37.0-47.0); Imm Gran Abs Auto 0.03 X10*3/uL (0.00-0.03); Imm Gran Pct Auto 0.4 % (0.0-0.4); Lymphocytes Absolute Auto 2.7 X10*3/uL (1.2-4.9); Lymphocytes Percent Auto 31.8 % (20-40); MANUAL DIFF FLAG NO; Mean Corpuscular HGB Conc 31.3 g/dl (31.0-35.0); Mean Corpuscular Hemoglobin 26.3 pg (27.0-33.0); Mean Platelet Volume 10.4 fL (9.4-12.3); Monocytes Absolute Auto 0.7 X10*3/uL (0.1-1.2); Monocytes Percent Auto 8.5 % (2-11); Neutrophils Absolute Auto 4.9 x10*3/uL (2.0-8.3); Neutrophils Percent Auto 57.6 % (45-73); Platelet Count 264 X10*3/uL (160-400); Red Blood Count 4.95 X10*6/uL (4.20-5.50); White Blood Count 8.6 X10*3/uL (4.8-10.8)
[2023-05-15 23:58] LABS: Alanine Aminotransferase 16 U/L (0-31); Albumin Level 3.8 g/dL (3.5-5.0); Alkaline Phosphatase 54 U/L (39-117); Anion Gap 14 (12-20); Aspartate Amino Transferase 15 U/L (5-31); Bilirubin Direct 0.1 mg/dL (0.0-0.5); Bilirubin Total 0.3 mg/dL (0.0-1.0); Blood Urea Nitrogen 12 mg/dL (9-16); Carbon Dioxide 21 mmol/L (22-29); Chloride 108 mmol/L (96-108); Creatinine Clr Calc Pharmacy 98.9; Estimated Glomerular Filt Rate > 60; Glucose Random 125 mg/dL (60-115); Lipase 31 U/L (8-78); Potassium 4.1 mmol/L (3.3-5.1); Sodium 139 mmol/L (135-145); Total Protein 6.8 g/dL (6.5-8.0)
[2023-05-16 00:03] LABS: HCG Quantitative < 2 mIU/mL
[2023-05-16 01:27] VITALS: BP 131/81; PULSE 84; RESP 18; O2SAT 96
[2023-05-16 01:43] LABS: Appearance Urine Clear; Color Urine Yellow; Glucose Urine UA Negative (Negative); Leukocyte Esterase Urine Moderate (2+) (Negative); Nitrite Urine Negative (Negative); PH 5.5 (5.0-9.0); Specific Gravity - Urine >= 1.030 (1.005-1.025); UMIC TRIGGER UACC YES; Urine Blood Negative (Negative); Urine Ketones Negative (Negative); Urine Protein Negative (Neg-Trace)
[2023-05-16 01:48] LABS: Bacteria Urine 1+ (None Seen); Hyaline Casts Urine 0-2 /LPF (0-2); RBC Urine 0-2 /HPF (0-2); UACC Culture Trigger YES; WBC Urine 21-50 /HPF (0-5)
--- NOTE | 2023-05-16 03:05 | ED_ITS ---
HPI - Abdominal Pain General Chief Complaint: Abdominal Pain Stated Complaint: lower back pain radiates to front Time Seen by Provider: 05/16/23 02:54 Source: patient Mode of arrival: ambulatory Limitations: no limitations History of Present Illness HPI narrative: 37-year-old female who presents emergency department for evaluation of abdominal pain and bilateral flank pain x3 days. Patient states the pain came on gradually and is got progressively worse. She states that her pain is 10/10. She points to her lower abdomen and bilateral flank area when asked to localize the pain pain is a constant, pressure-like pain. Patient has had nausea and vomiting and states she has not been able to eat food but has been able to drink fluid. Patient states that she gets similar pain monthly. The patient was seen in the emergency department on 03/06/2023 the and 03/28/2023 with similar pain. At that time she had negative CT scans a negative laboratory evaluation. The patient denied fever but has had chills. She states she feels short of breath when the pain is severe. She denied frequency, urgency or dysuria. Patient does have a history gastric sleeve surgery. Related Data Home Medications Medication Instructions Recorded Confirmed buspirone 15 mg tablet 1 tab PO BEDTIME 12/11/21 03/21/23 lithium carbonate 450 mg 2 tab PO BEDTIME 12/11/21 03/21/23 tablet,extended release bupropion HCl 300 mg 24 hr tablet, 300 mg PO DAILY 02/08/23 03/21/23 extended release Previous Rx's Medication Instructions Recorded acetaminophen 500 mg tablet 1,000 mg PO QID PRN pain #30 tabs 09/23/22 ondansetron 4 mg disintegrating 4 mg PO TID PRN nausea and 03/28/23 tablet vomiting 5 days #10 tabs pantoprazole 40 mg tablet,delayed 40 mg PO DAILY #14 tabs 03/28/23 release (Protonix) diclofenac sodium 1 % topical gel 4 g topical QID for pain #100 grams 04/13/23 morphine 15 mg immediate release 15 mg PO Q4-6H PRN pain #10 tabs 05/16/23 tablet Allergies Allergy/AdvReac Type Severity Reaction Status Date / Time No Known Allergies Allergy Verified 05/15/23 23:26 Review of Systems Review of Systems Yes all other systems are reviewed and are negative [facility] Past Medical History [facility] Narrative: Social history: She denies tobacco, alcohol and drug use. Medical History Anxiety Depression History of kidney stones Left groin mass Migraines Panic attacks Vitamin B 12 deficiency Vulvar mass Surgical History History of bilateral tubal ligation History of endometrial ablation History of endoscopy Hx laparoscopic cholecystectomy Hx of lithotripsy S/P laparoscopic sleeve gastrectomy S/P panniculectomy Family History Family History Mother Alzheimer disease Dementia Father Diabetes mellitus Hypertension Sister Cancer Sister No problems noted. Brother No problems noted. Brother No problems noted. Son No problems noted. Daughter No problems noted. 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 Sexual orientation: Straight/Heterosexual Gender identity: Female Physical Exam ED Vital Signs: Vital Signs - 24 hr 05/15/23 23:27 05/16/23 01:27 05/16/23 04:00 Temperature 97.8 F Pulse Rate 79 84 79 Respiratory Rate 17 18 18 Blood Pressure 120/76 131/81 128/80 Pulse Oximetry 99 96 96 Oxygen Delivery Method Room Air Room Air 05/16/23 05:18 05/16/23 06:00 Temperature Pulse Rate 88 89 Respiratory Rate 18 18 Blood Pressure 138/88 129/79 Pulse Oximetry 99 97 Oxygen Delivery Method BMI result Body Mass Index 28.6 Const Other: Awake, alert, female patient, pleasant, cooperative in no distress, answers all questions appropriately HENMT Head: Yes normal to inspection, Yes normocephalic and Yes atraumatic Ears: external ears normal General nose exam: Normal external nose present Face and sinus: Yes normal facial exam Mouth: Normal oral and palatal mucosa present Throat: Yes posterior oropharynx normal Eyes General: appearance normal, both eyes and all related structures Pupils: Equal, round and reactive pupils present Neck Neck: Yes normal visual inspection, Yes no lymphadenopathy, Yes trachea midline and Yes supple Chest Chest palpation & inspection: normal inspection of the chest and normal palpation of entire chest wall Resp Effort & Inspection: normal respiratory effort and able to speak in complete sentences Auscultation: clear to auscultation bilaterally Cardio Rate: regular rate Rhythm: regular rhythm Heart sounds: S1 normal heart sound present, S2 normal heart sound present and n o murmurs GI Other: Patient's abdomen is soft, nondistended she has normoactive bowel sounds, she has diffuse abdominal tenderness with increased tenderness in the lower abdomen, she has bilateral CVA tenderness General: Yes no CVA tenderness Back/Spine/Pelvis Back: no CVA tenderness Skin General skin exam: no rashes or lesions noted Neuro Cranial nerves: Yes CN's II-XII intact bilaterally and Yes Equal, round and reactive pupils present Cognition (Neuro): normal cognition Motor exam (neuro): 5/5 motor strength present throughout Extrem General: Yes normal to inspection Psych Appearance: grossly normal Speech and movement: Normal speech and movement present Affect: normal affect Attitude: cooperative Thought process: Normal thought process present Thought content: Normal thought content present Medical Decision Making Medical Decision Making MDM Narrative: 37-year-old female who presents emergency department for evaluation of abdominal pain and bilateral flank pain x3 days associated with chills, nausea, vomiting with no change in her bowel movements, no frequency, urgency or dysuria. Patient states that she gets this type of pain recurrent leave every month, she has been seen at least 2 times here in the emergency department recently with negative workups including negative CT scans of the abdomen pelvis. Patient's vital signs were normal. Patient did have bilateral CVA tenderness as well as diffuse abdominal tenderness with bilateral CVA tenderness. I ordered the following evaluation: CBC, CMP, lipase, quantitative beta-hCG and urinalysis. Patient's pain is treated with Toradol 15 mg IV, morphine 4 mg IV and Zofran 4 mg IV. She was also ordered to get normal saline x1 L. 0635: Patient's laboratory evaluation was unremarkable. The patient's pain did improve with the above treatment, she required a 2nd dose of morphine 4 mg IV. She states she is feeling better at this time and does want to go home. Patient cannot take NSAIDs on a regular basis secondary to gastric sleeve surgery. She was advised to take Tylenol and for pain not relieved by Tylenol she was prescribed morphine 15 mg every 4-6 hours as needed for pain. She st ates she has Zofran ODT at home. Patient was given a work note and discharged home with verbal and printed instructions. Differential Diagnosis Differential Diagnoses: The differential diagnosis associated with the presentation includes Differential diagnosis includes but is not limited to gastritis, esophagitis, pancreatitis, bowel obstruction Admission/Observation Consideration of admission/observation: Escalation of care including admission/observation considered Lab Data MDM Lab Attestation statement: I reviewed the patient's lab results. My interpretation patient's laboratory evaluation is as follows: CBC was normal bicarb low 21 glucose elevated 125. Lipase was negative . The quantitative beta-hCG was negative. Urinalysis: 2+ leukocyte esterase, negative nitrates. Microscopic 25-50 WBCs, 1+ bacteria, 6-10 squamous cells-this is a non clean catch specimen and the patient has no urinary symptoms. 05/15/23 23:38 05/15/23 23:38 Labs: Lab Results 05/15/23 05/15/23 05/15/23 Range/Units 23:38 23:38 23:38 WBC 8.6 (4.8-10.8) X10*3/uL RBC 4.95 (4.20-5.50) X10*6/uL Hgb 13.0 (12.0-16.0) g/dl Hct 41.6 (37.0-47.0) % MCV 84.0 (80.0-98.0) fL MCH 26.3 L (27.0-33.0) pg MCHC 31.3 (31.0-35.0) g/dl RDW 14.0 (11.0-16.0) % Plt Count 264 (160-400) X10*3/uL MPV 10.4 (9.4-12.3) fL Immature Gran % (Auto) 0.4 (0.0-0.4) % Neut % (Auto) 57.6 (45-73) % Lymph % (Auto) 31.8 (20-40) % Miller % (Auto) 8.5 (2-11) % Eos % (Auto) 1.2 (0-4) % Baso % (Auto) 0.5 (0-2) % Lymph # (Auto) 2.7 (1.2-4.9) X10*3/uL Miller # (Auto) 0.7 (0.1-1.2) X10*3/uL Eos # (Auto) 0.1 (0.0-0.4) X10*3/uL Baso # (Auto) 0.0 (0.0-0.2) X10*3/uL Abs Immat Gran (auto) 0.03 (0.00-0.03) X10*3/uL Absolute Neuts (auto) 4.9 (2.0-8.3) x10*3/uL Absolute Nucleated RBC 0.000 (0.0-0.012) X10*3/uL Nucleated RBC % (auto) 0.0 (0.0-0.2) /100WBC Sodium 139 (135-145) mmol/L Potassium 4.1 (3.3-5.1) mmol/L Chloride 108 (96-108) mmol/L Carbon Dioxide 21 L (22-29) mmol/L Anion Gap 14 (12-20) BUN 12 (9-16) mg/dL Creatinine 0.84 (0.5-1.4) mg/dL Estim Creat Clear Calc 98.9 Estimated GFR > 60 Random Glucose 125 H (60-115) mg/dL Calcium 9.0 (8.4-10.2) mg/dL Total Bilirubin 0.3 (0.0-1.0) mg/dL Direct Bilirubin 0.1 (0.0-0.5) mg/dL AST 15 (5-31) U/L ALT 16 (0-31) U/L Alkaline Phosphatase 54 (39-117) U/L Total Protein 6.8 (6.5-8.0) g/dL Albumin 3.8 (3.5-5.0) g/dL Lipase 31 (8-78) U/L Beta HCG, Quant < 2 mIU/mL Urine Color Urine Appearance Urine pH (5.0-9.0) Ur Specific [place] (1.005-1.025) Urine Protein (Neg-Trace) mg/dL Urine Glucose (UA) (Negative) mg/dL Urine Ketones (Negative) mg/dL Urine Blood (Negative) Urine Nitrite (Negative) Ur Leukocyte Esterase (Negative) Urine RBC (0-2) /HPF Urine WBC (0-5) /HPF Ur Squamous Epith Cells (0-2) /HPF Urine Bacteria (None Seen) Hyaline Casts (0-2) /LPF 05/16/23 Range/Units 01:36 WBC (4.8-10.8) X10*3/uL RBC (4.20-5.50) X10*6/uL Hgb (12.0-16.0) g/dl Hct (37.0-47.0) % MCV (80.0-98.0) fL MCH (27.0-33.0) pg MCHC (31.0-35.0) g/dl RDW (11.0-16.0) % Plt Count (160-400) X10*3/uL MPV (9.4-12.3) fL Immature Gran % (Auto) (0.0-0.4) % Neut % (Auto) (45-73) % Lymph % (Auto) (20-40) % Miller % (Auto) (2-11) % Eos % (Auto) (0-4) % Baso % (Auto) (0-2) % Lymph # (Auto) (1.2-4.9) X10*3/uL Miller # (Auto) (0.1-1.2) X10*3/uL Eos # (Auto) (0.0-0.4) X10*3/uL Baso # (Auto) (0.0-0.2) X10*3/uL Abs Immat Gran (auto) (0.00-0.03) X10*3/uL Absolute Neuts (auto) (2.0-8.3) x10*3/uL Absolute Nucleated RBC (0.0-0.012) X10*3/uL Nucleated RBC % (auto) (0.0-0.2) /100WBC Sodium (135-145) mmol/L Potassium (3.3-5.1) mmol/L Chloride (96-108) mmol/L Carbon Dioxide (22-29) mmol/L Anion Gap (12-20) BUN (9-16) mg/dL Creatinine (0.5-1.4) mg/dL Estim Creat Clear Calc Estimated GFR Random Glucose (60-115) mg/dL Calcium (8.4-10.2) mg/dL Total Bilirubin (0.0-1.0) mg/dL Direct Bilirubin (0.0-0.5) mg/dL AST (5-31) U/L ALT (0-31) U/L Alkaline Phosphatase (39-117) U/L Total Protein (6.5-8.0) g/dL Albumin (3.5-5.0) g/dL Lipase (8-78) U/L Beta HCG, Quant mIU/mL Urine Color Yellow Urine Appearance Clear Urine pH 5.5 (5.0-9.0) Ur Specific [place] >= 1.030 H (1.005-1.025) Urine Protein Negative (Neg-Trace) mg/dL Urine Glucose (UA) Negative (Negative) mg/dL Urine Ketones Negative (Negative) mg/dL Urine Blood Negative (Negative) Urine Nitrite Negative (Negative) Ur Leukocyte Esterase Moderate (2+) H (Negative) Urine RBC 0-2 (0-2) /HPF Urine WBC 21-50 H (0-5) /HPF Ur Squamous Epith Cells 6-10 (0-2) /HPF Urine Bacteria 1+ (None Seen) Hyaline Casts 0-2 (0-2) /LPF Prescription Management I considered prescription management with: Pain Medication Chronic Conditions Patient?s care impacted by: Other (Gastritis) Medications Administered Discontinued Medications Generic Name Dose Route Start Last Admin Trade Name Freq PRN Reason Stop Dose Admin Sodium Chloride 1,000 mls @ 999 mls/hr 05/16/23 03:05 05/16/23 04:27 Ns IV 05/16/23 04:05 Infused .Q1H1M STA Infusion Ketorolac Tromethamine 15 mg 05/16/23 03:05 05/16/23 03:17 Ketorolac Tromethamine 15 Mg/Ml Vial IVPUSH 05/16/23 03:06 15 mg ONCE STA Administration Morphine Sulfate 4 mg 05/16/23 03:05 05/16/23 03:17 Morphine Sulfate 4 Mg/Ml Cartridge IVPUSH 05/16/23 03:06 4 mg ONCE STA Administration Protocol Morphine Sulfate 4 mg 05/16/23 05:05 05/16/23 05:16 Morphine Sulfate 4 Mg/Ml Cartridge IVPUSH 05/16/23 05:06 4 mg ONCE STA Administration Protocol Ondansetron HCl 4 mg 05/16/23 03:05 05/16/23 03:17 Ondansetron Hcl 4 Mg/2 Ml Vial IVPUSH 05/16/23 03:06 4 mg ONCE ONE Administration Discharge Plan Discharge Clinical Impression: Abdominal pain Qualifiers: Abdominal location: lower abdomen, unspecified Qualified Code(s): R10.30 - Lower abdominal pain, unspecified Vomiting Qualifiers: Vomiting type: unspecified Nausea presence: with nausea Qualified Code(s): R11.2 - Nausea with vomiting, unspecified Patient Disposition: Home, Self-Care Instructions: Abdominal Pain (ED) Additional Instructions: Your laboratory evaluation was unremarkable. Continue taking medications as prescribed by your provider. Take Tylenol (acetaminophen) 2 pills every 4-6 hours as needed for pain. For pain not relieved by Tylenol take morphine 15 mg pills, 1 pill every 4 hours as needed for pain. This medication will make you sleepy, do not drive or work while taking this medication. Morphine is a narcotic medication and can be addicting. If you are concerned about addiction you can ask the pharmacist for less pills or do not get this prescription filled. Taking Zofran as prescribed. Follow-up with your doctor in 2 days. Please return to the emergency department if your symptoms get worse or if you develop any symptoms that are concerning to you. Please see work note Prescriptions: New morphine 15 mg tablet 15 mg PO Q4-6H PRN (Reason: pain) Qty: 10 0RF Rx Instructions: The patient may ask for partial fill; Partial Fill upon patient request. No Action diclofenac sodium 1 % gel 4 g topical QID Qty: 100 3RF lithium carbonate 450 mg tablet extended release 2 tab PO BEDTIME buspirone 15 mg tablet 1 tab PO BEDTIME pantoprazole [Protonix] 40 mg tablet,delayed release (DR/EC) 40 mg PO DAILY Qty: 14 0RF ondansetron 4 mg tablet,disintegrating 4 mg PO TID PRN (Reason: nausea and vomiting) 5 Days Qty: 10 0RF acetaminophen 500 mg tablet 1,000 mg PO QID PRN (Reason: pain) Qty: 30 0RF bupropion HCl 300 mg tablet extended release 24 hr 300 mg PO DAILY Stand Alone Forms: Work/School Release
[2023-05-16] MEDS: ondansetron HCL 4 MG/2 ML VIAL IVPUSH (03:17)
[2023-05-16] MEDS: Morphine Sulfate 4 MG/ML CARTRIDGE IVPUSH ×2 (03:17→05:16)
[2023-05-16] MEDS: Ketorolac Tromethamine 15 MG/ML VIAL IVPUSH (03:17)
[2023-05-16] MEDS: 0.9 % Sodium Chloride 1,000 ML 999 ML IV (03:21)
[2023-05-16 04:00] VITALS: BP 128/80; PULSE 79; RESP 18; O2SAT 96
[2023-05-16 05:18] VITALS: BP 138/88; PULSE 88; RESP 18; O2SAT 99
[2023-05-16 06:00] VITALS: BP 129/79; PULSE 89; RESP 18; O2SAT 97
== END 2023-05-16 06:47 | disposition home or self-care (01) ==
PROVIDERS: Emergency Provider Emergency Medicine Emergency Medical Services
DX: R10.30 Lower abdominal pain, unspecified (principal); R11.2 Nausea with vomiting, unspecified; R06.02 Shortness of breath; F12.90 Cannabis use, unspecified, uncomplicated; Z79.899 Other long term (current) drug therapy
CPT/HCPCS: 36415; 80048; 80076; 81001; 83690; 84702; 85025; 87086; 87147; 96361; 96374; 96375; 96376; 99285; J1885; J2270; J2405

== ENCOUNTER 2023-07-06 12:09 | Emergency (ER) | payer OTHER, SELFPAY ==
--- NOTE | 2023-07-06 12:14 | ED_ITS ---
HPI - General Adult General Chief complaint: Headache Stated complaint: migraine Time Seen by Provider: 07/06/23 14:04 Source: patient Mode of arrival: ambulatory Limitations: no limitations History of Present Illness HPI narrative: 37 yo female with history of migraine headaches, anemia, obesity s/p sleeve gastrectomy who presents to the ER for evaluation of 3 days. she reports the pain goes across her forehead, the top of her head and now behind the left eye. no vision changes but she reports pain with light and sound. she took OTC headache medications with no relief. she also reports 2 episodes of nonbloody watery diarrhea today. no N/V or abdominal pain. no fever, chills or URI symptoms. she has history of similar headaches requiring ER visits and reports good effect w/ imitrex. she follows w/ neurology here for her migraines. MD complaint: migraine Onset (ago): day(s) (3) Location: head and eyes Severity: severe Quality: stabbing Pain Consistency: constant Relieving factors: none Exacerbating factors: other (light and noise) Associated symptoms: nausea/vomiting Treatments prior to arrival: none Related Data Home Medications Medication Instructions Recorded Confirmed buspirone 15 mg tablet 1 tab PO BEDTIME 12/11/21 06/06/23 lithium carbonate 450 mg 2 tab PO BEDTIME 12/11/21 06/06/23 tablet,extended release bupropion HCl 300 mg 24 hr tablet, 300 mg PO DAILY 02/08/23 06/06/23 extended release Previous Rx's Medication Instructions Recorded acetaminophen 500 mg tablet 1,000 mg (2 x 500 mg) PO QID PRN 09/23/22 pain #30 tabs ondansetron 4 mg disintegrating 4 mg PO TID PRN nausea and 03/28/23 tablet vomiting 5 days #10 tabs pantoprazole 40 mg tablet,delayed 40 mg PO DAILY #14 tabs 03/28/23 release (Protonix) diclofenac sodium 1 % topical gel 4 g topical QID for pain #100 grams 04/13/23 morphine 15 mg immediate release 15 mg PO Q4-6H PRN pain #10 tabs 05/16/23 tablet cyanocobalamin (vitamin B-12) 1,000 mcg IM QMONTH #3 mL 06/21/23 1,000 mcg/mL injection solution Allergies Allergy/AdvReac Type Severity Reaction Status Date / Time No Known Allergies Allergy Verified 07/06/23 12:14 Review of Systems 2 Review of Systems: Yes all other systems are reviewed and are negative [facility] Past Medical History Medical History Anxiety Depression History of kidney stones Left groin mass Migraines Panic attacks Vitamin B 12 deficiency Vulvar mass Surgical History History of bilateral tubal ligation History of endometrial ablation History of endoscopy Hx laparoscopic cholecystectomy Hx of lithotripsy S/P laparoscopic sleeve gastrectomy S/P panniculectomy Family History Family History Mother Alzheimer disease Dementia Father Diabetes mellitus Hypertension Sister Cancer Sister No problems noted. Brother No problems noted. Brother No problems noted. Son No problems noted. Daughter No problems noted. 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 Oriented X3. No acute distress. Head: normocephalic, atraumatic. Eyes: Pupils equal, round and reactive to light. ENT: Pharynx normal. No tonsillar swelling or exudate. Neck: Normal inspection. Neck supple. CVS: Normal heart rate and rhythm. Pulses normal. Respiratory: No respiratory distress. Breath sounds normal. Abdomen: Soft and nontender. +BS x4 Skin: Skin warm and dry. Normal skin color. Normal skin turgor. No rashes. Extremities: No lower extremity edema. No joint swelling. Neuro/psych: Oriented X 3. No motor deficit. No sensory deficit. CN II-XII intact. Normal speech and cognition. Course Course Course Narrative: This is a rapid medical exam: Additional HPI, ROS, PE not included below will be deferred to primary provider. Patient is a 37-year-old female presenting to the emergency department with complaint of migraine for 3 days as well as diarrhea. States does not typically have diarrhea with migraines. Denies abdominal pain. Reports Imitrex has worked well in the past. Neurologist was supposed to prescribe Imitrex, but patient states pharmacy was unable to find the prescripion and neuro office is not answering the phone. Plan: basic labs Medications Administered Discontinued Medications Generic Name Dose Route Start Last Admin Trade Name Freq PRN Reason Stop Dose Admin Ketorolac Tromethamine 30 mg 07/06/23 14:14 07/06/23 14:35 Ketorolac Tromethamine 30 Mg/Ml Vial IM 07/06/23 14:15 30 mg ONCE ONE Administration Sumatriptan Succinate 6 mg 07/06/23 14:05 07/06/23 14:33 Sumatriptan Succinate 6 Mg/0.5 Ml Vial SUBCUT 07/06/23 14:06 6 mg ONCE ONE Administration Medical Decision Making Medical Decision Making [facility] Narrative: 37 yo female presenting with a migraine headache x3 days. no improvement with tylenol and motrin OTC. neurologically intact. abd exam is benign. lab work up is unremarkable. given IM toradol and SC imitrex with complete resolution of her migraine stable for d/c home Differential Diagnosis Differential Diagnoses: The differential diagnosis associated with the presentation includes migraine headache, tension headache, cluster headache, viral syndrome, no evidence of meningitis Lab Data [facility] Lab Attestation statement: I reviewed the patient's lab results. no leukocytosis, normal LFTs 07/06/23 12:44 07/06/23 12:44 Labs: Lab Results 07/06/23 07/06/23 Range/Units 12:44 12:47 WBC 5.9 (4.8-10.8) X10*3/uL RBC 4.97 (4.20-5.50) X10*6/uL Hgb 13.3 (12.0-16.0) g/dl Hct 42.9 (37.0-47.0) % MCV 86.3 (80.0-98.0) fL MCH 26.8 L (27.0-33.0) pg MCHC 31.0 (31.0-35.0) g/dl RDW 13.5 (11.0-16.0) % Plt Count 268 (160-400) X10*3/uL MPV 11.4 (9.4-12.3) fL Immature Gran % (Auto) 0.2 (0.0-0.4) % Neut % (Auto) 61.1 (45-73) % Lymph % (Auto) 28.6 (20-40) % [place] % (Auto) 8.2 (2-11) % Eos % (Auto) 1.4 (0-4) % Baso % (Auto) 0.5 (0-2) % Lymph # (Auto) 1.7 (1.2-4.9) X10*3/uL [place] # (Auto) 0.5 (0.1-1.2) X10*3/uL Eos # (Auto) 0.1 (0.0-0.4) X10*3/uL Baso # (Auto) 0.0 (0.0-0.2) X10*3/uL Abs Immat Gran (auto) 0.01 (0.00-0.03) X10*3/uL Absolute Neuts (auto) 3.6 (2.0-8.3) x10*3/uL Absolute Nucleated RBC 0.000 (0.0-0.012) X10*3/uL Nucleated RBC % (auto) 0.0 (0.0-0.2) /100WBC Sodium 141 (135-145) mmol/L Potassium 3.8 (3.3-5.1) mmol/L Chloride 111 H (96-108) mmol/L Carbon Dioxide 25 (22-29) mmol/L Anion Gap 9 L (12-20) BUN 9 (9-16) mg/dL Creatinine 0.79 (0.5-1.4) mg/dL Estim Creat Clear Calc 105.5 Estimated GFR > 60 Random Glucose 108 (60-115) mg/dL Calcium 9.2 (8.4-10.2) mg/dL Magnesium 2.1 (1.6-2.6) mg/dL Total Bilirubin 0.3 (0.0-1.0) mg/dL AST 13 (5-31) U/L ALT 10 (0-31) U/L Alkaline Phosphatase 54 (39-117) U/L Total Protein 7.0 (6.5-8.0) g/dL Albumin 3.9 (3.5-5.0) g/dL Urine Color Yellow Urine Appearance Clear Urine pH 6.0 (5.0-9.0) Ur Specific [place] 1.015 (1.005-1.025) Urine Protein Negative (Neg-Trace) mg/dL Urine Glucose (UA) Negative (Negative) mg/dL Urine Ketones Negative (Negative) mg/dL Urine Blood Negative (Negative) Urine Nitrite Negative (Negative) Ur Leukocyte Esterase Trace H (Negative) Urine RBC 0-2 (0-2) /HPF Urine WBC 0-5 (0-5) /HPF Ur Squamous Epith Cells 11-20 (0-2) /HPF Urine Bacteria Trace (None Seen) Hyaline Casts 0-2 (0-2) /LPF Independent Historian Clinical information obtained from an independent historian. History obtained from or confirmed by: Spouse External Record Review External record reviewed: Outpatient record, Prior outpatient labs and Prior outpatient radiology Tests considered The following testing was considered but not selected: considered CT scan of her head - had a normal CT in december 2020 Prescription Management I considered prescription management with: Pain Medication and Other (imitrex) Chronic Conditions Patient?s care impacted by: Other (migraines) Critical Care Time Critical Care Time Critical Care Time: No Discharge Plan Discharge Clinical Impression: Migraine Qualifiers: Migraine type: unspecified Status migrainosus presence: without status migrainosus Intractability: not intractable Qualified Code(s): G43.909 - Migraine, unspecified, not intractable, without status migrainosus Patient Disposition: Home, Self-Care Instructions: Migraine Headache (ED) Additional Instructions: Your lab workup today and your urine test today were unremarkable. Rest and drink plenty of fluids. Recommend [id number] Excedrin migraine if your headache returns. Follow-up with Neurology. Follow-up with primary care doctor. If you develop new or worsening symptoms call 911 or come back to the ER for further evaluation. Prescriptions: No Action diclofenac sodium 1 % gel 4 g topical QID Qty: 100 3RF cyanocobalamin (vitamin B-12) 1,000 mcg/mL Solution 1,000 mcg IM QMONTH Qty: 3 4RF lithium carbonate 450 mg tablet extended release 2 tab PO BEDTIME buspirone 15 mg tablet 1 tab PO BEDTIME pantoprazole [Protonix] 40 mg tablet,delayed release (DR/EC) 40 mg PO DAILY Qty: 14 0RF ondansetron 4 mg tablet,disintegrating 4 mg PO TID PRN (Reason: nausea and vomiting) 5 Days Qty: 10 0RF morphine 15 mg tablet 15 mg PO Q4-6H PRN (Reason: pain) Qty: 10 0RF Rx Instructions: The patient may ask for partial fill; Partial Fill upon patient request. acetaminophen 500 mg tablet 1,000 mg PO QID PRN (Reason: pain) Qty: 30 0RF bupropion HCl 300 mg tablet extended release 24 hr 300 mg PO DAILY
[2023-07-06 12:15] VITALS: BP 112/68; PULSE 86; RESP 19; TEMP 36.6; O2SAT 98; BMI 28.7
[2023-07-06 12:58] LABS: MANUAL DIFF FLAG NO
[2023-07-06 13:01] LABS: Appearance Urine Clear; Color Urine Yellow; Glucose Urine UA Negative (Negative); Leukocyte Esterase Urine Trace (Negative); Nitrite Urine Negative (Negative); Specific Gravity - Urine 1.015 (1.005-1.025); UMIC TRIGGER UACC YES; Urine Blood Negative (Negative); Urine Ketones Negative (Negative); Urine Protein Negative (Neg-Trace)
[2023-07-06 13:02] LABS: Basophils Percent Auto 0.5 % (0-2); Eosinophils Absolute Auto 0.1 X10*3/uL (0.0-0.4); Eosinophils Percent Auto 1.4 % (0-4); Hematocrit 42.9 % (37.0-47.0); Hemoglobin 13.3 g/dl (12.0-16.0); Imm Gran Abs Auto 0.01 X10*3/uL (0.00-0.03); Imm Gran Pct Auto 0.2 % (0.0-0.4); Lymphocytes Absolute Auto 1.7 X10*3/uL (1.2-4.9); Lymphocytes Percent Auto 28.6 % (20-40); Mean Corpuscular Hemoglobin 26.8 pg (27.0-33.0); Mean Corpuscular Volume 86.3 fL (80.0-98.0); Mean Platelet Volume 11.4 fL (9.4-12.3); Monocytes Absolute Auto 0.5 X10*3/uL (0.1-1.2); Monocytes Percent Auto 8.2 % (2-11); Neutrophils Absolute Auto 3.6 x10*3/uL (2.0-8.3); Neutrophils Percent Auto 61.1 % (45-73); Platelet Count 268 X10*3/uL (160-400); Red Blood Count 4.97 X10*6/uL (4.20-5.50); Red Cell Distribution Width 13.5 % (11.0-16.0); White Blood Count 5.9 X10*3/uL (4.8-10.8)
[2023-07-06 13:06] LABS: Bacteria Urine Trace (None Seen); Hyaline Casts Urine 0-2 /LPF (0-2); RBC Urine 0-2 /HPF (0-2); WBC Urine 0-5 /HPF (0-5)
[2023-07-06 13:36] LABS: Alanine Aminotransferase 10 U/L (0-31); Albumin Level 3.9 g/dL (3.5-5.0); Alkaline Phosphatase 54 U/L (39-117); Anion Gap 9 (12-20); Aspartate Amino Transferase 13 U/L (5-31); Bilirubin Total 0.3 mg/dL (0.0-1.0); Blood Urea Nitrogen 9 mg/dL (9-16); Calcium 9.2 mg/dL (8.4-10.2); Carbon Dioxide 25 mmol/L (22-29); Chloride 111 mmol/L (96-108); Creatinine Clr Calc Pharmacy 105.5; Estimated Glomerular Filt Rate > 60; Glucose Random 108 mg/dL (60-115); Magnesium 2.1 mg/dL (1.6-2.6); Potassium 3.8 mmol/L (3.3-5.1); Sodium 141 mmol/L (135-145)
[2023-07-06] MEDS: SUMAtriptan succinate 6 MG/0.5 ML VIAL SUBCUT (14:33)
[2023-07-06] MEDS: Ketorolac Tromethamine 30 MG/ML VIAL IM (14:35)
[2023-07-06 15:34] VITALS: BP 126/65; PULSE 92; RESP 16; TEMP 36.8; O2SAT 98
== END 2023-07-06 15:41 | disposition home or self-care (01) ==
PROVIDERS: Registered Nurse Emergency; Emergency Provider Emergency Medicine
DX: G43.909 Migraine, unspecified, not intractable, without status migrainosus (principal); Z79.899 Other long term (current) drug therapy
CPT/HCPCS: 36415; 80053; 81001; 81003; 83735; 85025; 96372; 99284; J1885; J3030

== ENCOUNTER 2023-07-11 22:01 | Emergency (ER) | payer OTHER, SELFPAY ==
[2023-07-11 22:17] VITALS: BP 126/83; PULSE 83; RESP 18; TEMP 36.8; O2SAT 98; BMI 27.4
--- NOTE | 2023-07-11 23:21 | ECG_ITS ---
Test Reason : HEADACHE Blood Pressure : / mmHG Vent. Rate : 078 BPM Atrial Rate : 078 BPM P-R Int : 148 ms QRS Dur : 082 ms QT Int : 388 ms P-R-T Axes : 019 035 027 degrees QTc Int : 442 ms Normal sinus rhythm Normal ECG When compared with ECG of 28-MAR-2023 16:47, No significant change was found Referred By: Kristina Carter Electronically Signed By:TREY DIEGO
[2023-07-11 23:43] VITALS: BP 110/60; PULSE 74; RESP 16; TEMP 36.7; O2SAT 97
--- NOTE | 2023-07-11 23:43 | ED_ITS ---
HPI - Headache General Chief Complaint: Headache Stated Complaint: migraine Time Seen by Provider: 07/11/23 23:18 Source: patient and old records reviewed Mode of arrival: ambulatory Limitations: no limitations History of Present Illness HPI Narrative: 37 yo female wtih hx of GERD, s/p gastric sleeve, bipolar stable on lithium, chronic migraines followed by [facility] Neurology on rescue meds only, anemia here with c/o migraine frontal 5 days ago that got better after IM toradol and imitrex in the ED. She denies trauma or fevers no other triggers. Started again two days ago frontal typical migraine atraumatic photophobic with nausea did vomit x1 yesterday. She states she has been through this before and no meds are helping. MD elicited complaint: migraine Pertinent past history: migraines Onset (ago): day(s) (2) Onset description: gradually Location: frontal Severity: moderate Quality & Timing: throbbing, dull, steady and constant Exacerbating factors: light and noise Relieving factors: rest and dark room Context: occurred at rest Associated symptoms: nausea, vomiting and photophobia Treatments prior to arrival: acetaminophen and migraine medication Related Data Home Medications Medication Instructions Recorded Confirmed buspirone 15 mg tablet 1 tab PO BEDTIME 12/11/21 06/06/23 lithium carbonate 450 mg 2 tab PO BEDTIME 12/11/21 06/06/23 tablet,extended release bupropion HCl 300 mg 24 hr tablet, 300 mg PO DAILY 02/08/23 06/06/23 extended release Previous Rx's Medication Instructions Recorded acetaminophen 500 mg tablet 1,000 mg (2 x 500 mg) PO QID PRN 09/23/22 pain #30 tabs ondansetron 4 mg disintegrating 4 mg PO TID PRN nausea and 03/28/23 tablet vomiting 5 days #10 tabs pantoprazole 40 mg tablet,delayed 40 mg PO DAILY #14 tabs 03/28/23 release (Protonix) diclofenac sodium 1 % topical gel 4 g topical QID for pain #100 grams 04/13/23 morphine 15 mg immediate release 15 mg PO Q4-6H PRN pain #10 tabs 05/16/23 tablet cyanocobalamin (vitamin B-12) 1,000 mcg IM QMONTH #3 mL 06/21/23 1,000 mcg/mL injection solution Allergies Allergy/AdvReac Type Severity Reaction Status Date / Time No Known Allergies Allergy Verified 07/11/23 22:24 Review of Systems 2 Review of Systems: Constitutional : No Fever, No Chills, No Fatigue ENT/Mouth : No sore throat, No Rhinorrhea Eyes: pos photophobia, No Swelling, No Redness Cardiovascular : No Chest Pain, No SOB, No Dyspnea on Exertion Respiratory : No Cough, No Sputum Gastrointestinal : pos Nausea, pos Vomiting, No Diarrhea, No abdominal Pain Genitourinary : No Dysuria, No Urinary Frequency, No Hematuria, Musculoskeletal : No joint pain, No Myalgias, No Joint Swelling Skin : No Skin Lesions, No rash Neuro : No Weakness, No Numbness, No Dizziness, positive Headache Psych : No Anxiety/Panic, No Depression Heme/Lymph: No Bruising, No Bleeding,No Lymphadenopathy Endocrine : No Polyuria, No Polydipsia All other systems reviewed and are negative [facility] Past Medical History Attestation statement: The following information was validated with the patient. Source: old records reviewed Medical History Left groin mass Vulvar mass Panic attacks Anxiety Depression Vitamin B 12 deficiency History of kidney stones Migraines Surgical History History of endometrial ablation Hx of lithotripsy S/P panniculectomy History of endoscopy Hx laparoscopic cholecystectomy History of bilateral tubal ligation S/P laparoscopic sleeve gastrectomy Family History Family History Mother Alzheimer disease Dementia Father Diabetes mellitus Hypertension Sister Cancer Sister No problems noted. Brother No problems noted. Brother No problems noted. Son No problems noted. Daughter No problems noted. 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 Oriented X3. No acute distress. Eyes: Pupils equal, round and reactive to light. ENT: Pharynx normal. Neck: Normal inspection. Neck supple. no meningeal signs CVS: Normal heart rate and rhythm. Pulses normal. Respiratory: No respiratory distress. Breath sounds normal. Abdomen: Soft and non-tender. Skin: Skin warm and dry. Normal skin color. Normal skin turgor. Extremities: No lower extremity edema. Neuro: Oriented X 3. No motor deficit. No sensory deficit. Course Course Course Narrative: feels better wants to go home Medications Administered Discontinued Medications Generic Name Dose Route Start Last Admin Trade Name Freq PRN Reason Stop Dose Admin Droperidol 1.25 mg 07/11/23 23:40 07/12/23 01:07 Droperidol 5 Mg/2 Ml Vial IVPUSH 07/11/23 23:41 1.25 mg ONCE ONE Administration Sodium Chloride 1,000 mls @ 999 mls/hr 07/11/23 23:45 07/12/23 01:08 Ns IV 07/12/23 00:45 999 mls/hr .Q1H1M JAMES Administration Medical Decision Making Medical Decision Making [facility] Narrative: 37 yo female wtih hx of GERD, s/p gastric sleeve, bipolar stable on lithium, chronic migraines followed by [facility] Neurology on rescue meds only, anemia here with typical migraine no fevers, normal neuro gradual onset , atraumatic hx of same in past - doubt [facility] or [employer] infection. At this time will obtain basic labs given lithium use and nausea to assess renal function, hydrate and try droperidol for symptoms - EKG checked for qTc. Differential Diagnosis Differential Diagnoses: The differential diagnosis associated with the presentation includes tension, migraine, dehydration Admission/Observation Consideration of admission/observation: Escalation of care including admission/observation considered feels better stable for DC can go home Lab Data [facility] Lab Attestation statement: I reviewed the patient's lab results. 07/12/23 00:00 07/12/23 00:00 Labs: Lab Results 07/12/23 Range/Units 00:00 WBC 7.0 (4.8-10.8) X10*3/uL RBC 4.89 (4.20-5.50) X10*6/uL Hgb 13.2 (12.0-16.0) g/dl Hct 41.1 (37.0-47.0) % MCV 84.0 (80.0-98.0) fL MCH 27.0 (27.0-33.0) pg MCHC 32.1 (31.0-35.0) g/dl RDW 13.3 (11.0-16.0) % Plt Count 272 (160-400) X10*3/uL MPV 10.7 (9.4-12.3) fL Immature Gran % (Auto) 0.1 (0.0-0.4) % Neut % (Auto) 43.2 L (45-73) % Lymph % (Auto) 45.0 H (20-40) % [place] % (Auto) 8.9 (2-11) % Eos % (Auto) 1.9 (0-4) % Baso % (Auto) 0.9 (0-2) % Lymph # (Auto) 3.1 (1.2-4.9) X10*3/uL [place] # (Auto) 0.6 (0.1-1.2) X10*3/uL Eos # (Auto) 0.1 (0.0-0.4) X10*3/uL Baso # (Auto) 0.1 (0.0-0.2) X10*3/uL Abs Immat Gran (auto) 0.01 (0.00-0.03) X10*3/uL Absolute Neuts (auto) 3.0 (2.0-8.3) x10*3/uL Absolute Nucleated RBC 0.000 (0.0-0.012) X10*3/uL Nucleated RBC % (auto) 0.0 (0.0-0.2) /100WBC Sodium 141 (135-145) mmol/L Potassium 3.7 (3.3-5.1) mmol/L Chloride 108 (96-108) mmol/L Carbon Dioxide 22 (22-29) mmol/L Anion Gap 15 (12-20) BUN 10 (9-16) mg/dL Creatinine 0.74 (0.5-1.4) mg/dL Estim Creat Clear Calc 110.2 Estimated GFR > 60 Random Glucose 91 (60-115) mg/dL Calcium 8.9 (8.4-10.2) mg/dL Total Bilirubin 0.3 (0.0-1.0) mg/dL Direct Bilirubin 0.1 (0.0-0.5) mg/dL AST 15 (5-31) U/L ALT 8 (0-31) U/L Alkaline Phosphatase 49 (39-117) U/L Total Protein 6.7 (6.5-8.0) g/dL Albumin 3.7 (3.5-5.0) g/dL [place] < 0.10 L (0.60-1.20) mmol/L Independent Interpretation I performed an independent interpretation of an: EKG Interpretation: Rate: 78 Rhythm: NSR [place]: normal Normal P waves. Normal MARC. Normal QRS complex. ST T wave : normal no SUE qTC: normal prior studies: no acute ischemia The study has been interpreted contemporaneously by me. . Independent Historian Clinical information obtained from an independent historian. History obtained from or confirmed by: Friend External Record Review External record reviewed: Inpatient record Prescription Management I considered prescription management with: Other (has medications at home) Discharge Plan Discharge Clinical Impression: Migraine Qualifiers: Migraine type: without aura Status migrainosus presence: without status migrainosus Intractability: not intractable Qualified Code(s): G43.009 - Migraine without aura, not intractable, without status migrainosus Patient Disposition: Home, Self-Care Instructions: Migraine Headache (ED) Additional Instructions: return for worsening symptoms, fevers, headaches, confusion, numbness, weakness or any other concerns. talk to your neurologist about your symptoms if this continues Prescriptions: No Action diclofenac sodium 1 % gel 4 g topical QID Qty: 100 3RF cyanocobalamin (vitamin B-12) 1,000 mcg/mL Solution 1,000 mcg IM QMONTH Qty: 3 4RF lithium carbonate 450 mg tablet extended release 2 tab PO BEDTIME buspirone 15 mg tablet 1 tab PO BEDTIME pantoprazole [Protonix] 40 mg tablet,delayed release (DR/EC) 40 mg PO DAILY Qty: 14 0RF ondansetron 4 mg tablet,disintegrating 4 mg PO TID PRN (Reason: nausea and vomiting) 5 Days Qty: 10 0RF morphine 15 mg tablet 15 mg PO Q4-6H PRN (Reason: pain) Qty: 10 0RF Rx Instructions: The patient may ask for partial fill; Partial Fill upon patient request. acetaminophen 500 mg tablet 1,000 mg PO QID PRN (Reason: pain) Qty: 30 0RF bupropion HCl 300 mg tablet extended release 24 hr 300 mg PO DAILY
[2023-07-12 00:06] LABS: MANUAL DIFF FLAG NO
[2023-07-12 00:07] LABS: Basophils Absolute Auto 0.1 X10*3/uL (0.0-0.2); Basophils Percent Auto 0.9 % (0-2); Eosinophils Absolute Auto 0.1 X10*3/uL (0.0-0.4); Eosinophils Percent Auto 1.9 % (0-4); Hematocrit 41.1 % (37.0-47.0); Hemoglobin 13.2 g/dl (12.0-16.0); Imm Gran Abs Auto 0.01 X10*3/uL (0.00-0.03); Imm Gran Pct Auto 0.1 % (0.0-0.4); Lymphocytes Absolute Auto 3.1 X10*3/uL (1.2-4.9); Mean Corpuscular HGB Conc 32.1 g/dl (31.0-35.0); Mean Platelet Volume 10.7 fL (9.4-12.3); Monocytes Absolute Auto 0.6 X10*3/uL (0.1-1.2); Monocytes Percent Auto 8.9 % (2-11); Neutrophils Percent Auto 43.2 % (45-73); Platelet Count 272 X10*3/uL (160-400); Red Blood Count 4.89 X10*6/uL (4.20-5.50); Red Cell Distribution Width 13.3 % (11.0-16.0)
[2023-07-12 00:18] LABS: Lithium < 0.10 mmol/L (0.60-1.20)
[2023-07-12 00:22] LABS: Alanine Aminotransferase 8 U/L (0-31); Albumin Level 3.7 g/dL (3.5-5.0); Alkaline Phosphatase 49 U/L (39-117); Anion Gap 15 (12-20); Aspartate Amino Transferase 15 U/L (5-31); Bilirubin Direct 0.1 mg/dL (0.0-0.5); Bilirubin Total 0.3 mg/dL (0.0-1.0); Blood Urea Nitrogen 10 mg/dL (9-16); Calcium 8.9 mg/dL (8.4-10.2); Carbon Dioxide 22 mmol/L (22-29); Chloride 108 mmol/L (96-108); Creatinine Clr Calc Pharmacy 110.2; Estimated Glomerular Filt Rate > 60; Glucose Random 91 mg/dL (60-115); Potassium 3.7 mmol/L (3.3-5.1); Sodium 141 mmol/L (135-145); Total Protein 6.7 g/dL (6.5-8.0)
[2023-07-12] MEDS: droPERidol 5 MG/2 ML VIAL 1.25 MG IVPUSH (01:07)
[2023-07-12] MEDS: 0.9 % Sodium Chloride 1,000 ML 999 ML IV (01:08)
== END 2023-07-12 02:24 | disposition home or self-care (01) ==
PROVIDERS: Emergency Provider Emergency Medicine
DX: G43.009 Migraine without aura, not intractable, without status migrainosus (principal); D64.9 Anemia, unspecified; Z79.899 Other long term (current) drug therapy
CPT/HCPCS: 36415; 80048; 80076; 80178; 85025; 93005; 99283; 99284; J1790

== ENCOUNTER 2023-07-26 09:45 | Emergency (ER) | payer OTHER, SELFPAY ==
[2023-07-26 10:30] VITALS: BP 117/56; PULSE 66; RESP 18; TEMP 36.2; O2SAT 100; BMI 29.2
--- NOTE | 2023-07-26 17:04 | ED_ITS ---
HPI - Headache General Chief Complaint: Headache Stated Complaint: migraines Time Seen by Provider: 07/26/23 19:05 Source: patient Mode of arrival: ambulatory Limitations: no limitations History of Present Illness HPI Narrative: patient comes in the emergency room complaining of a migraine headache that has been present for 3 days. Patient states she usually gets migraines. Patient complaining of nausea, photophobia, intense headache. Denies visual changes Related Data Home Medications Medication Instructions Recorded Confirmed buspirone 15 mg tablet 1 tab PO BEDTIME 12/11/21 06/06/23 lithium carbonate 450 mg 2 tab PO BEDTIME 12/11/21 06/06/23 tablet,extended release bupropion HCl 300 mg 24 hr tablet, 300 mg PO DAILY 02/08/23 06/06/23 extended release Previous Rx's Medication Instructions Recorded acetaminophen 500 mg tablet 1,000 mg (2 x 500 mg) PO QID PRN 09/23/22 pain #30 tabs ondansetron 4 mg disintegrating 4 mg PO TID PRN nausea and 03/28/23 tablet vomiting 5 days #10 tabs pantoprazole 40 mg tablet,delayed 40 mg PO DAILY #14 tabs 03/28/23 release (Protonix) diclofenac sodium 1 % topical gel 4 g topical QID for pain #100 grams 04/13/23 morphine 15 mg immediate release 15 mg PO Q4-6H PRN pain #10 tabs 05/16/23 tablet cyanocobalamin (vitamin B-12) 1,000 mcg IM QMONTH #3 mL 06/21/23 1,000 mcg/mL injection solution syringe with needle 3 mL 22 gauge #100 ea 07/18/23 x 3/4 (Syringe 3cc/22Gx3/4 ) sumatriptan succinate 50 mg tablet 50 mg PO Q2-4H PRN migraine 07/26/23 headache #10 tabs Allergies Allergy/AdvReac Type Severity Reaction Status Date / Time No Known Allergies Allergy Verified 07/11/23 22:24 Review of Systems Review of Systems: ?Constitutional : No Weight loss, No Fever, No Chills, No Night Sweats, No Fatigue, No Malaise ENT/Mouth : No Hearing loss, No Ear Pain, No Nasal Congestion, No Sinus Pain, No Hoarseness, No sore throat, No Rhinorrhea, No Swallowing Difficulty Eyes: No Eye Pain, No Swelling, No Redness, No Foreign Body, No Discharge, No Vision Changes Cardiovascular : No Chest Pain, No SOB, No Dyspnea on Exertion, No Orthopnea, No Edema, No Palpitations Respiratory : No Cough, No Sputum, No Wheezing, No Smoke Exposure, No Dyspnea Gastrointestinal : No Nausea, No Vomiting, No Diarrhea, No Constipation, No abdominal Pain, No Hematochezia, No Melena Genitourinary : no irregular bleeding, No Dysuria, No Urinary Frequency, No Hematuria, No Urinary Incontinence, No Urgency, No Flank Pain, No Urinary Flow Changes, No Hesitancy Musculoskeletal : No joint pain, No Myalgias, No Joint Swelling Skin : No Skin Lesions, No rash Neuro : No Weakness, No Numbness, No Paresthesias, No Loss of Consciousness, No Dizziness, complaining of migraine he Psych : No Anxiety/Panic, No Depression, No SI/HI/AH/VH, No Social Issues, Heme/Lymph: No Bruising, No Bleeding,No Lymphadenopathy Endocrine : No Polyuria, No Polydipsia, No Temperature Intolerance [facility] Past Medical History Medical History Left groin mass Vulvar mass Panic attacks Anxiety Depression Vitamin B 12 deficiency History of kidney stones Migraines Surgical History History of endometrial ablation Hx of lithotripsy S/P panniculectomy History of endoscopy Hx laparoscopic cholecystectomy History of bilateral tubal ligation S/P laparoscopic sleeve gastrectomy Family History Family History Mother Alzheimer disease Dementia Father Diabetes mellitus Hypertension Sister Cancer Sister No problems noted. Brother No problems noted. Brother No problems noted. Son No problems noted. Daughter No problems noted. 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 Oriented X3.? ? seems uncomfortable Eyes: Pupils equal, round and reactive to light.? ENT: Pharynx normal.? Neck: Normal inspection.? Neck supple. No lymph nodes noted. No crepitus CVS: Normal heart rate and rhythm.? Pulses normal. Normal S1 and S2 Respiratory: No respiratory distress.? Breath sounds normal. No Wheezing. No rales? Abdomen: Soft and nontender. No rigidity. No distention.? Skin: Skin warm and dry.? Normal skin color.? Normal skin turgor.? Extremities: No lower extremity edema. No Lacerations. No Rash Neuro: Oriented X 3.? No motor deficit.? No sensory deficit. Moving all extremities. No slurred speech. CN 2 through 12 grossly intact Psych: calm, cooperative, normal affect Course Course Course Narrative: This is an RME: Additional HPI, ROS, PE not included below will be deferred to primary provider. This is a 38-year-old female, with a past medical history of migraines, presenting to the emergency department with complaints of constant migraine the last 3 days. Patient has been seen here in the emergency department for migraines in the past. Last seen July 11, 2023 for the symptoms. States that her symptoms usually resolve with Toradol and Imitrex. Patient is neurologically intact, headache is left-sided and is consistent with previous migraine she has had in the past. No fevers or chills. No chest pain or shortness breath. No recent illness. Further ER evaluation and treatment needed. Medical Decision Making Medical Decision Making MDM Narrative: - patient requesting Toradol and Imitrex, states that that is the only combination that works well for her. I discussed with patient that she has history of gastric sleeve, Toradol should not be given, not an absolute contraindication but should be avoided. Patient states that she is aware, but tries to avoid narcotics, she has had Toradol in the past multiple times for her migraine headaches, she has no side effects from the Toradol. - Patient was given a dose of IM Toradol and p.o. Imitrex and Reglan Discharge Plan Discharge Clinical Impression: Migraine Patient Disposition: Home, Self-Care Instructions: Migraine Headache (ED) Additional Instructions: ?Please follow-up with your primary care physician tomorrow.? If you have any worsening or new symptoms, please return to the emergency room or call 911 Prescriptions: New sumatriptan succinate 50 mg tablet 50 mg PO Q2-4H PRN (Reason: migraine headache) Qty: 10 0RF Rx Instructions: do not exceed 4 doses per 24 hrs No Action diclofenac sodium 1 % gel 4 g topical QID Qty: 100 3RF cyanocobalamin (vitamin B-12) 1,000 mcg/mL Solution 1,000 mcg IM QMONTH Qty: 3 4RF (DME) Syringe 3cc/22Gx3/4 3 mL 22 gauge x 3/4 Syringe Qty: 100 2RF Rx Instructions: As Directed lithium carbonate 450 mg tablet extended release 2 tab PO BEDTIME buspirone 15 mg tablet 1 tab PO BEDTIME pantoprazole [Protonix] 40 mg tablet,delayed release (DR/EC) 40 mg PO DAILY Qty: 14 0RF ondansetron 4 mg tablet,disintegrating 4 mg PO TID PRN (Reason: nausea and vomiting) 5 Days Qty: 10 0RF morphine 15 mg tablet 15 mg PO Q4-6H PRN (Reason: pain) Qty: 10 0RF Rx Instructions: The patient may ask for partial fill; Partial Fill upon patient request. acetaminophen 500 mg tablet 1,000 mg PO QID PRN (Reason: pain) Qty: 30 0RF bupropion HCl 300 mg tablet extended release 24 hr 300 mg PO DAILY
[2023-07-26 19:09] VITALS: BP 98/58; PULSE 76; RESP 19; TEMP 36.8; O2SAT 98
== END 2023-07-26 21:01 | disposition home or self-care (01) ==
PROVIDERS: Emergency Provider Emergency Medicine
DX: G43.909 Migraine, unspecified, not intractable, without status migrainosus (principal); Z79.899 Other long term (current) drug therapy
CPT/HCPCS: 96372; 99283; 99284; J1885

== ENCOUNTER 2023-09-23 11:51 | Outpatient (AMB) | payer OTHER, SELFPAY ==
[2023-09-23 11:54] VITALS: PULSE 101; RESP 12; O2SAT 98; BMI 27.6
--- NOTE | 2023-09-23 11:54 | MHC.OFFVIS ---
Intake Vital Signs 09/23/23 11:54 Height 5 ft 6 in Weight 171 lb BMI 27.6 Blood Pressure Location Lt brachial Position Sitting Respiration 12 Pulse 101 H Pulse Source Pulse Oximeter Pulse Oximetry (%) 98 Oxygen Delivery Method Room Air Intake Visit Reasons: follow up/ # not in service Allergies No Known Allergies Allergy (Verified 09/23/23 11:55) HPI follow up/ # not in service HPI Details 38-year-old female who presents today to the office for a follow-up. The patient reports 80% relief following the procedure for more than five months. She is here for repeating the same injection. She recently changed her insurance to be able to get approval for temporary nerve stimulation therapy that was previously denied by her last insurance company. Past Procedures: 03/21/23: Bilateral steroid knee injection with 40 mg of Kenalog in each knee: 80% relief for more than five months. 12/31/22: Right Knee intraarticular Durolane injection: 60% relief for four to six weeks. 12/01/2022: Left suprapatellar bursa steroid injection under ultrasound guidance: 70% relief for one day. 09/22/22: Left Diagnostic Saphenous Nerve Block at the adductor canal-100% pain relief for 12 hours. [facility] Medical History Left groin mass Vulvar mass Panic attacks Anxiety Depression Vitamin B 12 deficiency History of kidney stones Migraines Surgical History History of endometrial ablation Hx of lithotripsy S/P panniculectomy History of endoscopy Hx laparoscopic cholecystectomy History of bilateral tubal ligation S/P laparoscopic sleeve gastrectomy Family History Mother Alzheimer disease Dementia Father Diabetes mellitus Hypertension Sister Cancer Sister No problems noted. Brother No problems noted. Brother No problems noted. Son No problems noted. Daughter No problems noted. 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 Alert and oriented. Mood and affect appropriate. Follows and participates in conversation appropriately. Respiratory effort is unlabored. Able to transition from sit to stand unassisted. Ambulates with bilaterally normal heel strike and toe off. Office Procedures Joint Injection/Drain Joint Injection/Drain Details: Bilateral knee injections, landmark guided Primary Site: right knee Secondary Site: left knee Prep: site was prepped using sterile technique Injected: 40 mg of, Kenalog (on both sides) and in the joint Approach Used: anteromedial Procedure: The patient tolerated the procedure well Coding 51852 - Large joint Procedure code (CPT) selection complete Results Reviewed Results Reviewed: No imaging is available for review. Assessment & Plan Assessment & Plan (1) Bilateral anterior knee pain: Code(s): M25.561 - Pain in right knee; M25.562 - Pain in left knee Plan We will resubmit a PA for temporary nerve stimulation of the saphenous nerve on the right side. Discussed the risks and benefits of the procedure with the patient in detail. All questions were answered. The patient is on board with the plan. Justification for interventional therapy: ? Patient with average pain > 6/10 ? Patient has exhausted conservative therapy . She has previously had a diagnostic injection of the saphenous nerve with 100% relief for the diagnostic phase Patient is status post bilateral knee injections, landmark guided. Patient tolerated procedure well and was discharged home in stable condition with discharge instructions. All questions were answered. Scribed for Dr. Umana by Ganesh Yanez, ophthalmic medical technologist, on 09/23/2023. I, Dr. Umana, have personally reviewed and agree with the information entered by the scribe. Coding Level of Care Code Est Pt Level 3 (43012) Diagnoses Bilateral anterior knee pain M25.561; M25.562 CPT Codes Coding - Large joint: 24302 - Large joint ([id number])
== END 2023-09-23 12:58 | disposition home or self-care (01) ==
PROVIDERS: Visit Provider Internal Medicine
DX: M25.561 Pain in right knee (principal); M25.562 Pain in left knee
CPT/HCPCS: 20610; 99213

== ENCOUNTER → 2023-09-23 11:51 | Outpatient (BNVA) | payer OTHER, SELFPAY | PROVIDERS: Visit Provider Internal Medicine | DX: M25.561 Pain in right knee (principal); M25.562 Pain in left knee | CPT/HCPCS: 20610; 99212; J0665; J3301 ==

== ENCOUNTER 2023-10-03 13:13 | Emergency (ER) | payer OTHER, SELFPAY | END 2023-10-03 15:42 | disposition left against medical advice (07) | LOC: HO.ED 15:29 | PROVIDERS: Emergency Provider Emergency Medicine | DX: G43.909 Migraine, unspecified, not intractable, without status migrainosus (principal) ==

== ENCOUNTER 2023-11-25 08:59 | Outpatient (AMB) | payer OTHER, SELFPAY ==
--- NOTE | 2023-11-25 09:34 | A.OFFVIS_ITS ---
Intake Vital Signs 11/25/23 09:35 Height 5 ft 6 in Weight 171 lb BMI 27.6 BP 110/69 Blood Pressure Location Lt brachial Position Sitting Respiration 12 Pulse 82 Pulse Source Pulse Oximeter Pulse Oximetry (%) 98 Oxygen Delivery Method Room Air Intake Visit Reasons: rossy theraputic knee injections Allergies No Known Allergies Allergy (Verified 11/25/23 09:37) Medication List - Last Reconciled 11/25/23 by Pascale Elmore LPN acetaminophen 1,000 mg (2 x 500 mg) PO QID PRN bupropion HCl 300 mg PO DAILY buspirone 1 tab PO BEDTIME cyanocobalamin (vitamin B-12) 1,000 mcg IM QMONTH diclofenac sodium 1% 4 grams topical QID ketorolac 10 mg PO .b.i.d. PRN lithium carbonate ER 2 tabs PO BEDTIME morphine 15 mg PO Q4-6H PRN ondansetron 4 mg PO TID PRN 5 days pantoprazole (Protonix) 40 mg PO DAILY sumatriptan succinate 50 mg PO Q2-4H PRN syringe with needle (Syringe 3cc/22Gx3/4 ) As Directed HPI rossy theraputic knee injections HPI Details 38-year-old female who presents today to the office for a bilateral therapeutic knee injection. Denies any recent cough, cold, infection, fever or other significant changes in medical history since last office visit. Past Procedures: 09/23/23: Bilateral knee injections, lilian dmark guided: % relief. 03/21/23: Bilateral steroid knee injecti on with 40 mg of Kenalog in each knee: 80% relief for more than five months. 12/31/22: Right Knee intraarticular Jimmy vinnie injection: 60% relief for four to six weeks. 12/01/2022: Left suprapatellar bursa christine roid injection under ultrasound guidance: 70% relief for one day. 09/22/22: Left Diagnostic Saphenous Nerv e Block at the adductor canal-100% pain relief for 12 hours. [facility] Medical History Left groin mass Vulvar mass Panic attacks Anxiety Depression Vitamin B 12 deficiency History of kidney stones Migraines Surgical History History of endometrial ablation Hx of lithotripsy S/P panniculectomy History of endoscopy Hx laparoscopic cholecystectomy History of bilateral tubal ligation S/P laparoscopic sleeve gastrectomy Family History Mother Alzheimer disease Dementia Father Diabetes mellitus Hypertension Sister Cancer Sister No problems noted. Brother No problems noted. Brother No problems noted. Son No problems noted. Daughter No problems noted. 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 Alert and oriented. Mood and affect appropriate. Follows and participates in conversation appropriately. Respiratory effort is unlabored. Able to transition from sit to stand unassisted. Ambulates with bilaterally normal heel strike and toe off. Office Procedures Joint Injection/Drain Joint Injection/Drain Details: Bilateral knee injections, landmark guided Primary Site: right knee Secondary Site: left knee Prep: site was prepped using sterile technique Injected: 40 mg of (On each side), Kenalog and in the joint (Bilateral) Approach Used: anteromedial Procedure: The patient tolerated the procedure well Coding 71976 - Large joint (both sides, landmark guided) Procedure code (CPT) selection complete Results Reviewed Results Reviewed: No imaging is available for review. Assessment & Plan Assessment & Plan (1) Patellofemoral pain syndrome of both knees: Code(s): M22.2X1 - Patellofemoral disorders, right knee; M22.2X2 - Patellofemoral disorders, left knee Plan Patient is status post bilateral therapeutic knee injection, landmark guided. Patient tolerated procedure well and was discharged home in stable condition with discharge instructions. All questions were answered. We will follow-up in two weeks via telephone or in clinic to assess response to therapy. A follow-up appointment was made during today's visit. Scribed for Dr. Umana by Ganesh Yanez, medical superintendent, on 11/25/2023. I, Dr. Umana, have personally reviewed and agree with the information entered by the scribe. Coding Level of Care Code Procedure Only Diagnoses Patellofemoral pain syndrome of both knees M22.2X1; M22.2X2 CPT Codes Coding - 10622 Large joint: 98048 - Large joint ([id number])
[2023-11-25 09:35] VITALS: BP 110/69; PULSE 82; RESP 12; O2SAT 98; BMI 27.6
== END 2023-11-25 10:37 | disposition home or self-care (01) ==
PROVIDERS: Visit Provider Internal Medicine
DX: M22.2X2 Patellofemoral disorders, left knee (principal); M22.2X1 Patellofemoral disorders, right knee
CPT/HCPCS: 20610

== ENCOUNTER → 2023-11-25 08:59 | Outpatient (BNVA) | payer OTHER, SELFPAY | PROVIDERS: Visit Provider Internal Medicine | DX: M22.2X1 Patellofemoral disorders, right knee (principal); M22.2X2 Patellofemoral disorders, left knee | CPT/HCPCS: 20610; J2795; J3301 ==

== ENCOUNTER 2024-02-24 11:05 | Outpatient (AMB) | payer OTHER, SELFPAY ==
--- NOTE | 2024-02-24 11:16 | MHC.OFFVIS ---
Vital Signs 02/24/24 11:17 Height 5 ft 6 in Weight 171 lb BMI 27.6 BP 112/63 Blood Pressure Location Lt brachial Position Sitting Respiration 14 Pulse 96 Pulse Source Pulse Oximeter Pulse Oximetry (%) 98 Oxygen Delivery Method Room Air Intake Visit Reasons: BILATERAL THERAPEUTIC KNEE INJECTIONS Allergies No Known Allergies Allergy (Verified 02/24/24 11:18) Medication List - Last Reconciled 02/24/24 by Pascale Elmore LPN acetaminophen 1,000 mg (2 x 500 mg) PO QID PRN bupropion HCl XL 300 mg PO DAILY buspirone 1 tab PO BEDTIME cyanocobalamin (vitamin B-12) 1,000 mcg IM QMONTH diclofenac sodium 1% 4 grams topical QID ketorolac 10 mg PO .b.i.d. PRN lithium carbonate ER 2 tabs PO BEDTIME morphine 15 mg PO Q4-6H PRN ondansetron 4 mg PO TID PRN 5 days pantoprazole (Protonix) 40 mg PO DAILY sumatriptan succinate 50 mg PO Q2-4H PRN syringe with needle (Syringe 3cc/22Gx3/4 ) As Directed HPI HPI BILATERAL THERAPEUTIC KNEE INJECTIONS: Details: 38-year-old female who presents today to the office for a bilateral therapeutic knee injection. Denies any recent cough, cold, infection, fever or other significant changes in medical history since last office visit. Past Procedures: 11/25/23: Bilateral knee injections, landmark guided: % relief. 09/23/23: Bilateral knee injections, landmark guided: % relief. 03/21/23: Bilateral steroid knee injection with 40 mg of Kenalog in each knee: 80% relief for more than five months. 12/31/22: Right Knee intraarticular Durolane injection: 60% relief for four to six weeks. 12/01/2022: Left suprapatellar bursa steroid injection under ultrasound guidance: 70% relief for one day. 09/22/22: Left Diagnostic Saphenous Nerve Block at the adductor canal-100% pain relief for 12 hours. [facility] Medical History Left groin mass Vulvar mass Panic attacks Anxiety Depression Vitamin B 12 deficiency History of kidney stones Migraines Surgical History History of endometrial ablation Hx of lithotripsy S/P panniculectomy History of endoscopy Hx laparoscopic cholecystectomy History of bilateral tubal ligation S/P laparoscopic sleeve gastrectomy Family History Mother Alzheimer disease Dementia Father Diabetes mellitus Hypertension Sister Cancer Sister No problems noted. Brother No problems noted. Brother No problems noted. Son No problems noted. Daughter No problems noted. 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 Alert and oriented. Mood and affect appropriate. Follows and participates in conversation appropriately. Respiratory effort is unlabored. Able to transition from sit to stand unassisted. Ambulates with bilaterally normal heel strike and toe off. Office Procedures Joint Injection/Drain Joint Injection/Drain Details: Bilateral knee injections, landmark guided Primary Site: right knee Secondary Site: left knee Prep: site was prepped using sterile technique Injected: Kenalog (30 mg ) and in the joint (Bilateral) Approach Used: anteromedial Procedure: there was some relief with the local anesthesia Coding 10850 - Large joint (both sides, landmark guided) Procedure code (CPT) selection complete Results Reviewed Results Reviewed: No imaging is available for review. Assessment & Plan Assessment & Plan (1) Bilateral anterior knee pain: Code(s): M25.561 - Pain in right knee; M25.562 - Pain in left knee Category: Medical (2) Patellofemoral pain syndrome of both knees: Code(s): M22.2X1 - Patellofemoral disorders, right knee; M22.2X2 - Patellofemoral disorders, left knee Category: Medical Plan Patient is status post bilateral therapeutic knee injection, landmark guided. Patient tolerated procedure well and was discharged home in stable condition with discharge instructions. All questions were answered. We will follow-up in two weeks via telephone or in clinic to assess response to therapy. A follow-up appointment was made during today's visit. Scribed for Dr. Umana by Ganesh Yanez, medical technologist blood bank, on 02/24/2024. I, Dr. Umana, have personally reviewed and agree with the information entered by the scribe. Coding Level of Care Code Procedure Only Diagnoses Bilateral anterior knee pain M25.561; M25.562 Patellofemoral pain syndrome of both knees M22.2X1; M22.2X2 CPT Codes Coding - 42783 Large joint: 42448 - Large joint ([id number])
[2024-02-24 11:17] VITALS: BP 112/63; PULSE 96; RESP 14; O2SAT 98; BMI 27.6
== END 2024-02-24 12:07 | disposition home or self-care (01) ==
PROVIDERS: Visit Provider Internal Medicine
DX: M25.561 Pain in right knee (principal); M25.562 Pain in left knee
CPT/HCPCS: 20610

== ENCOUNTER → 2024-02-24 11:05 | Outpatient (BNVA) | payer OTHER, SELFPAY | PROVIDERS: Visit Provider Internal Medicine | DX: M22.2X1 Patellofemoral disorders, right knee (principal); M22.2X2 Patellofemoral disorders, left knee | CPT/HCPCS: 20610; J2795; J3301 ==

== ENCOUNTER 2024-03-01 19:36 | Emergency (ER) | payer OTHER, SELFPAY ==
[2024-03-01 19:48] VITALS: BP 118/71; PULSE 96; RESP 14; TEMP 37; O2SAT 98; BMI 26.1
--- NOTE | 2024-03-01 19:56 | ED_ITS ---
HPI - General Adult General Chief complaint: General Medical Stated complaint: bruising and redness all over body diarrhea Time Seen by Provider: 03/01/24 22:40 Source: patient, RN notes reviewed and old records reviewed Mode of arrival: ambulatory Limitations: no limitations History of Present Illness HPI narrative: 38-year-old female past medical history significant for bipolar disorder, obesity status post gastric bypass, presents for evaluation of bruising. Patient reports a history of abnormal bruising. She reports that she follows Dr. Vicente, hematology/oncology for this Patient reports in the past that she had bruising that was attributed to buspirone Patient reports after discontinuing buspirone the bruising stopped The only medication she is currently taking is Victoza Patient reports being on this for a long time and has not had any new medication changes She does not take aspirin or any blood thinners She also complains of urinary frequency and oliguria but denies burning with urination She has no other complaints or concerns at this time Patient reports that she called her primary doctor due to the bruising and was referred to the ER but she was given appointment for Tuesday Related Data Home Medications ?Medication ?Instructions ?Recorded ?Confirmed buspirone 15 mg tablet 1 tab PO BEDTIME 12/11/21 02/24/24 lithium carbonate 450 mg 2 tab PO BEDTIME 12/11/21 02/24/24 tablet,extended release bupropion HCl 300 mg 24 hr tablet, 300 mg PO DAILY 02/08/23 02/24/24 extended release Previous Rx's ?Medication ?Instructions ?Recorded acetaminophen 500 mg tablet 1,000 mg (2 x 500 mg) PO QID PRN 09/23/22 pain #30 tabs ondansetron 4 mg disintegrating 4 mg PO TID PRN nausea and 03/28/23 tablet vomiting 5 days #10 tabs pantoprazole 40 mg tablet,delayed 40 mg PO DAILY #14 tabs 03/28/23 release (Protonix) morphine 15 mg immediate release 15 mg PO Q4-6H PRN pain #10 tabs 05/16/23 tablet ketorolac 10 mg tablet 10 mg PO .b.i.d. PRN pain #10 tabs 07/26/23 sumatriptan succinate 50 mg tablet 50 mg PO Q2-4H PRN migraine 07/26/23 headache #10 tabs cyanocobalamin (vitamin B-12) 1,000 mcg IM QMONTH #3 mL 09/02/23 1,000 mcg/mL injection solution syringe with needle 3 mL 22 gauge #100 ea 09/02/23 x 3/4 (Syringe 3cc/22Gx3/4 ) diclofenac sodium 1 % topical gel 4 g topical QID for pain #100 grams 01/06/24 nitrofurantoin 100 mg PO Q12H 3 days #6 caps 03/01/24 monohydrate/macrocrystals 100 mg capsule (Macrobid) Allergies Allergy/AdvReac Type Severity Reaction Status Date / Time No Known Allergies Allergy Verified 03/01/24 19:51 Review of Systems 2 Constitutional: Constitutional: Denies body ache(s), Denies chills and Denies fever(s) Eyes: Eyes: Denies blurry vision ENT: Denies sore throat Cardiovascular: Cardiovascular: Denies chest pain and Denies dyspnea Respiratory: Respiratory: Denies cough and Denies dyspnea Gastrointestinal: Gastrointestinal: Denies abdominal pain, Denies nausea and Denies vomiting Musculoskeletal: Musculoskeletal: Denies back pain Integumentary/Breasts: Skin/Breast: Reports unusual bruising PMFSH Past Medical History Medical History Left groin mass Vulvar mass Panic attacks Anxiety Depression Vitamin B 12 deficiency History of kidney stones Migraines Surgical History History of endometrial ablation Hx of lithotripsy S/P panniculectomy History of endoscopy Hx laparoscopic cholecystectomy History of bilateral tubal ligation S/P laparoscopic sleeve gastrectomy Family History Family History Mother Alzheimer disease Dementia Father Diabetes mellitus Hypertension Sister Cancer Sister No problems noted. Brother No problems noted. Brother No problems noted. Son No problems noted. Daughter No problems noted. 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 Sexual orientation: Straight/Heterosexual Gender identity: Female Physical Exam ED Vital Signs: Vital Signs - 24 hr 03/01/24 19:48 03/01/24 21:56 Temperature 98.6 F 98.2 F Pulse Rate 96 90 Respiratory Rate 14 20 Blood Pressure 118/71 118/76 Pulse Oximetry 98 98 Oxygen Delivery Method Room Air Room Air BMI result Body Mass Index 26.1 Const General: healthy appearing, comfortable, no acute distress, alert and awake Nutritional Appearance: well nourished Orientation/consciousness: patient oriented x3 HENMT Head: Yes normocephalic and Yes atraumatic Eyes Eyelids: Yes eyelids normal Conjunctivae: conjunctivae normal Sclerae: sclerae normal Corneas: corneas normal Pupils: Equal, round and reactive pupils present EOM: EOMs intact bilaterally Neck Neck: Yes full ROM Resp Effort & Inspection: normal respiratory effort, able to speak in complete sentences and not labored GI Inspection: No distended Palpation (GI): Soft to palpation, not firm, nontender, no guarding and not rigid Skin Other: Patient has small areas of ecchymosis to the right anterior duggan, left tricep area, right tricep area and right midabdomen. No purpura or petechiae General skin exam: elasticity normal Neuro General: patient oriented x3 Cranial nerves: Yes Equal, round and reactive pupils present and Yes Bilaterally intact EOM present Cognition (Neuro): normal cognition Course Course Course Narrative: RME performed by Pascale Patrick PA-C. Patient is a 38 year old assigned female at presenting to the emergency department with full body bruising. Patient states she has bruising throughout her body with no known injury. Detailed physical exam and review of systems are deferred to the culture manager. Labs ordered. Patient placed back in the waiting room pending room availability and results. Medical Decision Making Medical Decision Making MDM Narrative: Patient presents for 4 small areas of bruising. She denies any trauma or bumping into anything. She is not on any blood thinners or antiplatelets. Her platelet count is within normal limits. She has a history of anemia but is not anemic with a current hemoglobin of 14.8 and hematocrit 44.7. There is no evidence of ITP or TTP. Patient be referred back to her primary and professional development manager Differential Diagnosis Differential Diagnoses: The differential diagnosis associated with the presentation includes Bruising ITP BTP Purpura Petechiae Lab Data MDM Lab Attestation statement: I reviewed the patient's lab results. See MDM. Notably normal platelet count. No anemia 03/01/24 20:23 03/01/24 20:23 Labs: Lab Results 03/01/24 03/01/24 Range/Units 20:23 22:04 WBC 8.9 (4.8-10.8) X10*3/uL RBC 5.27 (4.20-5.50) X10*6/uL Hgb 14.8 (12.0-16.0) g/dl Hct 44.7 (37.0-47.0) % MCV 84.8 (80.0-98.0) fL MCH 28.1 (27.0-33.0) pg MCHC 33.1 (31.0-35.0) g/dl RDW 13.1 (11.0-16.0) % Plt Count 280 (160-400) X10*3/uL MPV 10.8 (9.4-12.3) fL Immature Gran % (Auto) 0.8 H (0.0-0.4) % Neut % (Auto) 63.0 (45-73) % Lymph % (Auto) 26.9 (20-40) % Cameron % (Auto) 8.0 (2-11) % Eos % (Auto) 0.8 (0-4) % Baso % (Auto) 0.5 (0-2) % Lymph # (Auto) 2.4 (1.2-4.9) X10*3/uL Cameron # (Auto) 0.7 (0.1-1.2) X10*3/uL Eos # (Auto) 0.1 (0.0-0.4) X10*3/uL Baso # (Auto) 0.0 (0.0-0.2) X10*3/uL Abs Immat Gran (auto) 0.07 H (0.00-0.03) X10*3/uL Absolute Neuts (auto) 5.6 (2.0-8.3) x10*3/uL Absolute Nucleated RBC 0.000 (0.0-0.012) X10*3/uL Nucleated RBC % (auto) 0.0 (0.0-0.2) /100WBC Sodium 140 (135-145) mmol/L Potassium 4.0 (3.3-5.1) mmol/L Chloride 107 (96-108) mmol/L Carbon Dioxide 25 (22-29) mmol/L Anion Gap 12 (12-20) BUN 9 (9-16) mg/dL Creatinine 0.84 (0.5-1.4) mg/dL Estim Creat Clear Calc 93.9 Estimated GFR > 60 Random Glucose 108 (60-115) mg/dL Calcium 9.2 (8.4-10.2) mg/dL Total Bilirubin 0.6 (0.0-1.0) mg/dL AST 12 (5-31) U/L ALT 13 (0-31) U/L Alkaline Phosphatase 49 (39-117) U/L Total Protein 7.2 (6.5-8.0) g/dL Albumin 3.9 (3.5-5.0) g/dL Urine Color Yellow Urine Appearance Cloudy Urine pH 5.5 (5.0-9.0) Ur Specific Badger >= 1.030 H (1.005-1.025) Urine Protein Trace (Neg-Trace) mg/dL Urine Glucose (UA) Negative (Negative) mg/dL Urine Ketones Negative (Negative) mg/dL Urine Blood Trace H (Negative) Urine Nitrite Negative (Negative) Ur Leukocyte Esterase Negative (Negative) Urine RBC 0-2 (0-2) /HPF Urine WBC 0-5 (0-5) /HPF Ur Squamous Epith Cells 6-10 (0-2) /HPF Urine Bacteria 1+ (None Seen) Hyaline Casts 0-2 (0-2) /LPF Discharge Plan Discharge Clinical Impression: Abnormal bruising, UTI (urinary tract infection) Patient Disposition: Home, Self-Care Instructions: Urinary Tract Infection in Women (ED), Ecchymosis (ED) Additional Instructions: Your workup in the ER today was reassuring. You are not anemic and your platelet count is within normal limits Take the Macrobid twice daily for the next 3 days Your primary doctor as well as your professional development manager Prescriptions: New nitrofurantoin monohyd/m-cryst [Macrobid] 100 mg capsule 100 mg PO Q12H 3 Days Qty: 6 0RF Rx Instructions: must administer with a meal/food No Action diclofenac sodium 1 % gel 4 g topical QID Qty: 100 3RF cyanocobalamin (vitamin B-12) 1,000 mcg/mL Solution 1,000 mcg IM QMONTH Qty: 3 4RF (DME) Syringe 3cc/22Gx3/4 3 mL 22 gauge x 3/4 Syringe Qty: 100 2RF Rx Instructions: As Directed lithium carbonate 450 mg tablet extended release 2 tab PO BEDTIME buspirone 15 mg tablet 1 tab PO BEDTIME pantoprazole [Protonix] 40 mg tablet,delayed release (DR/EC) 40 mg PO DAILY Qty: 14 0RF ondansetron 4 mg tablet,disintegrating 4 mg PO TID PRN (Reason: nausea and vomiting) 5 Days Qty: 10 0RF morphine 15 mg tablet 15 mg PO Q4-6H PRN (Reason: pain) Qty: 10 0RF Rx Instructions: The patient may ask for partial fill; Partial Fill upon patient request. sumatriptan succinate 50 mg tablet 50 mg PO Q2-4H PRN (Reason: migraine headache) Qty: 10 0RF Rx Instructions: do not exceed 4 doses per 24 hrs ketorolac 10 mg tablet 10 mg PO .b.i.d. PRN (Reason: pain) Qty: 10 0RF Rx Instructions: do not take this medication with NSAIDs acetaminophen 500 mg tablet 1,000 mg PO QID PRN (Reason: pain) Qty: 30 0RF bupropion HCl 300 mg tablet extended release 24 hr 300 mg PO DAILY Stand Alone Forms: Work/School Release Print Language: Ecuadorean
[2024-03-01 20:27] LABS: MANUAL DIFF FLAG NO
[2024-03-01 20:40] LABS: Basophils Percent Auto 0.5 % (0-2); Eosinophils Absolute Auto 0.1 X10*3/uL (0.0-0.4); Eosinophils Percent Auto 0.8 % (0-4); Hematocrit 44.7 % (37.0-47.0); Hemoglobin 14.8 g/dl (12.0-16.0); Imm Gran Abs Auto 0.07 X10*3/uL (0.00-0.03); Imm Gran Pct Auto 0.8 % (0.0-0.4); Lymphocytes Absolute Auto 2.4 X10*3/uL (1.2-4.9); Lymphocytes Percent Auto 26.9 % (20-40); Mean Corpuscular HGB Conc 33.1 g/dl (31.0-35.0); Mean Corpuscular Hemoglobin 28.1 pg (27.0-33.0); Mean Corpuscular Volume 84.8 fL (80.0-98.0); Mean Platelet Volume 10.8 fL (9.4-12.3); Monocytes Absolute Auto 0.7 X10*3/uL (0.1-1.2); Neutrophils Absolute Auto 5.6 x10*3/uL (2.0-8.3); Platelet Count 280 X10*3/uL (160-400); Red Blood Count 5.27 X10*6/uL (4.20-5.50); Red Cell Distribution Width 13.1 % (11.0-16.0); White Blood Count 8.9 X10*3/uL (4.8-10.8)
[2024-03-01 20:44] LABS: Alanine Aminotransferase 13 U/L (0-31); Albumin Level 3.9 g/dL (3.5-5.0); Alkaline Phosphatase 49 U/L (39-117); Anion Gap 12 (12-20); Aspartate Amino Transferase 12 U/L (5-31); Bilirubin Total 0.6 mg/dL (0.0-1.0); Blood Urea Nitrogen 9 mg/dL (9-16); Calcium 9.2 mg/dL (8.4-10.2); Carbon Dioxide 25 mmol/L (22-29); Chloride 107 mmol/L (96-108); Creatinine Clr Calc Pharmacy 93.9; Estimated Glomerular Filt Rate > 60; Glucose Random 108 mg/dL (60-115); Sodium 140 mmol/L (135-145); Total Protein 7.2 g/dL (6.5-8.0)
[2024-03-01 21:56] VITALS: BP 118/76; PULSE 90; RESP 20; TEMP 36.8; O2SAT 98
[2024-03-01 22:10] LABS: Appearance Urine Cloudy; Glucose Urine UA Negative (Negative); Leukocyte Esterase Urine Negative (Negative); Nitrite Urine Negative (Negative); PH 5.5 (5.0-9.0); Specific Gravity - Urine >= 1.030 (1.005-1.025); UMIC TRIGGER UACC YES; Urine Blood Trace (Negative); Urine Ketones Negative (Negative); Urine Protein Trace mg/dL (Neg-Trace)
[2024-03-01 22:11] LABS: Color Urine Yellow
[2024-03-01 22:41] LABS: Bacteria Urine 1+ (None Seen); Hyaline Casts Urine 0-2 /LPF (0-2); RBC Urine 0-2 /HPF (0-2); WBC Urine 0-5 /HPF (0-5)
[2024-03-01 23:32] VITALS: BP 110/72; PULSE 87; RESP 16; TEMP 36.7; O2SAT 97
== END 2024-03-01 23:33 | disposition home or self-care (01) ==
PROVIDERS: Emergency Provider Internal Medicine
DX: R23.3 Spontaneous ecchymoses (principal); N39.0 Urinary tract infection, site not specified; Z79.899 Other long term (current) drug therapy; Z98.84 Bariatric surgery status
CPT/HCPCS: 36415; 80053; 81001; 85025; 99283

== ENCOUNTER 2024-03-19 08:12 | Outpatient (AMB) | payer OTHER, SELFPAY ==
[2024-03-19 08:14] VITALS: BP 106/68; PULSE 89; RESP 14; O2SAT 99; BMI 25.7
--- NOTE | 2024-03-19 08:14 | A.OFFVIS_ITS ---
Vital Signs 03/19/24 08:14 Height 5 ft 6 in Weight 159 lb BMI 25.7 BP 106/68 Blood Pressure Location Lt brachial Position Sitting Respiration 14 Pulse 89 Pulse Source Pulse Oximeter Pulse Oximetry (%) 99 Oxygen Delivery Method Room Air Intake Visit Reasons: FOLLOW UP AFTER PROCEDURE DENIAL Allergies No Known Allergies Allergy (Verified 03/20/24 10:26) Medication List - Last Reconciled 03/19/24 by Pascale Elmore LPN acetaminophen 1,000 mg (2 x 500 mg) PO QID PRN bupropion HCl XL 300 mg PO DAILY buspirone 1 tab PO BEDTIME cyanocobalamin (vitamin B-12) 1,000 mcg IM QMONTH diclofenac sodium 1% 4 grams topical QID ketorolac 10 mg PO .b.i.d. PRN lithium carbonate ER 2 tabs PO BEDTIME morphine 15 mg PO Q4-6H PRN ondansetron 4 mg PO TID PRN 5 days pantoprazole (Protonix) 40 mg PO DAILY sumatriptan succinate 50 mg PO Q2-4H PRN syringe with needle (Syringe 3cc/22Gx3/4 ) As Directed HPI HPI FOLLOW UP AFTER PROCEDURE DENIAL: Details: 38-year-old female who presents today to the office for a follow up after the denial of the procedure. The patient reports severe bilateral knee pain. She reports burning pain. She has been using Tylenol and occasional Motrin. She avoids Motrin due to GI issues. She also tried topical cream and lotion without any relief. she is interested in the other interventional option. She has tried corticosteroid in the past which provided temporary relief. Past Procedures: 02/24/24: Bilateral knee injections, landmark guided: 50% relief. 11/25/23: Bilateral knee injections, landmark guided: 50% relief. 09/23/23: Bilateral knee injections, landmark guided: 50% relief. 03/21/23: Bilateral steroid knee injection with 40 mg of Kenalog in each knee: 80% relief for more than five months. 12/31/22: Right Knee intraarticular Durolane injection: 60% relief for four to six weeks. 12/01/2022: Left suprapatellar bursa steroid injection under ultrasound guidance: 70% relief for one day. 09/22/22: Left Diagnostic Saphenous Nerve Block at the adductor canal-100% pain relief for 12 hours. PFSH Medical History Left groin mass Vulvar mass Panic attacks Anxiety Depression Vitamin B 12 deficiency History of kidney stones Migraines Surgical History History of endometrial ablation Hx of lithotripsy S/P panniculectomy History of endoscopy Hx laparoscopic cholecystectomy History of bilateral tubal ligation S/P laparoscopic sleeve gastrectomy Family History Mother Alzheimer disease Dementia Father Diabetes mellitus Hypertension Sister Cancer Sister No problems noted. Brother No problems noted. Brother No problems noted. Son No problems noted. Daughter No problems noted. 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 Alert and oriented. Mood and affect appropriate. Follows and participates in conversation appropriately. Respiratory effort is unlabored. Able to transition from sit to stand unassisted. Ambulates with bilaterally normal heel strike and toe off. Results Reviewed Results Reviewed: No imaging is available for review. Assessment & Plan Assessment & Plan (1) Bilateral anterior knee pain: Code(s): M25.561 - Pain in right knee; M25.562 - Pain in left knee Category: Medical Plan We will schedule her for a bilateral diagnostic genicular nerve block under US guidance on 03/21/2024. The patient will follow up on 03/23/2024. I counseled her that I will only undertake the genicular RFA with the caveat that she will use the time that she gets from the RFA for knee strengthening and necessary modifications to help with correction relief of her symptoms even after the therapeutic window for the genicular RFA is over. Once again, I reiterated to her that, given her age, she is not an ideal candidate for genicular RFA from a long-term efficacy standpoint; however, in the absence of other options that have either been exhausted or denied by our insurance, this is our only remaining option. I recommended doing physical therapy exercises and home exercises for knee pain. She can also try including natural anti-inflammatory ingredients like turmeric, abimael, and garlic. Discussed the risks and benefits of the procedure with the patient in detail. All questions were answered. The patient is on board with the plan. Justification for interventional therapy: ? Patient with average pain > 6/10 ? Patient has exhausted conservative therapy ? Patient continuing home exercise program ? Previous injection provided >50% relief x > 2 weeks. . Patient has a good understanding of their pain condition and has appropriate m ental and social support Scribed for Dr. Umana by Ganesh Yanez, medical office coordinator, on 03/19/2024. I, Dr. Umana, have personally reviewed and agree with the information entered by the scribe. Coding Level of Care Code Est Pt Level 4 (51953) Diagnoses Bilateral anterior knee pain M25.561; M25.562
== END 2024-03-19 08:41 | disposition home or self-care (01) ==
LOC: HO.PMC 08:12
PROVIDERS: Visit Provider Internal Medicine
DX: M25.561 Pain in right knee (principal); M25.562 Pain in left knee
CPT/HCPCS: 99214

== ENCOUNTER → 2024-03-19 08:12 | Outpatient (BNVA) | payer OTHER, SELFPAY | PROVIDERS: Visit Provider Internal Medicine | DX: M25.561 Pain in right knee (principal); M25.562 Pain in left knee | CPT/HCPCS: 99212 ==

== ENCOUNTER 2024-04-03 11:48 | Outpatient (AMB) | payer OTHER, SELFPAY ==
[2024-04-03 11:49] VITALS: BP 118/76; BMI 25.6
--- NOTE | 2024-04-03 11:49 | A.OFFVIS_ITS ---
Vital Signs 04/03/24 11:49 Height 5 ft 6 in Weight 158 lb 11.725 oz BMI 25.6 BP 118/76 Intake Visit Reasons: co test Brim Pouncer Required: No Information Interpreted: non-clinical & clinical Nuclear Medicine Specialist: Nuclear Medicine Specialist Present (Duyen ANDREW) Accompanied by: Self / Same As Patient Allergies No Known Allergies Allergy (Verified 04/03/24 11:53) Is last menstrual period known: No (Ablation) HPI Comments Details: Presenting for annual exam. No complaints. Last Pap/HPV was ascus/HPV positive in 02/06, this was followed by colpo/biopsy/ECC which showed [facility] Medical History Dysplasia of cervix, low grade (TASHA 1) Left groin mass Vulvar mass Panic attacks Anxiety Depression Vitamin B 12 deficiency History of kidney stones Migraines Surgical History History of endometrial ablation Hx of lithotripsy S/P panniculectomy History of endoscopy Hx laparoscopic cholecystectomy History of bilateral tubal ligation S/P laparoscopic sleeve gastrectomy Family History Mother Alzheimer disease Dementia Father Diabetes mellitus Hypertension Sister Cancer Sister No problems noted. Brother No problems noted. Brother No problems noted. Son No problems noted. Daughter No problems noted. 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 Sexual orientation: Straight/Heterosexual Gender identity: Female Female Reproductive History Menstrual Age of Menarche: 14 Date of last pap smear: 02/09/23 History of abnormal pap smear: Yes (Ascus, HPV +) Review of Systems Const All systems reviewed & are unremarkable except as noted in HPI and below Card Reports as per HPI Resp Reports as per HPI GI Reports as per HPI and Reports no additional complaints Reports as per HPI Physical Exam Vital Signs: Last Vital Signs BP 118/76 04/03/24 11:49 BMI result Body Mass Index 25.6 Const General: cooperative, healthy appearing and comfortable Chest Chest palpation & inspection: normal inspection of the chest and normal palpation of entire chest wall Breast/axilla inspection: normal inspection of the breasts and normal inspection of the axillae Breast/axilla palpation: normal palpation of the breasts, normal palpation of the axillae and no axillary lymphadenopathy Resp Effort & Inspection: normal respiratory effort Auscultation: clear to auscultation bilaterally Percussion: percussion normal Cardio Palpation: normal PMI Rate: regular rate Rhythm: regular rhythm Heart sounds: no murmurs and no rubs Peripheral pulses: Peripheral pulses 2+ throughout GI Inspection: Yes normal to inspection Palpation (GI): Soft to palpation, nontender, no guarding, not rigid and No hepatosplenomegaly present Percussion: Yes normal to percussion Auscultation: normal bowel sounds Rectal Exam - Female: deferred General: Yes bladder normal to palpation External Female Exam: No lesion Speculum Exam - Vagina: normal appearance of the vagina, normal palpation, normal vaginal discharge and not erythematous Speculum Exam - Cervix: normal appearance of the cervix and normal palpation Bimanual exam- vagina & uterus: normal bimanual exam, normal palpation, uterine size normal, bladder normal to palpation, consistency normal and normal palpation Bimanual Exam- Adnexa, other: normal adnexae, no masses and no tenderness Assessment & Plan Assessment & Plan (1) Well woman exam with routine gynecological exam: Code(s): Z01.419 - Encounter for gynecological examination (general) (routine) without abnormal findings Category: Medical Plan: Cotesting done. Counseled the patient about the recommended dietary allowance of 1000 mg of Calcium & 600 IU of vitamin D. The patient was instructed to perform monthly self-breast exams and to schedule an annual exam in a year; All questions answered and the patient verbalized understanding. Instructed the patient to schedule annual exam in a year (2) Dysplasia of cervix, low grade (TASHA 1): Comment: 10/06 co testing negative 02/06 ascus HPV E6/E7 positive, colpo/biopsy/ECC TASHA 1 Code(s): N87.0 - Mild cervical dysplasia Category: Medical Plan: Co testing done if negative repeat co testing in 3 years if abnormal will proceed with colposcopy/biopsy/ECC Coding Level of Care Code Est Pt Prev Care 18-39y(14672) Diagnoses Well woman exam with routine gynecological exam Z01.419 Dysplasia of cervix, low grade (TASHA 1) N87.0
== END 2024-04-03 12:07 | disposition home or self-care (01) ==
LOC: HO.HWS 11:48
PROVIDERS: Visit Provider Obstetrics & Gynecology
DX: Z01.419 Encounter for gynecological examination (general) (routine) without abnormal findings (principal); N87.0 Mild cervical dysplasia
CPT/HCPCS: 99395

== ENCOUNTER 2024-04-03 11:48 | Outpatient (REF) | payer OTHER, SELFPAY ==
[2024-04-09 20:33] LABS: HPV mRNA E6/E7 rflx Not Detected (Not Detected)
== END 2024-04-03 11:49 | disposition home or self-care (01) ==
LOC: HO.LNP 11:48
PROVIDERS: Visit Provider Obstetrics & Gynecology
DX: Z01.419 Encounter for gynecological examination (general) (routine) without abnormal findings (principal); N87.0 Mild cervical dysplasia
CPT/HCPCS: 87624; 88142; 99395

== ENCOUNTER 2024-07-25 10:17 | Outpatient (REF) | payer OTHER, SELFPAY ==
[2024-07-25 16:31] LABS: Bacterial Vaginosis PCR NEGATIVE (Negative); Candida Group PCR NOT DETECTED (Not Detect); Candida glab krusei PCR DETECTED (Not Detect); Trichomonas vaginalis PCR NOT DETECTED (Not Detect)
[2024-07-25 18:33] LABS: CT PCR NOT DETECTED (Not Detect.); NG PCR NOT DETECTED (Not Detect.)
== END 2024-07-25 10:18 | disposition home or self-care (01) ==
LOC: HO.LNP 10:17
PROVIDERS: Visit Provider Obstetrics & Gynecology
DX: R31.29 Other microscopic hematuria (principal); N93.0 Postcoital and contact bleeding; N94.10 Unspecified dyspareunia; Z32.02 Encounter for pregnancy test, result negative
CPT/HCPCS: 0352U; 81002; 81025; 87086; 87088; 87186; 87491; 87591; 99212

== ENCOUNTER 2024-07-25 10:17 | Outpatient (AMB) | payer OTHER, SELFPAY ==
--- OUTSIDE RECORDS SUMMARY | 2024-07-25 10:18 | XMS_ITS | Continuity of Care Document ---
Author Organization [facility] Address [address] [place] [address]- Care Team Providers Care Emergency Medicine Physician Name Role Phone Shanice Wilkinson NP Primary Care Physician [place] [facility] [place]23 - 11/06/[address] [address]- Allergies, Adverse Reactions, Alerts Substance Reaction Severity Status Fioricet Active Medications acetaminophen 325 mg oral tablet See Instructions, TOME DOS TABLETAS POR VIA ORAL CADA CUATRO HORAS NEEDED FOR HEADACHE WITH ZOLMITRIPTAN NASAL SPRAY, # 20 tablet, Refills 1, Maintenance, 10/04/23 6:54:00 EST, Instructions Replace Required Details, Route to Pharmacy Electronically... Start Date: 10/04/23 Status: Ordered Alcohol Wipes See Instructions, # 30 each, Refills 5, Tot. Refills 5, Maintenance, For use with Victoza, 10/24/2418:37:00 EST, Supply, 167, cm, 10/19/23 16:11:00 EST, Height, 78.5, kg, 08/30/22 13:56:00 EST, Dry Weight Start Date: 10/24/23 Status: Ordered busPIRone 15 mg oral tablet 0 Refills, Maintenance, 04/22/23 10:25:00 EDT, Partial fill upon patient request if the prescription is for a schedule II opioid drug. Start Date: 04/22/23 Status: Ordered escitalopram 10 mg oral tablet 0 Refills, Maintenance, 08/15/23 12:37:00 EDT, Partial fill upon patient request if the prescription is for a schedule II opioid drug. Start Date: 08/15/23 Status: Ordered liraglutide 18 mg/3 mL subcutaneous solution = 0.6 mg, Subcutaneous Injection, Daily, # 6 mL, 0 Refills, Maintenance, 10/21/23 8:39:00 EST, Solution, [facility] Partial fill upon patient request if the prescription is for a schedule II opioid drug., 167, cm, 10/19/23 16:11:00 ES... 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 Start Date: 09/12/23 Status: Ordered Pen Ramsay, 31 G x 5 mm BD Ultra Fine III See Instructions, # 30 each, Refills 5, Tot. Refills 5, Maintenance, For use with Victoza, 10/24/2418:35:00 EST, Supply, 167, cm, 10/19/23 16:11:00 EST, Height, 78.5, kg, 08/30/22 13:56:00 EST, Dry Weight Start Date: 10/24/23 Status: Ordered Zomig 5 mg nasal spray 1 sprays, Nares, Both, Daily, PRN for migraine headache, # 6 each, 1 Refills, Maintenance, :55:00 EST, [place], [facility]/pharmacy #[id number], Partial fill upon patient request if the prescription is for a schedule II opioid drug., 167, cm, 09/12/23 8:46... Start Date: 09/12/23 Status: Ordered Problem List Condition Confirmation Course Effective Dates Status Health St atus Informant Bipolar disorder Confirmed Active H/O bariatric surgery 1 Confirmed Active History of kidney stones 2 Confirmed Active Migraines Confirmed Active Urinary incontinence Confirmed Active 2014 2lithotrypsy in september 2015 Social History Social History Type Response Smoking Status Never smoker entered on: 06/05/18 Sex Patient Care team information Care Team Personnel Name: Shanice Wilkinson NP Position: [facility] PCO Associate Professional Member Role: PCP Address: Address: [address] [place] [address]- Care Team Related Persons Name: MCKENZIE BURGER Address: [address] [address] Name: DAVID OVERTON
--- OUTSIDE RECORDS SUMMARY | 2024-07-25 10:18 | XMS_ITS | Continuity of Care Document ---
Author Organization [facility] Address [address] [place] [address]- Care Team Providers Care It Service Delivery Manager Name Role Phone Shanice Wilkinson NP Primary Care Physician Encounter [facility] [place] Date(s): 08/05/23 - 09/04/[address] [address]- Allergies, Adverse Reactions, Alerts Substance Reaction Severity Status Fioricet Active Medications busPIRone 15 mg oral tablet 0 Refills, Maintenance, 04/22/23 10:25:00 EDT, Partial fill upon patient request if the prescription is for a schedule II opioid drug. Start Date: 04/22/23 Status: Ordered eletriptan 40 mg oral tablet 1 tablet = 40 mg, By Mouth, Daily, PRN as needed for migraine headache, may repeat dose once in 2 hours, can take with 1000mg tylenol as needed for severe headache, may repeat dose of eletriptan in 2hours if not relieved., # 6 tablet, 0 Refills, Soft... Start Date: 07/11/23 Status: Ordered escitalopram 10 mg oral tablet 0 Refills, Maintenance, 08/15/23 12:37:00 EDT, Partial fill upon patient request if the prescription is for a schedule II opioid drug. Start Date: 08/15/23 Status: Ordered lithium 300 mg oral capsule 1 capsule = 300 mg, By Mouth, 2 times a day, 0 Refills, Maintenance, 04/08/20 7:09:00 EDT, Capsule Start Date: 04/08/20 Status: Ordered SUMAtriptan 50 mg oral tablet 0 Refills, Maintenance, 08/15/23 12:38:00 EDT, Partial fill upon patient request if the prescription is for a schedule II opioid drug. Start Date: 08/15/23 Status: Ordered Problem List Condition Confirmation Course [...] Team Personnel Name: Shanice Wilkinson NP Position: [facility] PCO Associate Professional Member Role: PCP Address: Address: [address] [place] [address]- Care Team Related Persons Name: MCKENZIE BURGER Address: [address] [address] Name: DAVID OVERTON
--- OUTSIDE RECORDS SUMMARY | 2024-07-25 10:18 | XMS_ITS | Continuity of Care Document ---
Author Organization [facility] Address [address] [place] [address]- Care Team Providers Care Electric Sign Assembler Name Role Phone Shanice Wilkinson NP Primary Care Physician En[place] [facility] [place] Date(s): 09/12/23 - 10/12/[address] [address]- Allergies, Adverse Reactions, Alerts Substance Reaction Severity Status Fioricet Active Medications acetaminophen 325 mg oral tablet See Instructions, TOME DOS TABLETAS POR VIA ORAL CADA CUATRO HORAS NEEDED FOR HEADACHE WITH ZOLMITRIPTAN NASAL SPRAY, # 20 tablet, Refills 1, Maintenance, 10/04/23 6:54:00 EST, Instructions Replace Required Details, Route to Pharmacy Electronically... Start Date: 10/04/23 Status: Ordered busPIRone 15 mg oral tablet [...] EDT, Capsule Start Date: 04/08/20 Status: Ordered methocarbamol 750 mg oral tablet 2 tablet = 1,500 mg, By Mouth, Daily at bedtime, # 28 tablet, 0 Refills, Acute 10/22/23 0:00:00 EST, 10/03/23 21:39:00 EST, [id number], Partial fill upon patient request if the prescription is for a schedule II opioid drug., 167, cm, 09/12/23... 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 Start Date: 09/12/23 Status: Ordered Zomig 5 mg nasal spray 1 sprays, Nares, Both, Daily, PRN for migraine headache, # 6 each, 1 Refills, Maintenance, :55:00 EST, [place], [facility]/pharmacy #[id number], Partial fill upon patient request if the [...] Team Personnel Name: Shanice Wilkinson NP Position: [facility] PCO Associate Professional Member Role: PCP Address: Address: [address] [place] [address]- Care Team Related Persons Name: MCKENZIE BURGER Address: [address] [address] Name: DAVID OVERTON
--- OUTSIDE RECORDS SUMMARY | 2024-07-25 10:18 | XMS_ITS | Continuity of Care Document ---
Author Organization [facility] Address [address] [place] [address]- Care Team Providers Care Morning Babysitter Name Role Phone Shanice Wilkinson NP Primary Care Physician Encounter [facility] [id number] Date(s): 12/09/23 - 01/08/[address] [address]- Allergies, Adverse Reactions, Alerts Substance Reaction Severity Status Fioricet Active Medications acetaminophen 325 mg oral tablet See Instructions, TOME DOS TABLETAS CADA CUATRO HORAS CUANDO SEA NECESARIO FOR HEADACHE (WITH ZOLMITRIPTAN SPRAY), # 20 tablet, Refills 10, Tot. Refills 10, Maintenance, 12/12/23 8:34:00 EST, Instructions Replace Required Details, Route to Pharmacy El... Start Date: 12/12/23 Status: Ordered Alcohol Wipes See Instructions, # 30 each, Refills 5, Tot. Refills 5, Maintenance, For use with Victoza, 11/25/2416:02:00 EST, Supply, 167, cm, 10/19/23 16:11:00 EST, Height, 78.5, kg, 08/30/22 13:56:00 EST, Dry Weight Start Date: 11/25/23 Status: Ordered busPIRone 15 mg oral tablet [...] EDT, Capsule Start Date: 04/08/20 Status: Ordered Nexium 40 mg oral enteric coated capsule 1 capsule = 40 mg, By Mouth, Daily, # 90 capsule, 0 Refills, Maintenance, 11/29/23 11:35:00 EST, [place], [facility]/pharmacy #[id number], Partial fill upon patient request if the prescription is for a schedule II opioid drug., 167, cm, 10/19/23 16:11:00 EST, H... 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 Start Date: 09/12/23 Status: Ordered Pen Freder[place], 31 G x 5 mm BD Ultra Fine III See Instructions, # 30 each, Refills 5, Tot. Refills 5, Maintenance, For use with Victoza, 12/29/2416:01:00 EDT, Supply, 167, cm, 12/15/23 13:15:00 EST, Height, 78.5, kg, 08/30/22 13:56:00 EST, Dry Weight Start Date: 12/30/23 Status: Ordered rizatriptan 10 mg oral tablet 1 tablet = 10 mg, By Mouth, Daily, PRN Migraine Headache, may repeat dose in 2 hours if needed, do not exceed 2 doses in 24 hours, # 9 tablet, 5 Refills, Acute 12/14/24 0:00:00 EST, 12/15/23 12:50:00EST, [facility]/pharmacy #[id number], Partial fill upon patient... Start Date: 12/15/23 Stop Date: 12/14/24 Status: Ordered Ubrelvy 100 mg oral tablet 1 tablet = 100 mg, By Mouth, Daily, PRN as needed for migraine headache, may repeat dose in 2 hoursif needed, # 16 tablet, 0 Refills, Soft Stop, 12/15/23 12:51:00 EST, Tablet, [facility]/pharmacy #[id number], Partial fill upon patient request if the prescription... Start Date: 12/15/23 Status: Ordered Victoza 18 mg/3 mL subcutaneous solution = 1.8 mg, Subcutaneous Injection, Daily, # 9 mL, 0 Refills, Maintenance, 01/04/24 18:32:00 EDT, Solution, [id number], Partial fill upon patient request if the prescription is for a schedule II opioid drug., 167, cm, 12/15/23 13:15:00... Start Date: 01/04/24 Status: Ordered Problem List Condition Confirmation Course Effective Dates Status Health St atus Informant Bipolar disorder Confirmed Active H/O bariatric surgery 1 Confirmed Active History of kidney stones 2 Confirmed Active Migraines Confirmed Active Urinary incontinence Confirmed Active 1july 2015 2lithotrypsy in september 2015 Social History Social History Type Response Smoking Status Never smoker entered on: 06/05/18 Sex Patient Care team information Care Team Personnel Name: Shanice Wilkinson NP Position: [facility] PCO Associate Professional Member Role: PCP Address: Address: [address] [place] [address]- Care Team Related Persons Name: MCKENZIE BURGER Address: home [address] [place] [id number] Name: DAVID OVERTON
--- OUTSIDE RECORDS SUMMARY | 2024-07-25 10:18 | XMS_ITS | Continuity of Care Document ---
Author Organization [facility] Address [address] [place] [address]- Care Team Providers Care Senior Engineer Name Role Phone Minh MILLER, Shanice [id number] Date[facility] 03/13/[facility] - 04/22/[address] [address]- Attending Physician: Domo Franks MD Admitting Physician: Domo Franks MD Allergies, Adverse Reactions, Alerts Substance Reaction Severity [...] opioid drug. Start Date: 08/15/23 Status: Ordered esomeprazole 40 mg oral enteric coated capsule 1 capsule = 40 mg, By Mouth, Daily, 30 min before a meal, # 90 capsule, 1 Refills, Maintenance, 03/05/24 15:22:00 EDT, [facility]/pharmacy #[id number], Partial fill upon patient request if the prescription is fora schedule II opioid drug., 167, cm, 03/05/24 15:06... Start Date: 03/05/24 Status: Ordered lithium 300 mg oral capsule 1 capsule = 300 mg, By Mouth, 2 times a day, 0 Refills, Maintenance, 04/08/20 7:09:00 EDT, Capsule Start Date: 04/08/20 Status: Ordered Nexium 40 mg oral enteric coated capsule 1 capsule = 40 mg, By Mouth, Daily, # 90 capsule, 0 Refills, Maintenance, 11/29/23 11:35:00 EST, ECCaps[place], [facility]/pharmacy #[id number], Partial fill upon patient request if the prescription is for a schedule II opioid drug., 167, cm, 10/19/23 16:11:00 EST, H... 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 Start Date: 03/14/24 Status: Ordered Ozempic 2 mg/3 mL (0.25 mg or 0.5 mg dose) subcutaneous solution = 0.5 mg, Subcutaneous Injection, Every week, rotate injection sites, # 1 each, 0 Refills, Maintenance, 04/18/24 15:57:00 EDT, [facility], [id number], Partial fill upon patient request if the prescription is for a schedule II opioid drug., 167,... Start Date: 04/18/24 Status: Ordered Pen [place], 31 G x 5 mm BD Ultra Fine III See Instructions, # 30 each, Refills 5, Tot. Refills 5, Maintenance, For use with Victoza, 12/29/2416:01:00 EDT, Supply, 167, cm, 12/15/23 13:15:00 EST, Height, 78.5, kg, 08/30/22 13:56:00 EST, Dry Weight Start Date: 12/30/23 Status: Ordered rizatriptan 5 mg oral tablet See Instructions, TAKE 1-2 TABLETS NEEDED FOR MIGRAINE BY MOUTH, DO NOT USE MORE THAN 4 TABLETS IN A DAY, MAY REPEAT DOSE IN 2 HOURS IF HEADACHE IS NOT RELIEVED., # 9 tablet, 11 Refills, Maintenance, 02/20/24 10:56:00 EDT, [id number], 167, cm,... Start Date: 02/20/24 Status: Ordered Ubrelvy 100 mg oral tablet 1 tablet, By Mouth, Daily, PRN NEEDED FOR MIGRAINE HEADACHE,MAY REPEAT DOSE IN, # 16 tablet, 5 Refills, Maintenance, 02/02/24 8:29:00 EDT, [id number], 167, cm, 01/13/24 15:06:00 EDT, Height, 78.5, kg, 08/30/22 13:56:00 EST, Dry Weight Start Date: 02/02/24 Stop Date: 02/02/24 Status: Ordered Victoza 18 mg/3 mL subcutaneous solution = 1.8 mg, Subcutaneous Injection, Daily, # 9 mL, 2 Refills, Maintenance, 02/06/24 18:11:00 EDT, [facility], [id number], Partial fill upon patient request if the prescription is for a schedule II opioid drug., 167, cm, 01/13/24 15:06:00 EDT, [place]... Start Date: 02/06/24 Status: Ordered Problem List Condition Confirmation Course [...] Associate Professional Member Role: PCP Address: Address: [address] [place] [address]- Care Team Related Persons Name: MCKENZIE BURGER Address: home [address] [place] [id number] Name: DAVID OVERTON
--- OUTSIDE RECORDS SUMMARY | 2024-07-25 10:18 | XMS_ITS | Continuity of Care Document ---
Author Organization [facility] Address [address] [place] [address]- Care Team Providers Care Paint Line Supervisor Name Role Phone Shanice Wilkinson NP [id number] 08[facility] - 12/29/[facility] [address] [place] [address]- Attending Physician: Saurabh Sharp MD Admitting Physician: Saurabh Sharp MD Referring Physician: Susy Brito MD Allergies, Adverse Reactions, Alerts Substance Reaction [...] 0 Refills, Maintenance, 11/29/23 11:35:00 EST, ECCapsule, [facility]/pharmacy #[id number], Partial fill upon patient request if the prescription is for a schedule II opioid drug., 167, cm, 10/19/23 16:11:00 EST, H... 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 Start Date: 09/12/23 Status: Ordered Pen Ruby, 31 G x 5 mm BD Ultra Fine III See Instructions, # 30 each, Refills 5, Tot. Refills 5, Maintenance, For use with Victoza, 11/25/2416:02:00 EST, Supply, 167, cm, 10/19/23 16:11:00 EST, Height, 78.5, kg, 08/30/22 13:56:00 EST, Dry Weight Start Date: 11/25/23 Status: Ordered rizatriptan 10 mg oral tablet 1 tablet = 10 mg, By Mouth, Daily, PRN Migraine Headache, may repeat dose in 2 hours if needed, do not exceed 2 doses in 24 hours, # 9 tablet, 5 Refills, Acute 12/14/24 0:00:00 EST, 12/15/23 12:50:00EST, [facility]/pharmacy #[id number], Partial fill upon patient... Start Date: 12/15/23 Stop Date: 12/14/24 Status: Ordered Ubrelvy 100 mg oral tablet 1 tablet = 100 mg, By Mouth, Daily, PRN as needed for migraine headache, may repeat dose in 2 hoursif needed, # 16 tablet, 0 Refills, Soft Stop, 12/15/23 12:51:00 EST, Tablet, [id number], Partial fill upon patient request if the prescription... Start Date: 12/15/23 Status: Ordered Victoza 18 mg/3 mL subcutaneous solution See Instructions, INJECT INTO THE SKIN 1.2MG DAILY, # 6 Unknown, 0 Refills, Maintenance, 12/15/23 12:24:00 EST, [id number], 167, cm, 10/19/23 16:11:00 EST, Height, 78.5, kg, 08/30/22 13:56:00 EST, Dry Weight Start Date: 12/15/23 Status: Ordered Problem List Condition Confirmation Course [...] Team Personnel Name: Shanice Wilkinson NP Position: [facility] PCO Associate Professional Member Role: PCP Address: Address: [address] [place] [address]- Care Team Related Persons Name: MCKENZIE BURGER Address: home [address] [address] Name: DAVID OVERTON
--- OUTSIDE RECORDS SUMMARY | 2024-07-25 10:19 | XMS_ITS | Continuity of Care Document ---
Author Organization [facility] Address [address] [place] [address]- Care Team Providers Care Relief Pharmacist Name Role Phone Shanice Wilkinson NP Primary Care Physician Encounter [facility] [place] Date(s): 08/03/23 - 10/09/[address] [address]- Attending Physician: Yoana Sanders CNM Admitting Physician: Yoana Sanders CNM Referring Physician: Yoana Sanders CNM Allergies, Adverse Reactions, Alerts Substance Reaction Severity [...] Acute 10/22/23 0:00:00 EST, 10/03/23 21:39:00 EST, [facility]/pharmacy #[id number], Partial fill upon patient request if the prescription is for a schedule II opioid drug., 167, cm, 09/12/23... 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 Start Date: 09/12/23 Status: Ordered Zomig 5 mg nasal spray 1 sprays, Nares, Both, Daily, PRN for migraine headache, # 6 each, 1 Refills, Maintenance, :55:00 EST, [place], [facility]/pharmacy #[id number], Partial fill upon patient request [...] Team Personnel Name: Shanice Wilkinson NP Position: [facility] PCO Associate Professional Member Role: PCP Address: Address: [address] [place] [address]- Care Team Related Persons Name: MCKENZIE BURGER Address: home [address] [address] Name: DAVID OVERTON
--- OUTSIDE RECORDS SUMMARY | 2024-07-25 10:19 | XMS_ITS | Continuity of Care Document ---
Author Organization [facility] Address [address], [address], [address] [place] [address]- Care Team Providers Care Electronic News Gathering Camera Person Name Role Phone Minh MILLER, Shanice Primary Care Physician Encounter [facility] [place] Date(s): 07/27/23 - 08/26/23 [facility] [address], [address], [address] [place] [address]- Allergies, Adverse Reactions, Alerts Substance Reaction Severity [...] Team Personnel Name: Shanice Wilkinson NP Position: [facility] PCO Associate Professional Member Role: PCP Address: Address: [address] [place] [address]- Care Team Related Persons Name: MCKENZIE BURGER Address: home [address] [place] [address] Name: DAVID OVERTON
--- OUTSIDE RECORDS SUMMARY | 2024-07-25 10:19 | XMS_ITS | Continuity of Care Document ---
Author Organization [facility] Address [address] [place] [address]- Care Team Providers Care Director Of Admissions Name Role Phone Shanice Wilkinson NP [id number] Date(s): 12/16/23 - 01/29/[address] [address]- Attending Physician: Brandon Arnold MD Admitting Physician: Brandon Arnold MD Referring Physician: Shanice Wilkinson NP Allergies, Adverse Reactions, Alerts Substance Reaction Severity [...] 0 Refills, Maintenance, 11/29/23 11:35:00 EST, ECCapsule, [facility]/pharmacy #[id number], Partial fill upon patient request if the prescription is for a schedule II opioid drug., 167, cm, 10/19/23 16:11:00 EST, H... 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 Start Date: 09/12/23 Status: Ordered Pen [place], 31 G x 5 mm BD Ultra [...] Refills, Acute 12/14/24 0:00:00 EST, 12/15/23 12:50:00EST, [facility]/pharmacy #[id number], Partial fill upon patient... Start Date: 12/15/23 Stop Date: 12/14/24 Status: Ordered Ubrelvy 100 mg oral tablet 1 tablet = 100 mg, By Mouth, Daily, PRN as needed for migraine headache, may repeat dose in 2 hoursif needed, # 16 tablet, 0 Refills, Soft Stop, 12/15/23 12:51:00 EST, [facility]t, [id number], Partial fill upon patient request if the prescription... Start Date: 12/15/23 Status: Ordered Victoza 18 mg/3 mL subcutaneous solution = 1.8 mg, Subcutaneous Injection, Daily, # 9 mL, 0 Refills, Maintenance, 01/04/24 18:32:00 EDT, Solution, [id number] #[id number], Partial fill upon patient request if the [...] Team Personnel Name: Shanice Wilkinson NP Position: [facility] PCO Associate Professional Member Role: PCP Address: Address: [address] [place] [address]- Care Team Related Persons Name: MCKENZIE BURGER Address: home [address] [place] [address] Name: DAVID OVERTON
--- OUTSIDE RECORDS SUMMARY | 2024-07-25 10:19 | XMS_ITS | Continuity of Care Document ---
Author Organization [facility] Address [address] [place] [address], [address] [place] [address]- Care Team Providers Care Traveling Plant Operator Name Role Phone Hardeep Hurd MD Primary Care Physician [phone] [id number] Date(s): 07/08/22 - 07/15/22 [facility] [address] [place] [address] Drive, [address] [place] [address]- Attending Physician: Monica Lawson MD Referring Physician: Hardeep Hurd MD Allergies, Adverse Reactions, Alerts Substance Reaction Severity Status Fioricet Active Medications Carafate 1 gm oral tablet 1 Gm, 1, tablet, By Mouth, 3 times a day before meals and bedtime, Refills 0, Maintenance, 06/05/1813:27:48 EDT Start Date: 06/05/18 Status: Ordered diazepam 5 mg oral tablet 10 mg, 2, tablet, By Mouth, 2 times a day, PRN, Refills 0, Maintenance, for anxiety, 11/11/20 13:21:00 EST, Partial fill upon patient request if the prescription is for a schedule II opioid drug. Start Date: 11/11/20 Status: Ordered estazolam 2 mg oral tablet 1 tablet = 2 mg, By Mouth, Daily at bedtime, 0 Refills, Maintenance, 04/08/20 7:09:00 EDT, Tablet Start Date: 04/08/20 Status: Ordered Gabapentin By Mouth, 0 Refills, Maintenance, 07/08/22 11:03:00 EDT, Partial fill upon patient request if the prescription is for a schedule II opioid drug. Start Date: 07/08/22 Status: Ordered lithium 300 mg oral capsule 1 capsule = 300 mg, By Mouth, 2 times a day, 0 Refills, Maintenance, 04/08/20 7:09:00 EDT, Capsule Start Date: 04/08/20 Status: Ordered Pantoprazole Daily, 0 Refills, Maintenance, 06/05/18 13:27:37 EDT Start Date: 06/05/18 Status: Ordered Protonix 20 mg oral delayed release tablet 1 tablet = 20 mg, By Mouth, Daily, 0 Refills, Maintenance, 06/05/18 13:26:32 EDT Start Date: 06/05/18 Status: Ordered Zantac 0 Refills, Maintenance, 04/08/20 7:10:00 EDT Start Date: 04/08/20 Status: Ordered Problem List Condition Confirmation Course Effective Dates Status Health St atus Informant H/O bariatric surgery 1 Confirmed Active History of kidney stones 2 Confirmed Active Urinary incontinence Confirmed Active 2014 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
--- OUTSIDE RECORDS SUMMARY | 2024-07-25 10:19 | XMS_ITS | Continuity of Care Document ---
Author Organization [facility] Address [address] [place] [address]- Care Team Providers Care Sales Development Coordinator Name Role Phone Shanice Wilkinson NP [id number] Date[facility]s): [facility]/03/24 - 05/03/[address] [address]- Attending Physician: Shanice Wilkinson NP Admitting Physician: Shanice Wilkinson NP Allergies, Adverse Reactions, [...] capsule, 1 Refills, Maintenance, 03/05/24 15:22:00 EDT, [facility]/pharmacy #[id number], Partial fill upon patient request [...] 0 Refills, Maintenance, 11/29/23 11:35:00 EST, ECCapsule, [facility]/pharmacy #[id number], Partial fill upon patient request if the prescription is for a schedule II opioid drug., 167, cm, 10/19/23 16:11:00 EST, H... Start Date: 11/29/23 Status: Ordered onabotulinumtoxinA 200 units injection See Instructions, disp 200u vial q3 months, pt to picker / packer and bring to neurology clinic, # 1 each, 3 Refills, Maintenance, 03/14/24 12:37:00 EDT, [facility], Partial fill upon patient [...] 167,... Start Date: 04/18/24 Status: Ordered Pen [place], 31 G x 5 mm BD Ultra [...] Refills, Maintenance, 02/20/24 10:56:00 EDT, [id number], 167, cm,... Start Date: 02/20/24 Status: Ordered Ubrelvy 100 mg oral tablet 1 tablet, By Mouth, Daily, PRN NEEDED FOR MIGRAINE HEADACHE,MAY REPEAT DOSE IN, # 16 tablet, 5 Refills, Maintenance, 02/02/24 8:29:00 EDT, [id number], 167, cm, 01/13/24 15:06:00 EDT, Height, 78.5, [...] Professional Member Role: PCP Address: Address: [address] [place] [address]- Care Team Related Persons Name: MCKENZIE BURGER Address: home [address] [place] [id number] Name: DAVID OVERTON
--- OUTSIDE RECORDS SUMMARY | 2024-07-25 10:19 | XMS_ITS | Continuity of Care Document ---
Author Organization [facility] Address [address], [address] Floor, [address] [place] [address]- Care Team Providers Care Building Serviceman Name Role Phone Minh MILLER, Shanice Primary Care Physician Encounter [facility] Date(s): 10/03/23 - 11/02/23 [facility] [address], [address], [address] [place] [address]- Allergies, Adverse Reactions, Alerts Substance Reaction Severity [...] 0 Refills, Maintenance, 10/21/23 8:39:00 EST, [facility] fill upon patient request if the [...] disp 200u vial q3 months, 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 Start Date: 09/12/23 Status: Ordered Pen [place], 31 G x 5 mm BD Ultra [...] 6 each, 1 Refills, Maintenance, :55:00 EST, [place], [facility]/pharmacy #[id number], Partial fill upon patient request if the [...] Team Personnel Name: Shanice Wilkinson NP Position: [facility] Associate Professional Member Role: PCP Address: Address: [address] [place] [address]- Care Team Related Persons Name: MCKENZIE BURGER Address: [address] [address] Name: DAVID OVERTON
--- OUTSIDE RECORDS SUMMARY | 2024-07-25 10:19 | XMS_ITS | Continuity of Care Document ---
Author Organization [facility] Address [address] [place] [address]- Care Team Providers Care Medical Administrative Assistant Name Role Phone Shanice Wilkinson NP Primary Care Physician Encounter [facility] R [id number] Date(s): 03/05/24 - 04/04/[address] [address]- Allergies, Adverse Reactions, Alerts Substance Reaction Severity [...] capsule, 1 Refills, Maintenance, 03/05/24 15:22:00 EDT, [facility]/pharmacy #[id number], Partial fill upon patient request if [...] 0 Refills, Maintenance, 11/29/23 11:35:00 EST, ECCapsule, [facility]/pharmacy #[id number], Partial fill upon patient request if the prescription is for a schedule II opioid drug., 167, cm, 10/19/23 16:11:00 EST, H... 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 Start Date: 03/14/24 Status: Ordered Pen [place], 31 G x 5 mm BD Ultra [...] Refills, Maintenance, 02/20/24 10:56:00 EDT, [facility], 167, cm,... Start Date: 02/20/24 Status: Ordered Ubrelvy 100 mg oral tablet 1 tablet, By Mouth, Daily, PRN NEEDED FOR MIGRAINE HEADACHE,MAY REPEAT DOSE IN, # 16 tablet, 5 Refills, Maintenance, 02/02/24 8:29:00 EDT, [facility], 167, cm, 01/13/24 15:06:00 EDT, Height, 78.5, kg, 08/30/22 13:56:00 EST, Dry Weight Start Date: 02/02/24 Stop Date: 02/02/24 Status: Ordered Victoza 18 mg/3 mL subcutaneous solution = 1.8 mg, Subcutaneous Injection, Daily, # 9 mL, 2 Refills, Maintenance, 02/06/24 18:11:00 EDT, [facility], [id number], Partial fill upon patient request if the [...] Personnel Name: Shanice Wilkinson NP Position: [facility] Associate Professional Member Role: PCP Address: Address: [address] [place] [address]- Care Team Related Persons Name: MCKENZIE BURGER Address: home [address] [place] [address] Name: DAVID OVERTON
--- OUTSIDE RECORDS SUMMARY | 2024-07-25 10:19 | XMS_ITS | Continuity of Care Document ---
Author Organization [facility] Address [address] [place] [address]- Care Team Providers Care Fishing Rod Marker Name Role Phone Minh MILLER, Shanice Primary Care Physician [id number] Date(s): 05/03/24 - 06/02/[address] [address]- Allergies, Adverse Reactions, Alerts Substance Reaction Severity [...] capsule, 1 Refills, Maintenance, 03/05/24 15:22:00 EDT, [facility]/pharmacy #[id number], Partial fill upon patient request if the prescription is fora schedule II opioid drug., 167, cm, 03/05/24 15:06... Start Date: 03/05/24 Status: Ordered isopropyl alcohol 70% topical pad See Instructions, USE TO CLEAN AREA BEFORE INJECTING VICTOZA, # 100 Unknown, 5 Refills, Maintenance, 05/30/24 13:21:00 EDT, [id number], 30, USE TO CLEAN AREA BEFORE INJECTING VICTOZA, 167, cm, 05/18/24 14:19:00 EDT, Height, 78.5, kg, 08/30/22 13:... Start Date: 05/30/24 Status: Ordered lithium 300 mg oral capsule 1 capsule = 300 mg, By Mouth, 2 times a day, 0 Refills, Maintenance, 04/08/20 7:09:00 EDT, Capsule Start Date: 04/08/20 Status: Ordered Nexium 40 mg oral enteric coated capsule 1 capsule = 40 mg, By Mouth, Daily, # 90 capsule, 0 Refills, Maintenance, 11/29/23 11:35:00 EST, ECCapsule, [facility]/pharmacy #[id number], Partial fill upon patient request if the prescription is for a schedule II opioid drug., 167, cm, 10/19/23 16:11:00 EST, H... 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, Partial fill upon patient request if the prescription is for a schedule II o... Start Date: 03/14/24 Status: Ordered Ozempic 2 mg/3 mL (0.25 mg or 0.5 mg dose) subcutaneous solution = 0.5 mg, Subcutaneous Injection, Every week, rotate injection sites, # 1 each, 0 Refills, Maintenance, 04/18/24 15:57:00 EDT, Solution, [facility]/pharmacy #[id number], Partial fill upon patient request if the prescription is for a schedule II opioid drug., 167,... Start Date: 04/18/24 Status: Ordered Pen [place], 31 G x 5 mm BD Ultra [...] Refills, Maintenance, 02/20/24 10:56:00 EDT, [facility], 167, cm,... Start Date: 02/20/24 Status: Ordered Ubrelvy 100 mg oral tablet 1 tablet, By Mouth, Daily, PRN NEEDED FOR MIGRAINE HEADACHE,MAY REPEAT DOSE IN, # 16 tablet, 5 Refills, Maintenance, 02/02/24 8:29:00 EDT, [facility], 167, cm, 01/13/24 15:06:00 EDT, Height, 78.5, kg, 08/30/22 13:56:00 EST, Dry Weight Start Date: 02/02/24 Stop Date: 02/02/24 Status: Ordered Victoza 18 mg/3 mL subcutaneous solution = 1.8 mg, Subcutaneous Injection, Daily, # 6 mL, 1 Refills, Maintenance, 05/18/24 14:32:00 EDT, Solution, [facility], Partial fill upon patient request if the prescription is for a schedule II opioid drug., 167, cm, 05/18/24 14:19:00... Start Date: 05/18/24 Status: Ordered Victoza 18 mg/3 mL subcutaneous solution = 1.8 mg, Subcutaneous Injection, Daily, # 9 mL, 2 Refills, Maintenance, 02/06/24 18:11:00 EDT, [place], [facility]/pharmacy #[id number], Partial fill upon patient request if the prescription is for a schedule II opioid drug., 167, cm, 01/13/24 15:06:00 EDTAlex. Start Date: 02/06/24 Status: Ordered Problem List [...] Team Personnel Name: Shanice Wilkinson NP Position: [facility] Associate Professional Member Role: PCP Address: Address: [address] [place] [address]- Care Team Related Persons Name: MCKENZIE BURGER Address: [address] [address] Name: DAVID OVERTON
--- OUTSIDE RECORDS SUMMARY | 2024-07-25 10:19 | XMS_ITS | Continuity of Care Document ---
Author Organization [facility] Address [address] [place] [address]- Care Team Providers Care Career Resource Specialist Name Role Phone Shanice Wilkinson NP Primary Care Physician Encounter [facility] ACCT R [id number] Date(s): 10/06/23 - 11/05/[address] [address]- Allergies, Adverse Reactions, Alerts Substance Reaction Severity [...] 0 Refills, Maintenance, 10/21/23 8:39:00 EST, Solution, [facility] Partial fill upon patient request [...] disp 200u vial q3 months, pt to molded goods spot picker and bring to neurology clinic, # 1 each, 3 Refills, Maintenance, 09/12/23 8:23:00 EST, [facility], Partial fill upon patientrequest if the prescription is for a schedule II op... Start Date: 09/12/23 Status: Ordered Pen [place], 31 G x 5 mm BD Ultra [...] 6 each, 1 Refills, Maintenance, :55:00 EST, [place], [facility]/pharmacy #[id number], Partial fill upon patient request if the [...] Team Personnel Name: Shanice Wilkinson NP Position: [facility] Associate Professional Member Role: PCP Address: Address: [address] [place] [address]- Care Team Related Persons Name: MCKENZIE BURGER Address: [address] [address] Name: DAVID OVERTON
--- OUTSIDE RECORDS SUMMARY | 2024-07-25 10:19 | XMS_ITS | Continuity of Care Document ---
Author Organization [facility] Address [address], [address], [address] [place] [address]- Care Team Providers Care Lead Case Manager Name Role Phone Minh MILLER, Shanice Primary Care Physician [place] [facility] Date(s): 09/29/23 - 10/29/23 [facility] [address], 3[address], [address] [place] [address]- Allergies, Adverse Reactions, Alerts Substance Reaction Severity [...] 0 Refills, Maintenance, 10/21/23 8:39:00 EST, [facility] Partial fill upon patient request [...] disp 200u vial q3 months, 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 Start Date: 09/12/23 Status: Ordered Pen [place], 31 G x 5 mm BD Ultra [...] 6 each, 1 Refills, Maintenance, :55:00 EST, [place], [facility]/pharmacy #[id number], Partial fill upon patient request if the [...] Name: Shanice Wilkinson NP Position: [facility] Associate Professional Member Role: PCP Address: Address: [address] [place] [address]- Care Team Related Persons Name: MCKENZIE BURGER Address: [address] [address] Name: DAVID OVERTON
--- OUTSIDE RECORDS SUMMARY | 2024-07-25 10:19 | XMS_ITS | Continuity of Care Document ---
Author Organization [facility] Address [address] [place] [address]- Care Team Providers Care Armature Connector Name Role Phone Minh MILLER, Shanice Primary Care Physician Encounter [facility] Date(s): 03/05/24 - 04/04/24 [facility] [address] [place] [address]- Attending Physician: Darell Conley Admitting Physician: Admtr, Ar8 Referring Physician: Admtr, Ar8 Allergies, Adverse Reactions, Alerts Substance Reaction Severity [...] 1 Refills, Maintenance, 03/05/24 15:22:00 EDT, [facility]/pharmacy #[id number], Partial fill upon patient request [...] Refills, Maintenance, 11/29/23 11:35:00 EST, ECCapsule, [facility]/pharmacy #[id number], Partial fill upon patient request if the prescription is for a schedule II opioid drug., 167, cm, 10/19/23 16:11:00 EST, H... 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 Start Date: 03/14/24 Status: Ordered Pen [place], 31 G x 5 mm BD Ultra [...] Refills, Maintenance, 02/20/24 10:56:00 EDT, [facility], 167, cm,... Start Date: 02/20/24 Status: Ordered Ubrelvy 100 mg oral tablet 1 tablet, By Mouth, Daily, PRN NEEDED FOR MIGRAINE HEADACHE,MAY REPEAT DOSE IN, # 16 tablet, 5 Refills, Maintenance, 02/02/24 8:29:00 EDT, [facility], 167, cm, 01/13/24 15:06:00 EDT, Height, 78.5, kg, 08/30/22 13:56:00 EST, Dry Weight Start Date: 02/02/24 Stop Date: 02/02/24 Status: Ordered Victoza 18 mg/3 mL subcutaneous solution = 1.8 mg, Subcutaneous Injection, Daily, # 9 mL, 2 Refills, Maintenance, 02/06/24 18:11:00 EDT, [facility], [id number], Partial fill upon patient request if the [...] Team Personnel Name: Shanice Wilkinson NP Position: [facility] Associate Professional Member Role: PCP Address: Address: [address] [place] [address]- Care Team Related Persons Name: MCKENZIE BURGER Address: home [address] [place] [address] Name: DAVID OVERTON
--- OUTSIDE RECORDS SUMMARY | 2024-07-25 10:19 | XMS_ITS | Continuity of Care Document ---
Author Organization [facility] Address [address] [facility], [address]r d Floor, [address] [place] [address]- Care Team Providers Care Orthodontist Vice President Name Role Phone Minh MILLER, Shanice Primary Care Physician [place] [facility] Date(s): 12/14/23 - 01/13/24 [facility] [address] [facility] 3rd Floor, [address] [place] [address]- Allergies, Adverse Reactions, Alerts Substance Reaction Severity [...] 0 Refills, Maintenance, 11/29/23 11:35:00 EST, ECCapsule, [facility]/pharmacy #[id number], Partial fill upon patient request if the prescription is for a schedule II opioid drug., 167, cm, 10/19/23 16:11:00 EST, H... Start Date: 11/29/23 Status: Ordered onabotulinumtoxinA 200 units injection See Instructions, disp 200u vial q3 months, pt to bulk picker and bring to neurology clinic, # 1 each, 3 Refills, Maintenance, 09/12/23 8:23:00 EST, [facility], Partial fill upon patientrequest if the prescription is for a schedule II op... Start Date: 09/12/23 Status: Ordered Pen [place], 31 G x 5 mm BD Ultra [...] Refills, Acute 12/14/24 0:00:00 EST, 12/15/23 12:50:00EST, [facility]/pharmacy #[id number], Partial fill upon patient... Start Date: 12/15/23 Stop Date: 12/14/24 Status: Ordered Ubrelvy 100 mg oral tablet 1 tablet = 100 mg, By Mouth, Daily, PRN as needed for migraine headache, may repeat dose in 2 hoursif needed, # 16 tablet, 0 Refills, Soft Stop, 12/15/23 12:51:00 EST, Tablet, [facility]/pharmacy #[id number], Partial fill upon patient request if the prescription... Start Date: 12/15/23 Status: Ordered Victoza 18 mg/3 mL subcutaneous solution = 1.8 mg, Subcutaneous Injection, Daily, # 9 mL, 0 Refills, Maintenance, 01/04/24 18:32:00 EDT, Solution, [facility][id number], Partial fill upon patient request if the [...] Team Personnel Name: Shanice Wilkinson NP Position: [facility] Associate Professional Member Role: PCP Address: Address: [address] [place] [address]- Care Team Related Persons Name: MCKENZIE BURGER Address: home [address] [address] Name: DAVID OVERTON
--- OUTSIDE RECORDS SUMMARY | 2024-07-25 10:19 | XMS_ITS | Continuity of Care Document ---
Author Organization [facility] Address [address] [facility], 3r d Floor, [address] [place] [address]- Care Team Providers Care Fire Sprinkler Installer Name Role Phone Minh MILLER, Shanice Primary Care Physician Encounter [facility] Date(s): 11/17/23 - 12/17/23 [facility] [address], [address], [address] [place] [address]- Allergies, Adverse Reactions, Alerts Substance Reaction Severity [...] 0 Refills, Maintenance, 11/29/23 11:35:00 EST, ECCapsule, [facility]/pharmacy #[id number], Partial fill upon patient request if the prescription is for a schedule II opioid drug., 167, cm, 10/19/23 16:11:00 EST, H... 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 Start Date: 09/12/23 Status: Ordered Pen [place], 31 G x 5 mm BD Ultra [...] Refills, Acute 12/14/24 0:00:00 EST, 12/15/23 12:50:00EST, [facility]/pharmacy #[id number], Partial fill upon patient... Start [...] Refills, Maintenance, 12/15/23 12:24:00 EST, [facility], 167, cm, 10/19/23 16:11:00 EST, Height, 78.5, [...] Team Personnel Name: Shanice Wilkinson NP Position: [facility] Associate Professional Member Role: PCP Address: Address: [address] [place] [address]- Care Team Related Persons Name: MCKENZIE BURGER Address: home [address] [place] [address] Name: DAVID OVERTON
--- OUTSIDE RECORDS SUMMARY | 2024-07-25 10:19 | XMS_ITS | Continuity of Care Document ---
Author Organization [facility] Address [address] [place] [address]- Care Team Providers Care Programming Development Project Manager Name Role Phone Minh MILLER, Shanice Primary Care Physician Encounter [facility] [place] Date(s): 04/11/24 - 05/11/[address] [address]- Allergies, Adverse Reactions, Alerts Substance Reaction Severity [...] capsule, 1 Refills, Maintenance, 03/05/24 15:22:00 EDT, [facility]/pharmacy #[id number], Partial fill upon [...] 0 Refills, Maintenance, 11/29/23 11:35:00 EST, ECCapsule, [facility]/pharmacy #[id number], Partial fill upon patient request if the prescription is for a schedule II opioid drug., 167, cm, 10/19/23 16:11:00 EST, H... 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 Start Date: 03/14/24 Status: Ordered Ozempic 2 mg/3 mL (0.25 mg or 0.5 mg dose) subcutaneous solution = 0.5 mg, Subcutaneous Injection, Every week, rotate injection sites, # 1 each, 0 Refills, Maintenance, 04/18/24 15:57:00 EDT, Solution, [facility]/pharmacy #[id number], Partial fill upon patient request if the prescription is for a schedule II opioid drug., 167,... Start Date: 04/18/24 Status: Ordered Pen [place], 31 G x 5 mm BD Ultra [...] Refills, Maintenance, 02/20/24 10:56:00 EDT, [facility], 167, cm,... Start Date: 02/20/24 Status: Ordered Ubrelvy 100 mg oral tablet 1 tablet, By Mouth, Daily, PRN NEEDED FOR MIGRAINE HEADACHE,MAY REPEAT DOSE IN, # 16 tablet, 5 Refills, Maintenance, 02/02/24 8:29:00 EDT, [id number], 167, cm, 01/13/24 15:06:00 EDT, Height, 78.5, kg, 08/30/22 13:56:00 EST, Dry Weight Start Date: 02/02/24 Stop Date: 02/02/24 Status: Ordered Victoza 18 mg/3 mL subcutaneous solution = 1.8 mg, Subcutaneous Injection, Daily, # 9 mL, 2 Refills, Maintenance, 02/06/24 18:11:00 EDT, Solution, [id number], Partial fill upon patient request if the [...] Professional Member Role: PCP Address: Address: [address] [place] [address] Care Team Related Persons Name: MCKENZIE BURGER Address: home [address] [place] [id number] Name: DAVID OVERTON
--- OUTSIDE RECORDS SUMMARY | 2024-07-25 10:19 | XMS_ITS | Continuity of Care Document ---
Author Organization [facility] Address [address] [place] [address]- Care Team Providers Care Organic Lab Worker Name Role Phone Minh MILLER, Shanice Primary Care Physician Encounter [facility] Date(s): 02/06/24 - 03/07/[address] [address]- Allergies, Adverse Reactions, Alerts Substance Reaction Severity [...] capsule, 1 Refills, Maintenance, 03/05/24 15:22:00 EDT, [facility]/pharmacy #[id number], Partial fill upon patient request if [...] 0 Refills, Maintenance, 11/29/23 11:35:00 EST, ECCapsule, [facility]/pharmacy #[id number], Partial fill upon patient request if the prescription is for a schedule II opioid drug., 167, cm, 10/19/23 16:11:00 EST, H... 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 Start Date: 09/12/23 Status: Ordered Pen [place], 31 G x 5 mm BD Ultra [...] Refills, Maintenance, 02/20/24 10:56:00 EDT, [facility], 167, cm,... Start Date: 02/20/24 Status: Ordered Ubrelvy 100 mg oral tablet 1 tablet, By Mouth, Daily, PRN NEEDED FOR MIGRAINE HEADACHE,MAY REPEAT DOSE IN, # 16 tablet, 5 Refills, Maintenance, 02/02/24 8:29:00 EDT, [facility], 167, cm, 01/13/24 15:06:00 EDT, Height, 78.5, [...] Team Personnel Name: Shanice Wilkinson NP Position: [facility] PCO Associate Professional Member Role: PCP Address: Address: [address] [place] [address]- Care Team Related Persons Name: MCKENZIE BURGER Address: home [address] [address] Name: DAVID OVERTON
--- OUTSIDE RECORDS SUMMARY | 2024-07-25 10:19 | XMS_ITS | Continuity of Care Document ---
Author Organization [facility] Address [address] [place] [address]- Care Team Providers Care Tensile Tester Name Role Phone Minh MILLER, Shanice Primary Care Physician En[place] [facility] [place] Date(s): 11/24/23 - 12/24/[address] [address]- Allergies, Adverse Reactions, Alerts Substance Reaction Severity [...] 0 Refills, Maintenance, 11/29/23 11:35:00 EST, ECCapsule, [facility]/pharmacy #[id number], Partial fill upon patient request if the prescription is for a schedule II opioid drug., 167, cm, 10/19/23 16:11:00 EST, H... Start Date: 11/29/23 Status: Ordered onabotulinumtoxinA 200 units injection See Instructions, disp 200u vial q3 months, pt to garbage pick up man and bring to neurology clinic, # 1 each, 3 Refills, Maintenance, 09/12/23 8:23:00 EST, [facility], Partial fill upon patientrequest if the prescription is for a schedule II op... Start Date: 09/12/23 Status: Ordered Pen [place], 31 G x 5 mm BD Ultra [...] Refills, Acute 12/14/24 0:00:00 EST, 12/15/23 12:50:00EST, [facility]/pharmacy #[id number], Partial fill upon patient... Start [...] Refills, Maintenance, 12/15/23 12:24:00 EST, [facility], 167, cm, 10/19/23 16:11:00 EST, Height, 78.5, [...] Team Personnel Name: Shanice Wilkinson NP Position: [facility] PCO Associate Professional Member Role: PCP Address: Address: [address] [place] [address]- Care Team Related Persons Name: MCKENZIE BURGER Address: home [address] [address] Name: DAVID OVERTON
--- OUTSIDE RECORDS SUMMARY | 2024-07-25 10:19 | XMS_ITS | Continuity of Care Document ---
Author Organization [facility] Address [address] [place] [address]- Care Team Providers Care Air Bag Curer Name Role Phone Hardeep Hurd MD [id number] - 04/08/[address] [address]- [facility] Discharge Disposition: A-D/C Home Attending Physician: Myke Trevino MD Admitting Physician: Myke Trevino MD Referring Physician: Myke Trevino MD Allergies, Adverse Reactions, Alerts Substance Reaction Severity Status Fioricet Active Medications Carafate 1 gm oral tablet 1 Gm, 1, tablet, By Mouth, 3 times a day before meals and bedtime, Refills 0, Maintenance, 06/05/1813:27:48 EDT Start Date: 06/05/18 Status: Ordered estazolam 2 mg oral tablet 1 tablet = 2 mg, By Mouth, Daily at bedtime, 0 Refills, Maintenance, 04/08/20 7:09:00 EDT, Tablet Start Date: 04/08/20 Status: Ordered lithium 300 mg oral capsule [...] Date: 04/08/20 Status: Ordered Problem List Condition Effective Dates Status Health Status Inform ant H/O bariatric surgery(Confirmed) 1 Active History of kidney stones(Confirmed) 2 Active Urinary incontinence(Confirmed) Active 2014 2lithotrypsy in september 2015 Vital Signs Most recent to oldest [Reference Range]: 1 2 3 Height 167 cm (04/08/20 6:44 AM) Weight 77.2 kg (04/08/20 6:44 AM) Oxygen Saturation [94-100 %] 100 % (04/08/20 9:00 AM) 100 % (04/08/20 8:45 AM) 100 % (04/08/20 8:30 AM) Pulse Rate [55-90 bpm] 65 bpm (04/08/20 6:44 AM) Body Mass Index [18.5-24.99] 27.68 *H* (04/08/20 6:44 AM) Blood Pressure [90-138/55-84 mm Hg] 107/67mm Hg (04/08/20 9:00 AM) 100/62mm Hg (04/08/20 8:45 AM) 104/63mm Hg (04/08/20 8:30 AM) Respiratory Rate [16-30 br/min] 21 br/min (04/08/20 9:00 AM) 20 br/min (04/08/20 8:49 AM) 16 br/min (04/08/20 8:45 AM) Temperature [96.8-100.4 DegF] 97.2 DegF (04/08/20 8:11 AM) 97.2 DegF (04/08/20 6:44 AM) Liters per Minute 4 L/min (04/08/20 8:30 AM) 4 L/min (04/08/20 8:15 AM) 4 L/min (04/08/20 8:11 AM) Mode of Delivery (Oxygen) Shovel mask (04/08/20 9:00 AM) Room air (04/08/20 8:45 AM) Simple face mask (04/08/20 8:30 AM) Blood pressure sites Arm, right (04/08/20 9:00 AM) Arm, right (04/08/20 8:45 AM) Arm, right (04/08/20 8:30 AM) Temperature Route Temporal (04/08/20 8:11 AM) Temporal (04/08/20 6:44 AM) Dry Weight 77.2 kg (04/08/20 6:44 AM) Weight Obtained Via Standing scale (04/08/20 6:44 AM) Dry Weight Obtained Via Standing scale (04/08/20 6:44 AM) Social History Social History Type Response Smoking Status Never smoker entered on: 06/05/18 Sex
--- OUTSIDE RECORDS SUMMARY | 2024-07-25 10:19 | XMS_ITS | Continuity of Care Document ---
Author Organization [facility] Address [address] [place] [address]- Care Team Providers Care Egg Trayer Name Role Phone Minh MILLER, Shanice Primary Care Physician Encounter [facility] [place] Date(s): 04/20/24 - 05/20/[address] [address]- Allergies, Adverse Reactions, Alerts Substance Reaction Severity [...] capsule, 1 Refills, Maintenance, 03/05/24 15:22:00 EDT, [facility]/pharmacy #[id number], Partial fill upon patient [...] 0 Refills, Maintenance, 11/29/23 11:35:00 EST, ECCapsule, [facility]/pharmacy #[id number], Partial fill upon patient request if the prescription is for a schedule II opioid drug., 167, cm, 10/19/23 16:11:00 EST, H... Start Date: 11/29/23 Status: Ordered onabotulinumtoxinA 200 units injection See Instructions, disp 200u vial q3 months, pt to bead picker and bring to neurology clinic, # 1 each, 3 Refills, Maintenance, 03/14/24 12:37:00 EDT, [facility], Partial fill upon patient request if the prescription is for a schedule II o... Start Date: 03/14/24 Status: Ordered Ozempic 2 mg/3 mL (0.25 mg or 0.5 mg dose) subcutaneous solution = 0.5 mg, Subcutaneous Injection, Every week, rotate injection sites, # 1 each, 0 Refills, Maintenance, 04/18/24 15:57:00 EDT, Solution, [facility]/pharmacy #[id number], Partial fill upon patient request if the prescription is for a schedule II opioid drug., 167,... Start Date: 04/18/24 Status: Ordered Pen [place], 31 G x 5 mm BD Ultra [...] Refills, Maintenance, 02/20/24 10:56:00 EDT, [facility], 167, cm,... Start Date: 02/20/24 Status: Ordered Ubrelvy 100 mg oral tablet 1 tablet, By Mouth, Daily, PRN NEEDED FOR MIGRAINE HEADACHE,MAY REPEAT DOSE IN, # 16 tablet, 5 Refills, Maintenance, 02/02/24 8:29:00 EDT, [facility], 167, cm, 01/13/24 15:06:00 EDT, Height, 78.5, kg, 08/30/22 13:56:00 EST, Dry Weight Start Date: 02/02/24 Stop Date: 02/02/24 Status: Ordered Victoza 18 mg/3 mL subcutaneous solution = 1.8 mg, Subcutaneous Injection, Daily, # 6 mL, 1 Refills, Maintenance, 05/18/24 14:32:00 EDT, Solution, [facility], Partial fill upon patient request if the prescription is for a schedule II opioid drug., 167, cm, 05/18/24 14:19:00... Start Date: 05/18/24 Status: Ordered Victoza 18 mg/3 mL subcutaneous solution = 1.8 mg, Subcutaneous Injection, Daily, # 9 mL, 2 Refills, Maintenance, 02/06/24 18:11:00 EDT, Solution, [facility]/pharmacy #[id number], Partial fill upon patient [...] Team Personnel Name: Shanice Wilkinson NP Position: [facility] PCO Associate Professional Member Role: PCP Address: Address: [address] [place] [address]- Care Team Related Persons Name: MCKENZIE BURGER Address: [address] [address] Name: DAVID OVERTON
--- OUTSIDE RECORDS SUMMARY | 2024-07-25 10:19 | XMS_ITS | Continuity of Care Document ---
Author Organization [facility] Address [address] [place] [address]- Care Team Providers Care Certified Registered Locksmith Name Role Phone Shanice Wilkinson NP [id number] Date[facility]14[facility] - 05/13/[address] [address]- Attending Physician: Brandon Arnold MD Admitting Physician: [...] 0 Refills, Maintenance, 11/29/23 11:35:00 EST, ECCapsule, [id number], Partial fill upon patient request if the prescription is for a schedule II opioid drug., 167, cm, 10/19/23 16:11:00 EST, H... Start Date: 11/29/23 Status: Ordered onabotulinumtoxinA 200 units injection See Instructions, disp 200u vial q3 months, pt to pickers material handlers and bring to neurology clinic, # 1 each, 3 Refills, Maintenance, 03/14/24 12:37:00 EDT, [facility], Partial fill upon [...] Start Date: 04/18/24 Status: Ordered Pen [place], 31 G x 5 mm BD Ultra [...] Refills, Maintenance, 02/20/24 10:56:00 EDT, [facility], 167, cm,... Start Date: 02/20/24 Status: Ordered Ubrelvy 100 mg oral tablet 1 tablet, By Mouth, Daily, PRN NEEDED FOR MIGRAINE HEADACHE,MAY REPEAT DOSE IN, # 16 tablet, 5 Refills, Maintenance, 02/02/24 8:29:00 EDT, [facility], 167, cm, 01/13/24 15:06:00 EDT, Height, 78.5, kg, 08/30/22 13:56:00 EST, Dry Weight Start Date: 02/02/24 Stop Date: 02/02/24 Status: Ordered Victoza 18 mg/3 mL subcutaneous solution = 1.8 mg, Subcutaneous Injection, Daily, # 9 mL, 2 Refills, Maintenance, 02/06/24 18:11:00 EDT, [facility], [id number], Partial fill upon patient request if the [...] Team Personnel Name: Shanice Wilkinson NP Position: [facility] PCO Associate Professional Member Role: PCP Address: Address: [address] [place] [address]- Care Team Related Persons Name: MCKENZIE BURGER Address: home [address] [place] [address] Name: DAVID OVERTON
--- OUTSIDE RECORDS SUMMARY | 2024-07-25 10:19 | XMS_ITS | Continuity of Care Document ---
Author Organization [facility] Address [address] [place] [address]- Care Team Providers Care Sheet Metal Smith Name Role Phone Minh MILLER, Shanice Primary Care Phys[id number] Date(s): 06/05/24 - 07/05/[address] [address]- Allergies, Adverse Reactions, Alerts Substance Reaction Severity [...] capsule, 1 Refills, Maintenance, 03/05/24 15:22:00 EDT, [facility]/pharmacy #[id number], Partial fill upon patient request if the prescription is fora schedule II opioid drug., 167, cm, 03/05/24 15:06... Start Date: 03/05/24 Status: Ordered isopropyl alcohol 70% topical pad See Instructions, USE TO CLEAN AREA BEFORE INJECTING VICTOZA, # 100 Unknown, 5 Refills, Maintenance, 05/30/24 13:21:00 EDT, [facility], 30, USE TO CLEAN AREA BEFORE INJECTING [...] 0 Refills, Maintenance, 11/29/23 11:35:00 EST, ECCapsule, [facility]/pharmacy #[id number], Partial fill upon patient request if the prescription is for a schedule II opioid drug., 167, cm, 10/19/23 16:11:00 EST, H... Start Date: 11/29/23 Status: Ordered onabotulinumtoxinA 200 units injection See Instructions, disp 200u vial q3 months, pt to fern picker and bring to neurology clinic, # 1 each, 3 Refills, Maintenance, 03/14/24 12:37:00 EDT, [facility], Partial fill upon [...] 167,... Start Date: 04/18/24 Status: Ordered Pen [place], 31 G x 5 mm BD Ultra Fine III See Instructions, # 30 each, Refills 5, Tot. Refills 5, Maintenance, For use with Victoza, 12/29/2416:01:00 EDT, Supply, 167, cm, 12/15/23 13:15:00 EST, Height, 78.5, kg, 08/30/22 13:56:00 EST, Dry Weight Start Date: 12/30/23 Status: Ordered Ubrelvy 100 mg oral tablet 1 tablet, By Mouth, Daily, PRN NEEDED FOR MIGRAINE HEADACHE,MAY REPEAT DOSE IN, # 9 tablet, 11 Refills, Maintenance, 06/11/24 11:59:00 EDT, [id number], 167, cm, 06/11/24 11:07:00 EDT, Height, 78.5, kg, 08/30/22 13:56:00 EST, Dry Weight Start Date: 06/11/24 Status: Ordered Victoza 18 mg/3 mL subcutaneous solution = 1.8 mg, Subcutaneous Injection, Daily, # 6 mL, 0 Refills, Maintenance, 06/08/24 9:19:00 EDT, Solution, [id number], Partial fill upon patient request if the prescription is for a schedule IIopioid drug., 167, cm, 05/18/24 14:19:00 EDT, Heigh... Start Date: 06/08/24 Status: Ordered Victoza 18 mg/3 mL subcutaneous [...] Migraines Confirmed Active Urinary incontinence Confirmed Active 1oct2014 2lithotrypsy in september 2015 Social History Social History Type Response Smoking Status Never smoker entered on: 06/05/18 Sex Patient Care team information Care Team Personnel Name: Shanice Wilkinson NP Position: [facility] PCO Associate Professional Member Role: PCP Address: Address: [address] [place] [address]- Care Team Related Persons Name: MCKENZIE BURGER Address: [address] [address] Name: DAVID OVERTON
--- OUTSIDE RECORDS SUMMARY | 2024-07-25 10:19 | XMS_ITS | Continuity of Care Document ---
Author Organization [facility] Address [address] [place] [address], [address] [place] [address]- Care Team Providers Care School Child Care Attendant Name Role Phone Hardeep Hurd MD Primary Care Physician [id number]s): 07/08/22 - 08/07/22 [facility] [address] [place] [address] Drive, [address] [place], [place] [address] Attending Physician: Darell Conley Admitting Physician: Darell Conley Referring Physician: AdmtrDarell Allergies, Adverse Reactions, Alerts Substance Reaction Severity [...] Personnel Name: Hardeep Hurd MD Address: Address: [address] [facility] [place] [address]
--- OUTSIDE RECORDS SUMMARY | 2024-07-25 10:19 | XMS_ITS | Continuity of Care Document ---
Author Organization [facility] Address [address] [place] [address]- Care Team Providers Care Bead Cutter Name Role Phone Minh MILLER, Shanice Primary Care Phys[id number] Date(s): 05/14/24 - 06/13/[address] [address]- Allergies, Adverse Reactions, Alerts Substance Reaction Severity [...] Unknown, 5 Refills, Maintenance, 05/30/24 13:21:00 EDT, [id number], 30, USE TO CLEAN AREA BEFORE INJECTING [...] disp 200u vial q3 months, pt to filler picker and bring to neurology clinic, # 1 each, 3 Refills, Maintenance, 03/14/24 12:37:00 EDT, [facility], Partial fill upon [...] 167,... Start Date: 04/18/24 Status: Ordered Pen [place], 31 G x 5 mm BD Ultra [...] Professional Member Role: PCP Address: Address: [address] [place] [address]- Care Team Related Persons Name: MCKENZIE BURGER Address: home [address] [place] [address] Name: DAVID OVERTON
--- OUTSIDE RECORDS SUMMARY | 2024-07-25 10:19 | XMS_ITS | Continuity of Care Document ---
Author Organization [facility] Address [address] [place] [address]- Care Team Providers Care Uniform Force Captain Name Role Phone Minh MILLER, Shanice Primary Care Physician [place] [facility] [place] Date(s): 03/24/23 - 04/23/23 [facility] [address] [place] [address]- Allergies, Adverse Reactions, Alerts Substance Reaction Severity Status Fioricet Active Medications buPROPion 300 mg/24 hours (XL) oral tablet, extended release 0 Refills, Maintenance, 04/22/23 10:25:00 EDT, Partial fill upon patient request if the prescription is for a schedule II opioid drug. Start Date: 04/22/23 Status: Ordered busPIRone 15 mg oral tablet 0 Refills, Maintenance, 04/22/23 10:25:00 EDT, Partial fill upon patient request if the prescription is for a schedule II opioid drug. Start Date: 04/22/23 Status: Ordered lithium 300 mg oral capsule 1 capsule = 300 mg, By Mouth, 2 times a day, 0 Refills, Maintenance, 04/08/20 7:09:00 EDT, Capsule Start Date: 04/08/20 Status: Ordered traMADol 50 mg oral tablet 1 tablet = 50 mg, By Mouth, Every 4 hours, PRN for pain, # 60 tablet, 0 Refills, Maintenance, 08/30/22 13:57:00 EST, Tablet, Partial fill upon patient request if the prescription is for a schedule IIopioid drug. Start Date: 08/30/22 Status: Ordered Problem List Condition Confirmation Course Effective Dates Status Health St atus Informant H/O bariatric surgery 1 Confirmed Active History of kidney stones 2 Confirmed Active Urinary incontinence Confirmed Active 2014 2lithotrypsy in september 2015 Social History Social History Type Response Smoking Status Never smoker entered on: 06/05/18 Sex Patient Care team information Care Team Personnel Name: Shanice Wilkinson NP Position: [facility] PCO Associate Professional Member Role: PCP Address: Address: [address] [place] [address] Clinical [place] [address]- Care Team Related Persons Name: MCKENZIE BURGER Address: [address] [address]
--- OUTSIDE RECORDS SUMMARY | 2024-07-25 10:19 | XMS_ITS | Continuity of Care Document ---
Author Organization [facility] Address [address] [place] [address]- Care Team Providers Care Councilor Name Role Phone Shanice Wilkinson NP [id number] 10/19/[facility] - 12/23/[address] [address]- Attending Physician: Brandon Arnold MD Admitting Physician: [...] 0 Refills, Maintenance, 11/29/23 11:35:00 EST, ECCapsule, [facility]/pharmacy #[id number], Partial fill upon patient request if the prescription is for a schedule II opioid drug., 167, cm, 10/19/23 16:11:00 EST, H... Start Date: 11/29/23 Status: Ordered onabotulinumtoxinA 200 units injection See Instructions, disp 200u vial q3 months, pt to flower picker and bring to neurology clinic, # 1 each, 3 Refills, Maintenance, 09/12/23 8:23:00 EST, [facility], Partial fill upon patientrequest if the prescription is for a schedule II op... Start Date: 09/12/23 Status: Ordered Pen [place], 31 G x 5 mm BD Ultra [...] Refills, Acute 12/14/24 0:00:00 EST, 12/15/23 12:50:00EST, [facility]/pharmacy #[id number], Partial fill upon patient... Start Date: 12/15/23 Stop Date: 12/14/24 Status: Ordered Ubrelvy 100 mg oral tablet 1 tablet = 100 mg, By Mouth, Daily, PRN as needed for migraine headache, may repeat dose in 2 hoursif needed, # 16 tablet, 0 Refills, Soft Stop, 12/15/23 12:51:00 EST, Tablet, [id number], Partial fill upon patient request if the prescription... Start Date: 12/15/23 Status: Ordered Victoza 18 mg/3 mL subcutaneous solution See Instructions, INJECT INTO THE SKIN 1.2MG DAILY, # 6 Unknown, 0 Refills, Maintenance, 12/15/23 12:24:00 EST, [facility], 167, cm, 10/19/23 16:11:00 EST, Height, 78.5, [...] Team Personnel Name: Shanice Wilkinson NP Position: [facility] PCO Associate Professional Member Role: PCP Address: Address: [address] [place] [address]- Care Team Related Persons Name: MCKENZIE BURGER Address: home [address] [place] [address] Name: DAVID OVERTON
--- OUTSIDE RECORDS SUMMARY | 2024-07-25 10:19 | XMS_ITS | Continuity of Care Document ---
Author Organization [facility] Address [address] [place] [address]- Care Team Providers Care Risk Assessment Analyst Name Role Phone Minh MILLER, Shanice [id number] Date[facility] 10[facility] - 12/07/[address] [address]- Attending Physician: Shanice Wilkinson NP Admitting Physician: Shanice Wilkinson NP Referring Physician: Lucy Diana Allergies, Adverse Reactions, Alerts Substance Reaction Severity Status Fioricet Active Medications acetaminophen 325 mg oral tablet See Instructions, TOME DOS TABLETAS CADA CUATRO HORAS CUANDO SEA NECESARIO FOR HEADACHE (WITH ZOLMITRIPTAN SPRAY), # 20 tablet, Refills 10, Maintenance, 11/24/23 13:53:00 EST, Instructions Replace Required Details, Route to Pharmacy Electronically, CV... Start Date: 11/24/23 Status: Ordered Alcohol Wipes See Instructions, # [...] 0 Refills, Maintenance, 10/21/23 8:39:00 EST, [facility] fill upon patient request if the [...] Refills, Maintenance, 11/29/23 11:35:00 EST, ECCapsule, [facility]/pharmacy #[id number], Partial fill upon patient request if the prescription is for a schedule II opioid drug., 167, cm, 10/19/23 16:11:00 EST, H... Start Date: 11/29/23 Status: Ordered onabotulinumtoxinA 200 units injection See Instructions, disp 200u vial q3 months, pt to diamond picker and bring to neurology clinic, # 1 each, 3 Refills, Maintenance, 09/12/23 8:23:00 EST, [facility], Partial fill upon patientrequest if the prescription is for a schedule II op... Start Date: 09/12/23 Status: Ordered Pen [place], 31 G x 5 mm BD Ultra Fine III See Instructions, # 30 each, Refills 5, Tot. Refills 5, Maintenance, For use with Victoza, 11/25/2416:02:00 EST, Supply, 167, cm, 10/19/23 16:11:00 EST, Height, 78.5, kg, 08/30/22 13:56:00 EST, Dry Weight Start Date: 11/25/23 Status: Ordered Victoza 18 mg/3 mL subcutaneous solution = 1.2 mg, Subcutaneous Injection, Daily, # 6 mL, 0 Refills, Maintenance, 11/24/23 18:10:00 EST, Solution, [id number], Partial fill upon patient request if the prescription is for a schedule II opioid drug., 167, cm, 10/19/23 16:11:00 EST, [place]... Start Date: 11/24/23 Status: Ordered Zomig 5 mg nasal spray 1 sprays, Naris, Left, Daily, PRN for migraine headache, # 9 each, 11 Refills, Maintenance, 11/17/23 22:36:00 EST, [place], [id number], Partial fill upon patient request if the prescription is for a schedule II opioid drug., 167, cm, 10/19/23 16... Start Date: 11/17/23 Status: Ordered Problem List Condition Confirmation Course [...] Team Personnel Name: Shanice Wilkinson NP Position: [facility] Associate Professional Member Role: PCP Address: Address: [address] [place] [address]- Care Team Related Persons Name: MCKENZIE BURGER Address: [address] [address] Name: DAVID OVERTON
--- OUTSIDE RECORDS SUMMARY | 2024-07-25 10:19 | XMS_ITS | Continuity of Care Document ---
Author Organization [facility] Address [address] [place] [address]- Care Team Providers Care Talent Acquisition Partner Name Role Phone Shanice Wilkinson NP Primary Care Physician [place] [facility] [id number] Date(s): 03/13/24 - 04/12/[address] [address]- Allergies, Adverse Reactions, Alerts Substance Reaction Severity [...] capsule, 1 Refills, Maintenance, 03/05/24 15:22:00 EDT, [facility]/pharmacy #[id number], Partial fill upon patient request if [...] 0 Refills, Maintenance, 11/29/23 11:35:00 EST, ECCapsule, [facility]/pharmacy #[id number], Partial fill upon patient request if the prescription is for a schedule II opioid drug., 167, cm, 10/19/23 16:11:00 EST, H... Start Date: 11/29/23 Status: Ordered onabotulinumtoxinA 200 units injection See Instructions, disp 200u vial q3 months, pt to fish bait picker and bring to neurology clinic, # 1 each, 3 Refills, Maintenance, 03/14/24 12:37:00 EDT, [facility], Partial fill upon patient request if the prescription is for a schedule II o... Start Date: 03/14/24 Status: Ordered Ozempic 2 mg/3 mL (0.25 mg or 0.5 mg dose) subcutaneous solution = 0.5 mg, Subcutaneous Injection, Every week, rotate injection sites, # 1 each, 0 Refills, Maintenance, 04/12/24 17:47:00 EDT, Solution, [facility], Partial fill upon patient requestif the prescription is for a schedule II opioid christina... Start Date: 04/12/24 Status: Ordered Pen [place], 31 G x 5 mm BD Ultra [...] Refills, Maintenance, 02/20/24 10:56:00 EDT, [id number], 167, cm,... Start Date: 02/20/24 Status: Ordered Ubrelvy 100 mg oral tablet 1 tablet, By Mouth, Daily, PRN NEEDED FOR MIGRAINE HEADACHE,MAY REPEAT DOSE IN, # 16 tablet, 5 Refills, Maintenance, 02/02/24 8:29:00 EDT, [id number], 167, cm, 01/13/24 15:06:00 EDT, Height, 78.5, kg, 08/30/22 13:56:00 EST, Dry Weight Start Date: 02/02/24 Stop Date: 02/02/24 Status: Ordered Victoza 18 mg/3 mL subcutaneous solution = 1.8 mg, Subcutaneous Injection, Daily, # 9 mL, 2 Refills, Maintenance, 02/06/24 18:11:00 EDT, [facility], [id number], Partial fill upon patient request if the [...] Associate Professional Member Role: PCP Address: Address: [address] [place] [address] Care Team Related Persons Name: MCKENZIE BURGER Address: home [address] [place] [id number] Name: DAVID OVERTON
--- OUTSIDE RECORDS SUMMARY | 2024-07-25 10:19 | XMS_ITS | Continuity of Care Document ---
Author Organization [facility] Address [address] [place] [address]- Care Team Providers Care Oral And Maxillofacial Surgery Name Role Phone Minh MILLER, Shanice Primary Care Physician [place] [facility] [place] Date(s): 01/03/24 - 02/02/[address] [address]- Allergies, Adverse Reactions, Alerts Substance Reaction Severity [...] 0 Refills, Maintenance, 11/29/23 11:35:00 EST, ECCapsule, [facility]/pharmacy #[id number], Partial fill upon patient request if the prescription is for a schedule II opioid drug., 167, cm, 10/19/23 16:11:00 EST, H... Start Date: 11/29/23 Status: Ordered onabotulinumtoxinA 200 units injection See Instructions, disp 200u vial q3 months, pt to steel pickler and bring to neurology clinic, # 1 each, 3 Refills, Maintenance, 09/12/23 8:23:00 EST, [facility], Partial fill upon patientrequest if the prescription is for a schedule II op... Start Date: 09/12/23 Status: Ordered Pen [place], 31 G x 5 mm BD Ultra [...] Refills, Acute 12/14/24 0:00:00 EST, 12/15/23 12:50:00EST, [facility]/pharmacy #[id number], Partial fill upon patient... Start Date: 12/15/23 Stop Date: 12/14/24 Status: Ordered Ubrelvy 100 mg oral tablet 1 tablet, By Mouth, Daily, PRN NEEDED FOR MIGRAINE HEADACHE,MAY REPEAT DOSE IN, # 16 tablet, 5 Refills, Maintenance, 02/02/24 8:29:00 EDT, [id number], 167, cm, 01/13/24 15:06:00 EDT, Height, 78.5, kg, 08/30/22 13:56:00 EST, Dry Weight Start Date: 02/02/24 Stop Date: 02/02/24 Status: Ordered Victoza 18 mg/3 mL subcutaneous solution = 1.8 mg, Subcutaneous Injection, Daily, # 9 mL, 0 Refills, Maintenance, 01/04/24 18:32:00 EDT, Solution, [facility] #[id number], Partial fill upon patient request if the [...] Associate Professional Member Role: PCP Address: Address: [address] [place] [address]- Care Team Related Persons Name: MCKENZIE BURGER Address: home [address] [place] [id number] Name: DAVID OVERTON
--- OUTSIDE RECORDS SUMMARY | 2024-07-25 10:19 | XMS_ITS | Continuity of Care Document ---
Author Organization [facility] Address [address] [facility], 3r d Floor, [address] [place] [address]- Care Team Providers Care Billing And Quality Technician Name Role Phone Shanice Wilkinson NP Primary Care Physician [place] [facility] [place]/14/23 - 10/12/23 [facility] [address] [place], 3rd Floor, [address] [place] [id number] Attending Physician: Aime Harrell MD Admitting Physician: Aime Harrell MD Allergies, Adverse Reactions, Alerts Substance Reaction [...] Acute 10/22/23 0:00:00 EST, 10/03/23 21:39:00 EST, [facility]/pharmacy #[id number], Partial fill upon patient request if the prescription is for a schedule II opioid drug., 167, cm, 09/12/23... Start Date: 10/03/23 Stop Date: 10/22/23 Status: Ordered onabotulinumtoxinA 200 units injection See Instructions, disp 200u vial q3 months, pt to roller picker and bring to neurology clinic, # 1 each, 3 Refills, Maintenance, 09/12/23 8:23:00 EST, [facility], Partial fill upon patientrequest if the prescription is for a schedule II op... Start Date: 09/12/23 Status: Ordered Zomig 5 mg nasal spray 1 sprays, Nares, Both, Daily, PRN for migraine headache, # 6 each, 1 Refills, Maintenance, :55:00 EST, [place], [facility]/pharmacy #[id number], Partial fill upon patient request [...] Associate Professional Member Role: PCP Address: Address: [address] [place] [address]- Care Team Related Persons Name: MCKENZIE BURGER Address: home [address] [address] Name: DAVID OVERTON
--- OUTSIDE RECORDS SUMMARY | 2024-07-25 10:20 | XMS_ITS | Continuity of Care Document ---
Author Organization [facility] Address [address] [facility], 3r d Floor, [address] [place] [address]- Care Team Providers Care Information Assoc Name Role Phone Minh MILLER, Shanice Primary Care Physician [place] [facility] [place] 07/11/24 [facility] [address] [facility] 3rd Floor, [address] [place] [address]- Attending Physician: Aime Harrell MD Admitting Physician: [...] capsule, 1 Refills, Maintenance, 03/05/24 15:22:00 EDT, [facility]/pharmacy #[id number], Partial fill upon patient request if the prescription is fora schedule II opioid drug., 167, cm, 03/05/24 15:06... Start Date: 03/05/24 Status: Ordered isopropyl alcohol 70% topical pad See Instructions, USE TO CLEAN AREA BEFORE INJECTING VICTOZA, # 100 Unknown, 5 Refills, Maintenance, 05/30/24 13:21:00 EDT, [id number], 30, USE TO CLEAN AREA BEFORE INJECTING [...] 0 Refills, Maintenance, 11/29/23 11:35:00 EST, ECCapsule, [facility]/pharmacy #[id number], Partial fill upon patient request if the prescription is for a schedule II opioid drug., 167, cm, 10/19/23 16:11:00 EST, H... Start Date: 11/29/23 Status: Ordered onabotulinumtoxinA 200 units injection See Instructions, disp 200u vial q3 months, pt to pecan picker and bring to neurology clinic, # 1 each, 3 Refills, Maintenance, 03/14/24 12:37:00 EDT, [facility], Partial fill upon patient [...] 167,... Start Date: 04/18/24 Status: Ordered Pen [place], 31 G x 5 mm BD Ultra [...] Associate Professional Member Role: PCP Address: Address: [address] [place] [address]- Care Team Related Persons Name: MCKENZIE BURGER Address: home [address] [place] [address] Name: DAVID OVERTON
--- OUTSIDE RECORDS SUMMARY | 2024-07-25 10:20 | XMS_ITS | Continuity of Care Document ---
Author Organization [facility] Address [address] [place] [address]- Care Team Providers Care Public Records Officer Name Role Phone Minh MILLER, Shanice Primary Care Physician Encounter [facility] [place] Date(s): 06/07/24 - 07/07/[address] [address]- Allergies, Adverse Reactions, Alerts Substance Reaction Severity [...] capsule, 1 Refills, Maintenance, 03/05/24 15:22:00 EDT, [facility]/pharmacy #[id number], Partial fill upon patient request if the prescription is fora schedule II opioid drug., 167, cm, 03/05/24 15:06... Start Date: 03/05/24 Status: Ordered isopropyl alcohol 70% topical pad See Instructions, USE TO CLEAN AREA BEFORE INJECTING VICTOZA, # 100 Unknown, 5 Refills, Maintenance, 05/30/24 13:21:00 EDT, [id number], 30, USE TO CLEAN AREA BEFORE INJECTING [...] 0 Refills, Maintenance, 11/29/23 11:35:00 EST, ECCapsule, [facility]/pharmacy #[id number], Partial fill upon patient request if the prescription is for a schedule II opioid drug., 167, cm, 10/19/23 16:11:00 EST, H... Start Date: 11/29/23 Status: Ordered onabotulinumtoxinA 200 units injection See Instructions, disp 200u vial q3 months, pt to pickler helper and bring to neurology clinic, # 1 each, 3 Refills, Maintenance, 03/14/24 12:37:00 EDT, [facility], Partial fill upon patient [...] 167,... Start Date: 04/18/24 Status: Ordered Pen [place], 31 G x 5 mm BD Ultra [...] Associate Professional Member Role: PCP Address: Address: [address] [place] [address]- Care Team Related Persons Name: MCKENZIE BURGER Address: [address] [address] Name: DAVID OVERTON
--- OUTSIDE RECORDS SUMMARY | 2024-07-25 10:20 | XMS_ITS | Continuity of Care Document ---
Author Organization [facility] Address [address] [place] [address]- Care Team Providers Care Hvac Installation Technician Name Role Phone Minh MILLER, Shanice Primary Care Physician [place] [facility] [place] 03/01/24 - 03/31/[address] [address]- Allergies, Adverse Reactions, Alerts Substance Reaction Severity [...] capsule, 1 Refills, Maintenance, 03/05/24 15:22:00 EDT, [facility]/pharmacy #[id number], Partial fill upon patient request if [...] 0 Refills, Maintenance, 11/29/23 11:35:00 EST, ECCapsule, [facility]/pharmacy #[id number], Partial fill upon patient request if the prescription is for a schedule II opioid drug., 167, cm, 10/19/23 16:11:00 EST, H... Start Date: 11/29/23 Status: Ordered onabotulinumtoxinA 200 units injection See Instructions, disp 200u vial q3 months, pt to sisal picker and bring to neurology clinic, # 1 each, 3 Refills, Maintenance, 03/14/24 12:37:00 EDT, [facility], Partial fill upon patient request if the prescription is for a schedule II o... Start Date: 03/14/24 Status: Ordered Pen [place], 31 G x 5 mm BD Ultra [...] Refills, Maintenance, 02/20/24 10:56:00 EDT, [id number], 167, cm,... Start Date: 02/20/24 Status: Ordered Ubrelvy 100 mg oral tablet 1 tablet, By Mouth, Daily, PRN NEEDED FOR MIGRAINE HEADACHE,MAY REPEAT DOSE IN, # 16 tablet, 5 Refills, Maintenance, 02/02/24 8:29:00 EDT, [facility], 167, cm, 01/13/24 15:06:00 EDT, Height, 78.5, [...] Team Personnel Name: Shanice Wilkinson NP Position: [facility] Associate Professional Member Role: PCP Address: Address: [address] [place] [address]- Care Team Related Persons Name: MCKENZIE BURGER Address: home [address] [address] Name: DAVID OVERTON
--- OUTSIDE RECORDS SUMMARY | 2024-07-25 10:20 | XMS_ITS | Continuity of Care Document ---
Author Organization [facility] Address [address] [facility], 3r d Floor, [address] [place] [address]- Care Team Providers Care Commodities Manager Name Role Phone Minh MILLER, Shanice [id number]13[facility]23 - 01/12/24 [facility] [address] [place] [address] Floor, [address] [place] [address]- Allergies, Adverse Reactions, Alerts Substance Reaction Severity [...] 0 Refills, Maintenance, 11/29/23 11:35:00 EST, ECCapsule, [facility]/pharmacy #[id number], Partial fill upon patient request if the prescription is for a schedule II opioid drug., 167, cm, 10/19/23 16:11:00 EST, H... Start Date: 11/29/23 Status: Ordered onabotulinumtoxinA 200 units injection See Instructions, disp 200u vial q3 months, pt to olive picker and bring to neurology clinic, # 1 each, 3 Refills, Maintenance, 09/12/23 8:23:00 EST, [facility], Partial fill upon patientrequest if the prescription is for a schedule II op... Start Date: 09/12/23 Status: Ordered Pen [place], 31 G x 5 mm BD Ultra [...] Refills, Acute 12/14/24 0:00:00 EST, 12/15/23 12:50:00EST, [facility]/pharmacy #[id number], Partial fill upon patient... Start Date: 12/15/23 Stop Date: 12/14/24 Status: Ordered Ubrelvy 100 mg oral tablet 1 tablet = 100 mg, By Mouth, Daily, PRN as needed for migraine headache, may repeat dose in 2 hoursif needed, # 16 tablet, 0 Refills, Soft Stop, 12/15/23 12:51:00 EST, Tablet, [facility]/pharmacy #[id number], Partial fill upon patient request if the prescription... Start Date: 12/15/23 Status: Ordered Victoza 18 mg/3 mL subcutaneous solution = 1.8 mg, Subcutaneous Injection, Daily, # 9 mL, 0 Refills, Maintenance, 01/04/24 18:32:00 EDT, Solution, [facility] #[id number], Partial fill upon patient request if the [...] Team Personnel Name: Shanice Wilkinson NP Position: [facility] Associate Professional Member Role: PCP Address: Address: [address] [place] [address]- Care Team Related Persons Name: MCKENZIE BURGER Address: home [address] [address] Name: DAVID OVERTON
--- OUTSIDE RECORDS SUMMARY | 2024-07-25 10:20 | XMS_ITS | Continuity of Care Document ---
Author Organization [facility] Address [address] [facility], 3r d Floor, [address] [place] [address]- Care Team Providers Care Voice Network Engineer Name Role Phone Minh MILLER, Shanice [id number] 03/14/24 - 04/13/24 [facility] [address] [place] 3[address] Floor, [address] [place] [address]- Allergies, Adverse Reactions, Alerts Substance Reaction Severity [...] 0 Refills, Maintenance, 11/29/23 11:35:00 EST, ECCapsule, [id number] Partial fill upon patient request if the prescription is for a schedule II opioid drug., 167, cm, 10/19/23 16:11:00 EST, H... 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 Start Date: 03/14/24 Status: Ordered Ozempic 2 mg/3 mL (0.25 mg or 0.5 mg dose) subcutaneous solution = 0.5 mg, Subcutaneous Injection, Every week, rotate injection sites, # 1 each, 0 Refills, Maintenance, 04/12/24 17:47:00 EDT, Solution, [facility], Partial fill upon patient requestif the prescription is for a schedule II opioid christina... Start Date: 04/12/24 Status: Ordered Pen [place], 31 G x 5 mm BD Ultra [...] Refills, Maintenance, 02/20/24 10:56:00 EDT, [id number], 167, cm,... Start Date: 02/20/24 Status: Ordered Ubrelvy 100 mg oral tablet 1 tablet, By Mouth, Daily, PRN NEEDED FOR MIGRAINE HEADACHE,MAY REPEAT DOSE IN, # 16 tablet, 5 Refills, Maintenance, 02/02/24 8:29:00 EDT, [facility], 167, cm, 01/13/24 15:06:00 EDT, Height, 78.5, kg, 08/30/22 13:56:00 EST, Dry Weight Start Date: 02/02/24 Stop Date: 02/02/24 Status: Ordered Victoza 18 mg/3 mL subcutaneous solution = 1.8 mg, Subcutaneous Injection, Daily, # 9 mL, 2 Refills, Maintenance, 02/06/24 18:11:00 EDT, [facility], [id number], Partial fill upon patient request if the [...] Professional Member Role: PCP Address: Address: [address] [place] [address] Care Team Related Persons Name: MCKENZIE BURGER Address: home [address] [place] [address] Name: DAVID OVERTON
--- OUTSIDE RECORDS SUMMARY | 2024-07-25 10:20 | XMS_ITS | Continuity of Care Document ---
Author Organization [facility] Address [address] [place] [address]- Care Team Providers Care Desktop Support Specialist Name Role Phone Hardeep Hurd MD Primary Care Physician [place] [facility] [place] - 11/11/[address] [address]- Discharge Disposition: A-D/C Home Attending Physician: Bipin Light MD Admitting Physician: Bipin Light MD Referring Physician: Not on Staff, Referring MD Allergies, Adverse Reactions, Alerts Substance Reaction [...] Most recent to oldest [Reference Range]: 1 Oxygen Saturation [94-100 %] 100 % (11/11/20 1:13 PM) Pulse Rate [55-90 bpm] 80 bpm (11/11/20 1:13 PM) Blood Pressure [90-138/55-84 mm Hg] 123/ 76mm Hg (11/11/20 1:13 PM) Respiratory Rate [16-30 br/min] 18 br/mi n (11/11/20 1:13 PM) Temperature [96.8-100.4 DegF] 98.4 DegF (11/11/20 1:13 PM) Mode of Delivery (Oxygen) Room air (11/11/20 1:13 PM) Blood pressure sites Arm, right (11/11/20 1:13 PM) Temperature Route Oral (11/11/20 1:13 PM) Social History Social History Type Response Smoking Status Never smoker entered on: 06/05/18 Sex
--- OUTSIDE RECORDS SUMMARY | 2024-07-25 10:20 | XMS_ITS | Continuity of Care Document ---
Author Organization [facility] Address [address], [address] d Floor, [address] [place] [address]- Care Team Providers Care Ios Software Engineer Name Role Phone Shanice Wilkinson NP Primary Care Physician [place] [facility] [place] 08/10/23 [facility] [address], 3[address], [address] [place] [address] Allergies, Adverse Reactions, Alerts Substance Reaction Severity [...] Refills, Soft... Start Date: 07/11/23 Status: Ordered lithium 300 mg oral capsule [...] Personnel Name: Shanice Wilkinson NP Position: [facility] Associate Professional Member Role: PCP Address: Address: [address] [place] [address]- Care Team Related Persons Name: MCKENZIE BURGER Address: [address] [address] Name: DAVID OVERTON
--- OUTSIDE RECORDS SUMMARY | 2024-07-25 10:20 | XMS_ITS | Continuity of Care Document ---
Author Organization [facility] Address [address] [place] [address]- Care Team Providers Care Hydraulic Rock Drill Operator Name Role Phone Minh MILLER, Shanice Primary Care Physician [id number] Date(s): 04/18/24 - 05/18/[address] [address]- Allergies, Adverse Reactions, Alerts Substance Reaction Severity [...] capsule, 1 Refills, Maintenance, 03/05/24 15:22:00 EDT, [facility]/pharmacy #[id number], Partial fill upon patient request [...] 0 Refills, Maintenance, 11/29/23 11:35:00 EST, ECCapsule, [facility]/pharmacy #[id number], Partial fill upon patient request if the prescription is for a schedule II opioid drug., 167, cm, 10/19/23 16:11:00 EST, H... Start Date: 11/29/23 Status: Ordered onabotulinumtoxinA 200 units injection See Instructions, disp 200u vial q3 months, pt to potato picker and bring to neurology clinic, # 1 each, 3 Refills, Maintenance, 03/14/24 12:37:00 EDT, [facility], Partial fill upon patient request if the prescription is for a schedule II o... Start Date: 03/14/24 Status: Ordered Ozempic 2 mg/3 mL (0.25 mg or 0.5 mg dose) subcutaneous solution = 0.5 mg, Subcutaneous Injection, Every week, rotate injection sites, # 1 each, 0 Refills, Maintenance, 04/18/24 15:57:00 EDT, Solution, [facility]/pharmacy #[id number], Partial fill upon patient request if the prescription is for a schedule II opioid drug., 167,... Start Date: 04/18/24 Status: Ordered Pen [place], 31 G x 5 mm BD Ultra [...] Refills, Maintenance, 02/20/24 10:56:00 EDT, [id number], 167, cm,... Start Date: 02/20/24 Status: Ordered Ubrelvy 100 mg oral tablet 1 tablet, By Mouth, Daily, PRN NEEDED FOR MIGRAINE HEADACHE,MAY REPEAT DOSE IN, # 16 tablet, 5 Refills, Maintenance, 02/02/24 8:29:00 EDT, [id number], 167, cm, 01/13/24 15:06:00 EDT, Height, 78.5, kg, 08/30/22 13:56:00 EST, Dry Weight Start Date: 02/02/24 Stop Date: 02/02/24 Status: Ordered Victoza 18 mg/3 mL subcutaneous solution = 1.8 mg, Subcutaneous Injection, Daily, # 6 mL, 1 Refills, Maintenance, 05/18/24 14:32:00 EDT, Solution, [facility], Partial fill upon patient request if the prescription is for a schedule II opioid drug., 167, cm, 05/18/24 14:19:00... Start Date: 05/18/24 Status: Ordered Victoza 18 mg/3 mL subcutaneous solution = 1.8 mg, Subcutaneous Injection, Daily, # 9 mL, 2 Refills, Maintenance, 02/06/24 18:11:00 EDT, Solution, [facility]/pharmacy #[id number], Partial fill upon patient request [...] Name: Shanice Wilkinson NP Position: [facility] Associate Professional Member Role: PCP Address: Address: [address] [place] [id number]- Care Team Related Persons Name: MCKENZIE BURGER Address: [address] [address] Name: DAVID OVERTON
--- OUTSIDE RECORDS SUMMARY | 2024-07-25 10:20 | XMS_ITS | Continuity of Care Document ---
Author Organization [facility] Address [address] [place] [address]- Care Team Providers Care Stud Setter Name Role Phone Shanice Wilkinson NP Primary Care Physician [facility] [id number] Date(s): 04/22/23 - 05/22/[address] [address]- Attending Physician: Darell Conley Admitting Physician: Darell [...] EDT, Capsule Start Date: 04/08/20 Status: Ordered rizatriptan 5 mg oral tablet See Instructions, take 1-2 tablets as needed for migraine by mouth, do not use more than 4 tablets in a day, may repeat dose in 2 hours if headache is not relieved., # 9 tablet, 5 Refills, Acute 05/16/24 0:00:00 EDT, 05/16/23 12:56:00 [facility] Start Date: 05/16/23 Stop Date: 05/16/24 Status: Ordered traMADol 50 mg oral tablet [...] Associate Professional Member Role: PCP Address: Address: [address] [place] [address] Clinical [place] [address]- Care Team Related Persons Name: MCKENZIE BURGER Address: home [address] [place] [id number] Name: DAVID OVERTON
--- OUTSIDE RECORDS SUMMARY | 2024-07-25 10:20 | XMS_ITS | Continuity of Care Document ---
Author Organization [facility] Address [address] [place] [address]- Care Team Providers Care Disability Specialist Name Role Phone Minh MILLER, Shanice Primary Care Physician Encounter [facility] Date(s): 05/08/24 - 06/07/[address] [address]- Allergies, Adverse Reactions, Alerts Substance Reaction Severity [...] 1 Refills, Maintenance, 03/05/24 15:22:00 EDT, [facility]/pharmacy #[id number], Partial fill upon patient request if the prescription is fora schedule II opioid drug., 167, cm, 03/05/24 15:06... Start Date: 03/05/24 Status: Ordered isopropyl alcohol 70% topical pad See Instructions, USE TO CLEAN AREA BEFORE INJECTING VICTOZA, # 100 Unknown, 5 Refills, Maintenance, 05/30/24 13:21:00 EDT, [id number], 30, USE TO CLEAN AREA BEFORE INJECTING [...] Refills, Maintenance, 11/29/23 11:35:00 EST, ECCapsule, [facility]/pharmacy #[id number], Partial fill upon patient request if the prescription is for a schedule II opioid drug., 167, cm, 10/19/23 16:11:00 EST, H... 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 Start Date: 03/14/24 Status: Ordered Ozempic 2 mg/3 mL (0.25 mg or 0.5 mg dose) subcutaneous solution = 0.5 mg, Subcutaneous Injection, Every week, rotate injection sites, # 1 each, 0 Refills, Maintenance, 04/18/24 15:57:00 EDT, Solution, [facility]/pharmacy #[id number], Partial fill upon patient request if the prescription is for a schedule II opioid drug., 167,... Start Date: 04/18/24 Status: Ordered Pen [place], 31 G x 5 mm BD Ultra [...] Refills, Maintenance, 02/20/24 10:56:00 EDT, [id number], 167, cm,... Start Date: 02/20/24 Status: Ordered Ubrelvy 100 mg oral tablet 1 tablet, By Mouth, Daily, PRN NEEDED FOR MIGRAINE HEADACHE,MAY REPEAT DOSE IN, # 16 tablet, 5 Refills, Maintenance, 02/02/24 8:29:00 EDT, [id number], 167, cm, 01/13/24 15:06:00 EDT, Height, 78.5, kg, 08/30/22 13:56:00 EST, Dry Weight Start Date: 02/02/24 Stop Date: 02/02/24 Status: Ordered Victoza 18 mg/3 mL subcutaneous solution = 1.8 mg, Subcutaneous Injection, Daily, # 6 mL, 2 Refills, Maintenance, 06/05/24 15:59:00 EDT, Solution, [facility], Partial fill upon patient request if the prescription is for a schedule II opioid drug., 167, cm, 05/18/24 14:19:00... Start Date: 06/05/24 Status: Ordered Victoza 18 mg/3 mL subcutaneous solution = 1.8 mg, Subcutaneous Injection, Daily, # 9 mL, 2 Refills, Maintenance, 02/06/24 18:11:00 EDT, [facility], [facility]/pharmacy #[id number], Partial fill upon patient request if the [...] Team Personnel Name: Shanice Wilkinson NP Position: [facility] Associate Professional Member Role: PCP Address: Address: [address] [place] [address]- Care Team Related Persons Name: MCKENZIE BURGER Address: [address] [address] Name: DAVID OVERTON
--- OUTSIDE RECORDS SUMMARY | 2024-07-25 10:20 | XMS_ITS | Continuity of Care Document ---
Author Organization [facility] Address [address], [address], [address] [place] [address]- Care Team Providers Care Continuous Weld Pipe Mill Supervisor Name Role Phone Minh MILLER, Shanice Primary Care Physician Encounter [facility] Date(s): 07/29/23 - 09/08/23 [facility] [address], [address] [place] [address]- Attending Physician: Aime Harrell MD Admitting Physician: [...] Team Personnel Name: Shanice Wilkinson NP Position: [facility] Associate Professional Member Role: PCP Address: Address: [address] [place] [address]- Care Team Related Persons Name: MCKENZIE BURGER Address: [address] [address] Name: DAVID OVERTON
--- OUTSIDE RECORDS SUMMARY | 2024-07-25 10:20 | XMS_ITS | Continuity of Care Document ---
Author Organization [facility] Address [address] [place] [address]- Care Team Providers Care Power Equipment Technology Instructor Name Role Phone Shanice Wilkinson NP Primary Care Physician Encounter [facility] R [id number] Date(s): 12/09/23 - 01/08/[address] [address]- Allergies, Adverse Reactions, Alerts Substance Reaction Severity [...] 0 Refills, Maintenance, 11/29/23 11:35:00 EST, ECCapsule, [facility]/pharmacy #[id number], Partial fill upon patient request if the prescription is for a schedule II opioid drug., 167, cm, 10/19/23 16:11:00 EST, H... 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 Start Date: 09/12/23 Status: Ordered Pen [place], 31 G x 5 mm BD Ultra [...] Refills, Acute 12/14/24 0:00:00 EST, 12/15/23 12:50:00EST, [facility]/pharmacy #[id number], Partial fill upon patient... Start Date: 12/15/23 Stop Date: 12/14/24 Status: Ordered Ubrelvy 100 mg oral tablet 1 tablet = 100 mg, By Mouth, Daily, PRN as needed for migraine headache, may repeat dose in 2 hoursif needed, # 16 tablet, 0 Refills, Soft Stop, 12/15/23 12:51:00 EST, Tablet, [facility]/pharmacy #[id number], Partial fill upon patient request if the prescription... Start Date: 12/15/23 Status: Ordered Victoza 18 mg/3 mL subcutaneous solution = 1.8 mg, Subcutaneous Injection, Daily, # 9 mL, 0 Refills, Maintenance, 01/04/24 18:32:00 EDT, Solution, [facility] #[id number], Partial fill upon patient request if the [...] Associate Professional Member Role: PCP Address: Address: [address] [place] [address]- Care Team Related Persons Name: MCKENZIE BURGER Address: home [address] [place] [id number] Name: DAVID OVERTON
[2024-07-25 10:23] VITALS: BMI 25.6
--- NOTE | 2024-07-25 10:23 | MHC.OFFVIS ---
Vital Signs 07/25/24 10:23 Height 5 ft 6 in Weight 158 lb 11.725 oz BMI 25.6 Intake Visit Reasons: Bleeding after intercourse Pharmacy Informatics Specialist Required: No Information Interpreted: non-clinical & clinical Still Tender: Still Tender Present (Duyen ANDREW) Accompanied by: Spouse Allergies No Known Allergies Allergy (Verified 07/25/24 10:23) Is last menstrual period known: No (Ablation) HPI Comments Details: Presenting complaining of painful intercourse with bleeding after intercourse, associated with vaginal discharge no vaginal odor or itching. No urinary or GI symptoms no fever or chills. Last co testing in 04/09 was negative [facility] Medical History Dysplasia of cervix, low grade (TASHA 1) Left groin mass Vulvar mass Panic attacks Anxiety Depression Vitamin B 12 deficiency History of kidney stones Migraines Surgical History History of endometrial ablation Hx of lithotripsy S/P panniculectomy History of endoscopy Hx laparoscopic cholecystectomy History of bilateral tubal ligation S/P laparoscopic sleeve gastrectomy Family History Mother Alzheimer disease Dementia Father Diabetes mellitus Hypertension Sister Cancer Sister No problems noted. Brother No problems noted. Brother No problems noted. Son No problems noted. Daughter No problems noted. 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 Sexual orientation: Straight/Heterosexual Gender identity: Female Female Reproductive History Menstrual Age of Menarche: 14 control method: permanent sterilization Review of Systems Const All systems reviewed & are unremarkable except as noted in HPI and below Physical Exam Vital Signs: BMI result Body Mass Index 25.6 General: Yes no CVA tenderness External Female Exam: normal external appearance and normal appearance of the urethra Speculum Exam - Vagina: normal appearance of the vagina, normal palpation, no lesions and no masses Speculum Exam - Cervix: normal appearance of the cervix, normal palpation, no lesions, no masses and nontender Bimanual exam- vagina & uterus: normal bimanual exam, normal palpation, uterine size normal, normal palpation, uterine shape normal, No Cervical tenderness present and non-tender Bimanual Exam- Adnexa, other: normal adnexae Back/Spine/Pelvis Back: no CVA tenderness Results AMB Test Urine AMB Test Urine Negative Last Edit by Duyen Hummel CMA on 07/25/24 10:27 Assessment & Plan Assessment & Plan (1) Dyspareunia, female: Code(s): N94.10 - Unspecified dyspareunia Category: Medical Plan: Urine dip and test done in the office were negative. GC/CT with BV panel taken, pelvic ultrasound ordered instructions given the patient to schedule an ultrasound, an EMB/ECC appointment in 2 weeks. All questions answered, the patient verbalized understanding (2) Postcoital bleeding: Code(s): N93.0 - Postcoital and contact bleeding Category: Medical Plan: GC/CT taken, recommended ECC/EMB to rule out endometrial/endocervix pathology including hyperplasia or malignancy. Instructions given the patient to schedule an appointment for EMB/ECC (3) Microscopic hematuria: Code(s): R31.29 - Other microscopic hematuria Category: Medical Plan: Urine dip showed microscopic hematuria, urine culture sent. Will repeat urine dip in 2 weeks. Discussed with the patient the possible causes of microscopic hematuria including but not limited to: interstitial cystitis, polyps, stones, masses, urethral inflammatory processes and others. If Urine Culture is negative and repeat urine dip in 2 weeks shows persistent microscopic hematuria, will proceed with CT abdomen/pelvis and urology referral. Instructions given the patient to schedule a 2 week urine dip follow-up appointment. All questions answered and the patient verbalized understanding. Orders: Orders AMB HCG Urine Test Today Z32.02 - Encounter for test, result negative US pelvic and transvaginal Today N94.10 - Unspecified dyspareunia Coding Level of Care Code Est Pt Level 3 ([address]491) Diagnoses Dyspareunia, female N94.10 Postcoital bleeding N93.0 Microscopic hematuria R31.29
== END 2024-07-25 10:42 | disposition home or self-care (01) ==
LOC: HO.HWS 10:17
PROVIDERS: Visit Provider Obstetrics & Gynecology
DX: N94.10 Unspecified dyspareunia (principal); N93.0 Postcoital and contact bleeding; R31.29 Other microscopic hematuria; Z32.02 Encounter for pregnancy test, result negative
CPT/HCPCS: 99213

== ENCOUNTER 2024-08-01 15:22 | Outpatient (AMB) | payer OTHER, SELFPAY ==
[2024-08-01 15:24] VITALS: TEMP 36.4; BMI 25.6
--- NOTE | 2024-08-01 15:24 | A.OFFVIS_ITS ---
Vital Signs 08/01/24 15:24 Height 5 ft 6 in Weight 158 lb 11.725 oz BMI 25.6 Temp 97.6 F Intake Visit Reasons: vaginal odor Agronomy Teacher Required: No Information Interpreted: non-clinical & clinical Extrusion Press Supervisor: Extrusion Press Supervisor Present (Duyen ANDREW) Accompanied by: Self / Same As Patient Allergies No Known Allergies Allergy (Verified 08/01/24 15:25) Is last menstrual period known: No (Ablation) HPI Comments Details: Presenting complaining of 5 day history of pelvic pain bilateral with associated vaginal discharge and foul odor, no associated urinary frequency or GI symptoms no nausea or vomiting no constipation or diarrhea GC/CT done on 07/25 were negative BV panel was positive for Monique, the patient was treated with Terazol 0.8% q.h.s. for 3 days Urine culture grew E coli sensitive to nitrofurantoin and the patient just finished her 5 day course of Macrobid Pelvic ultrasound scheduled for this afternoon [facility] Medical History Dysplasia of cervix, low grade (TASHA 1) Left groin mass Vulvar mass Panic attacks Anxiety Depression Vitamin B 12 deficiency History of kidney stones Migraines Surgical History History of endometrial ablation Hx of lithotripsy S/P panniculectomy History of endoscopy Hx laparoscopic cholecystectomy History of bilateral tubal ligation S/P laparoscopic sleeve gastrectomy Family History Mother Alzheimer disease Dementia Father Diabetes mellitus Hypertension Sister Cancer Sister No problems noted. Brother No problems noted. Brother No problems noted. Son No problems noted. Daughter No problems noted. 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 Sexual orientation: Straight/Heterosexual Gender identity: Female Female Reproductive History Menstrual Age of Menarche: 14 Review of Systems Const All systems reviewed & are unremarkable except as noted in HPI and below Physical Exam Vital Signs: BMI result Body Mass Index 25.6 General: Yes no CVA tenderness External Female Exam: normal external appearance and normal appearance of the urethra Speculum Exam - Vagina: normal appearance of the vagina, normal palpation, no lesions and no masses Speculum Exam - Cervix: normal appearance of the cervix, normal palpation, no lesions, no masses and Cervical tenderness present Bimanual exam- vagina & uterus: normal bimanual exam, normal palpation, uterine size normal, normal palpation, uterine shape normal, Cervical tenderness present, non-tender, cervical motion tenderness and Uterine tenderness Bimanual Exam- Adnexa, other: normal adnexae and tender (Bilateral) Back/Spine/Pelvis Back: no CVA tenderness Results AMB Urinalysis Dipstick UR Leukocytes Small Last Edit by Duyen Hummel, PHP ARCHITECT on 08/01/24 15:43 UR Nitrite Negative Last Edit by Duyen Hummel, PHP ARCHITECT on 08/01/24 15:43 UR Urobilinogen 4 Last Edit by Duyen Hummel, PHP ARCHITECT on 08/01/24 15:43 UR Protein Trace Last Edit by Duyen Hummel, PHP ARCHITECT on 08/01/24 15:43 UR Ph 5.5 Last Edit by Duyen Hummel, PHP ARCHITECT on 08/01/24 15:43 UR Blood Negative Last Edit by Duyen Hummel, PHP ARCHITECT on 08/01/24 15:43 UR Specific [place] 1.025 Last Edit by Duyen Hummel, PHP ARCHITECT on 08/01/24 15:43 UR Ketone Trace Last Edit by Duyen Hummel, PHP ARCHITECT on 08/01/24 15:43 UR Bilirubin Negative Last Edit by Duyen Hummel, PHP ARCHITECT on 08/01/24 15:43 UR Glucose Negative Last Edit by Duyen Hummel, PHP ARCHITECT on 08/01/24 15:43 Results Reviewed Results Reviewed: Laboratory Last Values Urine pH (Clinic) 5.5 08/01/24 15:42 Specific [place]ede (Clinic) 1.025 08/01/24 15:42 Ur Protein (Clinic) Trace 08/01/24 15:42 Ur Ketones (Clinic) Trace 08/01/24 15:42 Urine Blood (Clinic) Negative 08/01/24 15:42 Urine Nitrite Negative 08/01/24 15:42 Urine Bilirubin (Clinic) Negative 08/01/24 15:42 Urobilinogen (Clinic) 4 08/01/24 15:42 Leukocyte Esterase (Clinic) Small 08/01/24 15:42 Urine Glucose (Clinic) Negative 08/01/24 15:42 Assessment & Plan Assessment & Plan (1) Microscopic hematuria: Code(s): R31.29 - Other microscopic hematuria Category: Medical Plan: Repeat urine dip showed no evidence of microscopic hematuria, will repeat urine culture confirm previous UTI has cleared (2) Pelvic pain: Comment: With vaginal discharge/odor Code(s): R10.2 - Pelvic and perineal pain Category: Medical Plan: BV panel collected, ultrasound scheduled this afternoon. Given the fact the patient is having pelvic pain with cervical motion tenderness uterine or adnexal tenderness will treat for PID with ceftriaxone 500 mg IM x1 with doxycycline 100 mg p.o. b.i.d. and metronidazole 500 mg p.o. b.i.d. for 14 days. Instructions given the patient to call or go to the emergency in case symptoms not improve, fever above 100.4, nausea or vomiting and to schedule a 10 day follow-up appointment (3) UTI (urinary tract infection): Code(s): N39.0 - Urinary tract infection, site not specified Category: Medical Plan: Urine culture sent for test of cure Orders: Orders Bacterial Vaginosis Panel Today N93.0 - Postcoital and contact bleeding, R31.29 - Other microscopic hematuria AMB Urinalysis Dipstick Today R10.2 - Pelvic and perineal pain, R31.29 - Other microscopic hematuria Urine Culture Today N93.0 - Postcoital and contact bleeding, R31.29 - Other microscopic hematuria AMB Ceftriaxone Injection Today N73.0 - Acute parametritis and pelvic cellulitis Medications: New ceftriaxone 500 mg IM ONCE 1 ea 0RF N73.0 - Acute parametritis and pelvic cellulitis metronidazole 500 mg PO BID 14 days 28 tabs 0RF doxycycline hyclate 100 mg PO BID 14 days 28 caps 0RF Coding Level of Care Code Est Pt Level 3 ([address]281) Diagnoses Microscopic hematuria R31.29 Pelvic pain R10.2 UTI (urinary tract infection) N39.0
== END 2024-08-01 16:11 | disposition home or self-care (01) ==
LOC: HO.HWS 15:22
PROVIDERS: Visit Provider Obstetrics & Gynecology
DX: R31.29 Other microscopic hematuria (principal); R10.2 Pelvic and perineal pain; N39.0 Urinary tract infection, site not specified; N73.0 Acute parametritis and pelvic cellulitis
CPT/HCPCS: 99213

== ENCOUNTER 2024-08-01 15:37 | Outpatient (REF) | payer OTHER, SELFPAY ==
[2024-08-01 18:00] LABS: Bacterial Vaginosis PCR POSITIVE (Negative); Candida Group PCR NOT DETECTED (Not Detect); Candida glab krusei PCR NOT DETECTED (Not Detect); Trichomonas vaginalis PCR NOT DETECTED (Not Detect)
== END 2024-08-01 15:38 | disposition home or self-care (01) ==
LOC: HO.LNP 15:37
PROVIDERS: Visit Provider Obstetrics & Gynecology
DX: R31.29 Other microscopic hematuria (principal); N93.0 Postcoital and contact bleeding
CPT/HCPCS: 0352U; 87086

== ENCOUNTER 2024-08-01 16:07 | Outpatient (REF) | payer OTHER, SELFPAY ==
--- NOTE | ~2024-08-01 | US_ITS ---
EXAMINATION: US PELVIS CLINICAL INFORMATION: 39-year-old female with left lower quadrant abdominal pain COMPARISON: Ultrasound from 04/03/2019 TECHNIQUE: Ultrasound of the pelvis is performed using both transabdominal and transvaginal transducers along with Doppler. Transvaginal imaging is performed due to inadequate visualization transabdominally. FINDINGS: Uterus: The uterus is retroverted and retroflexed and measures 7.5 x 4.5 x 5.8 cm. The double wall endometrial thickness is 0.3 mm. The uterus is smooth in contour and has normal myometrial echogenicity. No visible fibroid. Adnexa: Both ovaries are visualized. There is normal color flow to the adnexa. There is no ovarian torsion. There is no pelvic ascites or fluid collection. There is 1.8 x 1.4 x 1.6 cm cyst in the right ovary with small amount of free fluid and adjacent calcification, possible tubal ligation clip Right ovary measures 4.1 x 2.4 x 1.5 cm. The volume of right ovary measures 7.5 mL Left ovary measures 4.9 x 2.1 x 2.6 cm. US/US pelvic and transvaginal IMPRESSION: Simple cyst in left ovary with adjacent calcification versus tubal ligation clip Electronically signed by: Brant Ndiaye MD 08/23/2024 02:45 PM [facility]
== END 2024-08-01 16:08 | disposition home or self-care (01) ==
LOC: HO.US 16:07
PROVIDERS: Visit Provider Obstetrics & Gynecology
DX: N94.10 Unspecified dyspareunia (principal)
CPT/HCPCS: 76830; 76856; 81002; 96372; 99212; J0696

== ENCOUNTER 2024-08-13 11:55 | Outpatient (AMB) | payer OTHER, SELFPAY ==
[2024-08-13 11:56] VITALS: BP 112/66; BMI 25.5
--- NOTE | 2024-08-13 11:56 | A.OFFVIS_ITS ---
Vital Signs 08/13/24 11:56 Height 5 ft 6 in Weight 158 lb BMI 25.5 BP 112/66 Blood Pressure Location Lt brachial Position Sitting Intake Visit Reasons: Follow up PID/ per Allergies No Known Allergies Allergy (Verified 08/13/24 11:57) HPI Comments Details: Presenting for follow-up PID. The patient received ceftriaxone 500 mg IM and completed her full 14 day antibiotic course of doxycycline Flagyl. Doing well with no complaints. Last urine dip showed hematuria, urine culture grew lactobacillus In addition the patient had her pelvic ultrasound for postcoital bleeding and is scheduled for endometrial biopsy/ECC today Pelvic ultrasound report not available yet Last co testing in 04/09 was negative GC/CT was negative PFSH Medical History Dysplasia of cervix, low grade (TASHA 1) Left groin mass Vulvar mass Panic attacks Anxiety Depression Vitamin B 12 deficiency History of kidney stones Migraines Surgical History History of endometrial ablation Hx of lithotripsy S/P panniculectomy History of endoscopy Hx laparoscopic cholecystectomy History of bilateral tubal ligation S/P laparoscopic sleeve gastrectomy Family History Mother Alzheimer disease Dementia Father Diabetes mellitus Hypertension Sister Cancer Sister No problems noted. Brother No problems noted. Brother No problems noted. Son No problems noted. Daughter No problems noted. 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 hysteroscopy D&C) & the risks were discussed with the patient including but not limited: pain, uterine perforation, bleeding, infection, possible injury to bladder, bowel, ureter, possible need for blood transfusion with all its possible risks. The patient verbalized understanding all questions answered and signed consent. Urine test done in the office was negative The patient was placed into the dorsal lithotomy position; a speculum was inserted in the vagina. Using aseptic technique for the procedure, the cervix was cleansed with Betadine. The anterior lip of the cervix was grasped with a single tooth tenaculum. The uterus was sounded to 6 cm (the patient has history of endometrial ablation) with a 4 mm Pipelle was used, ECC was done afterwards. Tissues samples were obtained and placed in formalin, in a patient labeled container and sent to the pathology department. At the end of the procedure, there was minimal bleeding noted The patient tolerated the procedure well and was discharged in good condition with the following instructions: Nothing in the vagina until the bleeding stops. No sex until the bleeding stops, to call if any of the following occurs: fever (>100.4), flu-like symptoms, abdominal pain, heavy bleeding, four smelling vaginal discharge. The patient was instructed to schedule a Follow up appointment in 2 weeks to discuss pathology results of the biopsy and treatment options. This note was generated with a voice recognition program. Some errors may have been overlooked during the review of this note. Sometimes these errors may affect the content or meaning of a given sentence. [id number] Biopsy Results AMB Test Urine AMB Test Urine Negative Last Edit by Vero Frazier CMA on 08/13/24 12:09 AMB Urinalysis, Automated UA Leukoctes 0 Allyson/uL Last Edit by Vero Frazier CMA on 08/13/24 12:09 UA Nitrite Negative Last Edit by Vero Frazier CMA on 08/13/24 12:09 UA Urobilinogen 3.5 mg/dL Last Edit by Vero Frazier CMA on 08/13/24 12:09 UA Protein 0 mg/dL Last Edit by Vero Frazier CMA on 08/13/24 12:09 UA pH 6.0 Last Edit by Vero Frazier CMA on 08/13/24 12:09 UA Blood 10 Aravind/uL Last Edit by Vero Frazier CMA on 08/13/24 12:09 UA Specific [place] 1.025 Last Edit by Vero Frazier CMA on 08/13/24 12:09 UA Ketone Negative Last Edit by Vero Frazier CMA on 08/13/24 12:09 UA Bilirubin 0 mg/dL Last Edit by Vero Frazier CMA on 08/13/24 12:09 UA Glucose 0 mg/dL Last Edit by Vero Frazier CMA on 08/13/24 12:09 Assessment & Plan Assessment & Plan (1) PID (acute pelvic inflammatory disease): Code(s): N73.0 - Acute parametritis and pelvic cellulitis Category: Medical Plan: Pelvic exam within normal no evidence of cervical motion tenderness uterine and adnexal tenderness, the patient was reassured. Instructions given the patient to call in case of recurrence of her pelvic symptoms, temperature above 100.4, nausea or vomiting. (2) Microscopic hematuria: Code(s): R31.29 - Other microscopic hematuria Category: Medical Plan: Urine dip repeated in the office showed persistent microscopic hematuria. Will proceed with urology referral, placed. (3) Postcoital bleeding: Code(s): N93.0 - Postcoital and contact bleeding Category: Medical Plan: EMB/ECC done, see procedure note Orders: Orders AMB Urinalysis Automated Today R31.29 - Other microscopic hematuria AMB HCG Urine Test Today Z32.02 - Encounter for test, result negative Surgical Today N93.0 - Postcoital and contact bleeding AMB Endometrial Biopsy Today N93.0 - Postcoital and contact bleeding Referrals Urology Referral R31.29 - Other microscopic hematuria Coding Level of Care Code Procedure Only Diagnoses PID (acute pelvic inflammatory disease) N73.0 Microscopic hematuria R31.29 Postcoital bleeding N93.0 CPT Codes Endometrial Biopsy - CPT: 44227-[id number] Biopsy ([id number]) Comment ECC done
== END 2024-08-13 13:05 | disposition home or self-care (01) ==
LOC: HO.HWS 11:56
PROVIDERS: Visit Provider Obstetrics & Gynecology
DX: N73.0 Acute parametritis and pelvic cellulitis (principal); R31.29 Other microscopic hematuria; N93.0 Postcoital and contact bleeding; Z32.02 Encounter for pregnancy test, result negative
CPT/HCPCS: 58100

== ENCOUNTER 2024-08-13 11:55 | Outpatient (REF) | payer OTHER, SELFPAY | END 2024-08-13 11:56 | disposition home or self-care (01) | LOC: HO.LNP 11:55 | PROVIDERS: Visit Provider Obstetrics & Gynecology | DX: N93.0 Postcoital and contact bleeding (principal); Z32.02 Encounter for pregnancy test, result negative; R31.29 Other microscopic hematuria | CPT/HCPCS: 58100; 81003; 81025; 88305 ==

== ENCOUNTER 2024-08-17 08:30 | Outpatient (AMB) | payer OTHER, SELFPAY ==
--- NOTE | 2024-08-17 08:52 | A.OFFVIS_ITS ---
Vital Signs 08/17/24 08:54 Height 5 ft 6 in Weight 171 lb BMI 27.6 BP 105/62 Blood Pressure Location Lt brachial Position Sitting Respiration 15 Pulse 75 Pulse Source Pulse Oximeter Pulse Oximetry (%) 97 Oxygen Delivery Method Room Air Intake Visit Reasons: rossy knee injections Intake Note: Pt states she has been taking morphine and tramadol from various family members Allergies No Known Allergies Allergy (Verified 08/29/24 09:58) Medication List - Last Reconciled 08/17/24 by Pascale Elmore LPN bupropion HCl XL 300 mg PO DAILY buspirone 1 tab PO BEDTIME cyanocobalamin (vitamin B-12) 1,000 mcg IM QMONTH diclofenac sodium 1% 4 grams topical QID doxycycline hyclate 100 mg PO BID 14 days ketorolac 10 mg PO .b.i.d. PRN lithium carbonate ER 2 tabs PO BEDTIME metronidazole 500 mg PO BID 14 days morphine 15 mg PO Q4-6H PRN nitrofurantoin monohyd/m-cryst 100 mg (Macrobid) 100 mg PO BID 5 days ondansetron 4 mg PO TID PRN 5 days pantoprazole (Protonix) 40 mg PO DAILY sumatriptan succinate 50 mg PO Q2-4H PRN syringe with needle (Syringe 3cc/22Gx3/4 ) As Directed terconazole 0.8% 1 appful vaginal BEDTIME 3 days HPI HPI rossy knee injections: Details: 39-year-old female who presents today to the office for bilateral knee injections. Denies any recent cough, cold, infection, fever or other significant changes in medical history since last office visit.? She noticed swelling in her knee down to her feet while standing or walking. She has difficulty with worsening pain while standing for more than 30 minutes or walking more than two blocks. She has not tried compression stockings. She has two children. She has had significant pain relief from the knee injection in the past.? Past Procedures: 02/24/24: Bilateral knee injections, landmark guided: 50% relief. 11/25/23: Bilateral knee injections, landmark guided: 50% relief. 09/23/23: Bilateral knee injections, landmark guided: 50% relief. 03/21/23: Bilateral steroid knee injection with 40 mg of Kenalog in each knee: 80% relief for more than five months. 12/31/22: Right Knee intraarticular Durolane injection: 60% relief for four to six weeks. 12/01/2022: Left suprapatellar bursa steroid injection under ultrasound guidance: 70% relief for one day. 09/22/22: Left Diagnostic Saphenous Nerve Block at the adductor canal-100% pain relief for 12 hours. [facility] Medical History Dysplasia of cervix, low grade (TASHA 1) Left groin mass Vulvar mass Panic attacks Anxiety Depression Vitamin B 12 deficiency History of kidney stones Migraines Surgical History History of endometrial ablation Hx of lithotripsy S/P panniculectomy History of endoscopy Hx laparoscopic cholecystectomy History of bilateral tubal ligation S/P laparoscopic sleeve gastrectomy Family History Mother Alzheimer disease Dementia Father Diabetes mellitus Hypertension Sister Cancer Sister No problems noted. Brother No problems noted. Brother No problems noted. Son No problems noted. Daughter No problems noted. 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 Alert and oriented. Mood and affect appropriate. Follows and participates in conversation appropriately. Respiratory effort is unlabored. Able to transition from sit to stand unassisted. Ambulates with bilaterally normal heel strike and toe off. Office Procedures AMB Joint Injection/Aspiration Joint Injection/Aspiration Details: Bilateral intraarticular knee injections, landmark guided Primary Site: right knee Secondary Site: left knee Prep: site was prepped using sterile technique Injected: Kenalog (30 mg) and in the joint (bilateral ) Approach Used: anteromedial Procedure: The patient tolerated the procedure well Coding 28600 - Large joint (bilateral, landmark guided) Procedure code (CPT) selection complete Results Reviewed Results Reviewed: No imaging is available for review. Assessment & Plan Assessment & Plan (1) Bilateral anterior knee pain: Code(s): M25.561 - Pain in right knee; M25.562 - Pain in left knee Category: Medical Plan Patient is status post bilateral intraarticular knee injection, landmark guided. Patient tolerated procedure well and was discharged home in stable condition with discharge instructions.? All questions were answered. I recommended using compression stocking for the swelling in her leg. Follow-up as needed. Scribed for Dr. Umana by Ganesh Yanez, medical records library professor, on 08/17/2024. I, Dr. Umana, have personally reviewed and agree with the information entered by the scribe. Coding Level of Care Code Procedure Only Diagnoses Bilateral anterior knee pain M25.561; M25.562 CPT Codes Coding - 29891 Large joint: 57610 - Large joint ([id number])
[2024-08-17 08:54] VITALS: BP 105/62; PULSE 75; RESP 15; O2SAT 97; BMI 27.6
== END 2024-08-17 09:06 | disposition home or self-care (01) ==
LOC: HO.PMC 08:31
PROVIDERS: Visit Provider Internal Medicine
DX: M25.561 Pain in right knee (principal); M25.562 Pain in left knee
CPT/HCPCS: 20610

== ENCOUNTER → 2024-08-17 08:30 | Outpatient (BNVA) | payer OTHER, SELFPAY | PROVIDERS: Visit Provider Internal Medicine | DX: M25.561 Pain in right knee (principal); M25.562 Pain in left knee | CPT/HCPCS: 20610; J2795; J3301 ==

== ENCOUNTER 2024-08-23 13:13 | Outpatient (REF) | payer OTHER, SELFPAY | END 2024-08-23 13:14 | disposition home or self-care (01) | LOC: HO.LNP 13:13 | PROVIDERS: Visit Provider Obstetrics & Gynecology | DX: N93.9 Abnormal uterine and vaginal bleeding, unspecified (principal); N39.0 Urinary tract infection, site not specified; R31.29 Other microscopic hematuria; N85.8 Other specified noninflammatory disorders of uterus | CPT/HCPCS: 58100; 81002; 88305; 99212 ==

== ENCOUNTER 2024-08-23 13:13 | Outpatient (AMB) | payer OTHER, SELFPAY ==
[2024-08-23 13:51] VITALS: BMI 27.4
--- NOTE | 2024-08-23 13:51 | A.OFFVIS_ITS ---
Vital Signs 08/23/24 13:51 Height 5 ft 6 in Weight 169 lb 12.095 oz BMI 27.4 Intake Visit Reasons: Ultrasound results/EMB/ECC/urine dip Creative Assistant Required: No Information Interpreted: non-clinical & clinical Accompanied by: Self / Same As Patient Allergies No Known Allergies Allergy (Verified 09/04/24 15:36) HPI Comments Details: The patient is presenting after endometrial biopsy/ECC. The patient has no complaints, no vaginal bleeding, no feverishness chills or abdominal pain. The endometrial/ECC biopsy pathology report showed the following: A. Endocervix, curettage: Inflamed cervical transformation zone mucosa and detached endocervical mucosa; otherwise within normal limits. B. Endometrium, biopsy: Strips of endocervical and rare endometrial epithelium within normal limits. See comment. Comment: The endometrial sampling is sparse; consider repeat as clinically appropriate Ultrasound report still pending, still not available [facility] Medical History Dysplasia of cervix, low grade (TASHA 1) Left groin mass Vulvar mass Panic attacks Anxiety Depression Vitamin B 12 deficiency History of kidney stones Migraines Surgical History History of endometrial ablation Hx of lithotripsy S/P panniculectomy History of endoscopy Hx laparoscopic cholecystectomy History of bilateral tubal ligation S/P laparoscopic sleeve gastrectomy Family History Mother Alzheimer disease Dementia Father Diabetes mellitus Hypertension Sister Cancer Sister No problems noted. Brother No problems noted. Brother No problems noted. Son No problems noted. Daughter No problems noted. 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 Sexual orientation: Straight/Heterosexual Gender identity: Female Female Reproductive History Menstrual Age of Menarche: 14 Review of Systems Const All systems reviewed & are unremarkable except as noted in HPI and below Reports as per HPI and Reports no additional complaints GI Reports no additional complaints Reports no additional complaints Physical Exam Vital Signs: BMI result Body Mass Index 27.4 Office Procedures Endometrial Biopsy Details: The patient was counseled regarding the indication and benefits of endometrial sampling to rule out endometrial pathology including not limited to endometrial hyperplasia or endometrial cancer and others; The alternatives (Either do nothing vs. hysteroscopy D&C) & the risks were discussed with the patient inc luding but not limited: pain, uterine perforation, bleeding, infection, possible injury to bladder, bowel, ureter, possible need for blood transfusion with all its possible risks. The patient verbalized understanding all questions answered and signed consent. The patient was placed into the dorsal lithotomy position; a speculum was inserted in the vagina. Using aseptic technique for the procedure, the cervix was cleansed with Betadine. The anterior lip of the cervix was grasped with a single tooth tenaculum. 10 cc of 1% xylocaine were injected at 01/22/2010 and 02:00 o'clock The uterus was sounded to 7 cm with a 4 mm Pipelle was used. Tissues samples were obtained and placed in formalin, in a patient labeled container and sent to the pathology department. At the end of the procedure, there was minimal bleeding noted The patient tolerated the procedure well and was discharged in good condition with the following instructions: Nothing in the vagina until the bleeding stops. No sex until the bleeding stops, to call if any of the following occurs: fever (>100.4), flu-like symptoms, abdominal pain, heavy bleeding, four smelling vaginal discharge. The patient was instructed to schedule a Follow up appointment in 2 weeks to discuss pathology results of the biopsy and treatment options. This note was generated with a voice recognition program. Some errors may have been overlooked during the review of this note. Sometimes these errors may affect the content or meaning of a given sentence. [id number] Biopsy Results AMB Urinalysis Dipstick UR Leukocytes Negative Last Edit by Duyen Hummel CMA on 08/23/24 13:53 UR Nitrite Negative Last Edit by Duyen Hummel CMA on 08/23/24 13:53 UR Urobilinogen Normal Last Edit by Duyen Hummel CMA on 08/23/24 13:53 UR Protein Trace Last Edit by Duyen Hummel CMA on 08/23/24 13:53 UR Ph 6.0 Last Edit by Duyen Hummel CMA on 08/23/24 13:53 UR Blood Negative Last Edit by Duyen Hummel CMA on 08/23/24 13:53 UR Specific [place] 1.025 Last Edit by Duyen Hummel CMA on 08/23/24 13:53 UR Ketone Trace Last Edit by Duyen Hummel CMA on 08/23/24 13:53 UR Bilirubin Negative Last Edit by Duyen Hummel CMA on 08/23/24 13:53 UR Glucose Negative Last Edit by Duyen Hummel CMA on 08/23/24 13:53 Results Reviewed Results Reviewed: Laboratory Last Values Urine pH (Clinic) 6.0 08/23/24 13:52 Specific [place] (Clinic) 1.025 08/23/24 13:52 Ur Protein (Clinic) Trace 08/23/24 13:52 Ur Ketones (Clinic) Trace 08/23/24 13:52 Urine Blood (Clinic) Negative 08/23/24 13:52 Urine Nitrite Negative 08/23/24 13:52 Urine Bilirubin (Clinic) Negative 08/23/24 13:52 Urobilinogen (Clinic) Normal 08/23/24 13:52 Leukocyte Esterase (Clinic) Negative 08/23/24 13:52 Urine Glucose (Clinic) Negative 08/23/24 13:52 Assessment & Plan Assessment & Plan (1) Postcoital bleeding: Comment: With squamous metaplasia on D&C pathology Code(s): N93.0 - Postcoital and contact bleeding Category: Medical Plan: Discussed with the patient the results of endometrial biopsy pathology, insufficient tissues for diagnosis. Recommended to the patient that the next step is to repeat endometrial sampling via hysteroscopy D&C possible polypectomy versus office endometrial biopsy to r/o endometrial pathology including hyperplasia or cancer. All the pros and cons risks and benefits of each approach were discussed with the patient, endometrial biopsy being less invasive, office procedure with less sensitivity and inability diagnose a polyp and removal versus hysteroscopy done under anesthesia more invasive more sensitive to endometrial cancer and possibility of diagnosing and endometrial polyp with the possibility of polypectomy. All questions were answered pt verbalized understanding and decided to proceed with endometrial biopsy with paracervical block. Orders: Orders AMB Endometrial Biopsy 08/23/24 N93.0 - Postcoital and contact bleeding AMB Urinalysis Dipstick 08/23/24 R31.29 - Other microscopic hematuria Surgical 08/23/24 N93.9 - Abnormal uterine and vaginal bleeding, unspecified Coding Level of Care Code Est Pt Level 3 (09238) Procedure Only Diagnoses Postcoital bleeding N93.0 CPT Codes Endometrial Biopsy - CPT: 39819-[id number] Biopsy ([id number])
== END 2024-08-23 15:43 | disposition home or self-care (01) ==
LOC: HO.HWS 13:14
PROVIDERS: Visit Provider Obstetrics & Gynecology
DX: N93.0 Postcoital and contact bleeding (principal)
CPT/HCPCS: 58100; 99213

== ENCOUNTER 2024-08-24 10:14 | Outpatient (REF) | payer OTHER, SELFPAY ==
[2024-08-24 12:04] LABS: Hemoglobin 14.4 g/dl (12.0-16.0); Mean Corpuscular HGB Conc 32.7 g/dl (31.0-35.0); Mean Corpuscular Volume 85.6 fL (80.0-98.0); Mean Platelet Volume 10.5 fL (9.4-12.3); Platelet Count 285 X10*3/uL (160-400); Red Blood Count 5.14 X10*6/uL (4.20-5.50); Red Cell Distribution Width 12.8 % (11.0-16.0); White Blood Count 6.4 X10*3/uL (4.8-10.8)
[2024-08-25 05:37] LABS: CT PCR NOT DETECTED (Not Detect.); NG PCR NOT DETECTED (Not Detect.)
[2024-08-25 08:12] LABS: Bacterial Vaginosis PCR NEGATIVE (Negative); Candida Group PCR NOT DETECTED (Not Detect); Candida glab krusei PCR DETECTED (Not Detect); Trichomonas vaginalis PCR NOT DETECTED (Not Detect)
== END 2024-08-24 10:15 | disposition home or self-care (01) ==
LOC: HO.LNP 10:14
PROVIDERS: Visit Provider Obstetrics & Gynecology
DX: N71.9 Inflammatory disease of uterus, unspecified (principal); R31.29 Other microscopic hematuria; N73.0 Acute parametritis and pelvic cellulitis
CPT/HCPCS: 0352U; 81002; 81025; 85027; 87086; 87491; 87591; 96372; 99212; J0696

== ENCOUNTER 2024-08-24 10:14 | Outpatient (AMB) | payer OTHER, SELFPAY ==
--- NOTE | 2024-08-24 10:24 | A.OFFVIS_ITS ---
Vital Signs 08/24/24 10:27 Height 5 ft 6 in Weight 169 lb 12.095 oz BMI 27.4 BP 118/72 Pulse 88 Temp 97.6 F Intake Visit Reasons: pelvic pain/fever Ostomy Care Nurse Required: No Information Interpreted: non-clinical & clinical Configuration Management Consultant: Configuration Management Consultant Present (Duyen ANDREW) Accompanied by: Self / Same As Patient Allergies No Known Allergies Allergy (Verified 08/24/24 10:28) HPI Comments Details: Presenting 1 day post endometrial biopsy complaining of pelvic pain GC/CT on 07/25 was negative. BV panel was positive for Gardnerella on 08/01, the patient received metronidazole 500 mg p.o. b.i.d. for a week [facility] Medical History Dysplasia of cervix, low grade (TASHA 1) Left groin mass Vulvar mass Panic attacks Anxiety Depression Vitamin B 12 deficiency History of kidney stones Migraines Surgical History History of endometrial ablation Hx of lithotripsy S/P panniculectomy History of endoscopy Hx laparoscopic cholecystectomy History of bilateral tubal ligation S/P laparoscopic sleeve gastrectomy Family History Mother Alzheimer disease Dementia Father Diabetes mellitus Hypertension Sister Cancer Sister No problems noted. Brother No problems noted. Brother No problems noted. Son No problems noted. Daughter No problems noted. 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 Sexual orientation: Straight/Heterosexual Gender identity: Female Female Reproductive History Menstrual Age of Menarche: 14 Physical Exam Vital Signs: Last Vital Signs Temp 97.6 F 08/24/24 10:27 Pulse 88 08/24/24 10:27 BP 118/72 08/24/24 10:27 BMI result Body Mass Index 27.4 Speculum Exam - Vagina: normal appearance of the vagina Speculum Exam - Cervix: Cervical tenderness present Bimanual exam- vagina & uterus: Cervical tenderness present, cervical motion tenderness and Uterine tenderness Bimanual Exam- Adnexa, other: tender Office Meds ceftriaxone 500 mg solution for injection Performing Provider: Sergio Giang MD Performing Location: [facility] [place] [facility] Administered by: Cinda Mendez on 08/24/24 11:21 Dose Route Admin Location Dispensed Lot Number Expiration Date [facility] Regional [employer] Sales 500 mg IM LGM 500 mg [id number] 10/16/25 6605-4661-21 [employer] Results AMB Test Urine AMB Test Urine Negative Last Edit by Duyen Hummel CMA on 10:47 AMB Urinalysis Dipstick UR Leukocytes Negative Last Edit by Duyen Hummel CMA on 08/24/24 10:48 UR Nitrite Negative Last Edit by Duyen Hummel CMA on 08/24/24 10:48 UR Urobilinogen 2 Last Edit by Duyen Hummel CMA on 08/24/24 10:48 UR Protein Negative Last Edit by Duyen Hummel CMA on 08/24/24 10:48 UR Ph 6.0 Last Edit by Duyen Hummel CMA on 08/24/24 10:48 UR Blood Trace Last Edit by Duyen Hummel CMA on 08/24/24 10:[address] [place] [address] 1.015 Last Edit by Duyen Hummel CMA on 08/24/24 10:48 UR Ketone Negative Last Edit by Duyen Hummel CMA on 08/24/24 10:48 UR Bilirubin Negative Last Edit by Duyen Hummel CMA on 08/24/24 10:48 UR Glucose Negative Last Edit by Duyen Hummel CMA on 08/24/24 10:48 Results Reviewed Results Reviewed: Laboratory Last Values Urine pH (Clinic) 6.0 08/24/24 10:[address] (Clinic) 1.015 08/24/24 10:46 Ur Protein (Clinic) Negative 08/24/24 10:46 Ur Ketones (Clinic) Negative 08/24/24 10:46 Urine Blood (Clinic) Trace 08/24/24 10:46 Urine Nitrite Negative 08/24/24 10:46 Urine Bilirubin (Clinic) Negative 08/24/24 10:46 Urobilinogen (Clinic) 2 08/24/24 10:46 Leukocyte Esterase (Clinic) Negative 08/24/24 10:46 Urine Glucose (Clinic) Negative 08/24/24 10:46 Tst Clinic Negative 08/24/24 10:46 Assessment & Plan Assessment & Plan (1) Endometritis: Code(s): N71.9 - Inflammatory disease of uterus, unspecified Category: Medical Plan: Urine culture, GC/CT with BV panel, pelvic ultrasound and CBC stat. Ceftriaxone 500 mg IM. Doxycycline 100 mg p.o. b.i.d. with Flagyl 500 mg p.o. b.i.d. for 14 days. Instructions given to the patient to call or go to the emergency in case of temperature above 100.4, nausea or vomiting, persistence of her pain for more than 48 hours and to schedule a follow-up appointment in 4 days for re- evaluation. All questions answered, the patient verbalized understanding Orders: Orders AMB HCG Urine Test Today Z32.02 - Encounter for test, result negative AMB Urinalysis Dipstick Today R31.29 - Other microscopic hematuria CT NG by PCR Today N71.9 - Inflammatory disease of uterus, unspecified, N73.0 - Acute parametritis and pelvic cellulitis US pelvic and transvaginal Today N71.9 - Inflammatory disease of uterus, unspecified Urine Culture Today N73.0 - Acute parametritis and pelvic cellulitis Bacterial Vaginosis Panel Today N71.9 - Inflammatory disease of uterus, unspecified, N73.0 - Acute parametritis and pelvic cellulitis Complete Blood Count no Diff Today N71.9 - Inflammatory disease of uterus, unspecified AMB Ceftriaxone Injection Today N71.9 - Inflammatory disease of uterus, unspecified Medications: New doxycycline hyclate 100 mg PO BID 14 days 28 caps 0RF metronidazole 500 mg PO BID 14 days 28 tabs 0RF Coding Level of Care Code Est Pt Level 3 (45411) Diagnoses Endometritis N71.9
[2024-08-24 10:27] VITALS: BP 118/72; PULSE 88; TEMP 36.4; BMI 27.4
[2024-08-24 13:09] VITALS: TEMP 36
== END 2024-08-24 12:09 | disposition home or self-care (01) ==
LOC: HO.HWS 10:14
PROVIDERS: Visit Provider Obstetrics & Gynecology
DX: Z32.02 Encounter for pregnancy test, result negative (principal); R31.29 Other microscopic hematuria; N71.9 Inflammatory disease of uterus, unspecified
CPT/HCPCS: 99213

== ENCOUNTER 2024-08-24 11:25 | Outpatient (REF) | payer OTHER, SELFPAY ==
--- NOTE | ~2024-08-24 | US_ITS ---
EXAMINATION: US PELVIS CLINICAL INFORMATION: Inflammatory disease of the uterus. COMPARISON: Most recent pelvic ultrasound dated 08/01/2024. TECHNIQUE: Ultrasound of the pelvis is performed using both transabdominal and transvaginal transducers along with Doppler. Transvaginal imaging is performed due to inadequate visualization transabdominally. FINDINGS: UTERUS: The uterus is anteverted and measures 5.8 x 3.4 x 3.3 cm. There are small calcifications within the lower uterine segment. The double wall endometrial thickness is 0.2 mm. The uterus is smooth in contour and has normal myometrial echogenicity. No visible fibroid. ADNEXA: Both ovaries are visualized. There is normal color flow to the adnexa. There is no ovarian torsion. There is no pelvic ascites or fluid collection. Right ovary measures 2.7 x 1.6 x 2.3 cm. Volume of 5.2 mL. Left ovary measures 1.6 x 1.0 x 1.4 cm. Volume of 1.2 mL. US/US pelvic and transvaginal IMPRESSION: 1. Small calcifications within the lower uterine segment. 2. Otherwise unremarkable examination. Electronically signed by: Wilder Guo MD 08/24/2024 02:01 PM [facility]
== END 2024-08-24 11:26 | disposition home or self-care (01) ==
LOC: HO.US 11:25
PROVIDERS: Visit Provider Obstetrics & Gynecology
DX: N71.9 Inflammatory disease of uterus, unspecified (principal)
CPT/HCPCS: 76830; 76856

== ENCOUNTER 2024-08-29 09:52 | Outpatient (AMB) | payer OTHER, SELFPAY ==
--- NOTE | 2024-08-29 09:55 | MHC.OFFVIS ---
Vital Signs 08/29/24 09:59 BP 118/72 Temp 97.5 F Intake Visit Reasons: Follow up PID Asp Net Mvc Developer Required: Yes Asp Net Mvc Developer Language: Br[employer] Instrument Repairer Name: Duyen Allergies No Known Allergies Allergy (Verified 08/29/24 09:58) HPI Comments Details: Presenting for PID follow-up, still on antibiotics complaining of 102.7 fever yesterday evening, pelvic pain has improved markedly. Today feeling better no fever no nausea vomiting and no feverishness The following workup for postcoital bleeding was done: H&H= a 14.8/44.7 hCG, GC and chlamydia were negative. Endometrial biopsy pathology showed the following: A. Endocervix, curettage: Inflamed cervical transformation zone mucosa and detached endocervical mucosa; otherwise within normal limits. B. Endometrium, biopsy: Strips of endocervical and rare endometrial epithelium within normal limits. See comment. Comment: The endometrial sampling is sparse; consider repeat as clinically appropriate. Hysteroscopy D&C was done, intraoperative finding showed normal endometrial cavity with no evidence of abnormalities, endometrial pathology showed the following: Endometrium, biopsy: Superficial fragments benign endometrium with breakdown and surface metaplastic and squamous metaplastic changes, with focal fragments of hyalinized stroma consistent with chronic bleeding, and benign endocervical glandular epithelium (see comment). Comment: Although no atypia or carcinoma is identified in the specimen, squamous metaplasia can be associated with atypical lesions, and follow-up is warranted Co testing was done was negative. Pelvic ultrasound showed the following: UTERUS: The uterus is anteverted and measures 5.8 x 3.4 x 3.3 cm. There are small calcifications within the lower uterine segment. The double wall endometrial thickness is 0.2 mm. The uterus is smooth in contour and has normal myometrial echogenicity. No visible fibroid. ADNEXA: Both ovaries are visualized. There is normal color flow to the adnexa. There is no ovarian torsion. There is no pelvic ascites or fluid collection. Right ovary measures 2.7 x 1.6 x 2.3 cm. Volume of 5.2 mL. Left ovary measures 1.6 x 1.0 x 1.4 cm. Volume of 1.2 mL. [facility] Medical History Dysplasia of cervix, low grade (TASHA 1) Left groin mass Vulvar mass Panic attacks Anxiety Depression Vitamin B 12 deficiency History of kidney stones Migraines Surgical History History of endometrial ablation Hx of lithotripsy S/P panniculectomy History of endoscopy Hx laparoscopic cholecystectomy History of bilateral tubal ligation S/P laparoscopic sleeve gastrectomy Family History Mother Alzheimer disease Dementia Father Diabetes mellitus Hypertension Sister Cancer Sister No problems noted. Brother No problems noted. Brother No problems noted. Son No problems noted. Daughter No problems noted. 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 Sexual orientation: Straight/Heterosexual Gender identity: Female Female Reproductive History Menstrual Age of Menarche: 14 Review of Systems Const All systems reviewed & are unremarkable except as noted in HPI and below Reports as per HPI and Reports no additional complaints GI Reports no additional complaints Reports no additional complaints Physical Exam Vital Signs: Last Vital Signs Temp 97.5 F 08/29/24 09:59 BP 118/72 08/29/24 09:59 GI Palpation (GI): Soft to palpation and nontender Assessment & Plan Assessment & Plan (1) Endometritis: Comment: With subjective fever yesterday evening Code(s): N71.9 - Inflammatory disease of uterus, unspecified Category: Medical Plan: Temperature 97.5 degrees today repeated after 4 hours was in 7.1. Stat CBC within normal no evidence of leukocytosis, stat ultrasound did rule out abscess Instructions given the patient to continue taking p.o. doxycycline and Flagyl, to call or go to emergency room in case of fever above 100.4, persistent for pelvic pain, nausea or vomiting and schedule a follow-up appointment within 3 days. (2) Postcoital bleeding: Comment: With squamous metaplasia on D&C pathology Code(s): N93.0 - Postcoital and contact bleeding Category: Medical Plan: Discussed with the patient the results the pathology showing squamous metaplasia without evidence of hyperplasia or malignancy, recommended progesterone treatment other p.o. Provera versus Mirena IUD all pros and cons, risks and benefits were discussed with the patient including the fact that Mirena IUD can be more effective in reversing potential hyperplasia, the patient elected to proceed with Provera. Provera 10 mg p.o. q.d. day 15-25 sent to the patient's pharmacy, a more detailed discussion re: Progesterone treatment including mechanism of action, benefits (regular menses, endometrial protection form unopposed estrogen and reduction in the risk of endometrial hyperplasia and/or cancer ...), risks (Thrombosis, mood changes, weight gain, breast soreness, ? increased breast ca, others). Instructions were given to use a back- up method for contraception since this is not a method control, take the medication 1 tablet daily starting day 15-24 and to schedule a 3 months follow-up appointment; patient verbalized understanding and agreed with the plan. Orders: Orders Complete Blood Count no Diff Today N71.9 - Inflammatory disease of uterus, unspecified US pelvic and transvaginal Today N71.9 - Inflammatory disease of uterus, unspecified Medications: New medroxyprogesterone (Provera) start Provera 1 tablet daily from day 15-24 cyclically every months, day 1 being 1st day of menses 10 mg PO DAILY 10 days 30 tabs 0RF Coding Level of Care Code Est Pt Level 3 (98896) Diagnoses Endometritis N71.9 Postcoital bleeding N93.0
[2024-08-29 09:59] VITALS: BP 118/72; TEMP 36.4
== END 2024-08-29 11:20 | disposition home or self-care (01) ==
LOC: HO.HWS 09:52
PROVIDERS: Visit Provider Obstetrics & Gynecology
DX: N71.9 Inflammatory disease of uterus, unspecified (principal); N93.0 Postcoital and contact bleeding
CPT/HCPCS: 99213

== ENCOUNTER → 2024-08-29 09:52 | Outpatient (BNVA) | payer OTHER, SELFPAY | PROVIDERS: Visit Provider Obstetrics & Gynecology ==

== ENCOUNTER 2024-08-29 10:58 | Outpatient (REF) | payer OTHER, SELFPAY ==
--- NOTE | ~2024-08-29 | US_ITS ---
EXAMINATION: US PELVIS CLINICAL INFORMATION: Uterine inflammation and pain COMPARISON: 08/24/2024 TECHNIQUE: Ultrasound of the pelvis is performed using both transabdominal and transvaginal transducers along with Doppler. Transvaginal imaging is performed due to inadequate visualization transabdominally. FINDINGS: Uterus: The uterus is anteverted and measures 8.0 x 4.1 x 4.8 cm. Small calcifications are seen in the lower uterine segment. The double wall endometrial thickness is 4.6 mm. The uterus is smooth in contour and has normal myometrial echogenicity. No visible fibroid. Adnexa: Both ovaries are visualized. There is normal color flow to the adnexa. There is no ovarian torsion. There is no pelvic ascites or fluid collection. Right ovary measures 3.0 x 1.3 x 1.3 cm. 8 mm physiologic cyst. Left ovary measures 4.3 x 2.3 x 2.4 cm. Echo: Solid-appearing mass within the left ovary at 17 x 21 x 15 mm. This could be physiologic. It was not seen on 08/24/2024. I would recommend six-week follow-up ultrasound with endovaginal technique for further and continued evaluation of the left ovary. US/US pelvic and transvaginal IMPRESSION: Probable physiologic process related to the left ovary. Six-week follow-up ultrasound is advised. Note that there is no fluid in the cul-de-sac or suggestion of a drainable adnexal mass. Electronically signed by: Blaze Villalobos MD 08/29/2024 03:55 PM [facility]
[2024-08-29 11:46] LABS: Hematocrit 43.4 % (37.0-47.0); Hemoglobin 14.3 g/dl (12.0-16.0); Mean Corpuscular HGB Conc 32.9 g/dl (31.0-35.0); Mean Corpuscular Hemoglobin 28.1 pg (27.0-33.0); Mean Corpuscular Volume 85.4 fL (80.0-98.0); Mean Platelet Volume 10.3 fL (9.4-12.3); Platelet Count 289 X10*3/uL (160-400); Red Blood Count 5.08 X10*6/uL (4.20-5.50); Red Cell Distribution Width 12.8 % (11.0-16.0); White Blood Count 8.6 X10*3/uL (4.8-10.8)
== END 2024-08-29 10:59 | disposition home or self-care (01) ==
LOC: HO.US 10:58
PROVIDERS: Visit Provider Obstetrics & Gynecology
DX: N71.9 Inflammatory disease of uterus, unspecified (principal); N93.0 Postcoital and contact bleeding
CPT/HCPCS: 36415; 76830; 76856; 85027; 99212

== ENCOUNTER 2024-09-04 15:16 | Outpatient (AMB) | payer OTHER, SELFPAY ==
--- NOTE | 2024-09-04 15:35 | A.OFFVIS_ITS ---
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 he following workup was done.: H&H= 12.7/39.4 hCG, GC and chlamydia were negative. Endometrial biopsy /ECC pathology showed the following: A. Endocervix, curettage: Inflamed cervical transformation zone mucosa and detached endocervical mucosa; otherwise within normal limits. B. Endometrium, biopsy: Strips of endocervical and rare endometrial epithelium within normal limits. See comment. Comment: The endometrial sampling is sparse; consider repeat as clinically appropriate. Repeat endometrial biopsy showed the following: Endometrium, biopsy: Superficial fragments benign endometrium with breakdown and surface metaplastic and squamous metaplastic changes, with focal fragments of hyalinized stroma consistent with chronic bleeding, and benign endocervical glandular epithelium (see comment). Comment: Although no atypia or carcinoma is identified in the specimen, squamous metaplasia can be associated with atypical lesions, and follow-up is warranted Co testing was done was negative. Pelvic ultrasound showed the following: Uterus: The uterus is anteverted and measures 8.0 x 4.1 x 4.8 cm. Small calcifications are seen in the lower uterine segment. The double wall endometrial thickness is 4.6 mm. The uterus is smooth in contour and has normal myometrial echogenicity. No visible fibroid. Adnexa: Both ovaries are visualized. There is normal color flow to the adnexa. There is no ovarian torsion. There is no pelvic ascites or fluid collection. Right ovary measures 3.0 x 1.3 x 1.3 cm. 8 mm physiologic cyst. Left ovary measures 4.3 x 2.3 x 2.4 cm. Echo: Solid-appearing mass within the left ovary at 17 x 21 x 15 mm. This could be physiologic. It was not seen on 08/24/2024. I would recommend six-week follow-up ultrasound with endovaginal technique for further and continued evaluation of the left ovary [facility] Medical History Dysplasia of cervix, low grade (TASHA 1) Left groin mass Vulvar mass Panic attacks Anxiety Depression Vitamin B 12 deficiency History of kidney stones Migraines Surgical History History of endometrial ablation Hx of lithotripsy S/P panniculectomy History of endoscopy Hx laparoscopic cholecystectomy History of bilateral tubal ligation S/P laparoscopic sleeve gastrectomy Family History Mother Alzheimer disease Dementia Father Diabetes mellitus Hypertension Sister Cancer Sister No problems noted. Brother No problems noted. Brother No problems noted. Son No problems noted. Daughter No problems noted. 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 Instructions given the patient to call in case of abnormal uterine bleeding recurrence and schedule a 3 month follow-up appointment. All questions answered, the patient verbalized understanding (2) PID (acute pelvic inflammatory disease): Comment: Resolved Code(s): N73.0 - Acute parametritis and pelvic cellulitis Category: Medical Plan: Instructions given the patient to call in case of recurrence of pelvic pain, fever above 100.4, nausea or vomiting. All questions answered, the patient verbalized understanding (3) Ovarian cyst: Comment: Solid left ovarian mass 21 x 17 mm-possibly physiologic Code(s): N83.209 - Unspecified ovarian cyst, unspecified side Category: Medical Plan: Discussed with the patient differential diagnosis of the ultrasound finding including benign, precancer or cancer, repeat ultrasound in 6 weeks . Instructions given the patient to schedule an ultrasound and a follow-up appointment in 6 weeks. Order placed Orders: Orders US pelvic and transvaginal 6 Weeks N83.209 - Unspecified ovarian cyst, unspecified side Coding Level of Care Code Est Pt Level 3 (64144) Diagnoses Postcoital bleeding N93.0 PID (acute pelvic inflammatory disease) N73.0 Ovarian cyst N83.209
== END 2024-09-04 16:03 | disposition home or self-care (01) ==
LOC: HO.HWS 15:16
PROVIDERS: Visit Provider Obstetrics & Gynecology
DX: N93.0 Postcoital and contact bleeding (principal); N73.0 Acute parametritis and pelvic cellulitis; N83.209 Unspecified ovarian cyst, unspecified side
CPT/HCPCS: 99213

== ENCOUNTER → 2024-09-04 15:16 | Outpatient (BNVA) | payer OTHER, SELFPAY | PROVIDERS: Visit Provider Obstetrics & Gynecology | DX: N93.0 Postcoital and contact bleeding (principal); N73.0 Acute parametritis and pelvic cellulitis; N83.209 Unspecified ovarian cyst, unspecified side | CPT/HCPCS: 99212 ==

== ENCOUNTER 2024-10-15 11:04 | Outpatient (REF) | payer OTHER, SELFPAY ==
--- NOTE | ~2024-10-15 | US_ITS ---
EXAMINATION: US PELVIS CLINICAL INFORMATION: Ovarian cyst. COMPARISON: Ultrasound pelvis 08/29/2024. TECHNIQUE: Ultrasound of the pelvis is performed using both transabdominal and transvaginal transducers along with Doppler. Transvaginal imaging is performed due to inadequate visualization transabdominally. FINDINGS: Uterus: The uterus is retroverted and measures 8.7 x 2.8 x 5.2 cm. The double wall endometrial thickness is 9 mm. The uterus is smooth in contour and has normal myometrial echogenicity. No visible fibroid. Calcifications of visualized lower uterine segment. There are small nabothian cysts in the cervix. Adnexa: Both ovaries are visualized. There is normal color flow to the adnexa. There is no ovarian torsion. There is no pelvic ascites or fluid collection. Right ovary measures 1.9 x 1.4 x 1.5 cm. Volume 2.1 mL. A prominent tubular structure adjacent right ovary question hydrosalpinx Left ovary measures 4.7 x 2.6 x 2.7 cm. Volume 17.3 . There is a solid appearing lesion in left ovary measuring 2.2 x 2.3 x 2.1 cm. Likely hemorrhagic or corpus luteal cyst. Previously it measured 6 1.7 x 2.1 x 1.5 cm. There are prominent vessels in bilateral adnexa question pelvic venous congestion. There is no free fluid in cul-de-sac. US/US pelvic and transvaginal IMPRESSION: Solid lesion left ovary similar previous exam. Minimal increase in size from previous study. Question corpus luteal cyst. Recommend continued follow-up after 2 cycles. Unremarkable right ovary and uterus. Small nabothian cysts in cervix. No free fluid in the cul-de-sac. Prominent bilateral adnexal vessels question pelvic venous congestion. Electronically signed by: Julián Roberts MD 10/18/2024 04:23 PM [facility]
== END 2024-10-15 11:05 | disposition home or self-care (01) ==
LOC: HO.US 11:04
PROVIDERS: Visit Provider Obstetrics & Gynecology
DX: N83.209 Unspecified ovarian cyst, unspecified side (principal)
CPT/HCPCS: 76830; 76856

== ENCOUNTER → 2024-10-15 11:05 | Outpatient (BNV) | payer OTHER, SELFPAY | PROVIDERS: Visit Provider Radiology Diagnostic Radiology | DX: N83.202 Unspecified ovarian cyst, left side (principal); N83.201 Unspecified ovarian cyst, right side | CPT/HCPCS: 76830; 76856 ==

== ENCOUNTER 2024-10-23 11:22 | Outpatient (REF) | payer OTHER, SELFPAY ==
[2024-10-24 03:42] LABS: CT PCR NOT DETECTED (Not Detect.); NG PCR NOT DETECTED (Not Detect.)
[2024-10-24 09:11] LABS: HBsAGNum1 0.33 S/CO (0.00-0.99); HIV AB/AG Nonreactive (Nonreactive); HIV Num 1 0.05 S/CO (0.00-0.99); Hepatitis B Surface Antigen Negative (Negative)
[2024-10-24 09:54] LABS: Syphilis Screen Nonreactive (Nonreactive)
== END 2024-10-23 11:23 | disposition home or self-care (01) ==
LOC: HO.LNP 11:22
PROVIDERS: Visit Provider Obstetrics & Gynecology
DX: N83.292 Other ovarian cyst, left side (principal); N76.0 Acute vaginitis; B96.89 Other specified bacterial agents as the cause of diseases classified elsewhere
CPT/HCPCS: 86780; 87340; 87389; 87491; 87591; 99212; 99459

== ENCOUNTER 2024-10-23 11:22 | Outpatient (AMB) | payer OTHER, SELFPAY ==
--- NOTE | 2024-10-23 11:24 | A.OFFVIS_ITS ---
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 The double wall endometrial thickness is 9 mm. The uterus is smooth in contour and has normal myometrial echogenicity. No visible fibroid. Calcifications of visualized lower uterine segment. There are small nabothian cysts in the cervix. Adnexa: Both ovaries are visualized. There is normal color flow to the adnexa. There is no ovarian torsion. There is no pelvic ascites or fluid collection. Right ovary measures 1.9 x 1.4 x 1.5 cm. Volume 2.1 mL. A prominent tubular structure adjacent right ovary question hydrosalpinx Left ovary measures 4.7 x 2.6 x 2.7 cm. Volume 17.3 . There is a solid appearing lesion in left ovary measuring 2.2 x 2.3 x 2.1 cm. Likely hemorrhagic or corpus luteal cyst. Previously it measured 6 1.7 x 2.1 x 1.5 cm. There are prominent vessels in bilateral adnexa question pelvic venous congestion. There is no free fluid in cul-de-sac. The patient is complaining of vulvovaginal discharge associated with foul odor [facility] Medical History Dysplasia of cervix, low grade (TASHA 1) Left groin mass Vulvar mass Panic attacks Anxiety Depression Vitamin B 12 deficiency History of kidney stones Migraines Surgical History History of endometrial ablation Hx of lithotripsy S/P panniculectomy History of endoscopy Hx laparoscopic cholecystectomy History of bilateral tubal ligation S/P laparoscopic sleeve gastrectomy Family History Mother Alzheimer disease Dementia Father Diabetes mellitus Hypertension Sister Cancer Sister No problems noted. Brother No problems noted. Brother No problems noted. Son No problems noted. Daughter No problems noted. 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 Sexual orientation: Straight/Heterosexual Gender identity: Female Female Reproductive History Menstrual Age of Menarche: 14 Review of Systems Const All systems reviewed & are unremarkable except as noted in HPI and below Reports as per HPI and Reports no additional complaints GI Reports no additional complaints Reports no additional complaints Physical Exam General: Yes no CVA tenderness External Female Exam: normal external appearance and normal appearance of the urethra Speculum Exam - Vagina: normal appearance of the vagina, normal palpation, no lesions and no masses Speculum Exam - Cervix: normal appearance of the cervix, normal palpation, no lesions, no masses and nontender Bimanual exam- vagina & uterus: normal bimanual exam, normal palpation, uterine size normal, normal palpation, uterine shape normal, No Cervical tenderness present and non-tender Bimanual Exam- Adnexa, other: normal adnexae Back/Spine/Pelvis Back: no CVA tenderness Assessment & Plan Assessment & Plan (1) Complex ovarian cyst: Code(s): N83.299 - Other ovarian cyst, unspecified side Category: Medical Plan: Discussed with the patient the complex ovarian cyst by ultrasound. Discussed with the patient the Ultrasound findings, the main limitation of transvaginal ultrasonography alone as a diagnostic tool to distinguish benign from malignant masses relates to its lack of specificity and low positive predictive value for cancer. The differential diagnosis discussed with the patient includes the following but not limited to: benign and malignant gynecological and non-gynecological causes. Recommended next step is pelvic MRI emre. All questions answered, the patient verbalized understanding and agreed with the plan. Instructions given the patient to schedule pelvic MRI and a follow-up appointment within 2 weeks. All questions were answered & the patient verbalized understanding and agreed with the plan. (2) Bacterial vaginosis: Code(s): N76.0 - Acute vaginitis; B96.89 - Other specified bacterial agents as the cause of diseases classified elsewhere Category: Medical Plan: GC and chlamydia cultures with BV panel taken. Per CDC recommendation, will screen for STI, HepBs Ag, HIV, RPR, Hep C Ab ordered. Will treat with Flagyl 500 mg p.o. b.i.d. x 7 days, Instructions given to the patient to refrain from sexual activity or to use condoms consistently and correctly during the BV treatment regimen, not to douch, it might increase the risk for relapse, and to call if symptoms persist or recur. Orders: Orders Syphilis Screen Today B96.89 - Other specified bacterial agents as the cause of diseases classified elsewhere, N76.0 - Acute vaginitis HIV Ab/Ag Today B96.89 - Other specified bacterial agents as the cause of diseases classified elsewhere, N76.0 - Acute vaginitis MR pelvis wo/w con Today N83.299 - Other ovarian cyst, unspecified side Hepatitis B Surface Antigen Today B96.89 - Other specified bacterial agents as the cause of diseases classified elsewhere, N76.0 - Acute vaginitis Medications: New metronidazole 500 mg PO BID 7 days 14 tabs 0RF Coding Level of Care Code Est Pt Level 3 (98265) Diagnoses Complex ovarian cyst N83.299 Bacterial vaginosis N76.0; B96.89
== END 2024-10-23 11:44 | disposition home or self-care (01) ==
LOC: HO.HWS 11:22
PROVIDERS: Visit Provider Obstetrics & Gynecology
DX: N83.299 Other ovarian cyst, unspecified side (principal); N76.0 Acute vaginitis; B96.89 Other specified bacterial agents as the cause of diseases classified elsewhere
CPT/HCPCS: 99213

== ENCOUNTER 2024-10-23 11:49 | Outpatient (REF) | payer OTHER, SELFPAY ==
[2024-10-24 11:32] LABS: Bacterial Vaginosis PCR NEGATIVE (Negative); Candida Group PCR NOT DETECTED (Not Detect); Candida glab krusei PCR NOT DETECTED (Not Detect); Trichomonas vaginalis PCR NOT DETECTED (Not Detect)
== END 2024-10-23 11:50 | disposition home or self-care (01) ==
LOC: HO.LAB 11:49
PROVIDERS: Visit Provider Obstetrics & Gynecology
DX: N83.299 Other ovarian cyst, unspecified side (principal)
CPT/HCPCS: 81515

== ENCOUNTER 2024-11-01 13:31 | Outpatient (REF) | payer OTHER, SELFPAY ==
--- NOTE | ~2024-11-01 | MR_ITS ---
CLINICAL HISTORY: N83.299 - Other ovarian cyst, unspecified side MR pelvis with gadolinium Comparison: None Findings: There is a 2 cm benign unilocular cyst of the right ovary. There are no internal septations or solid components. There is no evidence of enhancement. The patient is status post endometrial ablation in the fundal region. The uterus is otherwise unremarkable. The left ovary is within normal limits. The rest of the pelvic contents are unremarkable. The visualized bowel is normal. The visualized bones and soft tissues are unremarkable. IMPRESSION: 2 cm benign unilocular cyst right ovary. This document has been electronically signed by: Felix Ashton MD on 11/02/2024 08:26:41
== END 2024-11-01 13:32 | disposition home or self-care (01) ==
LOC: HO.MRI 13:31
PROVIDERS: Visit Provider Obstetrics & Gynecology
DX: N83.299 Other ovarian cyst, unspecified side (principal)
CPT/HCPCS: 72197

== ENCOUNTER → 2024-11-01 13:37 | Outpatient (BNV) | payer OTHER, SELFPAY | PROVIDERS: Visit Provider Radiology Diagnostic Radiology | DX: N83.291 Other ovarian cyst, right side (principal) | CPT/HCPCS: 72197 ==

== ENCOUNTER 2024-11-27 16:27 | Emergency (ER) | payer OTHER, SELFPAY ==
--- NOTE | ~2024-11-27 | XR_ITS ---
CLINICAL HISTORY: coughing. pneumonia 1 view chest x-ray Comparison: CR/SR - CHEST 2 VIEWS - 05/03/19 17:25 EDT Findings: The lungs are clear. Normal size heart. No acute fracture. IMPRESSION: 1. No acute findings. This document has been electronically signed by: Hanane Roberts MD on 11/27/2024 18:27:01
[2024-11-27 17:55] VITALS: BP 106/65; PULSE 90; RESP 16; TEMP 36.4; O2SAT 100; BMI 24.2
--- NOTE | 2024-11-27 17:59 | ED_ITS ---
HPI - General Adult General Chief complaint: Upper Respiratory Symptoms Stated complaint: Flu like Symptoms/[facility] Time Seen by Provider: 11/27/24 20:30 History of Present Illness ED Provider: Jovanni Capone HPI narrative: 39 yold female with pmh of endometirits, PID, bipoler presents to the ED for URI symptoms. patient recently [facility] and Tuesday starting having coughin, fever, chills, congestion, and bodyaches. she states members in [facility] were sick. Related Data Home Medications ?Medication ?Instructions ?Recorded ?Confirmed buspirone 15 mg tablet 1 tab PO BEDTIME 12/11/21 08/17/24 lithium carbonate 450 mg 2 tab PO BEDTIME 12/11/21 08/17/24 tablet,extended release bupropion HCl 300 mg 24 hr tablet, 300 mg PO DAILY 02/08/23 08/17/24 extended release Previous Rx's ?Medication ?Instructions ?Recorded ondansetron 4 mg disintegrating 4 mg PO TID PRN nausea and 03/28/23 tablet vomiting 5 days #10 tabs pantoprazole 40 mg tablet,delayed 40 mg PO DAILY #14 tabs 03/28/23 release (Protonix) morphine 15 mg immediate release 15 mg PO Q4-6H PRN pain #10 tabs 05/16/23 tablet ketorolac 10 mg tablet 10 mg PO .b.i.d. PRN pain #10 tabs 07/26/23 sumatriptan succinate 50 mg tablet 50 mg PO Q2-4H PRN migraine 07/26/23 headache #10 tabs syringe with needle 3 mL 22 gauge #100 ea 09/02/23 x 3/4 (Syringe 3cc/22Gx3/4 ) diclofenac sodium 1 % topical gel 4 g topical QID for pain #100 grams 01/06/24 nitrofurantoin 100 mg PO BID 5 days #10 caps 07/26/24 monohydrate/macrocrystals 100 mg capsule (Macrobid) terconazole 0.8 % vaginal cream 1 appful vaginal BEDTIME 3 days 07/26/24 #20 grams doxycycline hyclate 100 mg capsule 100 mg PO BID 14 days #28 caps 08/01/24 metronidazole 500 mg tablet 500 mg PO BID 14 days #28 tabs 08/01/24 doxycycline hyclate 100 mg capsule 100 mg PO BID 14 days #28 caps 08/24/24 metronidazole 500 mg tablet 500 mg PO BID 14 days #28 tabs 08/24/24 terconazole 0.8 % vaginal cream 1 appful vaginal BEDTIME 3 days 08/27/24 #20 grams medroxyprogesterone 10 mg tablet 10 mg PO DAILY 10 days #30 tabs 08/29/24 (Provera) cyanocobalamin (vitamin B-12) 1,000 mcg IM QMONTH #3 mL 10/21/24 1,000 mcg/mL injection solution metronidazole 500 mg tablet 500 mg PO BID 7 days #14 tabs 10/23/24 Allergies Allergy/AdvReac Type Severity Reaction Status Date / Time No Known Allergies Allergy Verified 11/28/24 12:51 Review of Systems Review of Systems: fever, cough, bodyaches, and congesiton Yes all other systems are reviewed and are negative [facility] Past Medical History Medical History Dysplasia of cervix, low grade (TASHA 1) Left groin mass Vulvar mass Panic attacks Anxiety Depression Vitamin B 12 deficiency History of kidney stones Migraines Surgical History History of endometrial ablation Hx of lithotripsy S/P panniculectomy History of endoscopy Hx laparoscopic cholecystectomy History of bilateral tubal ligation S/P laparoscopic sleeve gastrectomy Family History Family History Mother Alzheimer disease Dementia Father Diabetes mellitus Hypertension Sister Cancer Sister No problems noted. Brother No problems noted. Brother No problems noted. Son No problems noted. Daughter No problems noted. 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 Sexual orientation: Straight/Heterosexual Gender identity: Female Physical Exam ED Vital Signs: Vital Signs - 24 hr 11/27/24 17:55 11/27/24 20:03 11/27/24 20:41 Temperature 97.6 F 98.9 F 98.9 F Pulse Rate 90 81 81 Respiratory Rate 16 14 14 Blood Pressure 106/65 111/76 111/76 Pulse Oximetry 100 98 98 Oxygen Delivery Method Room Air Room Air Room Air BMI result Body Mass Index 24.2 Const General: cooperative, healthy appearing, comfortable, no acute distress, well developed, alert, awake and Physically active Orientation/consciousness: patient oriented x3 [facility] Head: Yes normal to inspection, Yes No palpable skull fracture present, Yes normocephalic and Yes atraumatic Ears: hearing grossly normal bilaterally, external ears normal, TM's normal bilaterally, TM normal on the right, TM normal on the left, EAC's normal, mastoids normal and no periauricular adenopathy Throat: Yes posterior oropharynx normal, Yes tonsils normal and Yes uvula midline Eyes General: appearance normal, both eyes and all related structures Neck Neck: Yes normal visual inspection, Yes full ROM, Yes no lymphadenopathy, Yes no meningeal signs, Yes trachea midline, Yes supple, No anterior neck swelling and No tender Chest Chest palpation & inspection: normal inspection of the chest and normal palpation of entire chest wall Resp Effort & Inspection: normal respiratory effort and able to speak in complete sentences Auscultation: clear to auscultation bilaterally Cardio Jugular venous distension: no JVD Heart sounds: S1 normal heart sound present and S2 normal heart sound present GI Inspection: Yes normal to inspection Palpation (GI): Soft to palpation, not firm, nontender, no guarding and not rigid General: Yes no CVA tenderness Back/Spine/Pelvis Back: no CVA tenderness and No back tenderness Skin General skin exam: no rashes or lesions noted, elasticity normal and turgor normal Neuro General: patient oriented x3, gait normal, tone normal, moves all extremities, Normal light touch and pain sensation, no meningeal signs, no focal motor deficits and CN's II-XI intact bilaterally Extrem General: Yes normal to inspection, Yes full ROM and Yes capillary refill normal Psych Appearance: grossly normal, well kempt and not disheveled Course Course Course Narrative: RME: 39 yold female presents to the URI symptoms. SHe states her is sick and now she is sick. SARS, STrep, and chest xray ordered Medical Decision Making Medical Decision Making MDM Narrative: [age] year old female presents to ED for URI symptoms since Tuesday. Patient has positive flu. Patient not in distress. Patient explained worrisome and informed to return to the ED. not suspecting PE, IL, CHF, hypoxia, or any other concerning symptoms. Differential Diagnosis Differential Diagnoses: The differential diagnosis associated with the presentation includes (Covid, FLus, RSV) Admission/Observation Consideration of admission/observation: Escalation of care including admission/observation considered Lab Data MDM Lab Attestation statement: I reviewed the patient's lab results. Labs: Lab Results 11/27/24 Range/Units 18:24 Influenza Type A (PCR) POSITIVE A (Negative) Influenza Type B (PCR) NEGATIVE (Negative) RSV RNA Qual (PCR) NEGATIVE (Negative) SARS-CoV-2 RNA (RT-PCR) NEGATIVE (Negative) S. pyogenes GrpA LOUISE Negative (Negative) Independent Historian Clinical information obtained from an independent historian. History obtained from or confirmed by: Other (patient) Discharge Plan Discharge Clinical Impression: Influenza Patient Disposition: Home, Self-Care Instructions: Influenza (ED) Additional Instructions: Recommend rest and oral hydration. Recommend follow up with primary care provider. Return to the ED immediately for any chest pain, shortness of breath, weakness, dizziness, coughing up blood, or any other concerning symptoms. Prescriptions: No Action diclofenac sodium 1 % gel 4 g topical QID Qty: 100 3RF terconazole 0.8 % cream 1 appful vaginal BEDTIME 3 Days Qty: 20 0RF nitrofurantoin monohyd/m-cryst [Macrobid] 100 mg capsule 100 mg PO BID 5 Days Qty: 10 0RF terconazole 0.8 % cream 1 appful vaginal BEDTIME 3 Days Qty: 20 0RF (DME) Syringe 3cc/22Gx3/4 3 mL 22 gauge x 3/4 Syringe Qty: 100 2RF Rx Instructions: As Directed cyanocobalamin (vitamin B-12) 1,000 mcg/mL Solution 1,000 mcg IM QMONTH Qty: 3 4RF lithium carbonate 450 mg tablet extended release 2 tab PO BEDTIME buspirone 15 mg tablet 1 tab PO BEDTIME pantoprazole [Protonix] 40 mg tablet,delayed release (DR/EC) 40 mg PO DAILY Qty: 14 0RF ondansetron 4 mg tablet,disintegrating 4 mg PO TID PRN (Reason: nausea and vomiting) 5 Days Qty: 10 0RF morphine 15 mg tablet 15 mg PO Q4-6H PRN (Reason: pain) Qty: 10 0RF Rx Instructions: The patient may ask for partial fill; Partial Fill upon patient request. sumatriptan succinate 50 mg tablet 50 mg PO Q2-4H PRN (Reason: migraine headache) Qty: 10 0RF Rx Instructions: do not exceed 4 doses per 24 hrs ketorolac 10 mg tablet 10 mg PO .b.i.d. PRN (Reason: pain) Qty: 10 0RF Rx Instructions: do not take this medication with NSAIDs bupropion HCl 300 mg tablet extended release 24 hr 300 mg PO DAILY metronidazole 500 mg tablet 500 mg PO BID 14 Days Qty: 28 0RF doxycycline hyclate 100 mg capsule 100 mg PO BID 14 Days Qty: 28 0RF medroxyprogesterone [Provera] 10 mg tablet 10 mg PO DAILY 10 Days Qty: 30 0RF Rx Instructions: start Provera 1 tablet daily from day 15-24 cyclically every months, day 1 being 1st day of menses doxycycline hyclate 100 mg capsule 100 mg PO BID 14 Days Qty: 28 0RF metronidazole 500 mg tablet 500 mg PO BID 14 Days Qty: 28 0RF metronidazole 500 mg tablet 500 mg PO BID 7 Days Qty: 14 0RF Stand Alone Forms: Work/School Release Interventions: ED Discharge Assessment Last Done: 11/27/24 20:41 Discharge Date/Time: 11/27/24 20:53 Print Language: Norwegian
[2024-11-27 18:38] LABS: IDNOW Serial# 08D9AD1C; Strep A Nucleic Acid Negative (Negative)
[2024-11-27 19:07] LABS: Influenza A PCR POSITIVE (Negative); Influenza B PCR NEGATIVE (Negative); Resp Syncy Virus RNA Qual PCR NEGATIVE (Negative); SARS COV2 PCR INHOUSE NEGATIVE (Negative)
[2024-11-27 20:03] VITALS: BP 111/76; PULSE 81; RESP 14; TEMP 37.2; O2SAT 98
[2024-11-27 20:41] VITALS: BP 111/76; PULSE 81; RESP 14; TEMP 37.2; O2SAT 98
== END 2024-11-27 20:53 | disposition home or self-care (01) ==
LOC: HO.ED 20:51
PROVIDERS: Physician Assistant; Emergency Provider Emergency Medicine Emergency Medical Services; PCP Nurse Practitioner Family
DX: J10.1 Influenza due to other identified influenza virus with other respiratory manifestations (principal); R05.9 Cough, unspecified; R50.9 Fever, unspecified; M79.10 Myalgia, unspecified site; Z03.818 Encounter for observation for suspected exposure to other biological agents ruled out
CPT/HCPCS: 0241U; 71045; 87651; 99282; 99283

== ENCOUNTER → 2024-11-27 17:58 | Outpatient (BNV) | payer OTHER, SELFPAY | PROVIDERS: PCP Nurse Practitioner Family; Visit Provider Nuclear Medicine | DX: R05.9 Cough, unspecified (principal) | CPT/HCPCS: 71045 ==

== ENCOUNTER 2024-11-28 12:46 | Outpatient (AMB) | payer OTHER, SELFPAY ==
--- NOTE | 2024-11-28 12:50 | A.OFFVIS_ITS ---
Intake Visit Reasons: 3 month med f/u/ MRI results Spring Inspector: Spring Inspector Present Accompanied by: Spouse Allergies No Known Allergies Allergy (Verified 11/28/24 12:51) HPI Comments Details: Presenting for follow-up pelvic MRI follow-up. Last EMB in 09/09 showed the following: Superficial fragments benign endometrium with breakdown and surface metaplastic and squamous metaplastic changes, with focal fragments of hyalinized stroma consistent with chronic bleeding, and benign endocervical glandular epithelium (see comment). Comment: Although no atypia or carcinoma is identified in the specimen, squamous metaplasia can be associated with atypical lesions, and follow-up is warranted The patient continued to have postcoital bleeding did not want to start Provera, is requesting hysterectomy. On 10/18/2024 pelvic ultrasound showed the following: IMPRESSION: Solid lesion left ovary similar previous exam. Minimal increase in size from previous study. Question corpus luteal cyst. Recommend continued follow-up after 2 cycles. Unremarkable right ovary and uterus. Small nabothian cysts in cervix. No free fluid in the cul-de-sac. Prominent bilateral adnexal vessels question pelvic venous congestion. This was followed by pelvic MRI which was done on 11/02/2024 and showed the following: There is a 2 cm benign unilocular cyst of the right ovary. There are no internal septations or solid components. There is no evidence of enhancement. The patient is status post endometrial ablation in the fundal region. The uterus is otherwise unremarkable. The left ovary is within normal limits. The rest of the pelvic contents are unremarkable. The visualized bowel is normal. The visualized bones and soft tissues are unremarkable. IMPRESSION: 2 cm benign unilocular cyst right ovary. Last co testing in 04/09 was negative PFSH Medical History Dysplasia of cervix, low grade (TASHA 1) Left groin mass Vulvar mass Panic attacks Anxiety Depression Vitamin B 12 deficiency History of kidney stones Migraines Surgical History History of endometrial ablation Hx of lithotripsy S/P panniculectomy History of endoscopy Hx laparoscopic cholecystectomy History of bilateral tubal ligation S/P laparoscopic sleeve gastrectomy Family History Mother Alzheimer disease Dementia Father Diabetes mellitus Hypertension Sister Cancer Sister No problems noted. Brother No problems noted. Brother No problems noted. Son No problems noted. Daughter No problems noted. 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 All questions answered, the patient verbalized understanding. (2) Postcoital bleeding: Comment: With squamous metaplasia on D&C pathology in 09/09 Code(s): N93.0 - Postcoital and contact bleeding Category: Medical Plan: Discussed with the patient different options of treatment including control pills, Provera or hysterectomy since the patient has had already endometrial ablation. Meagan detailed discussion about all the pros and cons risks and benefits of each, the patient decided to proceed with hysterectomy. Discussed with the patient the different types of hysterectomies including, vaginal, laparoscopic assisted vaginal, robotic assisted laparoscopic,& abdominal with BSO. All pros, cons, r/b of each approach were discussed the patient including evidence that morbidity is less and recovery is shorter with minimally invasive approaches to hysterectomy. Discussed with the patient the lack of availability of the robot DaVinci robot and/or minimally invasive social staff worker specialist at [facility]. The patient would like to be referred to [facility] for minimally invasive physical therapy supervisor surgery. Referral placed. Instructed the patient to call our office back in case a referral appointment is not scheduled, missed or canceled so that we will assist on rescheduling another appointment, the patient verbalized understanding agreed with the plan. Coding Level of Care Code Est Pt Level 3 (03507) Diagnoses Ovarian cyst N83.209 Postcoital bleeding N93.0
--- OUTSIDE RECORDS SUMMARY | 2024-11-28 14:07 | XMS_ITS | Clinical Summary ---
Author Organization [address] [place] [address] Address [address] [place] [address] Phone Care Team Providers Care Product Engineer Name Role Phone Shanice Wilkinson NP Primary Care Provider [phone] Social History Tobacco Use Types Packs/Day Years Used Date Smoking Tobacco: Never Assessed Comments Unknown Sex and Gender Information Value Date Recorded Sex Assigned at Not on file Legal Sex Female 8:26 AM EST Gender Identity Not on file Sexual Orientation Not on file Plan of Treatment Health Maintenance Due Date Last Done Comments Hepatitis A Vaccines (1 of 2 - Risk 2-dose series) 2005 Hepatitis B Vaccines (1 of 3 - 19+ 3-dose series) 2005 Cervical Cancer Screening: P ap Smear 2007 Depression Screening 09/19/2022 HIV Screening 09/19/2022 Hepatitis C Screening 09/19/2022 Social Influencers of Health Screening 09/19/2022 DTaP,Tdap,and Td Vaccines (2 - Td or Tdap) 05/21/2023 05/21/2013 COVID-19 Vaccine (1 - 2023-2 5 season) 2024 Influenza Vaccine (#1) 2024 08/20/2014 HIB Vaccines Aged Out No longer eligi ble based on patient's age to complete this topic HPV Vaccines Aged Out No longer eligi ble based on patient's age to complete this topic IPV Vaccines Aged Out No longer eligi ble based on patient's age to complete this topic MMR Vaccines Aged Out No longer eligi ble based on patient's age to complete this topic Meningococcal ACWY Vaccine Aged Out N o longer eligible based on patient's age to complete this topic Meningococcal B Vacine Aged Out No lo nger eligible based on patient's age to complete this topic Pneumococcal Vaccine: Pediat rics (0 to 5 Years) and At-Risk Patients (6 to 64 Years) Aged Out No longer eligi ble based on patient's age to complete this topic RSV Immunization Patients Un fabio 20 months Aged Out No longer eligible b ased on patient's age to complete this topic Varicella Vaccines Aged Out No longer eligible based on patient's age to complete this topic Care Teams Product Engineer Relationship Specialty Start Date End Date Shanice Wilkinson NP [address] [place] [address] PCP - General Nurse Practitioner 09/17/24
== END 2024-11-28 13:14 | disposition home or self-care (01) ==
LOC: HO.HWS 12:46
PROVIDERS: PCP Nurse Practitioner Family; Visit Provider Obstetrics & Gynecology
DX: N83.209 Unspecified ovarian cyst, unspecified side (principal); N93.0 Postcoital and contact bleeding
CPT/HCPCS: 99213

== ENCOUNTER → 2024-11-28 12:46 | Outpatient (BNVA) | payer OTHER, SELFPAY | PROVIDERS: PCP Nurse Practitioner Family; Visit Provider Obstetrics & Gynecology | DX: N83.209 Unspecified ovarian cyst, unspecified side (principal); N93.0 Postcoital and contact bleeding | CPT/HCPCS: 99212 ==

== ENCOUNTER 2024-12-20 15:33 | Outpatient (AMB) | payer OTHER, SELFPAY ==
--- NOTE | 2024-12-20 15:37 | A.OFFVIS_ITS ---
Intake Visit Reasons: Micro hematuria Intake Note: New patient presents today for initial visit for micro hematuria Urology Medication:none Blood Thinner:none Antibiotic Allergies:none Allergies No Known Allergies Allergy (Verified 12/20/24 17:10) Medication List - Last Reconciled 12/20/24 by COURTNEY Mcallister- bupropion HCl XL 300 mg PO DAILY buspirone 1 tab PO BEDTIME cyanocobalamin (vitamin B-12) 1,000 mcg IM QMONTH diclofenac sodium 1% 4 grams topical QID doxycycline hyclate 100 mg PO BID 14 days doxycycline hyclate 100 mg PO BID 14 days ketorolac 10 mg PO .b.i.d. PRN lithium carbonate ER 2 tabs PO BEDTIME medroxyprogesterone (Provera) 10 mg PO DAILY 10 days metronidazole 500 mg PO BID 14 days metronidazole 500 mg PO BID 14 days metronidazole 500 mg PO BID 7 days morphine 15 mg PO Q4-6H PRN nitrofurantoin monohyd/m-cryst 100 mg (Macrobid) 100 mg PO BID 5 days ondansetron 4 mg PO TID PRN 5 days pantoprazole (Protonix) 40 mg PO DAILY sumatriptan succinate 50 mg PO Q2-4H PRN syringe with needle (Syringe 3cc/22Gx3/4 ) As Directed terconazole 0.8% 1 appful vaginal BEDTIME 3 days terconazole 0.8% 1 appful vaginal BEDTIME 3 days HPI Comments Details: Christa is a pleasant 39-year-old female patient. She has a PMH of foveolar mass, panic attacks, anxiety, depression, vitamin B 12 deficiency, nephrolithiasis, and migraines. She presents to the office today as a new patient for microscopic hematuria. In discussion with the patient today she reports having followed up with her psychological anthropologist for ongoing dyspareunia at which time urinalysis noted microscopic hematuria and Urology was referral was made for further assessment evaluation. In office urinalysis results reviewed with the patient today no microscopic hematuria noted. We did discussed potential causes of microscopic hematuria. She discusses her upcoming 2nd opinion with psychological anthropologist at [facility] for removal of right ovarian cyst. She also reports report having experience multiple UTIs over the last 6-9 months. In review of patient's chart urine cultures are as follows: 01/06 E coli, 05/08 group B, 08/09 E coli, 08/09 lactobacillus. When asked she does report a longstanding history of constipation. She reports having had gastric band surgery and since this surgical procedure she continues to experience issues with her bowels. She reports following up with a urologist in the past and having had lithotripsy for her history of kidney stones. She currently denies any UTI like symptoms. She denies urinary urgency, urinary frequency, incontinence, nocturia, hematuria, dysuria, foul smelling urine, changes to urinary stream, flank pain, fever, and or chills. She is happy with her current voiding parameters. We discussed obtaining retroperitoneal ultrasound for further assessment and evaluation. She otherwise offers no other issues or concerns at this time. [facility] Medical History Dysplasia of cervix, low grade (TASHA 1) Left groin mass Vulvar mass Panic attacks Anxiety Depression Vitamin B 12 deficiency History of kidney stones Migraines Surgical History History of endometrial ablation Hx of lithotripsy S/P panniculectomy History of endoscopy Hx laparoscopic cholecystectomy History of bilateral tubal ligation S/P laparoscopic sleeve gastrectomy Family History Mother Alzheimer disease Dementia Father Diabetes mellitus Hypertension Sister Cancer Sister No problems noted. Brother No problems noted. Brother No problems noted. Son No problems noted. Daughter No problems noted. 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 Sexual orientation: Straight/Heterosexual Gender identity: Female Female Reproductive History Menstrual Age of Menarche: 14 Review of Systems Const All systems reviewed & are unremarkable except as noted in HPI and below Physical Exam Const General: cooperative, healthy appearing, comfortable, no acute distress, well developed, alert and awake Orientation/consciousness: patient oriented x3 Limitations: no limitations HEENT Head: Yes normal to inspection, Yes normocephalic and Yes atraumatic Ears: hearing grossly normal bilaterally Eyes General: appearance normal, both eyes and all related structures Neck Neck: Yes normal visual inspection and Yes trachea midline Chest Chest palpation & inspection: normal inspection of the chest Resp Effort & Inspection: normal respiratory effort and able to speak in complete sentences Cardio Rate: regular rate GI Inspection: Yes normal to inspection General: Yes no CVA tenderness Back/Spine/Pelvis Back: no CVA tenderness Skin General skin exam: no rashes or lesions noted Neuro General: patient oriented x3 Extrem General: Yes normal to inspection Psych Appearance: grossly normal and well kempt Mental Status: mental status grossly normal Speech and movement: Normal speech and movement present and Clear speech present Affect: normal affect Attitude: cooperative Thought process: Normal thought process present Thought content: Normal thought content present Insight: Fair insight present (Psych) Judgement: Fair judgement present (Psych) Results AMB Urinalysis, Automated UA Leukoctes 0 Allyson/uL Last Edit by Tiff Gonzalez on 12/20/24 15:53 UA Nitrite Negative Last Edit by Tiff Gonzalez on 12/20/24 15:53 UA Urobilinogen 0.2 mg/dL Last Edit by Tiff Gonzalez on 12/20/24 15:53 UA Protein 0 mg/dL Last Edit by Tiff Gonzalez on 12/20/24 15:53 UA pH 6.0 Last Edit by Tiff Gonzalez on 12/20/24 15:53 UA Blood 0 Aravind/uL Last Edit by Tiff Gonzalez on 12/20/24 15:53 UA Specific [place] 1.025 Last Edit by Tiff Gonzalez on 12/20/24 15:53 UA Ketone Negative Last Edit by Tiff Gonzalez on 12/20/24 15:53 UA Bilirubin 0 mg/dL Last Edit by Tiff Gonzalez on 12/20/24 15:53 UA Glucose 0 mg/dL Last Edit by Tiff Gonzalez on 12/20/24 15:53 Results Reviewed Results Reviewed: Laboratory Last Values Urine pH (Auto) 6.0 12/20/24 15:50 Specific [place] (Auto) 1.025 12/20/24 15:50 Urine Protein (Auto) 0 mg/dL 12/20/24 15:50 Glucose (UA)(Auto) 0 mg/dL 12/20/24 15:50 Urine Ketones (Auto) Negative 12/20/24 15:50 Urine Blood (Auto) 0 Aravind/uL 12/20/24 15:50 Urine Nitrite (Auto) Negative 12/20/24 15:50 Urine Bilirubin (Auto) 0 mg/dL 12/20/24 15:50 Urine Urobilinogen (Auto) 0.2 mg/dL 12/20/24 15:50 Leukocyte Esterase (Auto) 0 Allyson/uL 12/20/24 15:50 Assessment & Plan Assessment & Plan (1) Microscopic hematuria: Code(s): R31.29 - Other microscopic hematuria Category: Medical Plan In office urinalysis results reviewed with the patient today; as noted above. Discussed UTI prevention with D mannose supplement, vitamin-C, increasing fluid intake, behavioral therapy with timed voiding, perineal hygiene and postcoital voiding, and management of constipation with stool softeners and increased fiber intake. We discussed potential causes of recurrent urinary tract infections. We discussed importance of adequate hydration relation to nephrolithiasis as well as recurrent urinary tract infections. No microscopic hematuria noted on urinalysis today. Follow-up in 3 months with imaging and PVR; or sooner with any issues, concerns, and or questions. Orders: Orders US retroperitoneal comp Today R31.29 - Other microscopic hematuria AMB Urinalysis Automated Today Z13.9 - Encounter for screening, unspecified Patient Instructions: The patient had an opportunity to ask questions regarding the treatment plan. All questions were answered. Physical exam, labs, and imaging were discussed and reviewed in detail. As well as risks, benefits, and discussion of treatment choices. No major barriers to understanding were identified. The patient expressed understanding and agreement with the above treatment plan. The patient was made aware they should contact our office by phone for worsening of their current condition, the appearance of new symptoms, or with any questions or concerns. Compliance is encouraged with any medications and follow up testing that is ordered. It is a privilege to be allowed the opportunity to participate in? your urological care.? Again, if you have any questions or concerns If you have any questions or concerns please do not hesitate to contact me. The office is [phone]. This note is constructed using voice recognition software. While every effort has been made to ensure accuracy supervisor engraving errors may have been included. Yours sincerely, YASMINE Mcallister Coding Level of Care Code New Pt Level 3 (32905) Diagnoses Microscopic hematuria R31.29
--- OUTSIDE RECORDS SUMMARY | 2024-12-20 19:00 | XMS_ITS | Clinical Summary ---
Author Organization [address] [place] [address] Address [address] [place] [address] Phone Care Team Providers Care Bowl Turner Name Role Phone Shanice Wilkinson NP Primary Care Provider [phone] Social History Tobacco Use Types Packs/Day Years [...] age to complete this topic Care Teams Bowl Turner Relationship Specialty Start Date End Date Shanice Wilkinson NP [address] [place] [address] PCP - General Nurse Practitioner 09/17/24
== END 2024-12-20 16:44 | disposition home or self-care (01) ==
PROVIDERS: Visit Provider Nurse Practitioner Family
DX: Z13.9 Encounter for screening, unspecified (principal); R31.29 Other microscopic hematuria
CPT/HCPCS: 99203

== ENCOUNTER → 2024-12-20 15:33 | Outpatient (BNVA) | payer OTHER, SELFPAY | PROVIDERS: Visit Provider Nurse Practitioner Family | DX: R31.29 Other microscopic hematuria (principal); Z87.440 Personal history of urinary (tract) infections | CPT/HCPCS: 81003; 99202 ==

== ENCOUNTER 2025-01-04 08:33 | Outpatient (AMB) | payer OTHER, SELFPAY ==
--- NOTE | 2025-01-04 08:35 | A.OFFVIS_ITS ---
Vital Signs 01/04/25 08:58 Height 5 ft 6 in Weight 150 lb BMI 24.2 Intake Visit Reasons: vaginal discharge Allergies No Known Allergies Allergy (Verified 12/20/24 17:10) HPI Comments Details: Presenting complaining of vaginal bleeding, vaginal discharge associated with malodor. The patient has an appointment at [facility] for minimally invasive hysterectomy consult in few weeks last EMB showed the following: Endometrium, biopsy: Superficial fragments benign endometrium with breakdown and surface metaplastic and squamous metaplastic changes, with focal fragments of hyalinized stroma consistent with chronic bleeding, and benign endocervical glandular epithelium (see comment). Comment: Although no atypia or carcinoma is identified in the specimen, squamous metaplasia can be associated with atypical lesions, and follow-up is warranted [facility] Medical History Dysplasia of cervix, low grade (TASHA 1) Left groin mass Vulvar mass Panic attacks Anxiety Depression Vitamin B 12 deficiency History of kidney stones Migraines Surgical History History of endometrial ablation Hx of lithotripsy S/P panniculectomy History of endoscopy Hx laparoscopic cholecystectomy History of bilateral tubal ligation S/P laparoscopic sleeve gastrectomy Family History Mother Alzheimer disease Dementia Father Diabetes mellitus Hypertension Sister Cancer Sister No problems noted. Brother No problems noted. Brother No problems noted. Son No problems noted. Daughter No problems noted. 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 hysteroscopy D&C) & the risks were discussed with the patient including but not limited: pain, uterine perforation, bleeding, infection, possible injury to bladder, bowel, ureter, possible need for blood transfusion with all its possible risks. The patient verbalized understanding all questions answered and signed consent. Urine test done in the office was negative The patient was placed into the dorsal lithotomy position; a speculum was inserted in the vagina. Using aseptic technique for the procedure, the cervix was cleansed with Betadine. 10 cc of xylocaine 1% was injected at 2, 4, 8 and 10:00 o'clock around the cervix for paracervical block. The anterior lip of the cervix was grasped with a single tooth tenaculum. The uterus was sounded to 7 cm with a 4 mm Pipelle was used. Tissues samples were obtained and placed in formalin, in a patient labeled container and sent to the pathology department. At the end of the procedure, there was minimal bleeding noted The patient tolerated the procedure well and was discharged in good condition with the following instructions: Nothing in the vagina until the bleeding stops. No sex until the bleeding stops, to call if any of the following occurs: fever (>100.4), flu-like symptoms, abdominal pain, heavy bleeding, four smelling vaginal discharge. The patient was instructed to schedule a Follow up appointment in 2 weeks to discuss pathology results of the biopsy and treatment options. This note was generated with a voice recognition program. Some errors may have been overlooked during the review of this note. Sometimes these errors may affect the content or meaning of a given sentence. [id number] Biopsy Assessment & Plan Assessment & Plan (1) Postcoital bleeding: Comment: With squamous metaplasia on D&C pathology in 09/09 Code(s): N93.0 - Postcoital and contact bleeding Category: Medical Plan: UPT done in the office was negative. Will order CBC, EMB with paracervical block done since last EMB in 09/09 showed squamous metaplasia to rule out endometrial pathology including hyperplasia/malignancy, see procedure note. The patient has an appointment in few weeks with [facility] for minimally invasive hysterectomy (2) Bacterial vaginosis: Code(s): N76.0 - Acute vaginitis; B96.89 - Other specified bacterial agents as the cause of diseases classified elsewhere Category: Medical Plan: GC and chlamydia cultures with BV panel taken. Per CDC recommendation. Will treat with Metrogel 0.75% q.h.s. vaginally x 5 days, Instructions given to the patient to refrain from sexual activity or to use condoms consistently and correctly during the BV treatment regimen, not to douch, it might increase the risk for relapse, and to call if symptoms persist or recur. Orders: Orders Complete Blood Count no Diff Today N93.9 - Abnormal uterine and vaginal bleeding, unspecified AMB Endometrial Biopsy Today N93.0 - Postcoital and contact bleeding Medications: New metronidazole 0.75%(37.5mg/5gram) 1 appful vaginal BEDTIME 5 days 37.5 grams 0RF Coding Level of Care Code Est Pt Level 3 (45334) Procedure Only Diagnoses Postcoital bleeding N93.0 Bacterial vaginosis N76.0; B96.89 CPT Codes Endometrial Biopsy - CPT: 76115-[id number] Biopsy ([id number])
[2025-01-04 08:58] VITALS: BMI 24.2
== END 2025-01-04 09:29 | disposition home or self-care (01) ==
LOC: HO.HWS 08:33
PROVIDERS: Visit Provider Obstetrics & Gynecology
DX: N93.0 Postcoital and contact bleeding (principal); N76.0 Acute vaginitis; B96.89 Other specified bacterial agents as the cause of diseases classified elsewhere
CPT/HCPCS: 58100; 99213

== ENCOUNTER 2025-01-04 08:33 | Outpatient (REF) | payer OTHER, SELFPAY ==
[2025-01-04 10:27] LABS: Hematocrit 41.9 % (37.0-47.0); Hemoglobin 13.8 g/dl (12.0-16.0); Mean Corpuscular HGB Conc 32.9 g/dl (31.0-35.0); Mean Corpuscular Hemoglobin 28.8 pg (27.0-33.0); Mean Corpuscular Volume 87.3 fL (80.0-98.0); Mean Platelet Volume 10.9 fL (9.4-12.3); Platelet Count 247 X10*3/uL (160-400); White Blood Count 4.8 X10*3/uL (4.8-10.8)
[2025-01-04 13:45] LABS: Bacterial Vaginosis PCR POSITIVE (Negative); Candida Group PCR NOT DETECTED (Not Detect); Candida glab krusei PCR NOT DETECTED (Not Detect); Trichomonas vaginalis PCR NOT DETECTED (Not Detect)
[2025-01-04 14:17] LABS: CT PCR NOT DETECTED (Not Detect.); NG PCR NOT DETECTED (Not Detect.)
== END 2025-01-04 08:34 | disposition home or self-care (01) ==
LOC: HO.LAB 08:33
PROVIDERS: PCP Nurse Practitioner Family; Visit Provider Obstetrics & Gynecology
DX: N93.0 Postcoital and contact bleeding (principal); R10.2 Pelvic and perineal pain; Z20.2 Contact with and (suspected) exposure to infections with a predominantly sexual mode of transmission
CPT/HCPCS: 36415; 58100; 81515; 85027; 87491; 87591; 99212

== ENCOUNTER 2025-01-04 10:06 | Outpatient (REF) | payer OTHER, SELFPAY | END 2025-01-04 10:07 | disposition home or self-care (01) | LOC: HO.LNP 10:06 | PROVIDERS: Visit Provider Obstetrics & Gynecology | DX: R10.2 Pelvic and perineal pain (principal); N93.9 Abnormal uterine and vaginal bleeding, unspecified | CPT/HCPCS: 88305 ==

== ENCOUNTER 2025-01-18 15:27 | Outpatient (AMB) | payer OTHER, SELFPAY ==
--- NOTE | 2025-01-18 15:29 | MHC.OFFVIS ---
Intake Visit Reasons: EMB results Data Warehousing Architect Required: Yes Data Warehousing Architect Language: Respiratory Scientist Services: Data Warehousing Architect Present (in person) Data Warehousing Architect Name: Duyen ANDREW Helmet Hat Sweatband Puncher: Helmet Hat Sweatband Puncher Present (Amy) Accompanied by: Self / Same As Patient Allergies No Known Allergies Allergy (Verified 01/18/25 15:30) HPI Comments Details: The patient is presenting after endometrial biopsy. The patient has no complaints, no vaginal bleeding, no feverishness chills or abdominal pain. The endometrial biopsy pathology report showed the following: Endometrium, biopsy: Strips of endocervical epithelium within normal limits; mucoinflammatory material and blood; no significant endometrial tissue present. Comment: Consider repeat sampling, as clinically appropriate. The patient is complaining of vulvovaginal itching with no associated vaginal odor or any other concerns [facility] Medical History Dysplasia of cervix, low grade (TASHA 1) Left groin mass Vulvar mass Panic attacks Anxiety Depression Vitamin B 12 deficiency History of kidney stones Migraines Surgical History History of endometrial ablation Hx of lithotripsy S/P panniculectomy History of endoscopy Hx laparoscopic cholecystectomy History of bilateral tubal ligation S/P laparoscopic sleeve gastrectomy Family History Mother Alzheimer disease Dementia Father Diabetes mellitus Hypertension Sister Cancer Sister No problems noted. Brother No problems noted. Brother No problems noted. Son No problems noted. Daughter No problems noted. 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 Sexual orientation: Straight/Heterosexual Gender identity: Female Female Reproductive History Menstrual Age of Menarche: 14 Review of Systems Const All systems reviewed & are unremarkable except as noted in HPI and below Reports as per HPI and Reports no additional complaints GI Reports no additional complaints Reports no additional complaints Physical Exam Other: The patient declines vaginal exam today Assessment & Plan Assessment & Plan (1) Abnormal uterine bleeding (AUB): Comment: With squamous metaplasia on D&C pathology in 09/09 Code(s): N93.9 - Abnormal uterine and vaginal bleeding, unspecified Category: Medical Plan: Discussed with the patient the results of the pathology and the fact that endometrial tissues were insufficient for evaluation. Explained to the patient with her history of squamous metaplasia on D&C pathology on 09/09 she is am increased the risk of endometrial pathology including hyperplasia or malignancy, in addition, explained to the patient that endometrial pathology has not been ruled out given the sparsity the endometrial tissues. Offered the patient office EMB versus hysteroscopy D&C, but since the patient [facility] and is scheduled on 01/29, the patient decided to defer the management to [facility]. EMB pathology faxed to [facility] office. The patient verbalized understanding and agreed with the plan Instructed the patient to call our office back in case a referral appointment is not scheduled, missed or canceled so that we will assist on rescheduling another appointment, the patient verbalized understanding agreed with the plan. Medications: New terconazole 0.8% 1 appful vaginal BEDTIME 3 days 20 grams 0RF Coding Level of Care Code Est Pt Level 3 (92297) Diagnoses Abnormal uterine bleeding (AUB) N93.9
--- OUTSIDE RECORDS SUMMARY | 2025-01-18 16:39 | XMS_ITS | Clinical Summary ---
Author Organization [address] [facility] Address [address] [place] [address] Phone Care Team Providers Care Car Repairer Helper Name Role Phone Shanice Wilkinson NP Primary Care Provider [phone] Social History Tobacco Use Types Packs/Day Years Used Date Smoking Tobacco: Never Assessed Comments Unknown Sex and Gender Information Value Date Recorded Sex Assigned at Not on file Legal Sex Female 8:26 AM EST Gender Identity Not on file Sexual Orientation Not on file Plan of Treatment Upcoming Encounters Date Type Department Care Team ([facility] Contact Info) Description 01/29/2025 11:45 AM EDT Consult Bariatric Surgery [facility] [address] [address] Tessie Clayton MD [address] [id number] Health Maintenance Due Date Last Done Comments [...] Td or Tdap) 05/21/2023 05/21/2013 COVID-19 Vaccine ( - 2023-2 5 season) 2024 Influenza Vaccine [...] on patient's age to complete this topic [place] [address] MEDICAID ADVANTAGE Care Teams Car Repairer Helper Relationship Specialty Start Date End Date Shanice Wilkinson NP [address] [place] [address] PCP - General Nurse Practitioner 09/17/24
== END 2025-01-18 15:52 | disposition home or self-care (01) ==
LOC: HO.HWS 15:27
PROVIDERS: PCP Nurse Practitioner Family; Visit Provider Obstetrics & Gynecology
DX: N93.9 Abnormal uterine and vaginal bleeding, unspecified (principal)
CPT/HCPCS: 99213

== ENCOUNTER → 2025-01-18 15:27 | Outpatient (BNVA) | payer OTHER, SELFPAY | PROVIDERS: PCP Nurse Practitioner Family; Visit Provider Obstetrics & Gynecology | DX: N93.9 Abnormal uterine and vaginal bleeding, unspecified (principal) | CPT/HCPCS: 99212 ==

== ENCOUNTER 2025-03-01 12:23 | Outpatient (AMB) | payer OTHER, SELFPAY ==
--- OUTSIDE RECORDS SUMMARY | 2025-03-01 12:25 | XMS_ITS | Clinical Summary ---
Author Organization 175 [facility] Address [address] [place] [address] Phone Care Team Providers Care Radial Drill Operator For Plastic Name Role Phone Shanice Wilkinson NP Primary Care Provider [phone] Allergies Active Allergy Reactions Criticality Noted Date Comments Sewibmbrmq-Sggvouenamyya-Ijfw 2024 Caffeine 01/19/2013 TACHYCARDIA Oxycodone-Acetaminophen 01/19/2013 TACHYCARDIA Medications acetaminophen (TYLENOL 8 HOUR) 650 mg 8 hr tablet Take 1 tablet (650 mg total) by mouth if needed. 01/08/20 25 Active alcohol swabs pads, medicated Apply 30 each topically 1 (one) time each day. 11/14/19 25 Active busPIRone (BUSPAR) 5 mg tablet Take 0.5 tablets (2.5 mg total) by mouth 1 (one) time each day in the morning. 12/31/19 25 Active busPIRone (BUSPAR) 15 mg tablet Take 1 tablet (15 mg total) by mouth at bedtime. 01/04/20 25 Active cyanocobalamin (VITAMIN B-12) 1,000 mcg/mL injection Inject 1 mL (1,000 mcg total) into the shoulder, thigh, or buttocks 1 (one) time each day. 01/28/20 25 Active diclofenac (VOLTAREN) 1 % topical gel Apply 2 g topically if needed. 12/31/19 25 Active DULoxetine (CYMBALTA) [address] capsule Take 1 capsule (20 mg total) by mouth at bedtime. 12/31/19 25 Active esomeprazole (NexIUM) [address] capsule Take 1 capsule (40 mg total) by mouth if needed. 01/24/20 25 Active eszopiclone (LUNESTA) 3 mg tablet Take 1 tablet (3 mg total) by mouth at bedtime. Max Daily Amount: 3 mg 01/17/20 Active lithium 300 mg capsule Take 1 capsule (300 mg total) by mouth at bedtime. 01/23/20 25 Active Botox 200 unit injection Inject 200 Units into the shoulder, thigh, or buttocks every 3 (three) months. 12/14/19 25 Active BD Ultra-Fine Mini Pen Needle 31 gauge x 3/16 needle 30 each by abdominal subcutaneous route 1 (one) time each day. 01/08/20 Active Ubrelvy 100 mg tablet Take 1 tablet (100 mg total) by mouth if needed. 01/08/20 Active semaglutide (Wegovy) 0.25 mg/0.5 mL injection penIndications :Over weight Inject 0.25 mg under the skin every 7 (seven) days. 4 mL 1 01/30/20 25 025 Discontinu ed(Alterna te therapy) tirzepatide, weight loss, (Zepbound) 2.5 mg/0.5 mL injectionIndic ations:Over weight Inject 0.5 mL (2.5 mg total) under the skin every 7 (seven) days for 28 days. 2 mL 02/01/20 25 025 Active Problems Problem Noted Date Diagnosed Date Urinary incontinence 02/14/2025 Bipolar disorder ([facility] V24, [facility] V28) 05/0 10/2024 Fatty liver 01/07/2014 Polycystic ovarian syndrome 03/01/2013 Impaired glucose tolerance 03/01/2013 H. pylori infection 03/01/2013 Overview (02/14/2025): Treated 2009 GE reflux 03/01/2013 Migraines 02/27/2013 Encounters Date Type Department Care Team Description 01/31/2025 Telephone Bariatric Surgery [address] [phone] Tessie Clayton MD 01/29/2025 11:45 AM EDT Consult Bariatric Surgery [address] [phone] Tessie Clayton MD Over weight (Primary Dx) from Last 3 Months Social History Tobacco Use Types Packs/Day Years Used Date Smoking Tobacco: Never Assessed Comments Unknown Sex and Gender Information Value Date Recorded Sex Assigned at Not on file Legal Sex Female 8:26 AM EST Gender Identity Not on file Sexual Orientation Not on file Last Filed Vital Signs Vital Sign Reading Time Taken Comments Blood Pressure 104/57 01/29/2025 11:40 AM EDT Pulse 67 01/29/2025 11:40 AM EDT Temperature 36.6 ??C (97.8 ??F) 01/29/2025 11:40 AM E DT Respiratory Rate - - Oxygen Saturation - - Inhaled Oxygen Concentration - - Weight 76.2 kg (168 lb) 01/29/2025 11:40 AM EDT Height 167.6 cm (5' 6 ) 01/29/2025 11:40 AM EDT Body Mass Index 27.12 01/29/2025 11:40 AM EDT Plan of Treatment Upcoming Encounters Date Type Department Care Team (Late st Contact Info) Description 06/11/2025 1:15 PM EDT Office Visit Bariatric Surgery - [place] [address] [phone] Tessie Clayton MD [address] [address] Health Maintenance Due Date Last Done Comments Pneumococcal Vaccine: Pediatrics (0 to 5 Years) and At-Risk Patients (6 to 64 Years) (1 of 2 - PCV) 2005 Cervical Cancer Screening: P ap Smear 2007 Depression Screening 09/19/2022 HIV Screening 09/19/2022 Hepatitis C Screening 09/19/2022 Social Influencers of Health Screening 09/19/2022 Hepatitis B Vaccines (2 of 2 - CpG 2-dose series) 11/19/2023 10/22/2023 COVID-19 Vaccine (3 - 2023-2 5 season) 2024 10/22/2023, 01/21/2021 Influenza Vaccine (Season Ended) 2025 10/22/2023, 08/08/2017, 08/20/2014 DTaP,Tdap,and Td Vaccines (4 - Td or Tdap) 07/14/2027 07/14/2017, 04/23/2016, 05/21/2013 Varicella Vaccines Aged Out 05/18/2011 No longer eligible based on patient's age to complete this topic HIB Vaccines Aged Out No longer eligi ble based on patient's age to complete this topic HPV Vaccines Aged Out No longer eligi ble based on patient's age to complete this topic Hepatitis A Vaccines Aged Out No long er eligible based on patient's age to complete this topic IPV Vaccines Aged Out No longer eligi ble based on patient's age to complete this topic MMR Vaccines Aged Out No longer eligi ble based on patient's age to complete this topic Meningococcal ACWY Vaccine Aged Out N o longer eligible based on patient's age to complete this topic Meningococcal B Vaccine Aged Out No l onger eligible based on patient's age to complete this topic RSV Immunization Patients Under 20 months Aged Out No longer eligible b ased on patient's age to complete this topic Insurance [facility] MEDICAID ADVANTAGE Care Teams Radial Drill Operator For Plastic Relationship Specialty Start Date End Date Shanice Wilkinson NP [address] [place] [address] PCP - General Nurse Practitioner 09/17/24
[2025-03-01 12:33] VITALS: BP 135/69; PULSE 105; O2SAT 97; BMI 28.2
--- NOTE | 2025-03-01 12:33 | A.OFFVIS_ITS ---
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 PRN lithium carbonate ER 2 tabs PO BEDTIME medroxyprogesterone (Provera) 10 mg PO DAILY 10 days metronidazole 500 mg PO BID 14 days metronidazole 0.75%(37.5mg/5gram) 1 appful vaginal BEDTIME 5 days metronidazole 500 mg PO BID 14 days metronidazole 500 mg PO BID 7 days morphine 15 mg PO Q4-6H PRN nitrofurantoin monohyd/m-cryst 100 mg (Macrobid) 100 mg PO BID 5 days ondansetron 4 mg PO TID PRN 5 days pantoprazole (Protonix) 40 mg PO DAILY sumatriptan succinate 50 mg PO Q2-4H PRN syringe with needle (Syringe 3cc/22Gx3/4 ) As Directed terconazole 0.8% 1 appful vaginal BEDTIME 3 days terconazole 0.8% 1 appful vaginal BEDTIME 3 days terconazole 0.8% 1 appful vaginal BEDTIME 3 days PFSH Medical History Dysplasia of cervix, low grade (TASHA 1) Left groin mass Vulvar mass Panic attacks Anxiety Depression Vitamin B 12 deficiency History of kidney stones Migraines Surgical History History of endometrial ablation Hx of lithotripsy S/P panniculectomy History of endoscopy Hx laparoscopic cholecystectomy History of bilateral tubal ligation S/P laparoscopic sleeve gastrectomy Family History Mother Alzheimer disease Dementia Father Diabetes mellitus Hypertension Sister Cancer Sister No problems noted. Brother No problems noted. Brother No problems noted. Son No problems noted. Daughter No problems noted. 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 Sexual orientation: Straight/Heterosexual Gender identity: Female Female Reproductive History Menstrual Age of Menarche: 14 Physical Exam Vital Signs: Last Vital Signs Pulse 105 H 03/01/25 12:33 BP 135/69 03/01/25 12:33 Pulse Ox 97 03/01/25 12:33 Oxygen Delivery Method Room Air 03/01/25 12:33 BMI result Body Mass Index 28.2 Office Procedures AMB Joint Injection/Aspiration Joint Injection/Aspiration Primary Site: right knee Secondary Site: left knee Prep: site was prepped using sterile technique Injected: 20 mg of, Kenalog, with 3 mL of (ropivacaine 0.25%) and in the joint (on each side) Approach Used: medial parapatellar Procedure: The patient tolerated the procedure well Coding 41867 - Bilateral Large Joint Procedure code (CPT) selection complete Assessment & Plan Assessment & Plan (1) Bilateral anterior knee pain: Code(s): M25.561 - Pain in right knee; M25.562 - Pain in left knee Category: Medical Plan Patient is status post bilateral knee injections. Patient tolerated procedure well and was discharged home in stable condition with discharge instructions. All questions were answered. Coding Level of Care Code Procedure Only Diagnoses Bilateral anterior knee pain M25.561; M25.562 CPT Codes Coding - 59494 - Bilateral Large Joint: 88295 - Bilateral Large Joint ([id number])
== END 2025-03-01 12:33 | disposition home or self-care (01) ==
PROVIDERS: PCP Nurse Practitioner Family; Visit Provider Internal Medicine
DX: M25.561 Pain in right knee (principal); M25.562 Pain in left knee
CPT/HCPCS: 20610

== ENCOUNTER → 2025-03-01 12:23 | Outpatient (BNVA) | payer OTHER, SELFPAY | PROVIDERS: PCP Nurse Practitioner Family; Visit Provider Internal Medicine | DX: M25.561 Pain in right knee (principal); M25.562 Pain in left knee | CPT/HCPCS: 20610; J2795; J3301 ==

== ENCOUNTER 2025-03-14 12:46 | Outpatient (REF) | payer OTHER, SELFPAY ==
--- OUTSIDE RECORDS SUMMARY | 2025-03-14 12:48 | XMS_ITS | Clinical Summary ---
Author Organization 175 [facility] Address [address] [place] [address] Phone Care Team Providers Care Back Line Cook Name Role Phone Shanice Wilkinson NP Primary Care Provider [phone] Allergies Active Allergy Reactions Criticality Noted Date Comments Sedmdxfifk-Yeasltqjjanoa-Iznf 2024 Caffeine 01/19/2013 TACHYCARDIA Oxycodone-Acetaminophen 01/19/2013 TACHYCARDIA Medications acetaminophen (TYLENOL 8 HOUR) 650 mg 8 hr tablet Take 1 tablet (650 mg total) by mouth if needed. 5 Active alcohol swabs pads, medicated Apply 30 each topically 1 (one) time each day. 5 Active busPIRone (BUSPAR) 5 mg tablet Take 0.5 tablets (2.5 mg total) by mouth 1 (one) time each day in the morning. 5 Active busPIRone (BUSPAR) 15 mg tablet Take 1 tablet (15 mg total) by mouth at bedtime. 5 Active cyanocobalamin (VITAMIN B-12) 1,000 mcg/mL injection Inject 1 mL (1,000 mcg total) into the shoulder, thigh, or buttocks 1 (one) time each day. 5 Active diclofenac (VOLTAREN) 1 % topical gel Apply 2 g topically if needed. 5 Active DULoxetine (CYMBALTA) [address] capsule Take 1 capsule (20 mg total) by mouth at bedtime. 5 Active esomeprazole (NexIUM) [address] capsule Take 1 capsule (40 mg total) by mouth if needed. Active eszopiclone (LUNESTA) 3 mg tablet Take 1 tablet (3 mg total) by mouth at bedtime. Max Daily Amount: 3 mg 5 Active lithium 300 mg capsule Take 1 capsule (300 mg total) by mouth at bedtime. 5 Active Botox 200 unit injection Inject 200 Units into the shoulder, thigh, or buttocks every 3 (three) months. 5 Active BD Ultra-Fine Mini Pen Needle 31 gauge x 3/16 needle 30 each by abdominal subcutaneous route 1 (one) time each day. Active Ubrelvy 100 mg tablet Take 1 tablet (100 mg total) by mouth if needed. Active tirzepatide, weight loss, (Zepbound) 2.5 mg/0.5 mL injectionIndic ations:Over weight Inject 0.5 mL (2.5 mg total) under the skin every 7 (seven) days for 28 days. 2 mL 02/29/20 Active Problems Problem Noted Date Diagnosed Date Urinary incontinence 02/14/2025 Bipolar disorder ([facility] V24, [facility] V28) 10/2024 Fatty liver 01/07/2014 Polycystic ovarian syndrome 03/01/2013 Impaired glucose tolerance 03/01/2013 H. pylori infection 03/01/2013 Overview (02/14/2025): Treated 2010 GE reflux 03/01/2013 Migraines 02/27/2013 Encounters Date Type Department Care Team Description 01/31/2025 Telephone Bariatric Surgery [address] [phone] Tessie Clayton MD 01/29/2025 11:45 AM EDT Consult Bariatric Surgery [address] [phone] Tessie Clayton MD Over weight (Primary Dx) [...] PM EDT Office Visit Bariatric Surgery - [place] [address] [facility] [address] [place] [address] Tessie Clayton MD 175 [facility] [address] [place] [address] Health Maintenance Due Date Last Done Comments [...] patient's age to complete this topic Insurance [facility] MEDICAID ADVANTAGE Care Teams Back Line Cook Relationship Specialty Start Date End Date Shanice Wilkinson NP [address] [place] [address] PCP - General Nurse Practitioner 09/17/24
[2025-03-14 13:51] LABS: Appearance Urine Clear; Color Urine Yellow; Glucose Urine UA Negative (Negative); Leukocyte Esterase Urine Moderate (2+) (Negative); Nitrite Urine Negative (Negative); PH 5.5 (5.0-9.0); UMIC TRIGGER UA YES; Urine Blood Negative (Negative); Urine Ketones Trace mg/dL (Negative); Urine Protein Negative (Neg-Trace)
[2025-03-14 14:08] LABS: Bacteria Urine None Seen (None Seen); Hyaline Casts Urine 0-2 /LPF (0-2); RBC Urine 0-2 /HPF (0-2); WBC Urine >50 /HPF (0-5)
== END 2025-03-14 12:47 | disposition home or self-care (01) ==
LOC: HO.LAB 12:46
PROVIDERS: Visit Provider Nurse Practitioner Family
DX: R39.9 Unspecified symptoms and signs involving the genitourinary system (principal)
CPT/HCPCS: 81001; 87086; 87147

== ENCOUNTER 2025-04-02 14:21 | Outpatient (REF) | payer OTHER, SELFPAY ==
--- NOTE | ~2025-04-02 | US_ITS ---
EXAMINATION: US RETROPERITONEAL COMPLETE (RENAL) CLINICAL INFORMATION: Macroscopic hematuria. COMPARISON: None available. TECHNIQUE: Real-time imaging of the kidneys and bladder. FINDINGS: RIGHT KIDNEY: 9.9 x 4.1 x 5.4 cm (SAG x AP x TRV). The kidney is normal in size, contour, and echogenicity. Renal cortical thickness is normal. No calculi or focal parenchymal lesions. No hydronephrosis. LEFT KIDNEY: 9.6 x 5.5 x 4.4 cm (SAG x AP x TRV). The kidney is normal in size, contour, and echogenicity. Renal cortical thickness is normal. No calculi or focal parenchymal lesions. No hydronephrosis. BLADDER: Well distended with trabeculated bladder wall with mild thickening but no focal lesion or echogenic stone.. Bilateral ureteral jets are demonstrated. Prevoid bladder volume is 178 mL. Postvoid bladder volume is 4.3 mL. US/US retroperitoneal comp IMPRESSION: Normal ultrasound kidneys Normal bilateral ureteral jets. Mild trabeculation of bladder wall with mild thickening Electronically signed by: Julián Roberts MD 04/03/2025 07:52 AM EDT
--- OUTSIDE RECORDS SUMMARY | 2025-04-02 16:38 | XMS_ITS | Clinical Summary ---
Author Organization 175 [facility] Address [address] [place] [address] Phone Care Team Providers Care Lockstitch Cup Setter Name Role Phone Shanice Wilkinson NP Primary Care Provider [phone] Allergies Active Allergy Reactions Criticality Noted Date Comments Fqobhfsjgg-Kjxqxehnfnuvo-Zldo 2024 Caffeine 01/19/2013 TACHYCARDIA Oxycodone-Acetaminophen 01/19/2013 TACHYCARDIA [...] at bedtime. Max Daily Amount: 3 mg Active lithium 300 mg capsule Take 1 capsule (300 mg total) by mouth at bedtime. Active Botox 200 unit injection Inject 200 Units into the shoulder, thigh, or buttocks every 3 (three) months. Active BD Ultra-Fine Mini Pen Needle 31 gauge x 3/16 needle 30 each by abdominal subcutaneous route 1 (one) time each day. Active Ubrelvy 100 mg tablet Take 1 tablet (100 mg total) by mouth if needed. Active Active Problems Problem Noted Date Diagnosed Date Urinary incontinence 02/14/2025 Bipolar disorder ([facility] V24, [facility] V28) 10/2024 Fatty liver 01/07/2014 Polycystic ovarian syndrome 03/01/2013 Impaired glucose tolerance 03/01/2013 H. pylori infection 03/01/2013 Overview (02/14/2025): Treated 2009 GE reflux 03/01/2013 Migraines 02/27/2013 Encounters Date Type Department Care Team Description 01/31/2025 Telephone Bariatric Surgery [address] [phone] Tessie Clayton MD 01/29/2025 11:45 AM EDT Consult Bariatric Surgery [address] [phone] Tessie Clayton MD Over weight (Primary Dx) [...] PM EDT Office Visit Bariatric Surgery - [place] [address] [place] [phone] Tessie Clayton MD [address] [facility] [address] [place] [address] Health Maintenance Due Date Last Done Comments [...] patient's age to complete this topic Insurance [facility] MEDICAID ADVANTAGE Care Teams Lockstitch Cup Setter Relationship Specialty Start Date End Date Shanice Wilkinson NP [address] [place] [address] PCP - General Nurse Practitioner 09/17/24
== END 2025-04-02 14:22 | disposition home or self-care (01) ==
LOC: HO.US 14:21
PROVIDERS: PCP Nurse Practitioner Family; Visit Provider Nurse Practitioner Family
DX: R31.29 Other microscopic hematuria (principal)
CPT/HCPCS: 76770

== ENCOUNTER → 2025-04-02 14:23 | Outpatient (BNV) | payer OTHER, SELFPAY | PROVIDERS: PCP Nurse Practitioner Family; Visit Provider Radiology Diagnostic Radiology | DX: R31.0 Gross hematuria (principal) | CPT/HCPCS: 76770 ==

== ENCOUNTER 2025-07-03 09:44 | Outpatient (AMB) | payer OTHER, SELFPAY ==
--- NOTE | 2025-07-03 10:45 | MHC.OFFVIS ---
Vital Signs 07/03/25 10:46 Height 5 ft 6 in Weight 160 lb BMI 25.8 BP 100/68 Blood Pressure Location Rt brachial Position Sitting Respiration 16 Pulse 92 Pulse Source Pulse Oximeter Pulse Oximetry (%) 98 Oxygen Delivery Method Room Air Intake Visit Reasons: BILATERAL KNEE INJECTIONS Capture Manager Required: No Forensic Audit Expert: Forensic Audit Expert Present Accompanied by: Will Brizuela Allergies No Known Allergies Allergy (Verified 07/03/25 10:48) Medication List - Last Reconciled 07/03/25 by Pascale Elmore LPN amoxicillin-pot clavulanate 500-125 mg (Augmentin) 1 tab PO Q8H 10 days bupropion HCl XL 300 mg PO DAILY buspirone 1 tab PO BEDTIME cyanocobalamin (vitamin B-12) 1,000 mcg IM QMONTH diclofenac sodium 1% 4 grams topical QID ketorolac 10 mg PO .b.i.d. PRN lithium carbonate ER 2 tabs PO BEDTIME medroxyprogesterone (Provera) 10 mg PO DAILY 10 days ondansetron 4 mg PO TID PRN 5 days pantoprazole (Protonix) 40 mg PO DAILY sumatriptan succinate 50 mg PO Q2-4H PRN syringe with needle (Syringe 3cc/22Gx3/4 ) As Directed HPI HPI BILATERAL KNEE INJECTIONS: Details: History of Present Illness The patient is a 39-year-old female presenting with bilateral knee pain requiring repeat corticosteroid injections. The knee pain has been persistent, with the last injection administered over two months ago, which provided some relief. The patient reports that the pain is exacerbated by playing softball, particularly during the initial days, and is severe enough to interfere with her ability to run bases. Additionally, the patient experiences significant pain behind her feet, which she describes as horrible and affecting her ability to walk the next day after physical activity. The pain in her legs is described as more severe on one side, making it difficult for her to walk. Pain Description - Onset: Pain has been ongoing, with the last injection over two months ago. - Quality: Described as severe, particularly after physical activity. - Location: Bilateral knees and behind the feet. - Exacerbating factors: Playing softball, running bases. - Relieving factors: Previous corticosteroid injections provided some relief. - Impact: Interferes with ability to walk and run. Procedure - Bilateral intraarticular knee injections: Informed consent obtained, patient in sitting position, 25-g needle used for injection into intraarticular space, 30 mg of Kenalog with 0.25% ropivacaine, 3 mL injected without pain or complications on each side. COUNTS INCLUDE [facility] BEDS AT [facility] Medical History Dysplasia of cervix, low grade (TASHA 1) Left groin mass Vulvar mass Panic attacks Anxiety Depression Vitamin B 12 deficiency History of kidney stones Migraines Surgical History History of endometrial ablation Hx of lithotripsy S/P panniculectomy History of endoscopy Hx laparoscopic cholecystectomy History of bilateral tubal ligation S/P laparoscopic sleeve gastrectomy Family History Mother Alzheimer disease Dementia Father Diabetes mellitus Hypertension Sister Cancer Sister No problems noted. Brother No problems noted. Brother No problems noted. Son No problems noted. Daughter No problems noted. 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 Sexual orientation: Straight/Heterosexual Gender identity: Female Female Reproductive History Menstrual Age of Menarche: 14 Physical Exam Vital Signs: Last Vital Signs Pulse 92 07/03/25 10:46 Resp 16 07/03/25 10:46 BP 100/68 07/03/25 10:46 Pulse Ox 98 07/03/25 10:46 Oxygen Delivery Method Room Air 07/03/25 10:46 BMI result Body Mass Index 25.8 Assessment & Plan Assessment & Plan (1) Bilateral anterior knee pain: Code(s): M25.561 - Pain in right knee; M25.562 - Pain in left knee Category: Medical (2) Patellofemoral pain syndrome of both knees: Code(s): M22.2X1 - Patellofemoral disorders, right knee; M22.2X2 - Patellofemoral disorders, left knee Category: Medical Plan Plan Patient was informed and verbally consented to the use of an ambient scribe for clinic note documentation during this visit. 1. Bilateral Knee Pain - Plan: Administered bilateral intraarticular knee injections with Kenalog and ropivacaine. - Follow-up: Patient advised to return in three to four months or sooner if needed. Discussion Notes Informed consent was obtained for bilateral intraarticular knee injections, and the procedure was explained to the patient, including the use of Kenalog and ropivacaine. The patient was advised to follow up in three to four months or sooner if necessary, and the importance of monitoring pain levels and activity was discussed. Patient Instructions - Monitor pain levels and activity. - Follow up in three to four months or sooner if pain persists or worsens. Coding Level of Care Code Procedure Only Diagnoses Bilateral anterior knee pain M25.561; M25.562 Patellofemoral pain syndrome of both knees M22.2X1; M22.2X2
[2025-07-03 10:46] VITALS: BP 100/68; PULSE 92; RESP 16; O2SAT 98; BMI 25.8
--- OUTSIDE RECORDS SUMMARY | 2025-07-03 11:33 | XMS_ITS | Clinical Summary ---
Author Organization [address] [facility] Address [address] [place] [address] Phone Care Team Providers Care Computer Repair Technician Name Role Phone Shanice Wilkinson NP Primary Care Provider [phone] Allergies Active Allergy Reactions Criticality Noted Date Comments Mcqoyjiweg-Rvvbzrtkxzlgy-Amyn 2024 Caffeine 01/19/2013 TACHYCARDIA Oxycodone-Acetaminophen 01/19/2013 TACHYCARDIA [...] mg total) by mouth if needed. 01/24/20 Active eszopiclone (LUNESTA) 3 mg tablet Take 1 tablet (3 mg total) by mouth at bedtime. 01/17/20 Active lithium 300 mg capsule Take 1 capsule (300 mg total) by mouth at bedtime. 01/23/20 25 Active Botox 200 unit injection Inject 200 Units into the shoulder, thigh, or buttocks every 3 (three) months. 12/14/19 25 Active BD Ultra-Fine Mini Pen Needle 31 gauge x 3/16 needle 30 each by abdominal subcutaneous route 1 (one) time each day. 01/08/20 25 Active Ubrelvy 100 mg tablet Take 1 tablet (100 mg total) by mouth if needed. 01/08/20 25 Active tirzepatide, weight loss, (Zepbound) 10 mg/0.5 mL injection Inject 0.5 mL (10 mg total) under the skin every 7 (seven) days. 2 mL 06/26/20 25 025 Active tirzepatide, weight loss, (Zepbound) 5 mg/0.5 mL injection Inject 0.5 mL (5 mg total) under the skin every 7 (seven) days. 2 mL 05/15/20 25 025 Discontinued Zepbound 5 mg/0.5 mL injection USE TO INJECT 0.5 MLS (5MG TOTAL) UNDER THE SKIN EVERY 7 DAYS 2 mL 06/05/20 25 025 Discontinued tirzepatide, weight loss, (Zepbound) 7.5 mg/0.5 mL injectionIndic ations:Over weight Inject 0.5 mL (7.5 mg total) under the skin every 7 (seven) days. 2 mL 06/11/20 25 025 Discontinued Active Problems Problem Noted Date Diagnosed Date Urinary incontinence 02/14/2025 Bipolar disorder ([facility] V24, [facility] V28) 10/2024 Fatty liver 01/07/2014 Polycystic ovarian syndrome 03/01/2013 Impaired glucose tolerance 03/01/2013 H. pylori infection 03/01/2013 Overview (02/14/2025): Treated 2010 GE reflux 03/01/2013 Migraines 02/27/2013 Encounters Date Type Department Care Team Description 06/11/2025 1:15 PM EDT Office Visit Bariatric Surgery [address] [phone] Tessie Clayton MD Over weight (Primary Dx) 05/15/2025 Telephone Bariatric Surgery [address] [phone] Tessie Clayton MD from Last 3 Months Social History Tobacco Use Types Packs/Day Years Used Date Smoking Tobacco: Never Assessed Comments Unknown Sex and Gender Information Value Date Recorded Sex Assigned at Not on file Legal Sex Female 8:26 AM EST Gender Identity Not on file Sexual Orientation Not on file Last Filed Vital Signs Vital Sign Reading Time Taken Comments Blood Pressure 99/64 06/11/2025 12:54 PM EDT Pulse 77 06/11/2025 12:54 PM EDT Temperature 36.6 C (97.8 F) 01/29/2025 11:40 AM EDT Respiratory Rate - - Oxygen Saturation - - Inhaled Oxygen Concentration - - Weight 75.8 kg (167 lb) 06/11/2025 12:54 PM EDT Height 167.6 cm (5' 6 ) 01/29/2025 11:40 AM EDT Body Mass Index 26.95 01/29/2025 11:40 AM EDT Plan of Treatment Upcoming Encounters Date Type Department Care Team (Late st Contact Info) Description 12/12/2025 1:00 PM EST Office Visit Bariatric Surgery [address] [phone] Tessie Clayton MD [address] [place] [phone] Health Maintenance Due Date Last Done Comments Pneumococcal Vaccine: Pediatrics (0 to 5 Years) and At-Risk Patients (6 to 49 Years) (1 of 2 - PCV) 2005 Cervical Cancer Screening: P ap Smear 2007 HIV Screening 09/19/2022 Hepatitis C Screening 09/19/2022 Social Influencers of Health Screening 09/19/2022 Hepatitis B Vaccines (2 of 2 - CpG 2-dose series) 11/19/2023 10/22/2023 Depression Screening 10/17/2024 COVID-19 Vaccine (3 - 2024-2 6 season) 2025 10/22/2023, 01/21/2021 Influenza Vaccine (#1) 2025 , 08/08/2017, 08/20/2014 DTaP,Tdap,and Td Vaccines (4 - [...] to complete this topic Insurance [facility] [employer]ICA[employer] ADVANTAGE Care Teams Computer Repair Technician Relationship Specialty Start Date End Date Shanice Wilkinson NP [address] [place] [id number] PCP - General Nurse Practitioner 09/17/24
== END 2025-07-03 11:14 | disposition home or self-care (01) ==
LOC: HO.PMC 09:45
PROVIDERS: PCP Nurse Practitioner Family; Visit Provider Internal Medicine
DX: M25.561 Pain in right knee (principal); M25.562 Pain in left knee; M22.2X1 Patellofemoral disorders, right knee; M22.2X2 Patellofemoral disorders, left knee
CPT/HCPCS: 20610

== ENCOUNTER → 2025-07-03 09:44 | Outpatient (BNVA) | payer OTHER, SELFPAY | PROVIDERS: PCP Nurse Practitioner Family; Visit Provider Internal Medicine | DX: M25.561 Pain in right knee (principal); M25.562 Pain in left knee; M22.2X1 Patellofemoral disorders, right knee; M22.2X2 Patellofemoral disorders, left knee | CPT/HCPCS: 20610 ==